=== PATIENT | male | born 1940 | race Caucasian/White ===

== ENCOUNTER 2017-07-22 21:08 | Inpatient (IN) | payer MEDICARE, OTHER ==
[~2017-07-22] VITALS: Ht 180.3 cm; Wt 82.6 kg
[~2017-07-22 21:08] MED LIST: ATORVASTATIN CA20 MG PO; CEPHALEXIN500 MG PO; CO Q-10300 MG PO; COZAAR25 MG PO; DIGOXIN125 MCG PO; FISH OIL 1,2001 EACH PO; FLAXSEED1000 MG PO; FLOVENT DISKU250 MCG INH; FOSAMAX70 MG PO; FUROSEMIDE20 MG PO; K-TAB10 MEQ PO; PREDNISONE20 MG PO; PROSTATE THERA1 EACH PO; SPIRIVA18 MCG INH; SPIRONOLACTONE25 MG PO; SYMBICORT 16010.2 GM INH; TERAZOSIN HCL5 MG PO; VITAMIN D31000 UNI1 PO; WARFARIN SODIUM5 MG PO; XARELTO20 MG PO
[2017-07-22] MEDS ORDERED: ALDACTONE25 MG PO (21:19)
[2017-07-22] MEDS ORDERED: ELIQUIS5 MG PO (21:21)
[2017-07-22] MEDS ORDERED: SYMBICORT 16010.2 GM INH (21:24)
--- NOTE | 2017-07-23 01:04 | NUR ---
PT ARRIVED TO ROOM 127 AT 2345. TRANSFERRED SELF BY ROLLING INTO BED. VERY SOB WITH ANY EXERTION. RR 30'S, HR 120'S-130'S, SPO2 84% AFTER MOVEMENT. INCREASED 02 TO 3L. REMINDED PT TO BREATHE THROUGH NOSE. PT TAKING A LONG TIME TO RECOVER. CALLED DR KINCAID AT 5020 TO UPDATE. 10MG CARDIZEM GIVEN IV PER ORDER. 2ND IV STARTED BY HARDWARE ENGINEER IN LFA. 2GM MAGNESIUM SULFATE STARTED. PT WITH IMPROVED HEART RATE AFTER 15-30MIN OF IV PUSH CARDIZEM. CARDIZEM GTT INCREASED UPON ARRIVAL UP TO 15MG/HR. PT REPORTS HIS SHORT TERM MEMORY IS NOT GOOD IT USED TO BE. LEFT AFTER PT SETTLED IN BED. 16FR GILLETTE CATH PLACED FOR URINARY URGENCY/FREQUENCY AND TO REDUCE SOB WITH MOVEMENT. DRAINING YELLOW URINE. LE NOTED TO BE RED ON SHINS, 1-2+ EDEMA ON FEET/LEGS, R FOOT SLIGHTLY MORE EDEMATOUS THAN L. 1CM BLISTER ON L LOREDO. AND SCAB ON R LOREDO, 1-2CM IN LENGTH. BRUISE ON L HAND FROM FALL, AND MULTIPLE BRUISES ON ARMS. PT CURRENTLY UP TO COMMODE WITH 2 PERSON ASSIST. HR UP TO 140'S WITH MOVEMENT, OTHERWISE 90'-110'S AT REST. SPO2 93% ON 3L. RR 30.
--- NOTE | 2017-07-23 01:52 | NUR ---
PT HR NOW 80'S AT REST. RR 25. TITRATED CARDIZEM GTT TO 10MG/HR. SPO2 94%.
--- NOTE | 2017-07-23 02:12 | NUR ---
CARDIZEM GTT DECREASED TO 5MG/HR. PT ASLEEP HOB UP NEARLY 90. HR 70'S-80'S. SPO2 93%. RR 20.
--- NOTE | 2017-07-23 04:12 | NUR ---
PT ATTEMPTED TO USE BEDPAN X2. UNSUCCESSFUL. REMAINS VERY SHAKY, REPORTS IT WORSE SINCE YESTERDAY. PT VERY SOB WITH ANY ACTIVITY, OCCASIONAL NON-PRODUCTIVE COUGH. RT IN TO ADMINISTER NEB TX.
--- NOTE | 2017-07-23 05:22 | NUR ---
PT USED BEDPAN TO HAVE MED-SMALL SOFT BROWN STOOL. PT DESATURATES TO MID-80'S WITH ANY EXERTION.
--- NOTE | 2017-07-23 05:56 | NUR ---
PT HAD SM SOFT BM ON BEDPAN. NO OTHER NEEDS. PLACED ON OXYMASK 3L FOR CONTINUED MOUTH BREATHING.
--- NOTE | 2017-07-23 07:51 | NUR ---
PT RESTING IN BED AND AT BEDSIDE. DILTIAZEM RUNNING AT 5ML/HR, HR 77 AND LAST BP 112/66. O2 87% WITH O2 AT 3L MASK, TITRATED TO 4L AND O2 CURRENTLY 92%. GILLETTE CATH IN PLACE, URINE IS CONCENTRATED WITH PINK TINGE. PT STATES HE DID NOT REST WELL LAST NIGHT. INCREASED TREMORS. DENIES PAIN AT THIS TIME. DENIES SOB WITH REST BUT C/O INCREASED SOB WITH ANY MOVEMENT. PT STATES COUGH HAS WORSENED, NO SPUTUM PRODUCTION.
--- NOTE | 2017-07-23 08:20 | NUR ---
PT'S STATES THAT THE PT HAS HAD FALLS IN THE PAST. STATES PT TAKE HOME O2 OFF FOR 20 MINS OR MORE, ATTEMPTS TO STAND, AND "BLACKS OUT." PROVIDED EDUCATION ON HOME O2 USE AND AMBULATION SAFETY. PT AND VERBALIZED AN UNDERSTANDING AND WERE AGREEABLE.
--- NOTE | 2017-07-23 08:45 | NUR ---
DR. KINCAID IN ROOM TO ASSESS PT AND UPDATE PLAN OF CARE. WILL AWAIT NEW ORDERS.
--- NOTE | 2017-07-23 09:10 | EKG ---
[facility] [address] [place], [place] [address] Signed Atrial fibrillation with rapid ventricular response Possible Anterior infarct , age undetermined Abnormal ECG No previous ECGs available Confirmed by YOANNA KINCAID MD ([id number]) on 07/23/2017 9:09:56 AM Electronically Signed By: YOANNA KINCAID MD 07/23/17 0910 PATIENT NAME: KADY SARMIENTO Electrocardiogram DATE OF : 38 PHYSICIAN: YOANNA KINCAID MD REPORT #: [id number] REPORT IS CONFIDENTIAL AND NOT TO BE RELEASED WITHOUT AUTHORIZATION
--- NOTE | 2017-07-23 09:39 | NUR ---
SHASHANKY THERAPY IN ROOM AT THIS TIME.
--- NOTE | 2017-07-23 10:10 | NUR ---
PT EQUESTING TO HVE A BEER. 1 BEER WITH MEAL IN ORDERS. PT PROVIDED WITH 1 CAN OF BEER AT THIS TIME.
--- NOTE | 2017-07-23 11:21 | NUR ---
MRI SCREENING FORM FILLED OUT WITH PT AND PT'S . ALL QUESTIONS ANSWERED AT THIS TIME. PT REQUESTING TO SIGN FORM, FORM SIGNED AND FAXED.
--- NOTE | 2017-07-23 12:42 | NUR ---
PT RESTING IN BED, SUFFERING FROM TREMORS IN HANDS AND ARMS. VERY PLEASANT, ALERT AND ORIENTED. PT MENTIONED THAT HE WAS FEELING BETTER, BUT HOPING FOR MORE ANSWERS. PT REQUESTED PRAYER, BUT ASKED IF I COULD WAIT UNTIL HIS PALOMO WAS IN RM. SHE HAD JUST STEPPED OUT, AND THEM REAPPEARED. HAD PRAYER, THEY BOTH THANKED ME. BOTH REQUESTED I RETURN. WILL FOLLOW NEEDED
--- NOTE | 2017-07-23 13:00 | NUR ---
PT OFF UNIT AND TO MRI AREA. NURSE PRESENT AND BEDSIDE TO OBSERVE AND ASSESS PT. PT ON 6L VIA OXYMASK, SPO2 92%.
--- NOTE | 2017-07-23 13:45 | NUR ---
THIS RN ACCOMPANIED PATIENT DOWN TO MRI. PT TOLERATED FAIR BUT DID HAVE TROUBLE HOLDING STILL AT TIMES DUE TO HIS TREMULOUSNESS. PT RETURNED AT 1345 AND WITH THE HELP OF 3 RNs, WAS TRANSFERRED BACK ONTO CCU BED. PT VERY SHORT OF BREATH AFTER THIS MOVEMENT AND REMAINS ON 8 L OXYMASK DURING THIS MOVEMENT. PATIENT RE-CONNECTED TO CCU MONITOR AND IVF.
--- NOTE | 2017-07-23 14:00 | NUR ---
TWICE IN TO SEE PATIENT. PATIENT WITH STAFF BOTH TIMES. WILL CHECK LATER.
--- NOTE | 2017-07-23 14:10 | NUR ---
GILLETTE BAG NOTED TO HAVE INCREASED BLOOD. URINE OUTPUT NOTED TO BE DECREASED FROM MORNING ASSESSMENT. PT HAVING INCREASED RESTLESSNESS, IRRITABILITY, AND ANXIETY. PT OFFERED BEER AT THIS TIME, DECLINED. EDUCATION PROVIDED ON POSSIBLE ETOH WITHDRAWL AND SYMPTOMS TO MONITOR FOR. PROVIDER NOTIFIED OF ABOVE MENTIONED CHANGES, 1L BOLUS OF NS ORDERED.
--- NOTE | 2017-07-23 14:45 | NUR ---
PT'S STATES THAT THE PT REQUESTED SHE BRING IN WHISKEY FOR HIM TO DRINK. STATES PT DRINKS SEVERAL DRINK THROUGHOUT THE DAY, HOWEVER SINCE THE PT HAS HAD INCREASED DIFFICULTY WITH AMBULATING SHE HAS PROVIDED ALCOHOL. PT'S STATES THAT SHE HAS NOT BEEN SERVING STRONG OF DRINKS FOR THE LAST WEEK. PT ASSESSED FOR ALCOHOL USE. PT STATES HE DRINK 3-4 DOUBLE WHISKEY WITH WATER ALONG WITH CANS OF BEER THROUGHOUT THE DAY. PROVIDER NOTIFIED OF ALCOHOL USE AND INCREASED ETOH S/SX. ATIVAN AND CWA ORDERED. WILL CONTINUE TO MONITOR.
--- NOTE | 2017-07-23 18:06 | NUR ---
PATIENT HAD LABS DRAWN AROUND 1645 BY RN. PT WAS LAST GIVEN ATIVAN AROUND 1610 1 MG, FOR ETOH WITHDRAWAL SYMPTOMS. PATIENT NOTED TO BE MOVING AROUND A LOT ON TELEMETRY AND THIS RN WENT INTO ROOM TO FIND THAT PATIENT HAD JUST PULLED HIS GILLETTE OUT OF HIS BLADDER, WITH THE BALOON STILL INTACT. PATIENT WAS IMMEDIATELY NOTED TO BE BLEEDING FROM THE URETHRA, AND WAS ATTEMPTING TO PUT KLEENEX OVER THE AREA. WHEN ASKING THE PATIENT ABOUT WHAT HAD HAPPENED, HE SIMPLY STATES, "I HAD TO PEE." PATIENT HAD NOT BEEN PULLING AT GILLETTE EARLIER TODAY, HOWEVER THERE WAS SOME BLOODY TINGED URINE THAT WAS COMING THROUGH THE GILLETTE EARLIER, HOWEVER THIS WAS STARTING TO CLEAR UP. PATIENT WAS HELPED TO GET CLEANED UP BUT HIS URETHRA CONTINUED TO HAVE BLOOD DRAINING FROM IT. DR. KINCAID WAS IN UNIT AND NOTIFIED. PATIENT WAS THEN AT THIS POINT TRANSFERRED TO ROOM 129 FOR CLOSER MONITORING FROM THE NURSE'S STATION. PT'S ARRIVED BACK TO CCU AROUND THIS TIME WELL. GILLETTE CATHETER REPLACED WITH A [address] KINCAID WITH 2 LIDOCAINES USED AND 2 ATTEMPTS. PT HAS HAD LARGE AMOUNT OF BLOODY CLOTS PASSING THROUGH INTO GILLETTE CATHETER BAG. ENTIRE GILLETTE BAG WAS CHANGED DUE TO BLOOD CLOTTING AND CLOGGING THE UROMETER PORTION OF THE BAG. BAG APPROXIMATED TO BE ABOUT 200 ML OF URINE AND BLOOD IN THE BAG. PATIENT IS BECOMING INCREASINGLY AGITATED AND IN NEED OF LORAZEPAM FOR CONTROL OF ETOH W/D SYMPTOMS.
--- NOTE | 2017-07-23 18:12 | NUR ---
PATIENT GIVEN ANOTHER DOSE OF ATIVAN AROUND 1805. PATIENT WILL REMAIN CALM FOR ABOUT 10 MINUTES AND THEN HE WILL START RIPPING THE COVERS OFF AND ATTEMPTS TO GET OUT OF BED. PT IS HARD TO REASON WITH AND GETS HIS MIND SET THAT HE IS GOING TO GET OUT OF BED. PT WILL ALSO START TO GRAB FOR HIS GILLETTE CATHETER. RN STAYING IN ROOM WITH PATIENT AT THIS TIME.
--- NOTE | 2017-07-23 18:13 | NUR ---
PATIENT HAS BEEN MOVED TO 129 FOR CLOSE OBSERVATION AFTER PULLING GILLETTE OUT. STAFF REQUESTS NOT TO WAKE HIM. STATES PATIENT MAY BE DISPLAYING SOME WITHDRAWL SYMPTOMS. WILL DEFER ASSESSMENT UNTIL TOMORROW. FAMILY NOT IN ROOM.
--- NOTE | 2017-07-23 18:30 | NUR ---
DR KINCAID UPDATED ON PATIENT VITAL SIGNS, AND OVERALL STATUS. NO FUTHER ORDERS AT THIS TIME.
--- NOTE | 2017-07-23 18:34 | NUR ---
DILTIAZEM CHANGED FROM IV TO 45MG PO, HR 70-90, HR INCREASED TO LOW 100'S WHEN INCREASED AGGITATION NOTED. O2 NEEDS HAVE INCREASED THROUGHOUT THE DAY, CURRENTLY 10L OXYMASK AND SPO2 95%. NS RUNNING AT 75 ML/HR. IV SITES INCLUDE 20G RW AND 20G LF, WNL. GILLETTE DRAINING BLOOD TINGED URINE. BLOODY DISCHARGE FROM URETHRA NOTED, SITE CLEANSED, ATTEND IN PLACE. PT CONTINUES TO ATTEMPT TO PULL AT GILLETTE WHEN AWAKE. PT ATTEMPTS TO GET OUT OF BED AND IS VERY AGGITATED WHEN AWAKE. 3 DOSES OF ATIVAN GIVEN AND PT IS RESTING COMFORTABLY AT THIS TIME. PT WILL NEED TO BE MONITORED FOR CONFUSION AND INCREASED S/SX OF ETOH WITHDRAWL.
--- NOTE | 2017-07-23 18:50 | NUR ---
SITTING UP AT BEDSIDE. FAMILY IN ROOM. FACE FLUSHED.
--- NOTE | 2017-07-23 20:00 | NUR ---
PATIENT RESTING IN BED, NO TREMORS, APPEARS TO BE AT EASE, PATIENT UNABLE TO ANSWER QUESTIONS AT THIS TIME DUE TO MENTAL STATUS, EYES OPEN TO VOICE AND PHYSICAL STIMULI. MD AWARE OF PATIENT'S CURRENT CONDITION. CALL LIGHT WITHIN REACH, BED ALARM ON.
--- NOTE | 2017-07-23 22:22 | NUR ---
PT REMAINS ASLEEP. SNORING.
--- NOTE | 2017-07-23 22:37 | NUR ---
REPOSITIONED PATIENT FOR COMFORT, PATIENT RESPONDS TO VOICE, VERBALIZES THAT HE DOES NOT HAVE PAIN. PATIENT DOES NOT ANSWER ANY OTHER QUESTIONS. APPEARS TO BE COMFORTABLE, PATIENT IS TREMULOUS WHEN STIMULATED, QUICKLY CLOSES EYES AND NO LONGER HAS TREMORS WHEN ASLEEP. CALL LIGHT WITHIN REACH.
--- NOTE | 2017-07-23 23:02 | NUR ---
CIWA SCORE OF 13, 1 MG IV ATIVAN GIVEN PER EMAR. VITALS ARE STABLE, CALL LIGHT WITHIN REACH.
--- NOTE | 2017-07-24 | NUR ---
PATIENT RESTING IN BED, BREATHING IS UNLABORED, O2 SATURATION IS 94% ON 8L O2 VIA OXYMASK, RR IS 22. CIWA OF 0. CALL LIGHT WITHIN REACH.
--- NOTE | 2017-07-24 01:00 | NUR ---
PATIENT RESTING IN BED, BREATHING IS UNLABORED AT THIS TIME, RR IS 19, O2 SATURATION IS 92% ON 8L O2 VIA OXYMASK. CIWA OF 0. CALL LIGHT WITHIN REACH.
--- NOTE | 2017-07-24 02:03 | NUR ---
PATIENT RESTING IN BED, REPOSITIONED FOR COMFORT. VITALS STABLE, APPEARS TO BE ASLEEP. CIWA OF 0, FLACC SCORE OF 0. CALL LIGHT WITHIN REACH.
--- NOTE | 2017-07-24 03:14 | NUR ---
02 TITRATED BACK TO 10L NC SATS HAD DECT TO UPPER 80'S.
--- NOTE | 2017-07-24 04:07 | NUR ---
PT WILL OPEN EYES TO NAMED BEING CALLED LOUDLY. IS UNABLE TO FOLLOW DIRECTIONS. WHEN ORAL CARE DONE, PT SHOOK HEAD. PT STRAIGHTED IN BED. WILL MOVE LEGS SPONTANEOUSLY. DR KINCAID CALLED RE PT MENTAL STATUS AND TIME FOR ORAL MED. HR 80'S. WILL HOLD ORAL CARDIZEM FOR NOW.
--- NOTE | 2017-07-24 04:28 | NUR ---
AGITATED, TRYING TO PULL AT GILLETTE. UNABLE TO FOLLOW DIRECTIONS. GIVEN 1 MG ATIVAN IV TITRATING FOR EFFECT.
--- NOTE | 2017-07-24 05:56 | NUR ---
PATIENT RESTING, CIWA OF 0. CALL LIGHT WITHIN REACH, VITALS STABLE.
--- NOTE | 2017-07-24 08:15 | NUR ---
PT SLEEPING, ASSESSMENT COMPLETED. R.T. HERE AND NEB TX GIVEN, PT PAULO WELL. PT MOVES ARMS BUT IS NON-VERBAL AT THIS TIME.
--- NOTE | 2017-07-24 08:19 | NUR ---
PATIENT RESTING IN BED, EYES CLOSED. WASH CLOTH SET OUT FOR A LATER TIME. PATIENT CALL LIGHT IN REACH. NO OTHER NEEDS AT THIS TIME.
--- NOTE | 2017-07-24 09:16 | NUR ---
PT CONTINUES TO LAY ON SIDE. RESPS EVEN. APPEARS COMFORTABLE. WHEN PT BEGINS TO WAKE, WILL GIVE AM MEDS.
--- NOTE | 2017-07-24 09:46 | NUR ---
PATIENT RESTING IN BED, EYES CLOSED. PATIENT DOES NOT WAKE WHEN TOUCHED. THIS PREASSEMBLER PRINTED CIRCUIT BOARD NOTICED PATIENT HAVING TREMORS. RN IS AWARE. PATIENT CALL LIGHT IN REACH. NO OTHER NEEDS AT THIS TIME.
--- NOTE | 2017-07-24 09:53 | NUR ---
PT CONTINUES WITH EYES CLOSED. HOWEVER IS BEGINNING TO HAVE TREMORS. 2 MG OF IV ATIVAN GIVEN
--- NOTE | 2017-07-24 10:42 | NUR ---
PT AWAKE IN BED, CONTINUES TO TREMOR, PULLING AT OXYMASK, PULLING AT IV. MEDICATED WITH 2 MG IV ATIVAN.
--- NOTE | 2017-07-24 10:42 | NUR ---
PT RESTING WITH HOB ELEVATED, PT WITH EXP WHEEZES, R.T. CALLED AND NEB TX GIVEN. PT RESTING WELL AFTER ATIVAN GIVEN.
--- NOTE | 2017-07-24 10:43 | NUR ---
REPORT TO DOMINIQUE MITCHELL
--- NOTE | 2017-07-24 11:13 | NUR ---
PT WITH TEMORS REACHING FOR GILLETTE CATHETER. MEDICATED WITH ATIVAN 2MG IV. 02 AT 7L PER OXYMASK, SATS 91%.
--- NOTE | 2017-07-24 11:35 | NUR ---
PT REMAINS AGITATED - MEDICATED WITH ATIVAN 2MG IV. LINEN CHANGED.
--- NOTE | 2017-07-24 11:47 | NUR ---
DR. KINCAID IN TO ASSESS PT. NEW ORDERS RECEIVED. PT REPOSITIONED IN BED.
--- NOTE | 2017-07-24 11:55 | NUR ---
ASSESSMENT COMPLETED. PT NOW RESTING WITH HOB SLIGHTLY ELEVATED. SATS 95% ON 7L PER OXYMASK. LUNGS WITH FEW FINE CRACKLES IN BASES.
--- NOTE | 2017-07-24 13:01 | NUR ---
R.T. HERE AND CPAP PLACED ON PT @ 15 40% FI02. PT PAULO WELL.
--- NOTE | 2017-07-24 13:29 | NUR ---
PT AGITATED WITH CPAP ON. CPAP REMOVED AND OXYMASK ON AT 7L, SAT 92%. ATIVAN 2MG GIVEN IV.
--- NOTE | 2017-07-24 13:32 | NUR ---
PATIENT RESTING IN BED, RN IN ROOM. CALL LIGHT IN REACH. NO OTHER NEEDS AT THIS TIME.
--- NOTE | 2017-07-24 13:42 | NUR ---
CHECKED ON PT SEVERAL TIMES TODAY. PT IS ASLEEP, DID NOT DISTURB. WILL CHECK BACK AGAIN
[2017-07-24] MEDS ORDERED: SPIRIVA RESPIMAT4 GM INH (14:31)
--- NOTE | 2017-07-24 14:52 | NUR ---
PT SLEEPING ON RIGHT SIDE WITH HOB SLIGHTLY ELEVATED, RESP 27. OXYMASK ON AT 7L WITH SATS 92%
--- NOTE | 2017-07-24 15:37 | NUR ---
PATIENT RESTING IN BED, EYES CLOSED. PATIENT TREMORS OCCASIONALLY. CALL LIGHT IN REACH. NO OTHER NEEDS AT THIS TIME.
[2017-07-24] MEDS ORDERED: B COMPLEX1 EACH PO (15:38)
[2017-07-24] MEDS ORDERED: LASIX20 MG PO (15:38)
[2017-07-24] MEDS ORDERED: ALPHA LIPOIC AC50 MG PO (15:39)
--- NOTE | 2017-07-24 15:39 | NUR ---
MED REC COMPLETE
--- NOTE | 2017-07-24 16:34 | NUR ---
IN TO CHECK PATIENT, WILL CALL TOMORROW.
--- NOTE | 2017-07-24 16:36 | NUR ---
ASSESSMENT COMPLETED. MEDICATED WITH ATIVAN 2MG IV - PT PULLING AT CPAP MASK AND IV LINE.
--- NOTE | 2017-07-24 17:01 | NUR ---
THIS DRUM MAKER AND DRUM MAKER JOHNATHON AND SHANNAN ASSISTED TO CHANGE PATIENT'S BED LINENS. PATIENT READJUSTED IN BED, CALL LIGHT IN REACH. PATIENT RESTING WITH EYES CLOSED. NO OTHER NEEDS AT THIS TIME.
--- NOTE | 2017-07-24 17:57 | NUR ---
VITALS RECORDED AT 1700
--- NOTE | 2017-07-24 18:30 | NUR ---
PT RESTING WITH HOB ELEVATED, OXYMASK ON AT 7L, SATS 95%. ATIVAN 2MG IV GIVEN FOR AGITATION, PULLING AT 02 MASK, BED ALARM ON.
--- NOTE | 2017-07-24 18:46 | NUR ---
RN IN ROOM. PATIENT STATES HE FELT HE NEEDED TO URINATE. RN AND THIS CEILING INSTALLER EXAMINED GILLETTE SITE. PATIENT BLEEDING SLIGHTLY AT GILLETTE SITE, THIS CEILING INSTALLER PERFORMED PERICARE AND CATH CARE. THIS CEILING INSTALLER NOICED DARK BLACK SPOT ON GILLETTE ENTRY SITE, RN EXAMINED. PATIENT CLEANED UP AND RESTING IN BED. RN IN ROOM. THIS CEILING INSTALLER WASHED PATIENTS HANDS WITH COLD WASH CLOTH. PATIENT CALL LIGHT IN REACH. NO OTHER NEEDS AT THIS TIME.
--- NOTE | 2017-07-24 20:10 | NUR ---
PATIENT IS RESTLESS IN BED, CIWA OF 19, 2 MG IV ATIVAN GIVEN PER EMAR. ASSESSMENT DONE. PATIENT NOW RESTING, CIWA OF 0. TOLERATING CPAP, O2 SATURATION IS 97% ON CPAP WITH 40% O2, RR IS 21. REPOSITIONED FOR COMFORT, CALL LIGHT WITHIN REACH, BED ALARM ON.
--- NOTE | 2017-07-24 21:25 | NUR ---
PT WORE CPAP FOR OVER 1 HR, NOW AWAKE AND PULLING AT IV'S. GIVEN 2MG ATIVAN IV.
--- NOTE | 2017-07-24 22:06 | NUR ---
cont episodes of restlessness. given 2mg ativan iv
--- NOTE | 2017-07-24 22:36 | NUR ---
PATIENT CONTINUES TO BE AGITATED, PULLING AT COVERS AND ATTEMPTING TO PULL AT CATHETER. 2 MG IV ATIVAN GIVEN. PATIENT REPOSITIONED FOR COMFORT.
--- NOTE | 2017-07-25 00:16 | NUR ---
PATIENT FIDGITING WITH BLANKETS, TAKING OFF OXYGEN, ATTEMPTING TO PULL GILLETTE OUT AND PULLING ON IV LINES, 2 MG IV ATIVAN GIVEN PER EMAR.
--- NOTE | 2017-07-25 01:41 | NUR ---
PATIENT CONTINUES TO BE AGGITATED, PULLING AT IV LINES AND PULLING AT GILLETTE, FIDGETING WITH BLANKETS. INCREASED WORK OF BREATHING NOTED, RR OF 32, USE OF ACCESSORY MUSCLES NOTED. RT CALLED, PATIENT PLACED ON BIPAP. 2MG IV ATIVAN GIVEN.
--- NOTE | 2017-07-25 02:45 | NUR ---
PATIENT CONTINUES TO REQUIRE FREQUENT IV ATIVAN ADMINISTRATION (SEE EMAR) DUE TO AGGITATION, PULLING AT IV LINES AND ATTEMPTING TO REMOVE BIPAP.
--- NOTE | 2017-07-25 03:24 | NUR ---
UPDATED DR. KINCAID REGARDING PATIENT'S ABG RESULTS WITH PO2 OF 64 ON BIPAP. NO NEW ORDERS AT THIS TIME.
--- NOTE | 2017-07-25 03:43 | NUR ---
PATIENT GIVEN IV ATIVAN FOR COMFORT IN ORDER TO STAY ON BIPAP AND TO MAINTAIN IV SITE DUE TO LIMITED VASCULAR ACCESS.
--- NOTE | 2017-07-25 04:36 | NUR ---
PATIENT RESTING IN BED, BREATHING IS EVEN AND UNLABORED. RR IS 18, O2 SATURATION IS 97% ON BIPAP WITH 40% FIO2. FLACC SCORE OF 0. CALL LIGHT WITHIN REACH.
--- NOTE | 2017-07-25 05:52 | NUR ---
PATIENT PLACED ON BIPAP DUE TO INCREASED WORK OF BREATHING AND DESATURATION. REQUIRED 2 MG IV ATIVAN DUE TO AGGITATION AND ATTEMPTING TO REMOVE IV. REPOSITIONED FOR COMFORT.
--- NOTE | 2017-07-25 06:04 | NUR ---
UPDATED DR. KINCAID REGARDING PATIENT'S LOW URINE OUTPUT. NO NEW ORDERS AT THIS TIME.
--- NOTE | 2017-07-25 08:01 | NUR ---
ASSESSMENT COMPLETED. PT REPOSITONED IN BED ON BEDPAN, UNABLE TO HAVE BM AT THIS TIME. R.T. HERE AND NEB TX GIVEN. PT ANSWERING YES & NO QUESTIONS AND FOLLOWS SIMPLE COMMANDS. (COUGHS WHEN ASKED TO).
--- NOTE | 2017-07-25 08:58 | NUR ---
CALLED PER PT REQUEST, HERE NOW AT BEDSIDE.
--- NOTE | 2017-07-25 09:31 | NUR ---
DR. KINCAID IN TO ASSESS PT AND TALK WITH . Santi SOW EVENTS SPECIALIST ALSO IN ROOM AND TALKED WITH . DR. KINCAID WOULD LIKE R.T. TO SUCTION PT. R.T. NOTIFED. R.T. HERE TO SUCTION PT. CHEST XRAY ORDERED.
--- NOTE | 2017-07-25 11:54 | NUR ---
CXR COMPLETED PER DR. AGUILAR.
--- NOTE | 2017-07-25 12:35 | NUR ---
CARE CONFERENCE DR KINCAID IN ROOM WITH , MYSELF, AND CLIF RN. DR KINCAID STATED THE PT WOULD BE IN THE HOSPITAL PROBABLY UNTIL AT LEAST NEXT WEEK. HE IS FORSEEING GRADUAL DECREASE IN MEDS THE WITHDRAWL PROGRESSES AND PT SX SUBSIDE, BUT WITH THE POSS OF NEEDING INCREASES IF NECESSARY. ORDERING PT TO WORK WITH PT WHEN HE IS MORE STABLE. ASKED ABOUT TREATMENT WHEN PT IS OUT OF THE HOSP AND WAS TOLD THAT IT WOULD DEPEND ON THE PT.
--- NOTE | 2017-07-25 12:36 | NUR ---
ASSESSMENT AND VITAL SIGNS COMPLETED. PT RESTING ON LEFT SIDE. OXYMASK ON AT 7L PER NC, SATS 94%. URINE OUTPUT DECREASED TO 25 MLS/HR.
--- NOTE | 2017-07-25 12:59 | NUR ---
PT PLACED ON BIPAP 15/8 40%. SATS 93% RESP 22.
--- NOTE | 2017-07-25 16:34 | NUR ---
ASSESSMENT COMPLETED. PT OFF AND ON BIPAP TOLERATING WELL. GILLETTE CATH EMPTIED OF 1425 MLS CLEAR LIGHT YELLOW URINE AFTER LASIX GIVEN.
--- NOTE | 2017-07-25 17:18 | NUR ---
P.T. HERE AND PT SAT ON EDGE OF BED WITH [address] KINCAID NOTIFIED AND CAME TO LISTEN TO HIS LUNGS WHILE PT WAS IN A SITTING POSITION. NEW ORDERS RECEIVED. LASIX 40 MG IV GIVEN. LUNGS WITH COARSE SOUNDS THOUGHOUT. GILLETTE NOW DRAINING CLEAR LIGHT YELLOW URINE.
--- NOTE | 2017-07-25 18:18 | NUR ---
HERE TO VISIT WITH PT FOR A SHORT WHILE. PT SLEEPING NOW ON RIGHT SIDE WITH BIPAP IN PLACE 24/12 RATE 18 50% FI02 SAT 96%.
--- NOTE | 2017-07-25 19:46 | NUR ---
PT LYING IN BED, SLEEPING WITH 6L/NC 91%, BED ALARM ON. RFPORT GIVEN BY DOMINIQUE MITCHELL.
--- NOTE | 2017-07-25 20:39 | NUR ---
REPORT RECIEVED FROM DAYSHIFT AT 1900. PT ASLEEP AT THAT TIME. RECENTLY AWOKE. RESTLESS, TAKING OFF O2, PULLING ON TUBING. FOLLOWS COMMANDS, VOICE HARSH AND QUIET. RT IN TO GIVEN NEB. HOB UP PT WITH SEESAW BREATHING AT TIMES. ENCOURAGED TO COUGH, NON-PRODUCTIVE HARSH COUGH. 1MG ATIVAN GIVEN IV.
--- NOTE | 2017-07-25 21:42 | NUR ---
PLACED PT ON BIPAP AT 5. 2MG ATIVAN GIVEN AT 2114 FOR CONTINUED RESTLESSNESS AND AGITATION. PT TOLERATING WELL.
--- NOTE | 2017-07-25 22:09 | NUR ---
PT PULLING AT MASK. REMOVED BIPAP AND PLACED ON OXYMASK 7L. REQUIRING FREQUENT REMINDERS TO LEAVE ON. PT ASKED "WHEN CAN I HAVE A BEER". EXPLAINED NPO AT THIS TIME. POSITIONED PT TO R SIDE, APPEARS MORE COMFORTABLE AND ASLEEP.
--- NOTE | 2017-07-25 23:14 | NUR ---
PT RESTLESS, REMOVING OXYMASK, PUTTING LEGS OVER SIDE OF BED. 2MG ATIVAN GIVEN IV.
--- NOTE | 2017-07-25 23:39 | NUR ---
PT TAKING OFF COVERS, PULLING ON CATHETER. REMINDED TO LEAVE IN ALONE. RR 38. 2MG ATIVAN GIVE IV PER CIWA AND PLACED PT ON BIPAP.
--- NOTE | 2017-07-26 02:00 | NUR ---
PT REMAINS RESTLESS AND FIDGETING, CONSTANT MOVING IN BED, REPOSITIONED SEVERAL TIMES AND PROTECTED IV. OXYMASK ON FOR DISCOMFORT AND PULLING OF BIPAP. ON AT 8L. 2MG ATIVAN GIVEN IV.
--- NOTE | 2017-07-26 03:57 | NUR ---
PT RESTLESS, PULLING AT CATHETER, THROWING LEGS OFF BED. 2MG IV ATIVAN GIVEN. RESP LABORED AND TACHYPNIC, BIPAP REPLACED. REPOSITIONED UP IN BED WITH BED ALARM ON.
--- NOTE | 2017-07-26 04:17 | NUR ---
REPORT RECEIVED FROM BRITTA Hancock RN
--- NOTE | 2017-07-26 05:08 | NUR ---
PATIENT RESTLESS, PULLS AT BIPAP MASK AND ROLLS SIDE TO SIDE IN BED. 2MG ATIVAN IVP GIVEN.
--- NOTE | 2017-07-26 05:37 | NUR ---
PT RESTLESS, PULLING AT LINES, APPEARS VERY DISTRESSED. BIPAP SWITCHED TO NASAL CANNULA. 2MG IV ATIVAN GIVEN. LAB IN TO DRAW BLOOD.
--- NOTE | 2017-07-26 08:30 | NUR ---
UPON INITIAL ASSESSMENT, THE PATIENT WAS LAYING IN BED, GRASPING AT THE AIR WITH HANDS, BREATHING UNEVEN AND LABORED WITH RESPIRATORY RATE IN THE 30'S AND OXYGEN SATURATION AT 90 PERCENT ON 6 L NC. INSPIRATORY AND EXPIRATORY WHEEZES IN THE BASES OF BOTH LUNGS UPON ASCULTATION. PT APPEARS DIAPHORETIC. RESPONDS TO YES OR NO QUESTIONS WITH NODS. REPOSITIONED PATIENT IN BED AND PUT BIPAP ON. PTS SATURATIONS INCREASED TO 95 PERCENT ON THE BIPAP. HEAD OF BED ELEVATED AT 30 DEGREES, PT APPEARS TO BE MORE COMFORTABLE AFTER MEDICATION PER ALCOHOL WITHDRAWAL PROTOCOL. VISIBLE FROM THE NURSES STATION, BED ALARM ON.
--- NOTE | 2017-07-26 09:09 | NUR ---
DR KINCAID INTO SEE PT IV FLUIDS DECREASED TO 65ML/HR AT THIS TIME PER ORDERS. PT REMAINS ON BIPAP AT THIS TIME.
--- NOTE | 2017-07-26 09:55 | NUR ---
PT APPEARS TO BE RESTING COMFORTABLE AT THIS TIME. BIPAP REMAINS INPLACE AT THIS TIME.
--- NOTE | 2017-07-26 10:23 | NUR ---
PT APPEARS AGGITATED AND RESTLESS, PULLING AT IV TUBING AND ATTEMPTING MOVE OUT OF THE BED. OXYGEN SATURATIONS 89 PERCENT ON 6L NC. PATIENT MEDICATED WITH 2MG OF ATIVAN PER ALCOHOL WITHDRAWAL PROTOCOL AND PLACED BACK ON BIPAP. BED ALARM ON, WITHIN VIEW OF NURSES STATION.
--- NOTE | 2017-07-26 10:46 | NUR ---
PT ON O2 NC, MOSTLY UNRESPONSIVE. TALKED TO PT FOR A MOMENT, OFFERED A PRAYER. WILL CONTINUE TO FOLLOW NEEDED
--- NOTE | 2017-07-26 11:47 | NUR ---
PT RESTING COMFORTABLY WITH EYES CLOSED, BREATHING IS EVEN AND UNLABORED AT 2O BREATHS PER MINUTE. ON BIPAP PT'S OXYGEN SATURATION AT 94 PERCENT. CALL LIGHT WITHIN REACH, BED ALARM ON, VISIBLE FROM THE NURSES STATION.
--- NOTE | 2017-07-26 13:11 | NUR ---
PT OFF BIPAP FOR 30 MINUTES, RESPIRATORY RATE INCREASED TO THE MID 30'S AND OXYGEN SATURATION DROPPED TO 88-90 PERCENT ON 6L NC. PT BREATHING WAS LABORED AND UNEVEN. BACK ON BIPAP WITH FIO2 AT 50 PERCENT, RESPIRATORY RATE BACK IN THE MID 20'S AND OXYGEN SATURATIONS AT 96 PERCENT.
--- NOTE | 2017-07-26 14:10 | NUR ---
PT SLEEPING COMFORTABLY WITH BIPAP ON FOR THE LAST HOUR, BREATHING EVEN AND UNLABORED. HR IN THE 60'S AND RESPIRATORY RATE AT 20. LARGE AMOUNTS OF DILUTE URINE SINCE LAST DOSE OF LASIX AT 1300. VISIBLE FROM NURSES STATION, BED ALARM ON.
--- NOTE | 2017-07-26 14:48 | NUR ---
PT APPEARS TO BE RESTING COMFORTABLE AT THIS TIME, BIPAP IN PLACE AT THIS TIME.
--- NOTE | 2017-07-26 15:38 | NUR ---
RT IN TO DO BREATHING TREATMENT, PT OPENING EYES WHEN SPOKEN TO, NODING IN RESPONSE TO YES OR NO QUESTIONS, ATTEMPTING TO SPEAK BUT UNABLE TO ARTICULATE WORDS. RT REMAINS IN ROOM.
--- NOTE | 2017-07-26 16:05 | NUR ---
IN PTS ROOM, PT TAKING OFF NASAL CANNULA. PERFORMED ORAL CARE ON PT. PT ATTEMPTING TO SPEAK, ASKING FOR A BEER. REMINDED THE PATIENT THAT HE IS GOING THROUGH ALCOHOL WITHDRAWAL AND THAT HE NEEDS TO KEEP OXYGEN ON TO MAINTAIN HIS OXYGEN SATURATIONS. BIPAP PUT BACK ON. PT. WITHIN VIEW OF NURSES STATION AND BED ALARM ON.
--- NOTE | 2017-07-26 16:52 | NUR ---
PT ASKED TO GET OUT OF BED, REMINDED THE PATIENT ABOUT WEAKNESS AND ASSISTED HIM REPOSTION IN BED. NOW LAYING WITH EYES CLOSED, BREATHING EVEN WITH A RESPIRATORY RATE OF 18 BREATHS A MINUTE. AT BEDSIDE, AND VISIBLE FROM NURSES STATION.
--- NOTE | 2017-07-26 17:26 | NUR ---
XRAY IS HERE AT THIS TIME FOR A CXR
--- NOTE | 2017-07-26 18:05 | NUR ---
REPOSTIONED PATIENT IN BED AND TOOK HIM OFF BIPAP AND BACK ON NC AT 6L. PT RESTLESS, AND MEDICATED WITH 2MG OF ATIVAN FOR A SCORE OF 10 ON THE ALCOHOL WITHDRAWAL PROTOCOL.
--- NOTE | 2017-07-26 20:33 | NUR ---
PT GIVEN 2MG IV ATIVAN AT 2020 FOR INCREASED AGGITATION; PT PULLING AT BIPAP MASK, VISBILE TREMORS, INCREASED RESPIRATORY EFFORT, INCREASED HR. WILL REASSES
--- NOTE | 2017-07-26 21:31 | NUR ---
PT RESTING COMFORTABLY AT THIS TIME ON RIGHT SIDE; PRN ATIVAN AND REPOSITION DECREASED PT RESTLESSNESS/AGITATION
--- NOTE | 2017-07-26 21:52 | NUR ---
PT GIVEN 2 MG IV ATIVAN PRN FOR INCREASED AGITATION/RESTLESSNESS; RASS +2, INCREASED BP, INCREASED VISIBLE TREMOR, PT PICKING AND PULLING AT MONITOR EQUIPMENT
--- NOTE | 2017-07-26 22:33 | NUR ---
2MG IV ATIVAN GIVEN AT THIS TIME FOR INCREASED AGITATION. RASS: +2 AT THIS TIME.
--- NOTE | 2017-07-26 23:16 | NUR ---
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
--- NOTE | 2017-07-27 00:58 | NUR ---
PT ALERT AND ORIENTED AT THIS TIME, ASKED APPROPRIATELY FOR TELEVISION REMOTE. VISUAL TREMOR WITH LESS RESTLESSNESS NOTED
--- NOTE | 2017-07-27 01:18 | NUR ---
PT INCREASED AGITATION, RECEIVED 2 MG PRN IV ATIVAN; VISIBLE TREMOR, RESTLESS, FIDGITING IN BED; WILL CONTINUE TO MONITOR PT FOR WITHDRAWAL SX
--- NOTE | 2017-07-27 02:06 | NUR ---
2MG IV ATIVAN GIVEN AT THIS TIME FOR RASS: +2.
--- NOTE | 2017-07-27 02:52 | NUR ---
DR KINCAID UPDATED ON PT STATUS AND RESPONSE TO ATIVAN; ORDER RECEIVED TO INCREASE DOSE TO 4MG EVERY ONE HOUR WITH SAME PARAMETERS; PT INCREASED RESTLESSNESS/AGITATION/PULLING AT MONITOR WIRES; HALUCINATIONS OF PERSON IN BATHROOM WITH NO ONE IN ROOM; WILL TRY LARGER ATIVAN DOSE AND RE-EVALUATE
--- NOTE | 2017-07-27 03:41 | NUR ---
PT PLACED ON BIPAP AT THIS TIME WITH FIO2 AT 50%; PT REMOVED NASAL CANNULA AND DECREASED O2 SAT TO MID 80S, PT TRYING TO REFUSE BIPAP MASK AND NASAL CANNULA. RT NOTIFIED THAT PT PLACED BACK ON BIPAP
--- NOTE | 2017-07-27 05:11 | NUR ---
PT PULLING AT BIPAP, SEVERE TREMOR, INCREASED HR, AGITATED/RESTLESS, PT BECOMING COMBATIVE WITH RN; RASS +2 TO +3
--- NOTE | 2017-07-27 05:55 | NUR ---
PT ON BIPAP AT 50% FIO2 AT THIS TIME; RESTING COMFORTABLY; PT NOT RESTLESS AND NOT PULLING AT ANY EQUPIMENT; PRN DOSE OF 4 MG IV ATIVAN GIVEN AT 0510, RASS NOW -1; WILL MONITOR FOR AGITATION AT RESTLESSNESS
--- NOTE | 2017-07-27 06:35 | NUR ---
PT ON NASAL CANNULA AT 6L PER MIN AT THIS TIME; PT ATTEMPTED TO REMOVE BIPAP, APPEARS MORE COMFORTABLE WITH BIPAP OFF NOW
--- NOTE | 2017-07-27 08:04 | NUR ---
UPON INITIAL ASSESSMENT PATIENT LAYING IN BED WITH EYES OPEN, RESTING COMFORTABLY, BREATHING EVEN BUT LABORED WITH RESPIRATORY RATE AT 26 BREATHS A MINUTE. OXYGEN SATURATIONS IN LOW 90'S ON 6L NC. LUNGS DIMINISHED THROUGH OUT AND FINE CRACKLES IN THE BASES. GAVE THE PATIENT A BED BATH AND LINEN CHANGE, DURING WHICH THE PATIENT WAS ABLE TO LIFT ARMS AND LEGS ON COMMAND AND PROVIDE MILD ASSISTANCE WITH TURNING. PT RESTING COMFORTABLY WITH EYES CLOSED AT THIS TIME, RESTING COMFORTABLY, NO SIGNS OF AGGITATION OR RESTLESSNESS. BED ALARM ON, VISIBLE FROM NURSING STATION
--- NOTE | 2017-07-27 09:40 | NUR ---
DR KINCAID IN TO SPEAK WITH PT'S . DR KINCAID EXPLAINED PLAN OF CARE. ALL QUESTIONS ANSWERED AND STATES AN UNDERSTANDING OF THE PATIENTS CONDITION AND PLAN. REMAINS AT PT BEDSIDE. PATIENT RESTING WITH EYES CLOSED, BREATHING EVEN AND UNLABORED. BED ALARM ON AND VISIBLE FROM THE NURSES STATION.
--- NOTE | 2017-07-27 10:00 | NUR ---
PT RESTING COMFORTABLY AT THIS TIME, ON BIPAP AT 40%, TOLERATING WELL.
--- NOTE | 2017-07-27 10:34 | NUR ---
PT PULLED OFF OXYGEN AND ATTEMPTING TO SWING LEGS OUT OF BED, HEART RATE UP IN THE 120'S WITH OXYGEN SATURATIONS IN THE MID 80'S. MEDICATED PER ETOH WITHDRAWAL PROTOCOL. PLACED BIPAP ON PATIENT. NOW RESTING COMFORTABLY, HEART RATE BACK DOWN IN THE 70'S AND SATURATIONS AT 97 PERCENT. VISIBLE FROM THE NURSES STATION, BED ALARM ON
--- NOTE | 2017-07-27 11:32 | NUR ---
PT REPOSTIONED IN BED AND REPLACED BIPAP WITH NASAL CANNULA. PT VISIBLE FROM NURSES STATION, AND BED ALARM ON.
--- NOTE | 2017-07-27 12:43 | NUR ---
PATIENT RESTLESS IN BED, ROLLING FROM SIDE TO SIDE. NOT ATTEMPTING TO SWING LEGS OVERBED OR PULLING AT TUBES. ASSISTED PATIENT AT REPOSITIONING. VISIBLE FROM THE NURSES STATION.
--- NOTE | 2017-07-27 13:07 | NUR ---
PT APPEARS TO BE RESTING COMFORTABLE AT THIS TIME. BLUE FOAM HEEL PROTECTORS PLACED AT THIS TIME.
--- NOTE | 2017-07-27 13:23 | NUR ---
PT INTO VISIT AT THIS TIME, ALL QUESTIONS ANSWERED AT THIS TIME. CONCERNED ABOUT PT ETOH WITHDRAWEL. PT AT THIS TIME APPEARS TO BE RESTING COMFORTABLE ON 6.5L NC WITH SPO2 90%.
--- NOTE | 2017-07-27 13:37 | NUR ---
PATIENT RESTING IN BED, HAS HAD A FEW EPISODES OF NON PRODUCTIVE COUGHING. SATURATIONS 94 PRECENT ON 6L NC.
--- NOTE | 2017-07-27 14:01 | NUR ---
PT RESTLESS IN BED, ASSISTED THE PATIENT WITH REPOSITIONING. TRIED TO PUT THE BIPAP BACK ON THE PATIENT BUT HE QUICKLY REMOVED IT. SATURATIONS ARE 90 PERCENT ON 6L NC.
--- NOTE | 2017-07-27 14:35 | NUR ---
VISITED WITH CCU RN'S REGARDING PT'S PROGRESSION AT THIS TIME. PAULA DIAZ STATED THAT HE IS IN [place] WITHDRAWL, AND IS PROGRESSING. STOPPED IN PT'S RM, HE IS NOT RESPONSIVE, WILL CONTINUE TO PRAY FOR PT AND HIS FAMILY. WILL ALSO CONTINUE TO FOLLOW NEEDED
--- NOTE | 2017-07-27 14:58 | NUR ---
PT RESTLESS IN BED, ASSISTED PATIENT TO DANGLE AT SIDE OF BED FOR ABOUT 5 MINUTES. PT ATTEMPTED TO STAND WITH 2 PERSON ASSIST BUT WAS NOT STRONG ENOUGH. HEART RATE INCREASED TO THE 120'S AND RESPIRATORY RATE IN THE 30'S. PT LAYING BACK IN BED, RESTING WITH EYES CLOSED. BED ALARM ON, VISIBLE FROM NURSES STATION.
--- NOTE | 2017-07-27 16:16 | NUR ---
RIGHT AC IV SITE LEAKING BUT STILL INTACT, GOOD BLOOD RETURN AND FLUSHES EASILY, ATTEMPTED LEFT WRIST IV BUT UNABLE TO ATTAIN.
--- NOTE | 2017-07-27 16:44 | NUR ---
PT ATTEMPTING TO PULL ON HIS GILLETTE CATHETER. STATES THAT HE HAS TO PEE. ATTEMPTED TO REPOSTION PATIENT, PATIENT STILL RESTLESS AND AGITTATED. MEDICATED WITH 2 MG OF ATIVAN PER ETOH PROTOCOL.
--- NOTE | 2017-07-27 16:46 | NUR ---
THIS ITEM REPAIR MANAGER HAS FOLLOWED STUDENT NURSE JULIETTE AND AGREES WITH HER CHARTING AND ASSESSMENT. THE PT HAS HAD A FAIR DAY WITH HIS ETOH WITHDRAWEL. HE HAS BEEN TURNED FOR POSITION FOR COMFORT. GILLETTE CATHETER REMAINS INTACK AND DRAINING CLEAR YELLOW URINE. PT TRIES TO TALK WITH STAFF, BUT STAFF IS UNABLE TO UNDERSTAND PT DUE TO PT IS NOT SPEAKING VERY LOUD OR IT SOUNDS IF HE IS MUBBLING. PT HAS BEEN COOPERATIVE WITH HOSPITAL ROUTINE, BUT WILL BECOME RESTLESS, THEN START PULLING AT HIS GILLETTE AND IV TUBING.
--- NOTE | 2017-07-27 18:05 | NUR ---
PT REMOVED OXYGEN AND IS MAINTIANING OXYGEN SATURATIONS IN THE MID 90'S. LEAVING OXYGEN OFF AND CONTINOUSLY MONITORING SATURATIONS.
--- NOTE | 2017-07-27 18:34 | NUR ---
PT PLACED BACK ONTO O2 VIA NC AT 2L'S WITH A SPO2 93% AT THIS TIME. PT HAD PULLED OFF SPO2 MONITOR AND HIS O2 NC. HE HAD BEEN ABLE TO MAINTAINE IS SPO2 ON ROOM AIR, BUT WOULD DIP AT TIMES THEREFORE O2 WAS PLACED. PT AT TIMES IS RESTLESS AND THEN STAFF REPSOITIONS HIM AND HE WILL SETTLE BACK DOWN TO A RESTFUL STATE.
--- NOTE | 2017-07-27 19:07 | NUR ---
PT MEDICATED WITH 4MG IVP ATAVIN AT THIS TIME. PT RESTLESS AND PULLING AT TUBES.
--- NOTE | 2017-07-28 02:30 | NUR ---
PT RESTING COMFORTABLY AT THIS TIME, WILL CONTINUE TO MONITOR FOR WITHDRAWAL
--- NOTE | 2017-07-28 06:14 | NUR ---
BIPAP PLACED ON PATIENT AT THIS TIME TO ASSIST WITH RESPIRATORY EFFORT; O2 SAT 98% ON 2L NC, 100% ON BIPAP WITH FIO2 32%; PT RESTING COMFORTABLY FOLLOWING APPLICATION OF BIPAP
--- NOTE | 2017-07-28 07:45 | NUR ---
PT REPOSITIONED FOR COMFORT WITH ASSISTANCE FROM PT. PAULO ROOM AIR AT THIS TIME, VITALS WNL. PT IS CALM AND COOPERATIVE, NOT ABLE TO COMMUNICATE VERBALLY ONLY NODS HEAD AND POINTS WITH FINGERS.
--- NOTE | 2017-07-28 08:48 | NUR ---
PT PLACED BACK ON TO BIPAP, REPOSITIONED SLIGHTLY FOR COMFORT. IV SITE INTACT, NO REDNESS OR SWELLING NOTED, FLUIDS INFUSING EASILY. PT IS AT THE BEDSIDE. PT APPEARS RESTFUL AND CALM AT THIS TIME, NO ATIVAN NEEDED. URINE OUTPUT IS QS, GILLETTE IS INTACT AND DRAINING WELL. VITALS WNL AT THIS TIME.
--- NOTE | 2017-07-28 10:30 | NUR ---
PT TRANSFERED TO CHAIR VIA OVERHEAD LIFT. PT NODS HEAD THAT HE IS COMFORTABLE. PT ABLE TO PAULO SIPS OF WATER. VITALS WNL.
--- NOTE | 2017-07-28 10:45 | NUR ---
PT SITTING UP IN CHAIR, VITALS WNL. PT COUGH IS STRONG, AND ABLE TO EXPECTORATE DRIED PHLEM. PT ABLE TO NOD HIS HEAD TO ANSWER QUESTIONS. PT DENIES PAIN AT THIS TIME.
--- NOTE | 2017-07-28 13:20 | NUR ---
PT TRANSFERED FROM CHAIR TO BED PER HIS REQUEST. OVERHEAD LIFT USED, PT PAULO WELL. IV SITE IN LEFT ARM DC'D DUE TO LEAKING. SMALL SKIN TEAR NOTED ON MEDIAL SIDE OF RT ARM AC, OP SITE APPLIED. PT DENIES PAIN AT THIS TIME. PT APPEARS TO BE HALLUCINATING SLIGHTLY, HE STATED THERE WERE ROBBERS IN THE BATHROOM. ATTEMPTED TO REORIENT PT TO SURROUNDINGS, PT APPEARED TO ACCEPT THIS. PT PAULO SIPS OF CLEAR FLUIDS AND WAS ABLE TO SWALLOW TWO PILLS.
--- NOTE | 2017-07-28 15:40 | NUR ---
SKIN CARE DONE ON PT FEET, MOISTURIZER APPLIED TO BILAT LOW LEGS.
--- NOTE | 2017-07-28 16:00 | NUR ---
IV SITE STARTED IN LEFT FOREARM, 20 GAUGE. PT PAULO WELL. FLUIDS RUNNING AT 75 ML/HR. REPOSITIONED PT IN BED FOR COMFORT. VITALS WNL. PT REMAINS DROWSY MOST OF THE DAY, HOWEVER WILL WAKE SPONTANIOUSLY AT TIMES AND ALWAYS WITH VERBAL STIMULI. PT ABLE TO SWALLOW PILLS AND PAULO WELL. NEW MAHAMED HOSE APPLIED TO BILAT LEGS.
--- NOTE | 2017-07-28 18:35 | NUR ---
PT IN BED DRINKING CLEAR ENSURE ON HIS OWN WITH NO HELP FROM STAFF. PT REQUESTED TO BE REPOSITIONED UP IN BED, A BLANKET, AND A BEER. THIS RN EXPLAINED THAT BEER WAS NOT AVALIABLE TO HIM AT THIS TIME, PT STATES "THE DOCTOR SAID I HAVE IT ORDERED". EXPLAINED BY THIS RN TO THE PT THAT THE ORDERS HAD BEEN CHANGED, AND BEER IS NOT SAFE FOR HIM TO HAVE AT THIS TIME. PT REPOSITIONED, GIVEN A WARM BLANKET, AND CHICKEN BROTH, PT STATES "WELL, I GUESS THAT WILL BE OK". PT ABLE TO DRINK CHICKEN BROTH W/O COUGHING OR CHOKING.
--- NOTE | 2017-07-28 18:54 | NUR ---
PT REQUESTED TO HAVE THE TV TURNED ON, AND SAID THAT HE LIKES TO WATCH BASEBALL.
--- NOTE | 2017-07-28 19:00 | NUR ---
PT IN BED RESTING IN HIGH FOWLERS POSITION. 1.5L NC AND SPO2 NOTED TO BE 93-95%. D5LR RUNNING AT 75 ML/HR INTO 20G LW IV SITE, IV SITE WNL. PT APPEARS DROWSY BUT RESPONDS TO VERBAL STIMULI. PT IS SLOW TO RESPOND AND SPEECH IS LOW AND HARD TO UNDERSTAND AT TIMES. PT DRINKING WATER W/O DIFFICULTY.
--- NOTE | 2017-07-28 20:30 | NUR ---
PO MEDICATION ADMINISTERED, PT PLACED IN HIGH FOWLERS, MEDICATION GIVEN ONE AT A TIME, WATER GIVEN, AND PT ASSESSED AFTER EACH MED. PT NOTED TO HAVE DIFFICULTY SWALLOWING WATER AND MEDICATION. SLIGHT NONPRODUCTIVE COUGH NOTED. ORAL CAVITY INSPECTED, NO POCKETING. NO COUGH NOTED AFTER 3 MINS. PT ABLE TO VERBALIZE NO COMPLAINTS OR DIFFICULTIES. PT TO REMAIN IN HIGH FOWLERS POSITION. BIPAP PLACED AT THIS TIME. SPO2 98% ON BIPAP.
--- NOTE | 2017-07-28 21:40 | NUR ---
PT RESTING COMFORTABLY IN BED, BIPAP ON, SPO2 100%. PT REMAINS IN UPRIGHT POSITION AND NO COUGH NOTED.
--- NOTE | 2017-07-28 22:10 | NUR ---
PT'S BP NOTED TO BE 63/42, HR 77, SPO2 89, EXTREMITIES COOL, AND RADIAL PULSE WEAK. MANUAL BP OBTAINED AND 62/42. URINE OUTPUT 75ML FOR LAST 4 HOURS. PT DIFFICULT TO AROUSE. RT IN ROOM. P/C TO PROVIDER TO UPDATE ON PT'S CONDITION, NO NEW ORDERS RC'D AT THIS TIME. PROVIDER STATES HE WILL BE IN TO ASSESS PT.
--- NOTE | 2017-07-28 22:18 | NUR ---
DR. KINCAID IN ROOM TO ASSESS PT.
--- NOTE | 2017-07-28 22:25 | NUR ---
PT SWITCHED TO CPAP AT THIS TIME, SPO2 96%. BP NOTED TO BE 103/74 AND HR 80. WILL CONTINUE TO MONITOR VITAL SIGNS.
--- NOTE | 2017-07-29 01:50 | NUR ---
PT NOTED TO HAVE INCREASED AGGITATION AND RESTLESSNESS. PT UNABLE TO VERBALIZE COMPLAINT. PT ASSESSED AND FOUND TO HAVE HAD A SMALL BM. PT CLEANED AND NEW BRIAN PLACED, PT TOLERATED WELL.
--- NOTE | 2017-07-29 02:20 | NUR ---
CPAP WAS ALARMING, WENT IN TO CHECK ON PT AND CALLED R.T. TO COME EVALUATE. PT TRYING TO PULL OFF BLANKETS AND IS POINTING TOWARD BATHROOM. REMOVED CPAP AND PLACED ON 2L VIA NC. PT ABLE TO TELL US HE IS HOT, REMOVED BLANKETS. PT DENIES NEEDING TO USE BATHROOM, WAS ACTUALLY POINTING AT HIS WATER. MOISTENED MOUTH WITH SWAB, AND THEN GAVE HIM SOME SIPS OF WATER WHILE SITTING UP STRAIGHT. PT TOLERATED FAIRLY WELL, SMALL AMOUNT OF COUGHING NOTED, ENCOURAGED HIM TO TUCK CHIN WHILE SWALLOWING. WILL LEAVE CPAP OFF AT THIS TIME. CHECKED TEMP, AFEBRILE AT THIS TIME.
--- NOTE | 2017-07-29 03:54 | NUR ---
PT NOTED TO HAVE INCREASED NON PRODUCTIVE COUGH. RT CALLED AT THIS TIME.
--- NOTE | 2017-07-29 06:28 | NUR ---
INCREASED DROWINESS CONTINUED THROUGHOUT SHIFT. BP AND HR DECREASED AFTER LOPRESSOR GIVEN, PT DIFFICULTY TO AROUSE, EXTREMITIES COOL, PROVIDER NOTIFIED. DR. KINCAID ASSESSED PT, BIPAP SWITCHED TO CPAP, LOPRESSOR DC'D, AND CONTINUE TO MONITOR VITAL SIGNS. OVERALL PT'S BP REMAINED IN THE LOW HUNDREDS OVER 80-90'S, HR TREDNING IN THE 80-90'S. PT HAS REMAINED DROWSY BUT RESPONSE HAS IMPROVED. CPAP SWITCHED TO 4L NC AND TOLERATING WELL. PT'S COUGH HAS INCREASED W/O PRODUCTION, SUCTION APPLIED AND SCANT AMOUNT OF SPUTUM NOTED. D5LR RUNNING @75 ML/HR TO 20G LW CONTINUES. PT HAD ONE BM THROUGHOUT THE NIGHT. URINE OUTPUT LOW THROUGHOUT THE NIGHT AND LEONCIO IN COLOR, IMPROVED URINE OUTPUT TOWARD END OF SHIFT, LEONCIO COOR REMAINS.
--- NOTE | 2017-07-29 07:40 | NUR ---
PT SITTING UP IN BED WATCHING TV. PT IS ABLE TO RESPOND TO QUESTIONS WITH "OKAY", "NO", AND "YES". PT IV SITE INTACT RUNNING CONTINUOUS D5LR 75ML/HR. PT'S O2 AT 92 ON 2L NC. RESPIRATORY IN ROOM NOW COMPLETING TREATMENT. VITALS WITHIN NORMAL LIMITS. PT DENIES NAUSEA, PAIN, AND SHORTNESS OF BREATH. CALL LIGHT WITHIN REACH.
--- NOTE | 2017-07-29 08:21 | NUR ---
IN ROOM WITH PATIENT.
--- NOTE | 2017-07-29 08:27 | NUR ---
TITRATED O2 TO 4L NC. SPO2 NOW 90-91%.
--- NOTE | 2017-07-29 10:14 | NUR ---
DR. KINCAID IN WITH PATIENT TO COMPLETE ASSESSMENT. PT RESPONDING TO QUESTIONS. WHISPERS, "I AM FEELING BETTER." O2 AT 95% ON 4L NC. URINE OUTPUT 125ML IN THE LAST TWO HOURS. MD NOTIFIED. ADVANCE TO DYSPHASIA DIET.
--- NOTE | 2017-07-29 12:21 | NUR ---
D5 LR RUNNING CONTINUOUSLY AT 75ML/HR IN IV SITE LEFT WRIST.
--- NOTE | 2017-07-29 13:44 | NUR ---
PT SITTING IN CHAIR WITH BY SIDE. PT STAYED IN CHAIR FOR NEARLY AN HOUR AN A HALF AND TOLERATED IT WELL. WHEN ASKED IF PT WAS CONFORTABLE HE RESPONDED WITH A QUIET "YES". PT READY FOR TRANSFER BACK TO BED. UTILIZED SAFETY WHILE USING THE CEILING LIFT TO TRANSPORT PT BACK TO BED. PT RESTING COMFORTABLY SITTING UP IN BED, DENIES WANTING TO EAT AT THIS TIME. WATER AT BEDSIDE. ALL VITALS WNL BESIDES RR IS @ 26. PT DENIES PAIN, NAUSEA OR SHORTNESS OF BREATH AT THIS TIME. CALL LIGHT WITHIN REACH.
--- NOTE | 2017-07-29 17:31 | NUR ---
PREPARED PT FOR TRANSFER TO [facility]. REMOVED GILLETTE PER DR. KINCAID'S ORDER. PT'S PENIS HAS DRIED BLOOD AROUND TIP WHERE PT PULLED OUT PREVIOUS GILLETTE EARLY ON IN HIS STAY IN THE CCU. URINAL AT BEDSIDE. PT ON 4L NC SATING IN THE LOW 90'S. PT'S VITALS WNL. IV RUNNING D5 LR AT 75ML/HR, NO PAIN, REDDNESS, OR SWELLING AT IV SITE. PT DENIES PAIN, NAUSEA, AND SOB. PT'S NOTIFED OF TRANSFER TO [facility] PER PHONE CALL FROM PAULA WILCOX. DINNER ORDERED TO BE DELIVERED TO ROOM 110. TRANSFERRED PT TO RM 110 VIA HOSPITAL BED WITH 02 4L NC. ALL PERSONAL BELONGINGS SENT WITH PATIENT. BEDSIDE REPORT ALSO GIVEN ON [facility].
--- NOTE | 2017-07-29 18:32 | NUR ---
PATIENT TRANSFERED TO FLOOR FROM CCU, REPORT FROM [facility]. AT HOME PATIENT'S WAS HELPING QUIT DRINKING ALCOHOL. PATIENT ADMITTED TO HOSPITAL WITH NEW ONSET AFIB, AND ETOH WITHDRAWALS ADMITTED ON THE . PATIENT NOW ALERT AND PLEASANT. USES BIPAP AT NIGHT, 4LNC. PATIENT ON DYSPHAGIA DIET, VOICE SOUNDS COURSE. HAD BM TODAY. LETA DC'D BEFORE COMING TO THE FLOOR. HAS NOT VOIDED YET.
--- NOTE | 2017-07-29 19:05 | NUR ---
IN ROOM FOR REPORT, PT IS RESTING WITH EYES CLOSED, RESPIRATIONS ARE EVEN AND NONLABORED. CALL LIGHT IS WITHIN REACH.
--- NOTE | 2017-07-29 22:07 | NUR ---
PT IS RESTING WITH EYES CLOSED, RESPIRATIONS ARE EVEN AND NONLABORED. CALL LIGHT IS WITHIN REACH.
--- NOTE | 2017-07-29 23:35 | NUR ---
PT IS RESTING WITH EYES CLOSED, RESPIRATIONS ARE EVEN AND NONLABORED ON CPAP AND CONT PULSEOX.
--- NOTE | 2017-07-29 23:40 | NUR ---
RECEIVED PT AND REPORT FROM ROXANA MITCHELL. PT APPERS TO BE SLEEPING IN BED AT THIS TIME WITH CPAP IN PLACE. CALL LIGHT WTIHIN REACH. FLUIDS INFUSING AT 75ML/HR.
--- NOTE | 2017-07-30 03:05 | NUR ---
EMPTIED URINAL. WITH THE HELP OF RN MORTEZA WE CHANGED THE BRIAN UNDER HIM WITH A NEW CLEAN BRIAN AND AN ATTEND. PUT CLEAN GOWN ON WELL. GOT HIM REPOSITIONED IN THE BED. BEDSIDE TABLE AND CALL LIGHT WITHIN REACH. PER HIS REQUEST I GOT HIM FRESH ICE FOR HIS WATER AND AN ENSURE FRUIT JUICE.
--- NOTE | 2017-07-30 03:19 | NUR ---
ASSISTED JUNE IN CHANGING PT ATTENDS. PT TOLERATED WELL. CALL LIGHT WITHIN REACH. O2 SATURATIONS AT 88% ON 4 L. TITRATED TO 5L NC. REPORTS NO OTHER NEEDS AT THIS TIME.
--- NOTE | 2017-07-30 05:59 | NUR ---
PT SLEPT THROUGHOUT THE NIGHT. ABLE TO HAVE CPAP IN PLACE FROM [id number]. 4L NC IN PLCE. SATTING AT 93%. PT HASURINAL IN PLACE FOR RESTROOM. 2P VANNESA LIFT. REPORTS NO PAIN. SKIN TEAR ON L HAND. D5LR @ 75. PUREED DIET. PT IS A FEEDER. CONT PULSE OX IN PLACE. LUNGS SOUND DIM. PLAN TO TRANSITION TO SWING BED.
--- NOTE | 2017-07-30 08:00 | NUR ---
ASSISTED PT TO SIT UPRIGHT IN BED. EATING BREAKFAST INDEPENDENTLY. PT SWALLOWING WITHOUT DIFFICULTY, NO SIGNS OF CHOKING OR COUGHING. PT SPEAKS VERY QUIETLY IN A WHISPERED TONE BUT IS ORIENTED TO ALL AND ABLE TO COMMUNICATE NEEDS. CALL LIGHT WITHIN REACH.
--- NOTE | 2017-07-30 08:43 | NUR ---
PATIENT SITTING UP IN BED, EATING BREAKFAST. PATIENTS IN ROOM. PATIENT SET UP WITH WASH CLOTH AND ORAL CARE IN BATHROOM FOR A LATER TIME AT PATIENT'S 'S REQUEST. CALL LIGHT IN REACH. NO OTHER NEEDS AT THIS TIME.
--- NOTE | 2017-07-30 10:20 | NUR ---
PT STOOD TWICE WITH P.T., GAIT BELT AND WALKER. PT HR INCREASED TO APPROX 130 AND DESATS TO 85% ON 3L NC, INCREASED TO 4LNC. SEVEREAL MINUTES BEFORE HR AND O2 RETURNED TO BASELINE. NOTIFIED DR. KINCAID. NEW ORDERS MADE. PT ASYMPTOMATIC. ASSISTED BACK TO BED. CALL LIGHT WITHIN REACH.
--- NOTE | 2017-07-30 10:23 | NUR ---
PATIENT WORKING WITH PT. PATIENTS LINENS CHANGED. PATIENT READJUSTED IN BED. RN STATES PATIENT IS TOO WEAK TO GET UP INTO A SHOWER, THIS SPACE OPERATIONS OFFICER WILL RETURN AT A LATER TIME TO GIVE A BED BATH. PATIENT CALL LIGHT IN REACH. NO OTHER NEEDS AT THIS TIME.
--- NOTE | 2017-07-30 11:34 | NUR ---
PT HAS IMPROVED ENOUGH TO BE MOVED TO M/S OVER THE WEEKEND. PT IS AWAKE AND ABLE TO RESPOND TO QUESTIONS. ANSWERS BRIEF AND SOFT, BUT COGNITIVE ABLILITY ENABLED TO MAKE RESPONSES. PAT BY HIS SIDE. SHE SEEMED VERY PLEASED THAT HE HAS IMPROVED WELL. GOOD VISIT, EXTENDED A BLESSING, WILL FOLLOW NEEDED
--- NOTE | 2017-07-30 12:35 | NUR ---
PT SITTING UP IN BED EATING LUNCH INDEPENDENTLY. AT BEDSIDE. CALL LIGHT WITHIN REACH. SATTING 92% ON 4L NC.
--- NOTE | 2017-07-30 13:24 | NUR ---
PT INCONTINENT OF LARGE LIQUID STOOL. PT CLEANED THOROUGHLY AND REPOSITIONED TO LEFT SIDE. CALL LIGHT WITHIN REACH.
--- NOTE | 2017-07-30 15:45 | NUR ---
PT INCONTINENT OF LARGE LIQUID STOOL. CLEANED AND REPOSITIONED. CALL LIGHT WITHIN REACH.
--- NOTE | 2017-07-30 16:52 | NUR ---
PT RESTING IN BED WITH EYES CLOSED UPON ENTERING ROOM. AWOKE EASILY TO VOICE. BP OBTAINED PER DR. KINCAID. PT SATTING 95% ON 4L NC. DENIES ANY NEEDS OR CONCERNS AT THIS TIME. CALL LIGHT WITHIN REACH.
--- NOTE | 2017-07-30 19:10 | NUR ---
BEDSIDE REPORT RECEIVED FROM PAULA HUDSON. PT AWAKE, HOB ELEVATED, SPO2 90% ON 4L OXYGEN BY NC. IVF INFSUSING WNL. CALL LIGHT NEXT TO PT. PT VERBALIZES UNDERSTANDING TO USE CALL LIGHT, SOFT SPEECH. TELE 1 HR 86-94. FAMILY PRESENT AT BEDSIDE, NO REQUESTS AT THIS TIME.
--- NOTE | 2017-07-30 21:28 | NUR ---
PT ASSESSMENT COMPLETE, SPO2 87-88% ON 4L OXYGEN, CONT. PULSE OX ON. RT PHONED TO TITRATE OXYGEN TO MAINTAIN SATS >89%, RT LARISA IN ROOM. LUNGS CLEAR THROUGHOUT ALL LOBES, HR IRREGULAR RHYTHM 86-89, BP 107/66. PT'S SPEECH QUIET, ORIENTED X 4. URINAL EMPTIED 175 ML LEONCIO URINE. ATTENDS DRY AND IN PLACE. CNAS TO REPOSITION PT AT THIS TIME. IV SALINE LOCKED, FLUSHED WNL. CALL LIGHT IN REACH.
--- NOTE | 2017-07-30 23:00 | NUR ---
PT INCONTINENT LIQUID BROWN STOOL AT THIS TIME, ATTENDS CHANGED WITH FINN HARRISON ASSIST. URINAL EMPTIED 100 ML. PT REPOSITIONED IN BED TO LEFT SIDE. NO REDNESS NOTED ON HIP, BUTTOCKS, SKIN INTACT. HEEL PROTECTORS IN PLACE. SPO2 90-91% ON 5L OXYGEN BY NC. CALL LIGHT IN REACH, LIGHTS OFF IN ROOM.
--- NOTE | 2017-07-31 00:44 | NUR ---
PAULA HAYDEN AND I CLEANED THE PATIENT HAD A BOWEL MOVEMENT AND REPOSITIONED.
--- NOTE | 2017-07-31 02:04 | NUR ---
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 BP 112/74 (83). HR IRREGULAR ON TELE 1 79-84 URINAL EMPTIED AT THIS TIME 200 ML LEONCIO IN COLOR. SPO2 89% ON 5L OXYGEN BY NC. PT DENIES ANY PAIN, REPOSITIONED WITH CHOP SAW OPERATOR SINTA ASSIST TO RIGHT SIDE WITH PILLOWS, HEEL PROTECTORS ON. LUNGS CLEAR THROUGHOUT ALL LOBES. BOWEL TONES ACTIVE X 4. ATTENDS DRY AT THIS TIME. URINAL IN PLACE PER PT REQUEST. CALL LIGHT AND PERSONAL SUPPLIES IN REACH.
--- NOTE | 2017-07-31 04:10 | NUR ---
PT REPOSITIONED TO LEFT SIDE WITH FINN HARRISON ASSIST. PT GIVEN DRINKS OF WATER. URINAL EMPTIED 190 MLS, CONCENTRATED, ORANGE/YELLOW COLOR. HEEL PROTECTORS IN PLACE, PILLOW UNDER LEFT HIP, URINAL IN REACH. CALL LIGHT AND PERSONAL SUPPLIES ON TABLE IN REACH OF PT.
--- NOTE | 2017-07-31 05:06 | NUR ---
ALERT AND ORIENTED X 3. INCONTINENT STOOL X 1, ATTENDS IN PLACE. TURNED Q2H W NURSING STAFF ASSIST. IV SALINE LOCKED. ON TELE 1, HR IRREGULAR. PT ON 5L OXYGEN BY NC WITH SLEEP, SATS >89%, REFUSES CPAP. SUFFICIENT URINE OUTPUT WITH URINAL.
--- NOTE | 2017-07-31 05:59 | NUR ---
VITALS COMPLETE AT THIS TIME, BP 113/61 (72), HR 82-95, AFEBRILE, 91% ON 5L OXYGEN BY NC. URINAL EMPTIED 100 ML WITH INCONTIENCE IN ATTENDS, ATTENDS AND SHEETS CHANGED, PT REPOSITIONED TO RIGHT SIDE WITH PILLOWS IN PLACE. HEEL PROTECTORS ON. CALL LIGHT IN REACH, PT HAS NO ADDL REQUESTS.
--- NOTE | 2017-07-31 06:33 | NUR ---
PULSE OXIMETER ALARMING, NC OFF PT, REAPPLIED, SPO2 84% AND RISES BACK TO 89% ON 5L WITHIN ONE MINUTE. PT HAS NO REQUESTS AT THIS TIME. CALL LIGHT IN LAP.
--- NOTE | 2017-07-31 07:38 | NUR ---
BEDSIDE REPORT RECEIVED FROM JACKELYN MITCHELL. WHITE BOARD UPDATED. ALL QUESTIONS ASKED. PATIENT AWAKE LYING IN BED. SOFTSPOKEN VOICE. TELE [address] SALINE LOCKED.
--- NOTE | 2017-07-31 08:49 | NUR ---
PATIENT OFFERED TO SIT UP IN CHAIR. PATIENT REPORTS NEEDING TO USE URINAL AND BEDPAN. PATIENT PLACED ON BEDPAN AND URINAL POSITIONED APPROPRIATELY. ADMINISTERED MEDICATIONS. APPETITE POOR THIS MORNING. 5L [address] SATURATING 88%. HARSH COUGH OCCASIONALLY.
== END 2017-07-31 09:06 | disposition swing bed (61) | DRG 896 ==
LOC: ED 21:08 → CCU 21:10 → MS 07-23 09:26 → CCU 07-23 17:06 → MS 07-29 17:00
PROVIDERS: ADMIT Internal Medicine
DX: F10.221 Alcohol dependence with intoxication delirium (principal); J96.21 Acute and chronic respiratory failure with hypoxia; E87.1 Hypo-osmolality and hyponatremia; E87.2 Acidosis; J44.1 Chronic obstructive pulmonary disease with (acute) exacerbation; J96.11 Chronic respiratory failure with hypoxia; I48.2 Chronic atrial fibrillation; Z79.01 Long term (current) use of anticoagulants; R31.9 Hematuria, unspecified; R53.81 Other malaise; I10 Essential (primary) hypertension; N40.0 Benign prostatic hyperplasia without lower urinary tract symptoms; R60.9 Edema, unspecified
CPT/HCPCS: 31720; 36415; 36600; 70551; 71045; 80048; 80053; 80069; 80162; 81001; 82803; 83036; 83605; 83735; 83880; 84100; 84443; 84484; 85025; 85379; 85610; 85730; 86850; 86900; 86901; 92524; 93005; 93010; 94640; 94644; 94660; 94667; 94668; 94762; 97110; 97140; 97163; 97165; 97530; J0696; J1160; J1650; J2060; J2930; J3475; J3480; J7030; J7050; J7120

== ENCOUNTER 2017-07-31 09:06 | Inpatient (IN) | payer MEDICARE, OTHER ==
[~2017-07-31] VITALS: Ht 180.3 cm; Wt 82.5 kg
--- NOTE | 2017-07-31 09:00 | NUR ---
PATIENT WASHED UP WITH BED BATH. MITZY AND ORAL CARE DONE. PATIENT UP TO CHAIR WITH TWO PERSON ASSIST WITH VANNESA SLING. CALL BUTTON IN REACH. IN ROOM. CALL BUTTON IN REACH. NO OTHER NEEDS AT THIS TIME.
[~2017-07-31 09:06] MED LIST changes: +ALDACTONE25 MG PO; +ALPHA LIPOIC AC50 MG PO; +B COMPLEX1 EACH PO; +ELIQUIS5 MG PO; +LASIX20 MG PO; +SPIRIVA RESPIMAT4 GM INH
--- NOTE | 2017-07-31 11:21 | NUR ---
FINN IN ASSISTING PT WITH PERSONAL GROOMING. PAT IN. SHE ADMITTED TO ME THAT THIS HAS TAKEN A BIG TOLL ON HER. SHE REALIZED THIS YESTERDAY WHEN SHE WENT HOME, AND JUST SLEPT UNTIL THIS MORNING. I ENCOURAGED HER TO BE SURE TO CARE FOR HERSELF, AND GIVE HERSELF PERMISSION TO REST. SHE DOESN'T NEED TO BE HERE EVERY WAKING MOMENT. SHE AGREED, EXTENDED A BLESSING AND LET PT FINISH HIS PERSONAL GROOMING WITH HOME AID'S HELP. WILL FOLLOW NEEDED
--- NOTE | 2017-07-31 11:33 | NUR ---
FAX SENT TO THE [facility] OP PT FOR ACTIVITY ASSESSMENT.
--- NOTE | 2017-07-31 11:34 | NUR ---
ADMISSION NOTE THIS IS A 76 YEAR OLD MALE ADMITTED TO TRANSITIONAL (SWING BED) FOR CONT PT AND OT AT THIS POINT IN TIME HE IS DECONDITIONED ENOUGH HE IS UNSAFE TO RETURN HOME, IS MAKING GRADUAL IMPROVEMENT.
--- NOTE | 2017-07-31 12:30 | NUR ---
PATIENT BACK TO BED WITH VANNESA TWO PERSON ASSIST. MITZY CARE DONE. LINENS CHANGED. RN IN ROOM WITH PATIENT.
--- NOTE | 2017-07-31 18:23 | NUR ---
PATIENT UP TO THE CHAIR THIS MORNING FOR SEVERAL HOURS. NO BM. SMEARS TODAY. NEED STOOL SAMPLE. 5L 02 VIA NC TODAY TO KEEP SATS >89%. STILL HAS TREMORS. WORKING WITH PT/OT/ST. GRANADO LIFT. INCONTINENT STOOL AND URINE. TURN Q2. SALINE LOCKED.
--- NOTE | 2017-07-31 18:35 | NUR ---
THIS PAIL TESTER NOTICED BLOOD IN URINE AND PATIENT'S PENIS BRUISED. PAULA HAMMOND AND HECTOR NOTIFIED.
--- NOTE | 2017-07-31 19:21 | NUR ---
THIS LAND LEASING EXAMINER NOTICED PATIENT HAD BLOODY URINE. RN NOTIFIED. RN INSERTED CATHETER. PATIENT LEAKING FROM INSERTION SITE, PATIENT DRESSED IN ATTENDS WITH PERIPADS FOR ABSORPTION. PATIENT COMPLAINS OF PAIN IN LEFT HEAL. RN EXAMINED, PATIENTS FEET ELEVATED WITH PILLOWS, PATIENT READJUSTED. PATIENT CALL LIGHT IN REACH, NO OTHER NEEDS AT THIS TIME.
--- NOTE | 2017-07-31 19:34 | NUR ---
BEDSIDE REPORT RECEIVED FROM RN MANISH, PT AWAKE, LYING IN BED, 92% ON 5L OXYGEN HUMIDIFIED BY NC, HR 73-85 IRREGULAR ON CONT. PULSE OX. GILLETTE DRAINING YELLOW URINE, NO HEMATURIA NOTED. DISCUSSED WITH VITALS Q2H WITH TURNING, MONITOR FOR HEMATURIA.
--- NOTE | 2017-07-31 22:20 | NUR ---
PT RESPOSITIONED TO LEFT SIDE WITH PILLOWS, FINN HARRISON ASSIST. BRUISING NOTED ON RIGHT THIGH. GILLETTE DRAINING YELLOW URINE, NO HEMATURIA NOTED. LUNGS CLEAR THROUGHOUT ALL LOBES, HR IRREGULAR RHYTHM 80S. BOWEL TONES ACTIVE X 4. ATTENDS DRY AT THIS TIME. LEGS ELEVATED ON PILLOW. CALL LIGHT IN REACH. TEMPERATURE ADJUSTED PER PT REQUEST.
--- NOTE | 2017-08-01 01:30 | NUR ---
PT REPOSITIONED WITH APRON OPERATOR SINTA ASSIST, PILLOWS UNDER LEFT HIP, LEGS ELEVATED ON PILLOWS, HEEL PROTECTORS IN PLACE. GILLETTE EMPTIED 300 ML YELLOW URINE, NO HEMATURIA NOTED. VITALS COMPLETE AT THIS TIME, BP 109/72 (89), HR 78-80 IRREGULAR. PT GIVEN ICE WATER REQUESTED. CALL LIGHT IN REACH.
--- NOTE | 2017-08-01 05:11 | NUR ---
REPOSITIONED PT WITH RN ALBIN ASSIST, PILLOWS UNDER RIGHT HIP, LEGS ELEVATED, HEEL PROTECTORS ON. GILLETTE DRAINING YELLOW URINE. PT VOICE LOUDER THIS MORNING. VITALS COMPLETE AT THIS TIME. CALL LIGHT IN REACH. DENIES NEEDS AT THIS TIME.
--- NOTE | 2017-08-01 06:17 | NUR ---
NO HEMATURIA NOTED THIS SHIFT, GILLETTE CATHETER DRAINING SUFFICIENT OUTPUT. PT VOICE RETURNED THIS SHIFT. TURNED Q2H. IV SALINE LOCKED. DENIED PAIN THROUGHOUT SHIFT, HEEL PROTECTORS IN PLACE. ON 5L OXYGEN TO MAINTAIN SATURATIONS >89% WITH SLEEP. NO BM THIS SHIFT. STOOL SAMPLE NEEDED.
--- NOTE | 2017-08-01 06:47 | NUR ---
CALL LIGHT ANSWERED, PT REQUESTING BED LEGER FOR BM, INCONTINENT OF STOOL, ASSISTED ON BED LEGER WITH FINN HARRISON. PT GIVEN CALL LIGHT, WILL CONT. TO MONITOR.
--- NOTE | 2017-08-01 07:17 | NUR ---
RECEIVED REPORT FROM JACKELYN MITCHELL. WHITE BOARD UPDATED. ALL QUESTIONS ANSWERED. ON 5 02 VIA MD. ON BEDPAN AT THIS TIME. WILL ATTEMPT TO GET STOOL SAMPLE.
--- NOTE | 2017-08-01 10:00 | NUR ---
CATHETER REMOVED. PATIENT WORKING WITH OCCUPATIONAL THERAPY NOW. AT BEDSIDE ASSISTING PATIENT WITH FEEDING. MAY NEED TO ENCOURAGE PATIENT TO BE INDEPENDENT POSSIBLE. SHOWING SIGNS OF WANTING TO BE DEPENDENT ON CARE GIVERS.
--- NOTE | 2017-08-01 11:23 | NUR ---
PATIENT RESTING BED. IN ROOM. PATIENT STATES THAT HE DIDN'T SLEEP WELL LAST NIGHT AND WOULD LIKE TO TAKE A NAP. PATIENT AGREED TO GET UP TO CHAIR THIS AFTERNOON AFTER BED BATH. CALL BUTTON IN REACH. FRESH ICE WATER GIVEN. NO OTHER NEEDS AT THIS TIME.
--- NOTE | 2017-08-01 18:19 | NUR ---
PT WORKED WITH PT/OT TODAY. ABLE TO AMBULATE 2PA WITH GAIT BELT AND WALKER TO COUCH AND THEN TO CHAIR. NO VANNESA. ENCOURAGE PATIENT TO TRANSFER WITH FWW AND GAIT BELT. 5L 02 VIA NC. CATHETER REMOVED TODAY. DRIBBLING/INCONTINENT OF URINE. BM TODAY. UP TO BSC.
--- NOTE | 2017-08-01 19:00 | NUR ---
shift report received. patient resting in bed watching tv. call light in hand. o2 sat 91% on 5l nc. no needs at this time.
--- NOTE | 2017-08-01 20:15 | NUR ---
EVENING MEDS GIVEN PER ORDERS. PATIENT SITTING IN BED, HOB ELEVATED. WATCHING TV. JUST FINISHED WITH NEB TREATMENT AND RT. PATIENT IS AAOX4. HE REPORTS SOME MEMORY LOSS FROM THIS ADMISSION, BUT IS AWARE OF HIS REASON FOR ADMISSION. LUNG SOUNDS ARE CLEAR, DIMINSIHED IN THE BASES. BREATHING IS SHALLOW WITH RR 24. ABD IS ROUND, SOFT, AND NONTENDER. IV FLUSHED WITH 10ML NS. CMS INTACT. MAHAMED HOSE ON BILATERALLY. HEELS FLOATED. PATIENT REPORTS FEELING COMFORTABLE. DENIES REPOSITIONING AT THIS TIME. NO TOILETING NEEDS RIGHT NOW, ATTENDS IN DRY. PATIENT HAS MULTIPLE BRUISES AND SCABS ON HIS ARMS. SKIN TEAR ON LEFT HAND IS COVERED, DRESSING CDI. FRESH WATER PROVIDED. PATIENT DENIES OTHER NEEDS.
--- NOTE | 2017-08-01 21:32 | NUR ---
VITALS AND I&OS DONE AND CHARTED. CHANGED PTS ATTEND AND BRIAN WET WITH URINE. BEDSIDE TABLE AND CALL LIGHT WITHIN REACH. PT NEEDS NOTHING ELSE AT THIS TIME.
--- NOTE | 2017-08-02 01:15 | NUR ---
PATIENT CALLED FOR FRESH ICE WATER WHICH WAS PROVIDED. PATIENT HAD SOME FRESH BLOOD ON HIS HANDS AND THE BEDDING. DISCOVERED OPEN AREA ON THE HEAD OF HIS PENIS TO THE RIGHT OF THE URETHRAL OPENING. PATIENT DENIED ANY PAIN. IT IS POSSIBLE THIS IS FROM THE PATIENT LEAVING THE PLASTIC URNAL BETWEEN HIS LEGS CONSTANTLY. CLEANED UP BLOOD AND CHANGED LINENS. COMPUTER NETWORKING INSTRUCTOR ADJUNCT ASSESSED OPEN AREA. APPLIED PRESSURE, THEN 4X4 GAUZE AND PLACED ATTENDS TO COVER PENIS. REMOVED URNAL FROM BEDSIDE. PATIENT WAS ABLE TO LIFT HIS HIPS TO ASSESS WITH ATTENDS CHANGE. POSITIONED HIM TO HIS RIGHT SIDE. O2 SAT 89% ON 5L NC. CALL LIGHT IN REACH.
--- NOTE | 2017-08-02 01:58 | NUR ---
HELPED PT USE THE URINAL. HE COULD NOT URINATE AFTER HOLDING IT THERE FOR ABOUT FIVE MINUTES. HE SAID HE WOULD TRY AGAIN LATER. PUT GAUZE ON HIS PENIS, AND PUT HIS ATTENDS BACK ON.
--- NOTE | 2017-08-02 02:30 | NUR ---
ASSISTED PATIENT WITH USING THE URNAL. 4X4 GAUZE PLACED ON PENIS WAS SATURATED WELL FRONT OF ATTEND. NOTIFIED. NO NEW ORDERS. NEW GAUZE AND ATTEND PLACED. PATIENT DENIES PAIN. CALL LIGHT IN REACH.
--- NOTE | 2017-08-02 03:45 | NUR ---
PATIENT REQUEST ASSISTANCE TO USE THE URNAL. WHEN ATTENDS AND GAUZE REMOVED FROM PENIS A LONG LARGE CLOT WAS FOUND. BLEEDING HAS INCREASED THROUGHOUT THE LAST HOUR. BLOOD IS BRIGHT RED AND DIFFICULT TO ASSESS WHERE BLOOD IS COMING FROM. SEEMS MOST LIKELY THAT THE BLOOD IS COMING FROM INSIDE THE URETHA. ATTENDS CHANGED. PAD APPLIED TO AREA WITH ATTEND. PATIENT POSITIONED FOR COMFORT.
--- NOTE | 2017-08-02 05:14 | NUR ---
PATIENT SLEPT OFF AND ON THROUGHOUT THE SHIFT. AAOX4. NOT OUT OF BED, RICHIE TO ASSIST IN ATTENDS CHANGES BY LIFTING HIPS AND ROLLING. REPOSITIONED Q2H AND PRN. INCREASED BLEEDING FROM URETHRA THROUGHOUT SHIFT, INCLUDING LARGE CLOTS. MD AWARE. URINE OUTPUT QS. PATIENT DENIES PAIN. VS WNL.
--- NOTE | 2017-08-02 06:17 | NUR ---
SPOKE WITH ABOUT BLEEDING FROM URETHRA. ORDERS FOR TYPE & CROSS AND GILLETTE CATH WERE RECEIVED. VERIFIED USING READ-BACK.
--- NOTE | 2017-08-02 06:43 | NUR ---
GILLETTE PLACED AT 0630. PATIENT TOLERATED WELL. NO PAIN. NO RESISTENCE MET. URINE IS CLEAR DARK YELLOW. FLUSHED CATH WITH 20ML NS. GAUZE PLACED AROUND URETHRA & GILLETTE TO ABSORB BLOOD DISCHARGE. BLEEDING CONTINUING AT A STEADY RATE. UPDATED. LAB IN ROOM FOR TYPE & CROSS.
--- NOTE | 2017-08-02 06:57 | NUR ---
2PA PATIENT UP TO RECLINER WITH GAITBELT. PATIENT TOLERATED WELL, HOWEVER HE WOULD OF RATHER STAY IN THE BED. PATIENT'S O2 SAT DROPPED TO 85% ON 5L NC AFTER TRANSFER. INSTRUCTED PATIENT TO TAKE DEEP BREATHS THROUGH HIS NOSE AND OUT HIS MOUTH. PATIENT HAS A FEW HARSH COUGHS WITHOUT SPUTUM. PROVIDED MENU FOR BREAKFAST, PATIENT STATES HE IS NOT INTERESTED AT THIS TIME. ICE WATER PROVIDED. CALL LIGHT IN LAP. O2 90% ON 5L NC.
--- NOTE | 2017-08-02 07:47 | NUR ---
DISCUSSED WITH DR. ARIAS POC FOR PATIENT. NEW ORDER TO HOLD ELIQUIS DOSE THIS MORNING SECONDARY TO REPORTED BLEEDING FROM URETHAL OF PENIS. UPDATED CHARGE NURSE AND STUDENT NURSE.
--- NOTE | 2017-08-02 08:45 | NUR ---
Changed patient's bedding. Patient sitting in chair, watching TV, doing breathing exercises. Patient expressed he was not hungry. Patient denied any needs, call light within reach.
--- NOTE | 2017-08-02 09:20 | NUR ---
2 PERSON ASSIST WITH P/T LARISA USING FWW AND GAIT BELT. PATIENT IDD LEGS LAISE EXERCISES AND AMBULATED FROM CHAIR AROUND TO OUTSIDE EDGE OF BED. THIS MANAGER INPATIENT CHANGED HIS ATTENDS. PATIENT IN BED, PILLOW UNDER ANLKES AND HEAD ELEVATED. THIS MANAGER INPATIENT ORDERED ENSURE AND COFFEE FOR PATIENT. CALL LIGHT IN REACH, NO OTHER NEEDS
--- NOTE | 2017-08-02 09:59 | NUR ---
PATIENT USED CALL LIGHT. UPON ENTERING ROOM, PATIENT WAS CONCERED CATHETER TUBING WAS NOT ALLOWING PROPER DRAINAGE, TUBE WAS REPOSITIONED. PATIENT DECLINED FURTHER NEEDS, WATCHING TV, CALL LIGHT WITHIN REACH.
--- NOTE | 2017-08-02 10:41 | NUR ---
ASSISTED NURSE IN FLUSHING CATHETER WITH 30 ML OF SALINE. PATIENT LYING, UPRIGHT IN BED, WATCHING TV, CONTINUING TO DRINK ENSURE. WAITING ON , DECLINED FURTHER NEEDS, CALL LIGHT IN REACH.
--- NOTE | 2017-08-02 12:30 | NUR ---
GAUZE REMOVED FROM PATIENT'S GENITAL AREA. LARGE CLOT REMOVED AND LARGE VISIBLE BRUISE ON HEAD OF PENIS. LEFT OPEN TO AIR. CHANGED BEDDING, GOWNED AND BATHED PATIENT. PATIENT WAS APPROPRIATE BASED ON CONVERSATION WITH PATIENT. RESPONSE APPROPRIATE TO QUESTIONS NO CHANGES IN DEMEANOR OR PHYSICAL STATE, PATIENT DID NOT COMPLAIN OF ANY PAIN. AFTER BATHING, FLUSHED CATHETER WITH 30 ML SALINE, PER NURSE'S ORDER. PATIENT IN BED, WATCHING TV, WAITING FOR TO VISIT. PATIENT DECLINED FURTHER NEED, CALL LIGHT WITHIN REACH, BED RAILS UP. PATIENT REFUSED LUNCH, STILL FINISHING ENSURE FROM BREAKFAST.
--- NOTE | 2017-08-02 12:40 | NUR ---
AT BEDSIDE, PATIENT CHANGED MIND AND ACCEPTED FOOD TRAY.
--- NOTE | 2017-08-02 13:30 | NUR ---
IRRIGATED GILLETTE WITH 60ML OF STERILE FLUID IRRIGATION FLUID. NOT MUCH BLOODY URINE RETURNED, MEATUS AND URETHRAL CONTINUE TO APPEAR SWOLLEN AND BRUISED, WITH SOME BLOODY DRAIANGE. NO NOTE OF CLOTS. PATIENT RESTING BACK AND AT BEDSIDE. PATIENT REFUSED LUNCH, IS DRINKING ENSURE.
--- NOTE | 2017-08-02 18:06 | NUR ---
PATIENT ON BEDPAN, FINN DIEGO ASSISTED THIS DESKTOP SPECIALIST IN CLEANING PATIENT AND PARTIAL BEDCHANGE. CALL LIGHT IN REACH. NO OTHER NEEDS
--- NOTE | 2017-08-02 18:43 | NUR ---
PATIENT CONTINUED TO HAVE DARK BLOODY OUTPUT IN GILLETTE CATHETER, NEW ORDER TO START BLADDER IRRIGATION. INSERTED 24 ESTONIAN CATH WITH 30 ML BALLOON INFLATED. PATIENT TOLERATED WELL, REPORTED LITTLE DISCOMFORT. ORDER CONTINUE IRRIGATION FOR 24HOURS.
--- NOTE | 2017-08-02 19:35 | NUR ---
RECEIVED REPORT FROM DAY SHIFT RN. PT IS IN BED WITH GILLETTE PRESENT AND BLADDER IRRIGATION. 5L NC IN PLACE. REPORTS NO PAIN AT THIS TIME. PT IS SL. SATURATION IS 98% ON 5L. TITRATED TO 3L AT THIS TIME. SATURATION 93% AT THSI TIME. WILL CONT TO MONITOR. CALL LIGHT WTIHIN REACH.
--- NOTE | 2017-08-02 21:00 | NUR ---
PT APPEARS TO BE SLEEPING. IS A MOUTH BREATHER AT NIGHT. SATURATIONS DROPPED TO 84% ON 4L. TITRATED TO 5L AND ENCOURAGE NOSE BREATHING. [facility]
--- NOTE | 2017-08-03 00:05 | NUR ---
ANSWERED CALL LIGHT. PT REQUESTED SNACK. ASKED FOR COOKIE. GAVE COOKIE. CALL LIGHT WITHIN REACH.
--- NOTE | 2017-08-03 00:51 | NUR ---
PT APPEARS TO BE MOUTH BREATHING AND DROPPING SATS. CHANGED FROM NC TO SIMPLE MASK FOR PT COMFORT. CALL LIGHT WITHIN REACH. REPORTS NO OTHER NEEDS AT THIS TIME
--- NOTE | 2017-08-03 02:29 | NUR ---
PT SATURATION ON 5L MASK IS 90%. RESPIRAIONS ARE EQUAL AND NONLABORED. REPOSITIONED PT IN BED. CALL LIGHT WITHIN REACH. REFRESSED ICE WATER. REPORTS NO OTHER NEEDS AT THIS TIME.
--- NOTE | 2017-08-03 04:04 | NUR ---
ASSISTED PT ONTO BEDPAN. PT REFUSED TO USE BSC AT THIS TIME. PRIVACY PROVIDED. CALL LIGHT WITHIN REACH.
--- NOTE | 2017-08-03 04:24 | NUR ---
HELPED PT OFF BEDPAN. MED LIQ STOOL. CLEANED UP. CALL LIGHT WITHIN REACH. REPORTS NO OTHER NEEDS AT THIS TIME.
--- NOTE | 2017-08-03 05:30 | NUR ---
I&OS DONE AND CHARTED. EMPTIED GARGAGES. PT NEEDS NOTHING ELSE AT THIS TIME.
--- NOTE | 2017-08-03 05:33 | NUR ---
SWING BED. SLEPT THROUGHOUT NIGHT. NO PAIN. CONT BLADDER IRRIGATION. GOOD U/O. 2PA W/ FWW. PT REFUSED COMMODE. INSISTED ON BEDPAN. 3-5L O2 TITATE TO KEEP ABOVE 89%. TEDHOSE BLE. PLAN FOR PT/OT/ST. LUNGS CLEAR WHT EXW IN RLL. 24F GILLE[address] IN PLACE. MED LIQ BM LAST NIGHT. B/P ON SOFT SIDE. RASCH AWARE.
--- NOTE | 2017-08-03 07:00 | NUR ---
report given from sylvia flanagan. patient is sitting up in bed. bladder irrigation is cont. fluid bags changed. patients urine is clear/ light shanel. no blood color at this time. no blood clots. reported that bleeding has decreased throughout shift. no bleeding at tip of penis at this time. patient stating no other needs at this time. bed in low position. call light within reach. updated patient of plan of care. introduced patient to manager nursing.
--- NOTE | 2017-08-03 07:25 | NUR ---
PATIENT IN A PLEASANT MOOD UPON ENTERING. RECEIVED REPORT FROM NIGHT NURSE, WILL HOLD LAXATIVES. RESPIRATORY THERAPY PROVIDING TREATMENT.
--- NOTE | 2017-08-03 07:55 | NUR ---
assessment complete. patient sitting up in bed. coffee and water given to patient. patients assessment complete. patient has occasional productive cough. encouraged is and acupella. patient continues to be on 5 l per nc. active bs. no bleeding at this time. bladder irragation cont. going very slow with fluid since no bleeding at this time. plan of care discussed with patient and patients and associate of science in nursing. plan to do medications this am and then shower at 1000.
--- NOTE | 2017-08-03 08:57 | NUR ---
PATIENT WANTED TO USE BED LEGER, PLACED WITH INSTRUCTOR. AFTER 10 MINS, CHECKED ON PATIENT. HE WAS IN PAIN AND WANTED LEGER REMOVED. NO BM. BED LEGER REMOVED AND PATIENT TO TRY AGAIN AFTER REST.
--- NOTE | 2017-08-03 09:30 | NUR ---
ASSISTED WITH PT TO AMBULATE INTO BR. PATIENT AMBULATED WITH ASSIST AND WALKER. TOLERATED VERY WELL. SMALL AMOUNT OF BLEEDING IN TUBE WITH ACTIVITY. PATIENT HAVING LOOSE STOOL IN BR.
--- NOTE | 2017-08-03 10:16 | NUR ---
PATIENT MOVED TO RESTROOM WITH WALKER AND 2-PERSON ASSIST. PATIENT USED THE RESTROOM, HAD LOOSE STOOL, AND THEN WAS TRANSFERED TO SHOWER CHAIR. PATIENT WAS ABLE TO MINIMALLY ASSIST WITH SHOWER GIVEN BY STUDENT NURSE, NETWORK PROJECT MANAGER, AND OCCUPATIONAL THERAPIST. PATIENT IS SITTING IN CHAIR WITH LEGS ELEVATED WATCHING TV, CALL LIGHT WITHIN REACH. BED LINEN CHANGED. PATIENT WEARING NEW MAHAMED HOES. SOUP AND JUICE ORDERED FOR LUNCH.
--- NOTE | 2017-08-03 10:36 | NUR ---
PATIENT TOLERATED A SHOWER WELL. SURGERY MANAGER AND STUDENT ASSISTED WITH SHOWER AND ASSISTED TO CHAIR. GIVEN INSTRUCTIONS TO PATIENT THAT HE NEEDS TO SIT IN CHAIR FOR ABOUT AN HOUR. PATIENTS TEDS AND SOCKS PLACED ON PATIENT. BACK IN ROOM.
--- NOTE | 2017-08-03 10:48 | NUR ---
PT SITTING IN CHAIR WITH STUDENT, FINN AND RN RADHA ATTENDING TO HIM. HE WAS ENJOYING ALL THE ATTENTION. PT HAD JUST HAD A SHOWER, AND WAS FEELING LIKE A NEW MAN. PAT CAME, PT WAS ABLE TO PROJECT HIS VOICE ACROSS THE TO ACKNOWLEDGE HIS . PT SEEMS TO BE MAKING STEADY STRIDES FORWARD. I EXTENDED A BLESSING HE THANKED ME. WILL CONTNUE TO FOLLOW NEEDED
--- NOTE | 2017-08-03 11:04 | NUR ---
PATIENT SITTING IN CHAIR. IN ROOM. AWAITING LUNCH. PLAN TO AMBULATE WITH PT BACK TO BED AFTER LUNCH. PATIENT AGREED WITH INFORMATION. NO OTHER NEEDS AT THIS TIME. BLADDER IRRIGATION CONT. URINE CONT TO BE A LIGHT YELLOW COLOR.
--- NOTE | 2017-08-03 12:11 | NUR ---
SAT WITH PATIENT WHILE HE ATE LUNCH, WATCHED TV. PATIENT ATE FULL BOWL OF CHICKEN NOODLE SOUP, AND 1/3 OF ENSURE. PATIENT WAS TALKATIVE AND IMPROVED ENERGY. PATIENT DECLINED FURTHER NEEDS, AND IS WAITING FOR PT. LEFT PATIENT IN CHAIR, LEGS ELEVATED, WATCHING TV. CALL LIGHT WITHIN REACH.
--- NOTE | 2017-08-03 13:00 | NUR ---
patient resting in chair. rr even and unlabored. legs elevated. bladder irrigation continues until 1600 which will be 24hrs.
--- NOTE | 2017-08-03 13:10 | NUR ---
HELPED THE NURSE AND PYSICAL THERAPY WALK PATIENT, HE WALKED 78FT TODAY.
--- NOTE | 2017-08-03 13:48 | NUR ---
patient ambulated with pt. patient tolerated well. needing some encouragement to keep going. ambulated in tate with walker and pt. followed with wc. paitent ambulated to outside physical therapy treatment room. asked if patient could ambulate back to room. patient stating, " no i am wore out" rating exertion at 5/10. patient did desat to 86 needing to sit and recover to 92 percent with 4 l oxygen. patient then used wc to outside room. ambulated to bed from tate. was able to assist self back to bed with minimal assist
--- NOTE | 2017-08-03 15:22 | NUR ---
patient in room. assisting with shaving and washing face. patient tolerated well. no other issues at this time.
--- NOTE | 2017-08-03 16:43 | NUR ---
patient continues to have no blood in urine. bladder irrigation stopped. cap placed in lumen. patient tolerating well. no issues at this time. call light within reach.
--- NOTE | 2017-08-03 17:14 | NUR ---
patient did very well today. ambulated in tate with pt. tolerating ambulating to pt room. needing assistance back to bed with wc. tolerated shower today. sat in chair for meals. bladder irrigation stopped. currently no blood in urine. qs urine output. encourage po and calories. ensure offered with meals. continue with therapies over the weekend.
--- NOTE | 2017-08-03 17:53 | NUR ---
darrell called to go to br. patient incont of stool while going to br. patient called when done. assisted back to bed to finish dinner.
--- NOTE | 2017-08-03 20:09 | NUR ---
RECEIVED BEDSIDE REPORT FROM MARILIN MITCHELL. PT OOB WITH SBA AND FWW TO BATHROOM. TOLLERATED WELL. 5L O2 NC WHILE UPP WALKING. DASTED TO LOW 80%. PT WAS ABLE TO RECOVER QUICKLY. GILLETTE IN PLACE. CALL LIGHT WITHIN REACH. REPORTS NO OTHER NEEDS AT THIS TIME.
--- NOTE | 2017-08-03 22:00 | NUR ---
ASSESSMENT COMPLETED. REPORTS NO PAIN. TEDHOSE IN PLACE. 3L NC. DATURAITON 94%. HEART RATE 82. TACHYPNIC WITH SHALLOW BREATHING. LUNGS SOUNDS DIMINISHED W/ RLL EXW. HEART IRREGULAR. NO EDEMA NOTED. CAP REFILL <3, PULSES +2. PT HAS A PRODUCTIVE COUGH WITH MODERATE THICK SPUTUM.
--- NOTE | 2017-08-03 23:07 | NUR ---
REPOSITIONED PT ON LEFT SIDE. TITRATED BACK TO 5L NC. SATURATION AT THIS TIME IS 91%. CALL LIGHT WITHIN REACH.
--- NOTE | 2017-08-04 | NUR ---
PT APPEARS TO BE SLEEPING. O2 92% ON 4L. PRODUCTIVE COUGH HEARD. RESPIRATONS ARE EQUAL. HOB ELEVATED. CALL LIGHT WITHIN REACH. REFRESHED WATER.
--- NOTE | 2017-08-04 02:32 | NUR ---
PT TITRATED TO 6L NC FOR DESATINGWHILE EATING A SNACK. CALL LIGHT WITHIN REACH, REPORTS NO OTHER NEEDS AT THIS TIME.
--- NOTE | 2017-08-04 04:00 | NUR ---
PT APPEARS TO BESLEEPING ON RIGHT SIDE. 5L NCIN PLACE. RESPIRATONS EQUAL AND NONLABORED. CALL LIGHT WITHIN REACH.
--- NOTE | 2017-08-04 05:53 | NUR ---
SLEPT THROUGHOUT THE NIGHT. SWING BED. CONT PULSE OX. 5L NC. PT REPOSITIONING SELF WITHOUT PROMPTING. GILLETTE IN PLACE. U/O Q/S. VSS.
--- NOTE | 2017-08-04 10:26 | NUR ---
PATIENT UP TO THE SIDE OF THE BED WORKING WITH PHYSICAL THERAPY. PATIENT HAS BLEEDING FROM THE CATHATER SITE, DOCTOR YRIS NOTIFIED
--- NOTE | 2017-08-04 11:00 | NUR ---
PATIENT TRANSFERRED BACK TO BED FROM THE CHAIR. PATIENT WAS A 2 PERSON ASSIST WITH HIS FWW.
--- NOTE | 2017-08-04 11:00 | NUR ---
2 PERSON ASSIST WITH PAULA FARIAS, PATIENT FROM CHAIR TO BED. NEW DRAW SHEET. PILLOW UNDER ANKLES. IN ROOM. FRESH COFFEE GIVEN. CALL LIGHT IN REACH
--- NOTE | 2017-08-04 13:16 | NUR ---
PATIENT UP IN BED, I/OS DONE AND CHARTED BY THIS LOOM FIXER HELPER AND FINN GOMEZ. GILLETTE EMPTIED. ES IN ROOM FOR HOUSEKEEPING. FRESH COFFEE GIVEN CALL LIGHT IN REACH.
--- NOTE | 2017-08-04 14:03 | NUR ---
PATIENT PULSE OX DC'D MD AWARE AND OK WITH THIS. PATIENT REMAINS ON OXYGEN AT 2L PER NC WITH NO C/O SOB AT THIS TIME
--- NOTE | 2017-08-04 15:44 | NUR ---
PATIENT SITTING UP IN BED VISITING WITH FAMILY, HE DENIES ANY PAIN OR SOB AT THIS TIME. PATIENT GIVEN SCHEDULED MEDICINE AT THIS TIME.
--- NOTE | 2017-08-04 16:09 | NUR ---
BROUGHT HIM A NEW CUP COFFEE.
--- NOTE | 2017-08-04 16:34 | NUR ---
PATIENT UP IN BED, AND VISITOR AT BEDSIDE. FRESH ICEWATER GIVEN TO BOTH. CALL LIGHT IN REACH NO OTHER NEEDS
--- NOTE | 2017-08-04 21:07 | NUR ---
sitting up in chair, watching tv. O2 2L NC in place, lungs dim, dry, non productive cough present. F/C patent draining clear yellow urine, attens in place. Bruising arms in different stafes of healing from IV sites. Edema of enkles, non pitting presetnt, Legs elevated with pillows. No c/o pain or sob, helps with repositining in bed, coop with assessment
--- NOTE | 2017-08-05 00:33 | NUR ---
MALE MITZY/GILLETTE CARE DONE.
--- NOTE | 2017-08-05 04:38 | NUR ---
Resting, no c/o distress. Call light at bedside
--- NOTE | 2017-08-05 05:42 | NUR ---
Has slep off and on, Cooperative. Helps with turning and repositioning. O2 2L NC on. F/c patent draining light colored urine. Has one episode of sanguineous penile drainage, penis edematous, no clots noted. Shaunna area and f/c care done Wears attends. Legs elevated, no c/o pain
--- NOTE | 2017-08-05 06:38 | NUR ---
UP TO BSC, NO BM, NO FURTHER SANGUINEOUS PENILE DRAINAGE NOTED. 3WAY F/C INTACT. PATENT, DRAINING DARK YELLOW URINE.
--- NOTE | 2017-08-05 07:35 | NUR ---
MORNING ASSESSMENT AND MEDICATIONS DUE. THIS RN TO BEDSIDE. PT DENIES PAIN AND NAUSEA AND REPORTS "FEELING JUST FINE." ASSESSMENT DONE. PT ENCOURAGED TO GET UP TO CHAIR TODAY, PT AGREEABLE. URINE CLEAR AND YELLOW AT THIS TIME. BED RAILS UP. CALL LIGHT WITHIN REACH.
--- NOTE | 2017-08-05 07:50 | NUR ---
PATIENT UP IN BED DRINKING COFFEE, BOARD UPDATED, CALL LIGHT IN REACH. PATIENT DENIES ANY NEEDS AT THIS TIME
--- NOTE | 2017-08-05 09:27 | NUR ---
THIS FIRM ADMINISTRATOR AND FINN ROQUE TIN ROOM FOR VITALS AND I/OS. PATIENT UP IN CHAIR. GILLETTE EMPTIED. CALL LIGHT IN REACH. PATIENT ORDERED LUNCH
--- NOTE | 2017-08-05 10:08 | NUR ---
THIS RN TO ROOM TO CHECK ON PT. PT REMAINS UP IN CHAIR. CALL LIGHT WITHIN REACH. PT VISITING WITH FAMILY. NO REQUESTS OR COMPLAINTS AT THIS TIME.
--- NOTE | 2017-08-05 10:50 | NUR ---
Patient called from br, in room. 2person assist back to bed, pillow under ankles. Call light in reach.
--- NOTE | 2017-08-05 12:34 | NUR ---
THIS RN TO ROOM TO CHECK ON PATIENT. PT WATCHING TV. SOUP AT BEDSIDE FOR LUNCH. PT ASKED IF HE WOULD LIKE ASSISTANCE EATING THE SOUP. PT STATES "NO, I'M JUST NOT HUNGRY RIGHT NOW." PT STATES HE HAS NO REQUESTS OR COMPLAINTS AT THIS TIME. BED RAILS UP. CALL LIGHT WITHIN REACH.
--- NOTE | 2017-08-05 13:29 | NUR ---
Patient up in bed, eyes closed. Macias emptied, I/Os charted. Patient has not yet eaten his lunch, soup is still on bedside table. call light in reach
--- NOTE | 2017-08-05 14:31 | NUR ---
PT UP AMBULATING IN THE DIAZ WITH PHYSICAL THERAPY AT THIS TIME. PT DID WELL. THEN BACK TO HIS ROOM AND VISITING WITH FAMILY.
--- NOTE | 2017-08-05 15:41 | NUR ---
THIS RN TO BEDSIDE TO CHECK ON PT. PT VISITING WITH [id number]. PT STATES HE HAS NO COMPLAINTS BUT WOULD LIKE SOME COFFEE. COFFEE PROVIDED. ENSURE ENCOURAGED. PT STATES HE IS STILL WORKING ON THE ENSURE AT HIS BEDSIDE. BED RAILS UP. CALL LIGHT WITHIN REACH.
--- NOTE | 2017-08-05 17:27 | NUR ---
MEDICATION DUE. THIS RN TO BEDSIDE. PT VISITING WITH FAMILY "FOR MY BIRTHDAY." PT REQUESTS HIS SOUP BE WARMED FROM LUNCH. SOUP WARMED REQUESTED. PT CONTNUES VISITING WITH FAMILY. CALL LIGHT WITHIN REACH. BED RAILS UP.
--- NOTE | 2017-08-05 17:29 | NUR ---
RT CALLED TO CHECK ON NEB TREATMENT. RESPIRATORY THERPIST STATES HE WILL BE COMING DOWN SHORTLY. PT DOES NOT APPEART TO HAVE ANY DISTRESS WITH BREATHING. PT DENIES SHORTNESS OF BREATH. O2 BY NC IN PLACE. PT LAUGHING AND JOKING WITH FAMILY.
--- NOTE | 2017-08-05 17:31 | NUR ---
PT HERE POST ETOH WITHDRAWL, SWING BED FOR DECONDITIONING. 2 PA WITH FWW. CARDIAC DIET. PT UP TO CHAIR X2 TODAY. CONTINUE TO ENCOURAGE TIME IN CHAIR. PTS BIRTHDAY IS TODAY, FAMILY AT BEDSIDE. LFA IV, PT IS A VERY HARD PIV START. THIS IV LEFT IN PLACE PER MD ORDER. ENCOURAGE PO INTAKE AND ENSURE. 2-5 LO2 AND RT TREATMENT. URINE WAS FREE OF BLOOD THIS SHIFT. PT USING CALL LIGHT APPROPRIATLY.
--- NOTE | 2017-08-05 17:37 | NUR ---
PATIENT UP IN BED, FAIMLY IN ROOM. I/OS CHARTED. PATIENT REPORTS HE DIDN'T CARE FOR THE DINNER TONIGHT SO HE ATE THE SOUP HE HAD SAVED FROM LUNCH. CALL LIGHT IN REACH
--- NOTE | 2017-08-05 18:14 | NUR ---
PIV NO LONGER NEEDED. PIV DC'D PER PROTOCOL. GAUZE AND COBAN APPLIED. PT WATCHING BASKETBALL. NO REQUESTS OR COMPLAINTS
--- NOTE | 2017-08-05 20:02 | NUR ---
COOP WITH ASSESSMENT, WATCHING TV, NO C/O PAIN. O2 2L NC. 3W F/C INTACT, NO PENILE DISCRAGE AT THIS TIME, DRAINING DARK YELLOW URINE. MOIST NON PROD COUGH PRESENT.
--- NOTE | 2017-08-06 00:58 | NUR ---
resting, eyes closed, no s/s distress
--- NOTE | 2017-08-06 04:32 | NUR ---
CURRENTLY AWAKE, EATCHING TV, NO REQUESTS, NO C/O APIN
--- NOTE | 2017-08-06 05:27 | NUR ---
PT CONTINUES ON SWING BED STATUS. HAS SLEPT OFF AND ON THIS SHIFT. CONTINUES ON O2 AT 2L NC, NO C/O RESP DISTRESS, SLIGHT SOB NOTED WHENUP TO BSC. MOIST, NON PRODUCTIVE COUGH PRESENT, HOB ELEVATED 35o. TOLERATING LIQUIDS VERY WELL. 3WAY F/C PATENT, DRAINING DARK YELLOW URINE. NO PENILE DRAINAGE NOTED THIS SHIFT. UP TO BSC, NO BM. USES 2 PERSON ASSIST, GAIT BELT AND FWW. INVOLUNTARY HANDS AND LEG TREMORS PRESENT. COOPERATIVE WITH ASSESSMENT, HELPS WITH REPOSITIONING. LEGS ELEVATED
--- NOTE | 2017-08-06 06:48 | NUR ---
resting, O2 2L NC inplace, no resp distress, resting
--- NOTE | 2017-08-06 08:55 | NUR ---
MORNING ASSESSMENT AND MEDICATIONS DUE. THIS RN TO BEDSIDE. PT REQUESTS ASSISTANCE WITH REPOSITIONING IN BED. PT BOOSTED UP IN BED. KNEES ELEVATED. PT ENCOAURGED TO GET UP TO CHAIR, PT REFUSES AT THIS TIME STATING "MAYBE LATER." ASSESSMENT DONE. PT O2 SATURATION NOTED TO BE 88% ON 3L O2. RT CALLED. RR = 20BPM. MEDICATION GIVEN (SEE MAR). BED RAILSUP. CALL LIGHT WITHIN REACH.
--- NOTE | 2017-08-06 09:00 | NUR ---
RT STATES PT WAS 91% AFTER BREATHING TREATMENT TODAY AND THEY WILL COME DOWN TO FURTHER EVALUATE PT AT THIS TIME.
--- NOTE | 2017-08-06 09:24 | NUR ---
THIS CNA2 GOT pt READY FOR BRK. GAVE PT A WIPE DOWN. CATH CARE. Q2TURN
--- NOTE | 2017-08-06 12:34 | NUR ---
THIS RN TO ROOM TO CHECK ON PT. PT STATES HE HAS NO REQUESTS OR COMPLAINTS. THIS RN SUGGESTED PT HAVE A SNACK. PT STATES "MAYBE LATER." CALL LIGHT WITHIN REACH. BED RAILS UP.
--- NOTE | 2017-08-06 15:11 | NUR ---
MEDICATION DUE. THIS RN TO BEDSIDE. PT EATING CHEESE AND CRACKERS FOR SNACK. MEDICATION GIVEN. PT HAS NO REQEUSTS OR COMPLAINTS AT THIS TIME. PT WATCHING BASEBALL GAME. BED RAILS UP. CALL LIGHT WITHIN REACH.
--- NOTE | 2017-08-06 17:27 | NUR ---
medications due. this rn to bedside. medications given as ordered (see mar). pt states he has no requests or complaints at this time. bed rails up. call light within reach.
--- NOTE | 2017-08-06 17:31 | NUR ---
PT SWING BED FOR DECONDITIONING POST ETOH WITHDRAWL. 2 PERSON FWW ASSIST. PT UP TO RESTROOM X4 AND CHAIR X2 TODAY, TOLERATED WELL. OUTPUT ADEQUATE. POOR NUTRITIONAL INTAKE. ENSURE ENCOURAGED. PHYSICAL THERAPY WORKED WITH PT TODAY. USES CALL LIGHT APPROPRIATLY.
--- NOTE | 2017-08-06 19:05 | NUR ---
BEDSIDE REPORT RECEIVED FROM OFFGOING RN. PT LYING IN BED WATCHING TV. PT DENIES NEEDS AT THIS TIME. CALL LIGHT WITHIN REACH.
--- NOTE | 2017-08-06 21:00 | NUR ---
PT ASSESSMENT COMPLETE. PT DECLINES PAIN, NAUSEA, OR SOB. O2 PRESENT @ 3LPM VIA NC. LUNG SOUNDS CLEAR IN UPPER LOBES, COARSE IN LOWER LOBES. PT CONTINUES TO HAVE NONPRODUCTIVE COUGH. SCATTERED BRUISING PRESENT TO SKIN WELL ALLEVYN FOAM OVER SKIN TEAR TO L WRIST. MAHAMED HOSE ARE IN PLACE TO BLE'S. PT REQUESTING CUP OF COFFEE, DENIES OTHER NEEDS. CALL LIGHT WITHIN REACH, WITH ROOM IN VIEW OF NURSES STATION.
--- NOTE | 2017-08-06 21:57 | NUR ---
PT UP TO BATHROOM WITH 1PA AND FWW. PT TOLERATED WELL, ASSISTED BACK TO BED. PT DENIES OTHER NEEDS. CALL LIGHT WITHIN REACH, ROOM IN VIEW OF NURSES STATION WITH CURTAIN OPEN.
--- NOTE | 2017-08-06 23:50 | NUR ---
PT UTILIZES CALL LIGHT, ASKS TO BE TURNED. PT ASSISTED TO ROLL TO L SIDE, PILLOW POSITIONED BEHIND HIS BACK. PT DENIES OTHER NEEDS. CALL LIGHT WITHIN REACH. ROOM IN VIEW OF NURSES STATION WITH CURTAIN OPEN.
--- NOTE | 2017-08-07 02:48 | NUR ---
MIRANDA WILKES AND I REPOSITIONED PATIENT.
--- NOTE | 2017-08-07 02:49 | NUR ---
EMPTIED GILLETTE BAG.
--- NOTE | 2017-08-07 03:59 | NUR ---
PT RESTING IN BED WITH EYES CLOSED. RESPIRATIONS EVEN AND UNLABORED. PT APPEARS TO BE SLEEPING. CALL LIGHT WITHIN REACH.
--- NOTE | 2017-08-07 05:39 | NUR ---
PT SLEPT OFF AND ON THROUGHOUT SHIFT. O2 @ 3LPM. NO REPORTS SOB. 1-2 PA WITH FWW. PT WORKING WITH PT. GILLETTE CATH, UO QS. MONITOR FOR BLOOD/DISCHARGE FROM PENIS. ALLEVYN FOAM TO L HAND SKIN TEAR. NO IV ACCESS.
--- NOTE | 2017-08-07 06:47 | NUR ---
1 PA TO THE BATHROOM USING WALKER AND BACK TO BED. PATIENT STATED NO BM BUT ONLY GAS. PATIENT IS IN BED NOW. CALL LIGHT WITHIN REACH. EMPTIED GILLETTE BAG.
--- NOTE | 2017-08-07 07:10 | NUR ---
REPORT RECIEVED FROM PAULA VELASQEUZ. PT AWAKE AND STATES HE FEELS PRETTY GOOD TODAY.
--- NOTE | 2017-08-07 08:05 | NUR ---
PT DRINKING AN ENSURE AND BREAKFAST AT BEDSIDE. LUNGS WHEEZY AFTER NEB TREATMENT. ADMINISTERED MORNING MEDS. PT STATES HE HAS BEEN COUGHING UP LOTS OF PHLEGM THIS MORNING.
--- NOTE | 2017-08-07 09:39 | NUR ---
ASSISTED ROAD SERVICE LOCKSMITH. WITH WALKING PT AROUND NURSES STATION. DESATTED AT END OF DIAZ AND SAT IN WHEELCHAIR TO RECOVER APPROX. 3 MIN. BUMPED UP OX TO 5 FOR REST OF WALK THEN PLACED BACK ON 3L ONCE IN BED. PT STATES HE WOULD LIKE TO TAKE A NAP NOW.
--- NOTE | 2017-08-07 11:13 | NUR ---
ADMINISTERED SENNA PER PT REQUEST NOW THAT PT AWAKE FROM NAP. STOPPED BY AND STATED THAT SHE WOULD COME BACK LATER.
--- NOTE | 2017-08-07 12:00 | NUR ---
HEATED UP SOME SOUP FOR PT HE DID NOT WANT TO ORDER SOME LUNCH. NOW IN ROOM. PT CONTINUES TO HAVE A FLAT AFFECT AND APPEARS TO HAVE NO INTEREST IN FOOD.
--- NOTE | 2017-08-07 12:50 | NUR ---
PATIENT REFUSED SHOWER. HE SAYS TOMORROW. PATIENT AGREED TO SHAVE, ORAL CARE, AND WASH HANDS AND FACE. IN ROOM. CALL BUTTON IN REACH.
--- NOTE | 2017-08-07 13:28 | NUR ---
PT WORKING WITH SANE RN.
--- NOTE | 2017-08-07 15:05 | NUR ---
PT SITTING IN BED WATCHING TV. PT DENIES CONCERNS.
--- NOTE | 2017-08-07 18:32 | NUR ---
PT WALKED WITH PHSY THER. X2 TODAY. TOLERATED WELL WITH SOME DESATTING. ATE SMALL AMT OF FOOD AT EACH MEAL, ENCOURAGING ENSURES. GILLETTE CONTINUES TO DRAIN YELLOW URINE WO BLOOD. 3L NC. NO IV ACCESS.
--- NOTE | 2017-08-07 18:56 | NUR ---
PATIENT HAD FULL MITZY CATH CARE DONE. SMALL AMOUNT OF WHITE DRAINAGE AROUNG TUBING OF CATH. SKIN RED AND TENDER ON SCRODUM AND GROIN. BARRIER CREAM APPLIED TO ARACELIS AREA. ATTENDS OFF AND BRIAN UNDERNEATH PATIENT. DISCUSSED WITH PATIENT ABOUT GOOD HYGENE AND HOW HAVING A SHOWER CAN HELP. PATIENT STATES THAT HE WILL SHOWER TOMORROW. CALL BUTTON IN REACH. NO OTHER NEEDS AT THIS TIME. FRESH ICE WATER AND AN ENSURE GIVEN.
--- NOTE | 2017-08-07 19:10 | NUR ---
BEDSIDE REPORT RECEIVED FROM PAULA YOUNG. PT AWAKE, LYING IN BED, HOB ELEVATED, ON 3L OXYGEN BY ODILON. LETA QUINN. PT WATCHING TV. NO REQUESTS AT THIS TIME, CALL LIGHT IN REACH.
--- NOTE | 2017-08-07 20:14 | NUR ---
PATIENT IS RETSING IN BED WATCHING TV. ROUNDED CHARGE. PATIENT DENIES ANY COMMENTS, QUESTIONS, OR CONOCERNS. NO NEEDS NOTED. CALL LIGHT IN REACH.
--- NOTE | 2017-08-07 22:05 | NUR ---
PT ASSESSMENT COMPLETE, PT ON 3L OXYGEN BY NC, LUNGS CLEAR IN UPPER LOBES, DIMINISHED BILATERALLY LOWER LOBES, NO ADVENTITIOUS SOUNDS HEARD. HR IRREGULAR RHYTHM. BOWEL TONES ACTIVE X 4, ABD SOFT,NON-TENDER. PT PASSING FLATUS, UNABLE TO HAVE BM, SCHEDULED LAXATIVES ADMINISTERED. CSM INTACT BUE. FAINT PEDAL PULSES BLE, CHRONIC NUMBNESS, MAHAMED HOSE IN PLACE, LEGS ELVATED ON PILLOW. PT REMINDED TO RESPOSITION. GILLETTE CATHETER DRAINING CLEAR YELLOW URINE. NO ADDL REQUESTS AT THIS TIME, CALL LIGHT IN REACH.
--- NOTE | 2017-08-07 22:06 | NUR ---
1 PA ASSIST TO THE BATHROOM AND BACK TO BED WITH WALKER. CALL LIGHT WITHIN REACH. EMPTIED GILLETTE BAG.
--- NOTE | 2017-08-07 23:50 | NUR ---
CALL LIGHT ANSWERED, SBA BACK TO BED FROM RESTROOM WITH VERIFICATION REP CHRISTY ASSIST, PT HAD FORMED MED SIZE BM. CALL LIGHT IN REACH.
--- NOTE | 2017-08-08 02:00 | NUR ---
CHECKED ON PT, APPEARS TO BE SLEEPING, EYES CLOSED, VISIBLE CHEST RISE. PT LYING ON LEFT SIDE. LIGHTS OFF IN ROOM. GILLETTE CATHETER DRAINING YELLOW URINE.
--- NOTE | 2017-08-08 04:34 | NUR ---
PT SITTING UP IN CHAIR, ON 3L OXYGEN BY NC. PT WATCHING TV. NO REQUESTS AT THIS TIME. CALL LIGHT IN REACH.
--- NOTE | 2017-08-08 06:32 | NUR ---
PT ON 3L OXYGEN BY NC THROUGHOUT SHIFT, SATURATIONS WNL. LEGS ELEVATED WHILE IN BED, PT REMINDED TO REPOSITION. UP TO RESTROOM WITH 1PA FWW FOR BMS X 5. GILLETTE CATHETER DRAINING. PT USING CALL LIGHT APPROPRIATELY. NO IV ACCESS.
--- NOTE | 2017-08-08 08:03 | NUR ---
PATIENT RESTING IN BED. PATIENT REFUSED TO WASH HANDS AND FACE, DISCUSSED SHOWERING AFTER PT WITH PATIENT. PATIENT CALL LIGHT IN REACH. NO OTHER NEEDS AT THIS TIME.
--- NOTE | 2017-08-08 08:30 | NUR ---
MORNING MEDICATION GIVEN. PATIENT RESTING IN BED. REFUSED BREAKFAST AT THIS TIME. ENSURE GIVEN TO PATIENT. PATEINT STATING HE DOES NOT WANT TO EAT. C/O OF HAVING LOOSE STOOL THROUGHOUT THE NIGHT. 5 TOTAL. REFUSING STOOL SOFTENER. PLAN TO WORK WITH PT/OT. PATIENT STATING HE WILL BE DISCHARGING HOME TOMORROW WITH . NO OTHER COMPLAINT AT THIS TIME. PATIENT VITALS TAKEN. GILLETTE CATH INTACT.
--- NOTE | 2017-08-08 09:30 | NUR ---
PT IN ROOM TO WORK WITH PT. PATIENT AMBULATING IN ROOM. REFUSED TO GO OUTSIDE OF ROOM DUE TO BEING INCONT OF LOOSE STOOL THIS AM. PATIENT DID PARTICIPATE IN ROOM WITH PT. PLAN TO DO A SHOWER WITH OT AT 1030
--- NOTE | 2017-08-08 10:45 | NUR ---
PT ALERT, QUICKER TO RESPOND TO QUESTIONS. HE TOLD ME HE IS PLANNING ON DC TO HOME TOMORROW. HE WAS HONEST ABOUT SOME ANXIETY REGARDING THE TRANSITION HOME. HAD GOOD, HONEST DISCUSSION ABOT SOME OF HIS FEARS-MOSTLY ABOUT ALCOHOL OR THE CHANGING OF THE HABIT OF DRINKING. PT REQUESTED PRAYER, WILL FOLLOW NEEDED
--- NOTE | 2017-08-08 10:46 | NUR ---
PATIENT RESTING IN BED, EYES CLOSED. CALL LIGHT IN REACH. NO OTHER NEEDS AT THIS TIME.
--- NOTE | 2017-08-08 11:07 | NUR ---
OT IN ROOM TO DO SHOWER.
--- NOTE | 2017-08-08 11:44 | NUR ---
patient tolerated shower well with ot. patient was able to do a lot of the shower himself. patient sat on edge of bed for lunch. no issues at this time.
--- NOTE | 2017-08-08 12:19 | NUR ---
PATIENT TOLERATED SOUP. PATIENT DID NOT WANT HIS HALF OF SANDWICH. ENCOURAGED HIS ENSURE. PATIENT RESTING IN BED WITH HOB ELEVATED. PATIENT STATED AFTER LUNCH HE WANTED TO TAKE A NAP.
--- NOTE | 2017-08-08 12:53 | NUR ---
PATIENT RESTING IN BED, EYES CLOSED. CALL LIGHT IN REACH. NO OTHER NEEDS AT THIS TIME.
--- NOTE | 2017-08-08 12:57 | NUR ---
PATIENT SLEEPING IN BED. RR EVEN AND UNLABORED. CALL LIGHT WITHIN REACH.
--- NOTE | 2017-08-08 14:12 | NUR ---
PATIENT RESTING, EYES CLOSED. CALL LIGHT IN REACH. NO OTHER NEEDS AT THIS TIME.
--- NOTE | 2017-08-08 15:17 | NUR ---
PATIENT WORKING WITH PT. PATIENT TOLERATED 1 WHOLE LAP WITH A STBY ASSIST AND WALKER. PATIENT TO CHAIR AFTER THERAPY.
--- NOTE | 2017-08-08 15:37 | NUR ---
ASSIST PATIENT BACK TO BED. PATIENT STATING HE "CANNOT STAND TO SIT IN OUR CHAIRS" REPOSITIONED WITH PILLOWS. SCHEDULED MEDS GIVEN.
--- NOTE | 2017-08-08 15:57 | NUR ---
PATIENT RESTING IN BED, WATCHING TV. CALL LIGHT IN REACH. NO OTHER NEEDS AT THIS TIME.
[2017-08-08] MEDS ORDERED: TAMSULOSIN HCL0.4 MG PO (16:37)
[2017-08-08] MEDS ORDERED: DILTIAZEM 24HR120 MG PO (16:38)
[2017-08-08] MEDS ORDERED: NEURONTIN300 MG PO (16:39)
--- NOTE | 2017-08-08 16:46 | NUR ---
ROUNDED WITH DR. KINCAID IN ROOM. UPDATE GIVEN. PATIENT PLAN TO DISCHARGE TOMORROW.
--- NOTE | 2017-08-08 16:47 | NUR ---
PATIENT DOING WELL TODAY. WORKED WITH PT/OT. AMBULATED ONE WHOLE LAP IN DIAZ. TOLERATED WELL. OXYGEN 3-5 L DEPENDING ON ACTIVITY. PATIENT SHOWERED TODAY. PATIENT TO DICHARGE TOMORROW HOME WITH . HOME PT TO FOLLOW UP WITH PATEINT. DISCHARGE FOLLOW UP APPOINTMENT MADE. PATIENT WILL DISCHARGE HOME WITH GILLETTE CATH AND FOLLOW UP WITH DR. COFFEY.
--- NOTE | 2017-08-08 17:29 | NUR ---
THIS SAP BASIS ADMINISTRATOR PERFORMED CATH CARE ON PATIENT. PATIENT RESTING IN BED, CALL LIGHT IN REACH. NO OTHER NEEDS AT THIS TIME.
--- NOTE | 2017-08-08 17:55 | NUR ---
PATIENT TOLERATED SOUP FOR DINNER. NO OTHER NEEDS AT THIS TIME. CALL LIGHT WITHIN REACH.
--- NOTE | 2017-08-08 19:10 | NUR ---
BEDSIDE REPORT RECEIVED FROM PAULA GARCIA. PT AWAKE, DROWSY, SITTING UP IN BED. ON 3L OXYGEN BY NC AT THIS TIME. CALL LIGHT NEXT TO PT. NO REQUESTS AT THIS TIME.
--- NOTE | 2017-08-08 19:59 | NUR ---
PT ASSESSMENT AND VITALS COMPLETE AT THIS TIME. CATHETER CARE COMPLETE, PT EDUCATION PROVIDED REGARDING CARE, INFECTION PREVENTION. GILLETTE DRAINING YELLOW URINE, NO HEMATURIA NOTED. RT BRITANNY IN ROOM FOR BREATHING TREATMENT. LUNGS CLEAR W EXP WHEEZE HEARD IN LEFT UPPER LOBE AFTER TREATMENT. BOWEL TONES ACTIVE X 4, ABD SOFT. PT DENIES PAIN. LEGS ELEVATED ON PILLOW, NO EDEMA NOTED, MAHAMED HOSE ON. PT REPOSITIONED HIGHER IN BED WITH 2PA. NO REQUESTS AT THIS TIME, CALL LIGHT IN REACH.
--- NOTE | 2017-08-08 20:46 | NUR ---
ROUNDED CHARGE. PATIENT IS RESTING IN BED WATCHING TV. PATIENT DENIES ANY COMMENTS, QUESTIONS, OR CONCERNS. NO NEEDS NOTED. CALL LIGHT IN REACH.
--- NOTE | 2017-08-08 22:34 | NUR ---
CALL LIGHT ANSWERED, PT ASSISTED TO TURN OF TV. PT REQUESTING TO SLEEP, CALL LIGHT NEXT TO PT.
--- NOTE | 2017-08-08 23:55 | NUR ---
CALL LIGHT ANSWERED, PT GIVEN GUO ENSURE, AND ICE WATER REQUESTED. PT AWAKE, WATCHING TV. NO ADDL REQUESTS. CALL LIGHT IN REACH.
--- NOTE | 2017-08-09 03:05 | NUR ---
CHECKED ON PT, APPEARS TO BE SLEEPING, EYES CLOSED, BREATHING TACHYPNIC RR 24. PT LYING ON RIGHT SIDE. 3L OXYGEN BY NC ON. LIGHTS OFF IN ROOM.
--- NOTE | 2017-08-09 04:30 | NUR ---
PATIENT ASSISTED TO THE RESTROOM. PATIENT IS A SBA W/FWW. PATIENT UNABLE TO HAVE BM AT THIS TIME. PATIENT ASSISTED TO THE RECLINER. PATIENT TOELRATED AMBULATION WELL. PATIENT IS NOW RESTING IN RECLINER. PATIENT REMAINS ON 2L VIA NC. PATIENT DENIES ANY NEEDS AT THIS TIME. PATIIENTS ROOM CLEANED. CALL LIGHT IN REACH.
--- NOTE | 2017-08-09 04:51 | NUR ---
CALL LIGHT ANSWERED, PT GIVEN GUO ENSURE, TRAY TABLE ADJUSTED. PT SITTING UP IN CHAIR, LEGS ELEVATED. CHAIR ALARM ON. 3L OXYGEN BY NC ON. CALL LIGHT IN REACH.
--- NOTE | 2017-08-09 05:28 | NUR ---
SATURATIONS WNL ON 3L OXYGEN BY NC. USING CALL LIGHT APPROPRIATELY. 1PA TO CHAIR. MAHAMED HOSE IN PLACE, LEGS ELEVATED ON PILLOW, NO EDEMA NOTED. SCHEDULED NEBS, CPT, IS. GILLETTE DRAINING YELLOW URINE, NO HEMATURIA. PT TO D/C TODAY WITH GILLETTE.
--- NOTE | 2017-08-09 05:29 | NUR ---
I&OS DONE AND CHARTED. HELPED PT GET BACK TO BED FROM THE CHAIR WITH HIS FWW. GOT HIM COMFORTABLE WITH HIS PILLOWS IN BED. BEDSIDE TABLE AND CALL LIGHT WITHIN REACH. PT NEEDS NOTHING ELSE AT THIS TIME.
--- NOTE | 2017-08-09 05:36 | NUR ---
PT CURRENTLY RESTING, EYES CLOSED, NO RESP DISTRESS. ON ROOM AIR. TURNED Q2H, INCONTINENT OF URINE SEVERAL TIMES THIS SHIFT, SKIN CARE DONE, ATTENDS CHANGED. PROCEDURE EXPLAINED, COOPERATIVE. WAS MEDICATED X1 WITH OXYCODONE 10MG PO C/O RESTLESS LEGS, MED EFFECTIVE. HEEL PROTECTORS IN PLACE, SL AT THIS TIME. NO C/O SOB OR PAIN. PT IS A 2 PERSON ASSIST DUE TO WEAKNESS. PT WAS REASSURED MULTIPLE TIMES THIS SHIFT DUE TO PTS PREOCUPATIONS WITH HER OWN . CONFUSED TO PLACE AND TIME. REORIENTED WITH EACH INTERACTION.
--- NOTE | 2017-08-09 08:00 | NUR ---
PATIENT SITTING IN BED. PATIENT HAS CHOSEN NOT TO ORDER ANY BREAKFASYT HE PLANS TO DISCHARGE TODAY. PATIENT HAS NO FURTHER NEEDS AT THIS TIME. CALL LIGHT IN REACH AND PATIENT IS HAVING NO DISCOMFORT.
--- NOTE | 2017-08-09 09:31 | NUR ---
CHIRS THE DC SEED PRODUCTION FIELD SUPERVISOR JUST CAME IN TO TALK WITH THE PATIENT.
--- NOTE | 2017-08-10 10:19 | NUR ---
FAXED CHART NOTES TO [facility] FOR PT TO HAVE PT, OT, AND RN CARE AT HOME. TALKED WITH NORMA RN FROM . FAX INCLUDED ORDER, FACESHEET, H AND P, DC SUMMARY. THIS WAS SENT 08/09/17
== END 2017-08-09 11:05 | disposition home health service (06) | DRG 556 ==
LOC: MS 09:06
PROVIDERS: ADMIT Internal Medicine
DX: M62.81 Muscle weakness (generalized) (principal); J96.11 Chronic respiratory failure with hypoxia; I48.2 Chronic atrial fibrillation; I10 Essential (primary) hypertension; J44.9 Chronic obstructive pulmonary disease, unspecified; E78.5 Hyperlipidemia, unspecified; F10.20 Alcohol dependence, uncomplicated; R60.0 Localized edema; I87.2 Venous insufficiency (chronic) (peripheral); I27.81 Cor pulmonale (chronic); N40.0 Benign prostatic hyperplasia without lower urinary tract symptoms; R31.9 Hematuria, unspecified; G47.33 Obstructive sleep apnea (adult) (pediatric); E55.9 Vitamin D deficiency, unspecified; Z88.8 Allergy status to other drugs, medicaments and biological substances; Z79.02 Long term (current) use of antithrombotics/antiplatelets; Z79.83 Long term (current) use of bisphosphonates; Z79.51 Long term (current) use of inhaled steroids; Z79.899 Other long term (current) drug therapy
CPT/HCPCS: 36415; 85025; 86850; 86900; 86901; 87493; 94640; 94668; 94760; 94762; 97110; 97116; 97162; 97165; 97530; 97535

== ENCOUNTER 2018-11-10 18:30 | Emergency (ER) | payer MEDICARE, OTHER ==
[~2018-11-10] VITALS: Ht 180.3 cm; Wt 85.3 kg
[~2018-11-10 18:30] MED LIST changes: +ALFUZOSIN HCL10 MG PO; +ALPHA LIPOIC A200 MG PO; -ALPHA LIPOIC AC50 MG PO; +AUGMENTIN 875-1 EACH PO; +DILTIAZEM 24HR120 MG PO; +FLOMAX0.4 MG PO; +FLONASE ALLERG9.9 ML NAS; +NEURONTIN300 MG PO; +NORCO 5-325 TA1 EACH PO; +NYSTATIN1 EAC1 TOP; +TAMSULOSIN HCL0.4 MG PO
[2018-11-10] MEDS ORDERED: NORCO 5-325 TA1 EACH PO (22:36)
--- NOTE | 2018-11-11 16:05 | EKG ---
[facility] [address] [facility] [place], [place] [address] Signed Atrial fibrillation Possible Anterior infarct , age undetermined Abnormal ECG When compared with ECG of 11-DEC-2017 15:03, No significant change was found Confirmed by YOANNA KINCIAD MD ([id number]) on 11/11/2018 4:05:11 PM Electronically Signed By: YOANNA KINCAID MD 11/11/18 1605 PATIENT NAME: KADY SARMIENTO Electrocardiogram DATE OF : 38 PHYSICIAN: YOANNA KINCAID MD REPORT #: [id number] REPORT IS CONFIDENTIAL AND NOT TO BE RELEASED WITHOUT AUTHORIZATION
== END 2018-11-10 22:48 | disposition home or self-care (01) ==
LOC: ED 18:30
DX: M54.12 Radiculopathy, cervical region (principal); I10 Essential (primary) hypertension; I48.91 Unspecified atrial fibrillation; J44.9 Chronic obstructive pulmonary disease, unspecified; Z87.891 Personal history of nicotine dependence; Z88.8 Allergy status to other drugs, medicaments and biological substances; Z79.899 Other long term (current) drug therapy
CPT/HCPCS: 71045; 72125; 80053; 84484; 85025; 93005; 93010; 99284-25

== ENCOUNTER 2019-09-05 16:11 | Emergency (ER) | payer MEDICARE, OTHER ==
[~2019-09-05] VITALS: Ht 180.3 cm; Wt 85.3 kg
[2019-09-05] MEDS ORDERED: PREDNISONE20 MG PO (18:29)
--- NOTE | 2019-09-06 12:57 | EKG ---
[facility] [address] [facility] [address] [facility] [place] [address] Signed Atrial fibrillation Rightward axis Nonspecific ST abnormality Abnormal ECG When compared with ECG of 10-NOV-2018 20:05, ST now depressed in Lateral leads Confirmed by YOANNA KINCAID MD ([id number]) on 09/06/2019 12:57:26 PM Electronically Signed By: YOANNA KINCAID MD 09/06/19 1257 PATIENT NAME: KADY SARMIENTO Electrocardiogram DATE OF : 38 PHYSICIAN: YOANNA KINCAID MD REPORT #: [id number] REPORT IS CONFIDENTIAL AND NOT TO BE RELEASED WITHOUT AUTHORIZATION
== END 2019-09-05 18:50 | disposition home or self-care (01) ==
LOC: ED 16:11
DX: R07.9 Chest pain, unspecified (principal); J44.1 Chronic obstructive pulmonary disease with (acute) exacerbation; I10 Essential (primary) hypertension; I48.91 Unspecified atrial fibrillation; Z87.891 Personal history of nicotine dependence; Z88.8 Allergy status to other drugs, medicaments and biological substances; Z79.899 Other long term (current) drug therapy; Z79.01 Long term (current) use of anticoagulants
CPT/HCPCS: 71045; 80053; 80162; 83735; 84484; 85025; 93005; 93010; 96374; 99285-25; J2930

== ENCOUNTER 2019-09-27 21:59 | Inpatient (IN) | payer MEDICARE, OTHER ==
[~2019-09-27] VITALS: Ht 180.3 cm; Wt 84.8 kg
--- OUTSIDE RECORDS SUMMARY | ~2019-09-27 | XMS | Encounter Summary ---
Demographics + + + | Address | [address] | | | [place] [address] | + + + | Home Phone | | + + + | Preferred Language | Unknown | + + + | Marital Status | | + + + | Anabaptism Affiliation | Unknown | + + + | Race | Unknown | + + + | Ethnic Group | Unknown | + + + Author + + + | Author | [facility] | | | and [place] | + + + | Organization | [facility] | | | and [place] | [...] Team Providers + +------+ + | Care Scale Adjuster Name | Role | Phone | + +------+ + | Ravinder Webb MD | PCP | | + +------+ + Reason for Visit + + + | Reason | Comments | + + + | Follow-up, Office | 2 month | | Visit | | + + + Encounter Details +--------+---------+ + + + | Date | Type | Department | Care Team | Description | +--------+---------+ + + + | 05/25/ | Office | [facility] | Marylou Peraza | Longstanding | | 2020 | Visit | [facility] [place] | [address] | persistent atrial | | | | [address] | [address] | fibrillation (HCC) | | | | [address] | [place] [address] | (Primary Dx); | | | | [place], [place] | [phone] | Coronary artery | | | | [address] | | calcification seen | | | | [phone] | | on CT scan; Mixed | | | | | | hyperlipidemia; | | | | | | Bilateral lower | | | | | | extremity edema; | | | | | | Pulmonary | | | | | | hypertension (HCC); | | | | | | Aortic valve | | | | | | insufficiency, | | | | | | etiology of cardiac | | | | | | valve disease | | | | | | unspecified; Chronic | | | | | | anticoagulation; | | | | | | Encounter for | | | | | | monitoring digoxin | | | | | | therapy; Chronic | | | | | | respiratory failure | | | | | | with hypoxia (HCC); | | | | | | Chronic obstructive | | | | | | pulmonary disease, | | | | | | unspecified COPD | | | | | | type (HCC); History | | | | | | of ETOH abuse; | | | | | | Essential | | | | | | hypertension | +--------+---------+ + + + Social History + +-------+ +--------+ + | Tobacco Use | Types | Packs/Day | Years | Date | | | | | Used | | + +-------+ +--------+ + | Former Smoker | | 1.5 | 50 | Quit: 2009 | + +-------+ +--------+ + + +---+---+---+ | Smokeless Tobacco: | | | | | Never Used | | | | + +---+---+---+ + + +---------+ + | Alcohol Use | Drinks/Week | oz/Week | Comments | + + +---------+ + | Not Currently | | | Alcoholic | | | | | Drinks/day: quit | | | | | 06/2017 after | | | | | hospitalzied | + + +---------+ + + + + | Sex Assigned at | Date Recorded | | | | + + + | Not on file | | + + + documented as of this encounter Last Filed Vital Signs + + + + + | Vital Sign | Reading | Time Taken | Comments | + + + + + | Blood Pressure | 138/80 | 05/26/2019 1:31 PM | | | | | PDT | | + + + + + | Pulse | 103 | 05/26/2019 1:31 PM | | | | | PDT | | + + + + + | Temperature | - | - | | + + + + + | Respiratory Rate | - | - | | + + + + + | Oxygen Saturation | 91% | 05/26/2019 1:31 PM | | | | | PDT | | + + + + + | Inhaled Oxygen | - | - | | | Concentration | | | | + + + + + | Weight | 83.5 kg (184 lb) | 05/26/2019 1:31 PM | | | | | PDT | | + + + + + | Height | 180.3 cm (5' 11") | 05/26/2019 1:31 PM | | | | | PDT | | + + + + + | Body Mass Index | 25.66 | 05/26/2019 1:31 PM | | | | | PDT | | + + + + + documented in this encounter Patient Instructions Patient Instructions Stu Marylou Lara, HOLLI - 05/26/2019 1:30 [address] PDTDr. Vasquez had conc erns about Pulmonary nodules , as saw 2 spiculated nodule in the left and right upper lob es. Although these may be benign, and he was concerned for malignancy based on the appearan ce and location. He had previously order a PET ct at [facility] in [facility] but not done , and should f/u with Dr. Webb about this. Your Echo mostly good, but shows worsening pulmonary hypertension , which is right sided pr essure from your lungs to your heart, and I have added hydralazine 25 mg three times a day t o help with this I will see you back at the end of July to follow up , but sooner if needed, and will look fo r labs from Dr. Webb that you are getting done in July I will also have you establish care with sales trainer who comes to [place] , Dr. Veronica, rober d I will see you in between visit with her See me back in 2 months Hydralazine tablets Brand Name: Apresoline What is this medicine? HYDRALAZINE (yina carias) is a type of vasodilator. It relaxes blood vessels, increasin g the blood and oxygen supply to your heart. This medicine is used to treat high blood press ure. How should I use this medicine? Take this medicine by mouth with a glass of water. Follow the directions on the prescriptio n label. Take your doses at regular intervals. Do not take your medicine more often than dir ected. Do not stop taking except on the advice of your doctor or health hospice care consultant. Talk to your carpenter helper maintenance regarding the use of this medicine in children. Special care may be needed. While this drug may be prescribed for children for selected conditions, precautio ns do apply. What side effects may I notice from receiving this medicine? Side effects that you should report to your doctor or health hospice care consultant as soon as p ossible: chest pain, or fast or irregular heartbeat fever, chills, or sore throat numbness or tingling in the hands or feet shortness of breath skin rash, redness, blisters or itching stiff or swollen joints sudden weight gain swelling of the feet or legs swollen lymph glands unusual weakness Side effects that usually do not require medical attention (report to your doctor or health hospice care consultant if they continue or are bothersome): diarrhea, or constipation headache loss of appetite nausea, vomiting What may interact with this medicine? medicines for high blood pressure medicines for mental depression What if I miss a dose? If you miss a dose, take it as soon as you can. If it is almost time for your next dose, ta ke only that dose. Do not take double or extra doses. Where should I keep my medicine? Keep out of the reach of children. Store at room temperature between 15 and 30 degrees C (59 and 86 degrees F). Throw away any unused medicine after the expiration date. What should I tell my health care provider before I take this medicine? They need to know if you have any of these conditions: blood vessel disease heart disease including angina or history of heart attack kidney or liver disease systemic lupus erythematosus (SLE) an unusual or allergic reaction to hydralazine, tartrazine dye, other medicines, foods, dyes, or preservatives or trying to get breast-feeding What should I watch for while using this medicine? Visit your doctor or health hospice care consultant for regular checks on your progress. Check yo ur blood pressure and pulse rate regularly. Ask your doctor or health hospice care consultant what your blood pressure and pulse rate should be and when you should contact him or her. You may get drowsy or dizzy. Do not drive, use machinery, or do anything that needs mental alertness until you know how this medicine affects you. Do not stand or sit up quickly, biju cially if you are an older patient. This reduces the risk of dizzy or fainting spells. Alcoh ol may interfere with the effect of this medicine. Avoid alcoholic drinks. Do not treat yourself for coughs, colds, or pain while you are taking this medicine without asking your doctor or health hospice care consultant for advice. Some ingredients may increase yo ur blood pressure. NOTE:This sheet is a summary. It may not cover all possible information. If you have questi ons about this medicine, talk to your doctor, pharmacist, or health care provider. Copyright 2019 [employer] documented in this encounter Progress Notes Marylou Peraza FNP - 05/26/2019 2:00 PM PDTFormatting of this note might be differe nt from the original. Date of visit: 05/26/2019 Primary Care Physician: Ravinder Webb MD CHIEF COMPLAINT: Chief Complaint Patient presents with Follow-up, Office Visit 2 month HISTORY OF PRESENT ILLNESS: Mr. Lassiter is a 78 year old man who is here today for 2 month follow up and his Ech o results. Today I reviewed all records available to me from electronic medical record, as well as fro m external sources. He has a history of coronary artery disease, atrial fib, hypertension, hyperlipidemia, and COPD, with severe emphysema , and continuous O2 , and previously not using oxygen regularly , and had heavy alcohol consumption , but has been sober since 07/2017 when hospitalized for alcohol withdrawal, and now uses oxygen regularly His [id number] VASCscore is 3and HAS BLED score of 3, with previously increased risk of bleeding from heavy alcohol consumption, and has been doing well on Eliquis with no bleed ing. His current and previous testing and procedures are detailed below. I saw him last 03/24/2019 ,when he was stable, and ordered him an Echo to follow up on pulm onary hypertension. I had made no changes to his medicines, but suggested he work with his medical supply comp any so that he could wear his oxygen more consistently, as irritated by nasal cannula, as he had cut tubing , and just putting in his mouth.. He had been in the ER 11/2018 for ongoing right shoulder pain [facility] treated with n arcotic pain medication, [place] 5/325, and chest x-ray done at the time did note bilateral bi basilar interstitial opacities likely related to a combination of COPD and interstitial lung disease. His CAT scan showed no acute abnormality of cervical spine but multilevel degener ative changes foraminal impingement of cervical nerve roots. His EKG performed at the time showed atrial fib with controlled ventricular response at 88 bpm,and his troponin's were negative. His previous hospitalization was in December 2017 when admitted in December 2017 for a TUR P as well as urethral dilatation, and admitted for acute on chronic respiratory failure afte r the procedure, and required aggressive pulmonary chest physiotherapy and frequent nebulize r treatments prior to being discharged home. He completed 3 months of twice weekly pulmonary rehab after that and tolerated well. He previously followed up with Dr. Reyna, and his split night sleep study 01/27/2018 repo rted noted no significant sleep apnea, and only mild hypopnea, and no improvement with BiPAP , and he did not meet Medicare criteria for obstructive sleep apnea, and moderate hypoxia tr eated with 4 L of oxygen during sleep He continues to have ongoing dyspnea related to pulmonary disease, but improved with inh demarcus and oxygen, but having difficulty with skin irritation form nasal cannula , so just us ing tubing without cannula in his mouth , but had nasal cannula today, and O2 sat's better. . He also reports improved activity tolerance, as now able to mow his lawn, and perform more home and yard work. He reports rare episodes of occasional chest discomfort, though not sure whether pulmona ry or cardiac in origin. He denies any other chest pain ,or syncope, and lower extremity ed lee remains controlled, and denies any signs or symptoms of TIA or stroke. His weight stable since last seen, and down 13 lbs since 03/2018 when weighed 196 pounds . He reports he has remained abstinent from alcohol. He brought his medications to the clinic today, and I reviewed personally REVIEW OF SYSTEMS: Negative except for pertinent items noted in HPI. Constitutional: reports mild ongoing fatigue . Denies unexplained weight loss. Appetite is good. Weight Decreased 13 lbs since 03/2018 Denies night sweats fevers or chills HENT: reports intermittent nosebleeds have resolved . Reports mild hearing loss. Denies dy sphagia Eyes: Hx cataract surgery.Denies visual disturbance or double vision. Denies history of g laucoma or macular degeneration. Respiratory/Sleep:: Hx emphysema COPD, Uses Oxygen 24 hrs, 4 liter O2 and 6 liters Thang Weber awatt ongoing cough, productive in am, significant STEPHENS Denies hemoptysis . reports snoring , denies orthopnea, PND. -negative sleep study 02/06/2018 Cardiovascular: Denies chest pain, leg swelling, palpitations Denies history of rheumatic fever. Denies claudication . Gastrointestinal: Denies GERD. Denies nausea, vomiting, abdominal pain and blood in stool . Genitourinary: Denies Hematuria reported, evaluated for bladder cancer with biopsy of ira dder along with TURP 12/17/2017. history of benign prostatic hypertrophy Musculoskeletal: Hx osteoarthritis,osteopenia, on Fosamax. Denies myalgias, . Skin: Denies color change. Denies rash or lesions Neurological: Hx essential Tremors,mostly resolved since stopped ETOH, and with Vit B comp alan Denies history of stroke/Transient ischemic attack.Denies history of seizures. Denies d izziness, syncope and numbness. Denies focal motor or sensory deficits Hematological/Oncology: Bruises easily, cut and scratches /bleed easily. history of cance r: bladder scan detected masses , bladder biopsy 12/17/2017 Endocrine: Denies diabetes or thyroid disease. Denies excessive thirst or hunger. Psychiatric/Behavioral: denies any history of depression or anxiety or other psychiatric i llness. Vaccines: Current on 11/2018 flu vaccine- high dose . Current on pneumonia vaccine. Habits/Social : history of smoking, quit 2009, 1.5 ppd x 50 years. EtOH use:Quit 06/2017. previously 3-4 drinks/day, 2 whiskeys and 2 beers daily Drinks 1 servings of caffeine keren y . Denies recreational or illicit drug use. Not exercising due to extreme STEPHENS. . 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 albuterol (PROVENTIL HFA) 90 mcg/puff inhaler Inhale 2 puffs into the lungs every 4 (fo ur) hours as needed for Wheezing. alendronate (FOSAMAX) 70 mg tablet Take 70 mg by mouth every 7 days. Take in the mornin g with a full glass of water, on an empty stomach, and do not take anything else by mouth or lie down for the next 30 min. Alpha-Lipoic Acid 200 MG TABS Take 1 tablet by mouth 2 (two) times daily. (Patient nathan sanchez differently: Take 600 mg by mouth Daily.) atorvaSTATin (LIPITOR) 20 mg tablet TAKE ONE TABLET BY MOUTH EVERY DAY AT BEDTIME 30 ta blet 2 B [id number] ER PO Take 1 tablet by mouth. (Patient taking differently: Take 1 t ablet by mouth Daily.) budesonide-formoterol (SYMBICORT) 160-4.5 mcg/puff inhaler Inhale 2 puffs into the lung s 2 (two) times daily. cholecalciferol (VITAMIN D-3) 1,000 units capsule Take 2,000 Units by mouth daily. Coenzyme Q10 (COQ10) 400 MG CAPS Take 300 mg by mouth daily. (Patient taking differentl y: Take 100 mg by mouth Daily.) digoxin (LANOXIN) 125 mcg tablet Take 1 tablet by mouth Daily. 90 tablet 3 ELIQUIS 5 MG tablet Take 1 tablet by mouth 2 (two) times daily. Flaxseed, Linseed, (FLAXSEED OIL PO) Take 1,400 mg by mouth daily. nitroglycerin (NITROSTAT) 0.[address] 1 tablet under the tongue every 5 nancy andria as needed for Chest pain. 25 tablet 3 SPIRIVA RESPIMAT 2.5 MCG/ACT inhaler 2 puffs daily. No facility-administered medications prior to visit. PHYSICAL EXAM: Wt Readings from Last 3 Encounters: 05/26/19 83.5 kg (184 lb) 03/24/19 83.3 kg (183 lb 9.6 oz) 06/03/15 96.3 kg (212 lb 6.4 oz) Temp Readings from Last 3 Encounters: No data found for Temp BP Readings from Last 3 Encounters: 05/26/19 138/80 03/24/19 120/78 06/03/15 136/84 Pulse Readings from Last 3 Encounters: 05/26/19 103 03/24/19 110 06/03/15 96 Vital signs: 09/23/2018: Wt: 189 Lbs. BP: 102/62 . HR.73 Vital signs: 03/14/2018: Wt: 196 Lbs. BP: 118/82 . HR. 77 Vital signs: 12/14/2017: Wt: 196 Lbs. BP: 126/80 . HR.78 GENERAL: Thin , frail man , in no distress. Appears approximately stated age. HEENT: Normocephalic, atraumatic. EYES: PERRL, EOM normal. MOUTH: Oral mucosae moist, dentition adequate, no lesions noted NECK: No JVD, lymphadenopathy, thyromegaly, bruits. Carotid pulses are 2+ bilaterally LUNGS/CHEST: Distant breath sounds throughout. Decreased a/e to bases. No rales, rhonchi or wheezing noted, SOB with exertion, RA O2 sat 91% HEART: Nondisplaced PMI, irregularly irregular rhythm w/ controlled rate , increasing he art rate with exertion . S1, S2 normal. No murmurs, rubs or gallops noted. ABDOMEN: Soft, nontender, no organomegaly, masses or bruits. Bowel sounds are normal in a ll 4 quadrants. The abdominal aortic pulsation is not palpable. EXTREMITIES: No ankle edema Bilateral , wearing compression socks . Radial pulses 2+ bi laterally. Femoral pulses are 2+ bilaterally without bruits. DP and PT pulses are 1+ bilat erally. No clubbing. SKIN: Warm and dry, capillary refill is normal, no lesions. NEUROLOGIC: Awake, alert and oriented x 3. No focal motor or sensory deficits. PSYCHIATRIC: Appropriate, affect appears normal, no sensory deficits. DATA: Blood tests: No results found for: WBC, RBC, HGB, HCT, PLT No results found for: NA, K, CL, CO2, ANIONGAP, GLUF, BUN, CREATININE, EGFR No results found for: CHOL, TRIG, LDL, LDL, GLUF No results found for: BNP, TSH, CRP No results found for: TOTEPI CARDIAC PROCEDURES/IMAGING CT chest: . 01/08/2015: CT-chest ([facility]'): Atheromatous calcification of the thorac ic aorta without aneurysm or dissection. Potentially significant calcification of the left main coronary artery, LAD, LCx, and RCA.Also noted extensive panlobular emphysema, and very low tidal volume as diaphragm only moves 10 mm between inspiration and expiration Last Stress Test, : Lexiscan, perfusion images benign, LVEF 70%. ECHO: Last Echo: 04/04/2019: EF 60-65%. LV normal in size and wall thickness. No regional wall m otion abnormalities. Unable to assess diastolic function due to A. fib. Moderately dilated LA. Severely enlarged RA. RV normal in size and function. Of Valsalva through ascending aorta WNL, dilated IVC. No pericardial or pleural effusion. Aortic valve trileaflet, mildl y calcific, sclerosis without stenosis, mild AI. Mitral valve normal with mild MAC, mild MR . Mild to moderate TR with velocity 3.68 m/s, estimated PASP 54 mmHg. Moderate to severe p ulmonary hypertension with estimated RVSP 62 mmHg increased from previously. Pulmonic valve normal with mild to moderate ME. Echo: 11/27/2017: ( [facility]) : Atrial fib, technically adequate study. EF 65-70 percent. LV n ormal in size and wall thickness. No regional wall motion abnormalities. Atrial fibrillati on prevents assessment of diastolic function. Mild RVE with normal RV systolic function. M oderate left atrium enlargement,(LA diameter measured at 4.8 cm, now 5.2 cm, LA volume index increased from 47.28 ml/m to 58.67 ml/m ). Moderate IDANIA, decreased from severe ly enlarged, 7.3 cm, compared to 6.56 cm previously. Aortic valve trileaflet, mildly thicke fercho, mild aortic sclerosis without stenosis, mildly calcified, mild aortic regurgitation, de creased from mild to moderate previously, aortic pressure half-time by doppler is 849ms, in creased from 609 ms on the prior study, that also indicates decreased severity. Mild mitral regurgitation, no mitral valve prolapse, mild MAC. Tricuspid valve normal, mild TR, slight ly decreased from mild to moderate previously. Mild to moderate pulmonary hypertension, RVS P 46-51 mmHg, previously 48-53 mmHg read mild TR, no pericardial effusion. IVC WNL, CVP WNL . Aortic root, ascending aorta, and aortic arch are normal. No mass, no clot Echo: 2016: Atrial fib. TAS. EF 65-70 %. LV size is normal wall thickness. No reg ional wall motion abnormalities. Atrial fib prevents diastolic function evaluation. Mild R VE, RSF low end of normal. Moderate left atrial enlargement, marked IDANIA. Aortic valve tril eaflet, mildly thickened, mild aortic valve sclerosis without stenosis, mild calcification, mild to moderate AR. Mitral valve normal, mild MR, no evidence of mitral valve prolapse. M ild mitral calcification. Mild to moderate tricuspid regurgitation. Mild to moderate pulmo nary hypertension, RVSP 48-53 mmHg. Trace ME. No Pericardial effusion. IVC normal, CVP 5-1 0 mmHg. Aortic root, ascending aorta, and aortic arch are normal. No clot Echo: 06/17/2013 ([facility]): LVEF 55%, mild AI, trace MR, mild TR, systolic PAP 29 mmHg+ CVP. NON CARDIAC TESTING/PROCEDURES: Split-night sleep study: 01/27/2018. AHI 3.1. Mean SpO2 83 percent. O2 sat <88 percent f or 1.2 percent of time spent asleep. Treatment with BiPAP did not resolve oxygenation, or mild hypopnea. ABG on 2 L after 2 hours of sleep: PH 7.40, pCO2 37.5, pO2 64, HCO3 22.6, O2 sat 90.8 EKG: ECG, 06/03/2015: Atrial fibrillation. Rate 83 bpm, QRS 92 ms, QTC 451 ms, low voltage QRS i n limb leads in V1. ( Personally reviewed by me and compared to current EKG) EK2016 Atrial fibrillation with RVR, low voltage QRS in limb leads as well as V1 and poor R-wave progression. Rate 109 bpm, QRS 94 ms, QTC 406 ms, tracing personally review ed by me. EK12/13/2017: Atrial fib with controlled ventricular response and improved QRS voltage i n limb leads, stable low voltage QRS V1, new mild T-wave inversions to inferior leads , an d stable ST abnormality to anterior leads, and rate better controlled than EKG performed in December 2016. Rate 80 bpm, QRS 96 ms, QTC 412 ms tracing personally reviewed by me EKG 11/10/2018: ([facility]) Atrial fib with controlled ventricular response. Low voltage QRS 2 limb leads, and anterior leads previous T wave inversions to inferior leads have resolved. Rate 80 bpm, QRS 98 ms, QTC 425 ms tracing personally reviewed by nj EKG 03/24/2019: A. fib with controlled ventricular response low voltage QRS leads I, aVR, V1 , rate 86 bpm, QRS 96 ms, QTC 460 ms, tracing personally reviewed by me tracing personally r khriswed by me, and similar morphology to previous EKG LABS: Labs: 11/29/2016: Lipids: Cho 136, Trig 66, HDL, 78.3, LDL, 45,VLDL 13, ratio 1.7, non HDL Chol 58. CMP: Na 131, K 3.9, Cl 93, CO2 19, Anion gap 22.9, Gl 79, BUN 14, Cr 0.9, GFR 82, AST 33, ALT 25, Alk Phos 45, Total Bili 2.8, Alb 4.1 , Vit B12 257, folate 9.76, Vit D 47. C BC: WBC 5.5 Hgb 15.3, Hct 45, MCV 100.6, Plt 174, ESR 0. Iron: iron 267.6, TIBC 341, % sat 7 8.5, ferritin 179, UIBC 73, transferrin 243 Labs: 03/22: Lipids:( atorvastatin 20 mg) Cholesterol 146, triglycerides 51, HDL 85, LDL 50, VLDL 10, ratio 1.7, non-HDL cholesterol 61. CMP: Sodium 131, potassium 4.6, chlorid e 94, glucose 91, BUN 12, creatinine 0.88, GFR 84, AST 26, ALT 17, alk phos 55, total biliru bin 1.9, albumin 4.1, vitamin D 45. CBC: WBC 4.3, hemoglobin 14.9, hematocrit 44.8, platele ts 167, ESR 4 Digoxin level : 04/03/2017: 0 .6 Labs: 04/19/2017: Lipids:( atorvastatin 20 mg) Cholesterol 118, triglycerides 57, HDL 72.2, LDL 34, VLDL 11, non-HDL cholesterol 46, ratio 1.6. CMP: Glucose 87, uric acid 5.6, total bi lirubin 1.4, direct bilirubin 0.5, indirect bilirubin 0.9, albumin 4, inorganic phosphorus 3 , BUN 23, creatinine 0.98, GFR 74, sodium 128, potassium 4.4, chloride 93 CRP 1.7. CBC: WBC 6.8, RBC 3.75, hemoglobin 13.2, hematocrit 37.7, MCV 100.5, platelets 193, ESR 10 Labs: 06/11/2017: BMP: Sodium 135, potassium 4.2, chloride 96, CO2 20, anion gap 23.2, glucos e 79, calcium 10.1, BUN 16, creatinine 0.76, GFR 99 Labs: 12/11/2017: CMP: Sodium 138, potassium 3.9, chloride 101, BUN 11, creatinine 0.83, AST 18, ALT 14, alk phos 52, total bilirubin 0.8, GFR 90, albumin 4.1. CBC: WBC 7.9, hemoglobi n 13.6, hematocrit 42.1, platelets 257 Labs: 05/15/2018: Lipids: (Atorvastatin 20 mg): Cholesterol 122, triglycerides 46, HDL 49.8, LDL 63. CMP: Sodium 143, potassium 4.2, chloride 105, glucose 92, BUN 13, creatinine 0.96, GFR 76, AST 16, ALT 14, alk phos 43, total bili 1.1, albumin 4.1. Hemoglobin A1c: 5.5 (111) . Digoxin: 0.57. Thyroid: TSH 3.43. Vitamin D: 48. CBC: WBC 7.3, RBC 5.34, hemoglobin 15 .7, hematocrit 47.2, platelets 250 Labs: 11/10/2018: ( [facility]) CBC: BBC 12.3, RBC 5.06, hemoglobin 15.8, hematocrit 47, platelet s 227. CMP: Glucose 86, BUN 13, creatinine 0.82, GFR 91, sodium 132, potassium 4.1, chlorid e 100, albumin 4.1, total bili 1.4, AST 16, ALT 16 Alk Phos 35, troponin T <0.010 Digoxin: 05/01/2019 0.99 (digoxin 1.5 hours before) ASSESSMENT & PLAN: He was here today to follow-up on his echo and digoxin level He has problems as detailed below. His Echo performed in March as detailed above, and shows a normal EF of 60-65%, LV normal in size and wall thickness, no regional wall motion abnormalities, RV normal in size and fu nction, moderately dilated left atrium, severely enlarged right atrium and moderate to sever e pulmonary hypertension which has progressed since last echo. His digoxin level was therapeutic, but perhaps not accurate, as only performed 1.5 hours a fter I reviewed the results in detail with him, and discussed that his pulmonary hypertension i s progressing, which will increased his dyspnea, Overall he seems fairly stable, though does report occasional episodes of chest discomfort, though unclear whether pulmonary or cardiac in etiology. Since his last sleep study negative, uncorrected sleep apnea not contributing to pulmonary hypertension, so I have started him on hydralazine 25 mg TID, to help with increased right sided heart pressures. I made no other changes to medications today , and continues prn sublingual nitro for chest discomfort, digoxin 0.125 mg daily for heart rate control and atrial fibrillation, a torvastatin 20 mg qhs for hyperlipidemia, and Eliquis 5 mg bid for stroke prevention, and no w hydralazine 25 mg TID for pulmonary hypertension. I will see him back on July 27 to follow-up on his response to hydralazine. He was wearing his nasal cannula today , and room air saturations improved. I have also discussed with him that Dr. Vasquez had previously been concerned about 2 spicu lated nodules in left and right upper lobes , and had ordered a PET scan , which was never c ompleted, and I have advised him to follow up with Dr. Webb about this . He will be seeing Dr. Webb in July , and will be getting labs done then as well, which I w ill look for when I see him back. I will also have him establish care with sales trainer who comes to [place], Dr. Veronica, s o he has primary sales trainer, and I will continue to see him in between visit with her , an d he will see her 10/23/2019. 1. Longstanding persistent atrial fibrillation 2. Coronary artery calcification seen on CT scan 3. Mixed hyperlipidemia 4. Bilateral lower extremity edema 5. Pulmonary hypertension (HCC) 6. Aortic valve insufficiency, etiology of cardiac valve disease unspecified 7. Chronic anticoagulation 8. Encounter for monitoring digoxin therapy 9. Chronic respiratory failure with hypoxia (HCC) 10. Chronic obstructive pulmonary disease, unspecified COPD type (HCC) 11. History of ETOH abuse 12. Essential hypertension No orders of the defined types were placed in this encounter. The following portions of the patient's history were personally reviewed by me and updated as appropriate: EKG tracings, other specialty provider and PCP notes,any Hospital admission and discharge summaries, any ER records , current and previous cardiac testing and procedure reports and d nelson, medication bottles brought to visit today. Allergies, current medications.labs Family history, past medical history, past social history, past surgical history. Problem list. This encounter was dictated with voice recognition software and may contain inadvertent rec ognition errors. Portions of this chart may have been copied from previous notes for continuity of care [facility] docume nted in this encounter Plan of Treatment +--------+---------+ + + + | Date | Type | Specialty | Care Team | Description | +--------+---------+ + + + | 10/22/ | Office | Cardiology | Danica Veronica DO | | 2019 | Visit | | [address] | | | | | | [place] | | | | | | [id number] | | | | | | | | +--------+---------+ + + + documented as of this encounter Visit Diagnoses + + | Diagnosis | + + | Longstanding persistent atrial fibrillation (HCC) - Primary | + + | Coronary artery calcification seen on CT scan | + + | Mixed hyperlipidemia | + + | Bilateral lower extremity edema Edema | + + | Pulmonary hypertension (HCC) Other chronic pulmonary heart diseases | + + | Aortic valve insufficiency, etiology of cardiac valve disease unspecified | + + | Chronic anticoagulation Encounter for long-term (current) use of anticoagulants | + + | Encounter for monitoring digoxin therapy Encounter for therapeutic drug monitoring | + + | Chronic respiratory failure with hypoxia (HCC) Chronic respiratory failure | + + | Chronic obstructive pulmonary disease, unspecified COPD type (HCC) | + + | History of ETOH abuse Nondependent alcohol abuse, in remission | + + | Essential hypertension Unspecified essential hypertension | + + documented in this encounter
--- OUTSIDE RECORDS SUMMARY | ~2019-09-27 | XMS | Encounter Summary ---
Demographics + + + | Address | [address] | | | [place] [address] | + + + | Home Phone | | + + + | Preferred Language | Unknown | + + + | Marital Status | | + + + | Druze Affiliation | Unknown | + + + | Race | Unknown | + + + | Ethnic Group | Unknown | + + + Author + + + | Author | [facility] | | | and [place] | + + + | Organization | [facility] | | | and [place] [...] Team Providers + +------+ + | Care Superintendent Oil Field Drilling Name | Role | Phone | + +------+ + | Ravinder Webb MD | PCP | | + +------+ + Encounter Details +--------+ + + + + | Date | Type | Department | Care Team | Description | +--------+ + + + + | 12/13/ | Orders Only | [facility] | Conversion | | | 2018 | | CONVERSION [address] | Transaction, | | | | | [address] | Provider Unknown | | | | | [place] | [phone] | | | | | [address] | | | | | | [phone] | | | +--------+ + + + [...] [place] | | | | | | [address] | | | | | | | | +--------+---------+ + + + documented as of this encounter Visit Diagnoses Not on filedocumented in this encounter"
--- OUTSIDE RECORDS SUMMARY | ~2019-09-27 | XMS | Encounter Summary ---
Demographics + + + | Address | [address] | | | [place] [address] | + + + | Home Phone | | + + + | Preferred Language | Unknown | + + + | Marital Status | | + + + | Oriental Orthodox Affiliation | Unknown | + + + | Race | Unknown | + + + | Ethnic Group | Unknown | + + + Author + + + | Author | [facility] | | | and [place] | + + + | Organization | [facility] | | | and [place] [...] Team Providers + +------+ + | Care Commutator V Ring Assembler Name | Role | Phone | + +------+ + | Ravinder Webb MD | PCP | | + +------+ + Encounter Details +--------+ + + + + | Date | Type | Department | Care Team | Description | +--------+ + + + + | 04/11/ | Orders Only | [facility] | Karthik Mccallum | | | 2018 | | [facility] | [address] | | | | | CARDIOLOGY [address] | [address] | | | | | [facility] | [place] [address] | | | | | [place] | [phone] | | | | | [address] | | | | | | [phone] | | | +--------+ + + + [...] 2019 | Visit | | [address] | | | | | | [place] | | | | | | [address] | | | | | | | | +--------+---------+ + + + documented as of this encounter Visit Diagnoses Not on filedocumented in this encounter"
--- OUTSIDE RECORDS SUMMARY | ~2019-09-27 | XMS | Encounter Summary ---
Demographics + + + | Address | [address] | | | [place] [address] | + + + | Home Phone | | + + + | Preferred Language | Unknown | + + + | Marital Status | | + + + | Lutheran Affiliation | Unknown | + + + | Race | Unknown | + + + | Ethnic Group | Unknown | + + + Author + + + | Author | [facility] | | | and [place] | + + + | Organization | [facility] | | | and [place] [...] Team Providers + +------+ + | Care Websphere Commerce Architect Name | Role | Phone | + +------+ + | Ravinder Webb MD | PCP | | + +------+ + Encounter Details +--------+ + + + + | Date | Type | Department | Care Team | Description | +--------+ + + + + | 09/23/ | Orders Only | [facility] | Stu Marylou | | | 2019 | | CARDIOLOGY [place] | [address] | | | | | [address] | [address] | | | | | [address] | [place] [address] | | | | | [place] | [phone] | | | | | [address] | | | | | | [phone] | | | +--------+ + + + + Social History + +-------+ +--------+------+ | Tobacco Use | Types | Packs/Day | Years | Date | | | | | Used | | + +-------+ +--------+------+ | Former Smoker | | 1.5 | | | + +-------+ +--------+------+ + [...] [place] | | | | | | [address] | | | | | | | | +--------+---------+ + + + documented as of this encounter Visit Diagnoses Not on filedocumented in this encounter"
--- OUTSIDE RECORDS SUMMARY | ~2019-09-27 | XMS | Encounter Summary ---
Demographics + + + | Address | [address] | | | [place] [address] | + + + | Home Phone | | + + + | Preferred Language | Unknown | + + + | Marital Status | | + + + | Mormonism Affiliation | Unknown | + + + | Race | Unknown | + + + | Ethnic Group | Unknown | + + + Author + + + | Author | [facility] | | | and [place] | + + + | Organization | [facility] | | | and [...] Team Providers + +------+ + | Care Percher Name | Role | Phone | + [...] [address] | | | | | [facility] | [place] [address] | | | | | [address] | [phone] | | | | | [phone] | | | +--------+ + + + [...] [place] | | | | | | [address] | | | | | | | [...] 6.56 cm TAPSE: 2.17 cm AR Dec Childress: 1.41 m/s2 AR Dec Time: | | [...] TR | | | Vmax: 3.08 m/s Pack Worker Supervisor: TAYLER Authenticated by: PRTII | | | MD ISAAC Report Date/Time: [...] cmLVPWd: 0.95 cmLVOT Area: | | 3.84 [id number] Diam: 2.21 cm%FS: 41.45 %EF(Teich): 72.24 %ESV(Teich): [...] (A-L): | | 58.67 ml/m2LAAs A2C: 30.48 [id number] A-L A2C: 124.37 mlLALs A2C: 6.34 cmLAAs | | A4C: 29.77 [id number] A-L A4C: 111.43 mlLALs A4C: 6.75 cmRAAs: 32.69 [id number] A-L: | | 138.29 mlRAESV MOD: 130.57 mlRALs: 6.56 cmTAPSE: 2.17 cmAR Dec Childress: 1.41 | | m/s2AR Dec Time: 2927.88 msAR maxP.23 mmHgAR PHT: 849.08 msAR Vmax: 4.13 | | m/Bruce maxP.31 mmHgAV meanP.23 mmHgAV Vmax: 1.25 m/Bruce Vmean: 0.81 m/Bruce | | VTI: 19.01 cmAVA Vmax: 2.30 cm2AVA (VTI): 2.68 [id number] (Vmax): 0.00 cm2/m2AVAI | | (VTI): 0.00 cm2/m2LVOT maxP.26 mmHgLVOT meanP.09 mmHgLVSI Dopp: 24.69 | | ml/m2LVSV Dopp: 51.10 mlLVOT Vmax: 0.75 m/sLVOT Vmean: 0.48 m/sLVOT VTI: 13.28 | | cmMV E Alirio: 0.96 m/sMV DecT: 141.10 msSeptal e': 0.07 m/sSeptal E/e': | | 12.57Lateral e': 0.10 m/sLateral E/e': 8.91RAP: 10 mmHgRVSP: 47.95 mmHgTR maxPG: | | 37.95 mmHgTR Vmax: 3.08 m/s Pack Worker Supervisor: DBSAuthenticated by: PRITI GRAY, | | MDReport [...] | |TAPSE: 2.17 cm | |AR Dec Childress: 1.41 m/s2 | |AR Dec Time: 2927.88 [...] |TR Vmax: 3.08 m/s | | | |Pack Worker Supervisor: DBS | |Authenticated by: PRITI GRAY MD [...]
--- OUTSIDE RECORDS SUMMARY | ~2019-09-27 | XMS | Encounter Summary ---
Demographics + + + | Address | [address] | | | [place] [address] | + + + | Home Phone | | + + + | Preferred Language | Unknown | + + + | Marital Status | | + + + | Anabaptism Affiliation | Unknown | + + + | Race | Unknown | + + + | Ethnic Group | Unknown | + + + Author + + + | Author | [facility] | | | and [place] | + + + | Organization | [facility] | | | and [place] [...] Team Providers + +------+ + | Care Vehicle Sales Professional Name | Role | Phone | + [...] [address] | | | | | [place], | [place], [place] | | | | | [place] [address] | [address] | | | | | [phone] | | | +--------+ + + + [...] [place] | | | | | | [address] | | | | | | | | +--------+---------+ + + + documented as of this encounter Visit Diagnoses Not on filedocumented in this encounter"
--- OUTSIDE RECORDS SUMMARY | ~2019-09-27 | XMS | Encounter Summary ---
Demographics + + + | Address | [address] | | | [place] [address] | + + + | Home Phone | | + + + | Preferred Language | Unknown | + + + | Marital Status | | + + + | Latter Day Affiliation | Unknown | + + + | Race | Unknown | + + + | Ethnic Group | Unknown | + + + Author + + + | Author | [facility] | | | and [place] | + + + | Organization | [facility] | | | and [place] [...] Team Providers + +------+ + | Care Sales Systems Engineer Name | Role | Phone | + +------+ + | Ravinder Webb MD | PCP | | + +------+ + Reason for Referral Diagnostic/Screening (Routine) + +--------+ + + + + | Status | Reason | Specialty | Diagnoses / | Referred By | Referred To | | | | | Procedures | Contact | Contact | + +--------+ + + + + | Authorized | | Diagnostic | Diagnoses | Stu | [facility] | | | | Radiology | | Dasha, | [facility] | | | | | 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[address] | | | | | 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 | [address] | [address] | | | | | atrial | [address] | [place], [place] | | | | | fibrillation | [place], [place] | [address] | | | | | (HCC) | [address] | Phone: | | | | | Coronary | Phone: | [phone] | | | | | artery | [phone] | Fax: | | | | | calcificatio | Fax: | [phone] | | | | | n seen on CT | [phone] | | | | | | scan | | | | | | | Chronic | | | | | | | respiratory | | | | | | | failure with | | | | | | | hypoxia | | | | | | | (HCC) | | | | | | | Bilateral | | | | | | | lower | | | | | | | extremity | | | | | | | edema | | | | | | | Pulmonary | | | | | | | hypertension | | | | | | | (HCC) | | | | | | | Aortic valve | | | | | | | | | | | | | | insufficienc | | | | | | | y, etiology | | | | | | | of cardiac | | | | | | | valve | | | | | | | disease | | | | | | | unspecified | | | | | | | Procedures | | | | | | | ECHO | | | | | | | Complete | | | + +--------+ + + + + Reason for Visit + + + | Reason | Comments | + + + | Follow-up, Office | 6 month | | Visit | | + + + Encounter Details +--------+---------+ + + + | Date | Type | Department | Care Team | Description | +--------+---------+ + + + | 03/24/ | Office | [facility] | Marylou Peraza | Longstanding | | 2020 | Visit | CARDIOLOGY [place] | [address] | persistent atrial | | | | [address] | [address] | fibrillation (HCC) | | | | [address] | [place] [address] | (Primary Dx); | | | | [place], [place] | [phone] | Coronary artery | | | | [address] | | calcification seen | | | | [phone] | | on CT scan; Mixed | | | | | | hyperlipidemia; | | | | | | Chronic respiratory | | | | | | failure with hypoxia | | | | | | (HCC); Chronic | | | | | | obstructive | | | | | | pulmonary disease, | | | | | | unspecified COPD | | | | | | type (HCC); | | | | | | Bilateral lower | | | | | | extremity edema; | | | | | | Chronic | | | | | | anticoagulation; | | | | | | History of ETOH | | | | | | abuse; Encounter for | | | | | | monitoring digoxin | | | | | | therapy; Pulmonary | | | | | | hypertension (HCC); | | | | | | Aortic valve | | | | | | insufficiency, | | | | | | etiology of cardiac | | | | | | valve disease | | | | | | unspecified | +--------+---------+ + + + Social History [...] + + + | Blood Pressure | 120/78 | 03/24/2019 1:03 PM | | | | | PST | | + + + + + | Pulse | 110 | 03/24/2019 1:03 PM | | | | | PST | | + + + + + | Temperature | - | - | | + + + + + | Respiratory Rate | - | - | | + + + + + | Oxygen Saturation | 75% | 03/24/2019 1:03 PM | | | | | PST | | + + + + + | Inhaled Oxygen | - | - | | | Concentration | | | | + + + + + | Weight | 83.3 kg (183 lb 9.6 | 03/24/2019 1:03 PM | | | | oz) | PST | | + + + + + | Height | 180.3 cm (5' 11") | 03/24/2019 1:03 PM | | | | | PST | | + + + + + | Body Mass Index | 25.61 | 03/24/2019 1:03 PM | | | | | PST | | + + + + + documented in this encounter Patient Instructions Patient Instructions Marylou Peraza FNP - 03/24/2019 1:00 PM NIVIA have ordered you a digoxin level to be done in next 6 weeks, and can do with or separetly from labs for Dr. Thang jara I also ordered you an Echo to be done at [facility] in next 6 weeks, I made no changes to medications See me back in 2 months documented in this encounter Progress Notes FritzjoseMarylou, HOLLI - 03/24/2019 1:00 PM PSTFormatting of this note might be differe nt from the original. Date of visit: 03/24/2019 Primary Care Physician: Ravinder Webb MD CHIEF COMPLAINT: Chief Complaint Patient presents with Follow-up, Office Visit 6 month HISTORY OF PRESENT ILLNESS: Mr. Lassiter is a 78 year old man who is here today for 6 month follow up. He is accompanied today by his who contributed to history. Today I reviewed all records available to [...] withdrawal, and now uses oxygen regularly His [id number] VASCscore is 3and HAS BLED score of 3, with previously increased risk of bleeding from heavy alcohol consumption, and has been doing well on Eliquis with no bleed ing. His current and previous testing and procedures are detailed below. I saw him last 2018 when he was stable, and I had made no changes to his medicines, but suggested he work with his medical supply company so that he could wear his oxygen more consistently, as irritated by nasal cannula, and had cut tubing , and just putting in his mo uth. Since I saw him last, he was seen in the emergency room for ongoing right shoulder pain S t [facility] and note reviewed. He was Treated with narcotic pain medication, [place] 5/325, and chest x-ray done at the time did note bilateral bibasilar interstitial opacities likely related to a combination of COPD and interstitial lung disease. His CAT scan showed no acut e abnormality of cervical spine but multilevel degenerative changes foraminal impingement of cervical nerve roots. [...] and his split night sleep study 01/27/2018 sonny funez noted no significant sleep apnea, and only mild hypopnea, and no improvement with BiPAP , and he did not meet Medicare criteria for obstructive sleep apnea, and moderate hypoxia tr eated with 4 L of oxygen during sleep He did not bring his medications to the clinic today, so I reviewed his pharmacy disp ense record personally He continues to have ongoing dyspnea related to pulmonary disease, but improved with inha lers and oxygen, but having difficulty with skin irritation form nasal cannula , so just usi ng tubing without cannula in his mouth . He also reports improved activity tolerance, as now able to mow his lawn, and perform more home and yard work. He reports recent episodes of occasional chest discomfort, though not sure whether pulmon julisa or cardiac in origin. He denies any other chest pain ,or syncope, and lower extremity e stephane remains controlled, and denies any signs or symptoms of TIA or stroke. His weight down 6 lbs since last seen, and down 13 lbs since 03/2018 when weighed 196 pounds. He reports he has remained abstinent from alcohol. REVIEW OF SYSTEMS: Negative except for pertinent [...] liter O2 and 6 liters Thang Weber ongoing cough, productive in am, significant STEPHENS [...] Hx essential Tremors,mostly resolved since stopped ETOH, Dr. Vasquez Vit B co mplex Denies history of stroke/Transient ischemic attack.Denies history of seizures. Denies dizziness, syncope and numbness. Denies focal motor or [...] exercising due to extreme STEPHENS. . 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 atorvaSTATin (LIPITOR) 20 mg tablet TAKE ONE TABLET BY MOUTH EVERY DAY AT BEDTIME 30 ta blet 2 B [id number] ER PO Take 1 tablet by mouth. budesonide-formoterol (SYMBICORT) 160-4.5 mcg/puff inhaler Inhale 2 puffs into the lung s 2 (two) times daily. cholecalciferol (VITAMIN D-3) 1,000 units capsule Take 2,000 Units by mouth daily. Coenzyme Q10 (COQ10) 400 MG CAPS Take 300 mg by mouth daily. digoxin (LANOXIN) 125 mcg tablet Take 1 tablet by mouth daily. 90 tablet 3 ELIQUIS 5 MG tablet Take 1 tablet by mouth 2 (two) times daily. Flaxseed, Linseed, (FLAXSEED OIL PO) Take 1,400 mg by mouth daily. fluticasone (FLONASE SENSIMIST) 27.5 MCG/SPRAY nasal spray 2 sprays by Each Nare route as needed for Rhinitis. Saw Talmage, Serenoa repens, (SAW PALMETTO BERRIES PO) Take by mouth daily. SPIRIVA RESPIMAT 2.5 MCG/ACT inhaler 2 puffs daily. No facility-administered medications prior to visit. PHYSICAL EXAM: Wt Readings from Last 3 Encounters: 03/24/19 83.3 kg (183 lb 9.6 oz) 06/03/15 96.3 kg (212 lb 6.4 oz) Temp Readings from Last 3 Encounters: No data found for Temp BP Readings from Last 3 Encounters: 03/24/19 120/78 06/03/15 136/84 Pulse Readings from Last 3 Encounters: 03/24/19 110 06/03/15 96 Vital signs: 09/23/2018: [...] rales, rhonchi or wheezing noted, SOB with exertion HEART: Nondisplaced PMI, irregularly irregular rhythm w/ controlled rate , increasing he art rate with exertion . S1, S2 normal. No murmurs, rubs or gallops noted. ABDOMEN: Soft, nontender, no organomegaly, masses or bruits. Bowel sounds are normal in a ll 4 quadrants. The abdominal aortic pulsation is not palpable. EXTREMITIES: Trace ankle edema Bilateral , wearing compression socks . Radial pulses 2 + bilaterally. Femoral pulses are 2+ bilaterally without bruits. DP and PT pulses are 1+ b ilaterally. No clubbing. SKIN: Warm and dry, capillary [...] CARDIAC PROCEDURES/IMAGING CT chest: . 01/08/2015: CT-chest ([facility]): Atheromatous calcification of the thorac ic aorta without aneurysm or dissection. Potentially significant calcification of the left main coronary artery, LAD, LCx, and RCA.Also noted extensive panlobular emphysema, and very low tidal volume as diaphragm only moves 10 mm between inspiration and expiration Last Stress Test, : Lexiscan, perfusion images benign, LVEF 70%. ECHO: Last Echo: 11/27/2017: ( [facility]) : Atrial fib, technically adequate study. EF 65-70 percent. LV normal in size and wall thickness. No regional wall motion abnormalities. Atrial fibri llation prevents assessment of diastolic function. Mild RVE with normal RV systolic functio n. Moderate left atrium enlargement,(LA diameter measured at 4.8 cm, now 5.2 cm, LA volume index increased from 47.28 ml/m to 58.67 ml/m ). Moderate IDANIA, decreased from s everely enlarged, 7.3 cm, compared to 6.56 cm previously. Aortic valve trileaflet, mildly t hickened, mild aortic sclerosis without stenosis, mildly calcified, mild aortic regurgitatio n, decreased from mild to moderate previously, aortic pressure half-time by doppler is 849m s, increased from 609 ms on the prior study, that also indicates decreased severity. Mild m itral regurgitation, no mitral valve prolapse, mild MAC. Tricuspid valve normal, mild TR, s lightly decreased from mild to moderate previously. Mild to moderate pulmonary hypertension , RVSP 46-51 mmHg, previously 48-53 mmHg read mild TR, no pericardial effusion. IVC WNL, CV P WNL. Aortic root, ascending aorta, and aortic arch [...] pulmo nary hypertension, RVSP 48-53 mmHg. Trace KS. No Pericardial effusion. IVC normal, CVP 5-1 0 mmHg. Aortic root, ascending aorta, and aortic arch are normal. No clot Echo: 06/17/2013 ([facility]): LVEF 55%, mild AI, trace MR, mild [...] tracing personally reviewed by me EKG 11/10/2018: ([facility]) Atrial fib with controlled ventricular response. Low voltage QRS 2 limb leads, and anterior leads previous T wave inversions to inferior leads have resolved. Rate 80 bpm, QRS 98 ms, QTC 425 ms tracing personally reviewed by me EKG 03/24/2019: A. fib with controlled ventricular response low voltage QRS leads I, aVR, V1 , rate 86 bpm, QRS 96 ms, QTC 460 ms, tracing personally reviewed by me tracing personally r eviewed by me, and similar morphology to previous [...] hematocrit 47.2, platelets 250 Labs: 11/10/2018: ( [facility]) CBC: BBC 12.3, RBC 5.06, hemoglobin 15.8, hematocrit 47, platelet s 227. CMP: Glucose 86, BUN 13, creatinine 0.82, GFR 91, sodium 132, potassium 4.1, chlorid e 100, albumin 4.1, total bili 1.4, AST 16, ALT 16 Alk Phos 35, troponin T <0.010 ASSESSMENT & PLAN: He was here today with his for 6 month follow-up. He has problems as detailed below. Overall he seems fairly stable, though does report occasional episodes of chest discomfort, though unclear whether pulmonary or cardiac in etiology. His EKG performed in the clinic today continues to show atrial fibrillation with controlled ventricular response at 86 bpm, and similar to EKG performed in the emergency room [place] [facility]. I think overall he seems fairly stable on current medications, and improved since he stopp ed drinking alcohol, and using his oxygen and inhalers regularly. I made no changes to medications today except for as needed sublingual nitro for chest discomfort, and for his atrial fibrillation he should continue digoxin 0.125 mg daily for he art rate control and atrial fibrillation, atorvastatin 20 mg qhs for hyperlipidemia, and El iquis 5 mg bid for stroke prevention. I have ordered him an updated echo to evaluate his previously moderate pulmonary hypertensi on, and aortic insufficiency. If his pulmonary hypertension has increased, I will start him on hydralazine. His previous sleep study was negative for sleep apnea, so not contributing to pulmonary hypertension. I also ordered an updated digoxin level. I will see him back on May 25 to follow-up on the results of his echo. I have again suggested that he try a mask or another type of nasal cannula for his oxygen, as he frequently removes his oxygen from his mouth and talking, and quick quickly desaturat es, and heart rate quickly increases 1. Longstanding persistent atrial fibrillation 2. Coronary artery calcification seen on CT scan 3. Mixed hyperlipidemia 4. Chronic respiratory failure with hypoxia (HCC) 5. Chronic obstructive pulmonary disease, unspecified COPD type (HCC) 6. Bilateral lower extremity edema 7. Chronic anticoagulation 8. History of ETOH abuse 9. Encounter for monitoring digoxin therapy 10. Pulmonary hypertension (HCC) 11. Aortic valve insufficiency, etiology of cardiac valve disease unspecified Orders Placed This Encounter Procedures Digoxin Level ECG 12 lead ECHO Complete The following portions of the patient's history were personally reviewed by me and updated as appropriate: EKG tracings, other specialty provider and PCP notes,any Hospital admission and discharge summaries, any ER records , current and previous cardiac testing and procedure reports and d nelson, medication bottles NOT brought to visit today. Allergies, current medications.labs Family history, past medical history, past social history, past surgical history. Problem list. This encounter was dictated with voice recognition software and may contain inadvertent rec ognition errors. Han CROOK [facility] Cardiology 03/24/2019 Adorakel zamudio in this encounter Plan of Treatment +--------+---------+ + + + | Date | Type | Specialty | Care Team | Description | +--------+---------+ + + + | 10/22/ | Office | Cardiology | Danica Veronica DO | | | 2019 | Visit | | [address] | | | | | | [place] | | | | | | [address] | | | | | | | | +--------+---------+ + + + + + +--------+ + + | Name | Type | Priori | Associated Diagnoses | Order Schedule | | | | ty | | | + + +--------+ + + | Digoxin Level | Lab | Routin | Encounter for | Expected: | | | | e | monitoring digoxin | 03/24/2019, Expires: | | | | | therapy | 03/24/2020 | + + +--------+ + + | ECHO Complete | Echocardiog | Routin | Longstanding | Expected: | | | purvi | e | persistent atrial | 03/24/2019, Expires: | | | | | fibrillation (HCC) | 03/24/2020 | | | | | Coronary artery | | | | | | calcification seen | | | | | | on CT scan Chronic | | | | | | respiratory failure | | | | | | with hypoxia (HCC) | | | | | | Bilateral lower | | | | | | extremity edema | | | | | | Pulmonary | | | | | | hypertension (HCC) | | | | | | Aortic valve | | | | | | insufficiency, | | | | | | etiology of cardiac | | | | | | valve disease | | | | | | unspecified | | + + +--------+ + + documented as of this encounter Procedures + +--------+ + + + | Procedure Name | Priori | Date/Time | Associated Diagnosis | Comments | | | ty | | | | + +--------+ + + + | LABS - EXTERNAL SCAN | | 05/01/2019 | | Results for this | | | | 12:00 AM | | procedure are in the | | | | PST | | results section. | + +--------+ + + + | ECG 12 LEAD | Routin | 03/24/2019 | Longstanding | Results for this | | | e | 1:13 PM | persistent atrial | procedure are in the | | | | PST | fibrillation (HCC) | results section. | | | | | Coronary artery | | | | | | calcification seen | | | | | | on CT scan Mixed | | | | | | hyperlipidemia | | | | | | Chronic respiratory | | | | | | failure with hypoxia | | | | | | ([facility]) Chronic | | | | | | obstructive | | | | | | pulmonary disease, | | | | | | unspecified COPD | | | | | | type ([facility]) | | | | | | Bilateral lower | | | | | | extremity edema | | | | | | Chronic | | | | | | anticoagulation | | | | | | History of ETOH | | | | | | abuse | | + +--------+ + + + documented in this encounter Results LABS - EXTERNAL SCAN (05/01/2019 12:00 AM PST) + + + | Narrative | Performed At | + + + | Ordered by an | | | unspecified provider. | | + + + ECG 12 lead (03/24/2019 1:13 PM PST) + + + + + + | Component | Value | Ref Range | Performed | Pathologist | | | | | At | Signature | + + + + + + | VENTRICULAR | 86 | BPM | [facility] | | | RATE EKG | | | | | + + + + + + | ATRIAL RATE | 110 | BPM | [facility] | | + + + + + + | QRS | 96 | ms | [facility] | | | DURATION | | | | | + + + + + + | Q-T | 348 | ms | [facility] | | | INTERVAL | | | | | + + + + + + | Q-T | 416 | ms | [facility] | | | INTERVAL | | | | | | (CORRECTED) | | | | | + + + + + + | QRS AXIS | 99 | degrees | [facility] | | + + + + + + | T AXIS | -34 | degrees | [facility] | | + + + + + + | INTERPRETAT | Please refer to | | [facility] | | | ION TEXT | Providers office visit | | | | | | note for Providers | | | | | | Interpretation.Confirmed | | | | | | by [facility] Read Only, | | | | | | ICA Angelito ([id number]), | | | | | | index editor Darrian Andre | | | | | | ([id number]) on 03/24/2019 | | | | | | 3:46:10 PM | | | | + + + + + + + + | Specimen | + + | | + + + + + | Narrative | Performed At | + + + | | | + + + + +---------+ + + | Performing | Address | City/State/Zipcode | Phone Number | | Organization | | | | + +---------+ + + | [facility] | | | | + +---------+ + + documented in this encounter Visit Diagnoses + + | Diagnosis | + + | Longstanding persistent atrial fibrillation (HCC) - Primary | + + | Coronary artery calcification seen on CT scan | + + | Mixed hyperlipidemia | + + | Chronic respiratory failure with hypoxia (HCC) Chronic respiratory failure | + + | Chronic obstructive pulmonary disease, unspecified COPD type (HCC) | + + | Bilateral lower extremity edema Edema | + + | Chronic anticoagulation Encounter for long-term (current) use of anticoagulants | + + | History of ETOH abuse Nondependent alcohol abuse, in remission | + + | Encounter for monitoring digoxin therapy Encounter for therapeutic drug monitoring | + + | Pulmonary hypertension (HCC) Other chronic pulmonary heart diseases | + + | Aortic valve insufficiency, etiology of cardiac valve disease unspecified | + + documented in this encounter
--- OUTSIDE RECORDS SUMMARY | ~2019-09-27 | XMS | Encounter Summary ---
Demographics + + + | Address | [address] | | | [place] [address] | + + + | Home Phone | | + + + | Preferred Language | Unknown | + + + | Marital Status | | + + + | Sabianist Affiliation | Unknown | + + + | Race | Unknown | + + + | Ethnic Group | Unknown | + + + Author + + + | Author | [facility] | | | and [place] | + + + | Organization | [facility] | | | and [place] | + + + | Address | Unknown | + + + | Phone | Unavailable | + + + Support + + +---------+ + | Name | Relationship | Address | Phone | + + +---------+ + | Shrei Lassiter | ECON | Unknown | | + + +---------+ + Care Team Providers + +------+ + | Care Asbestos Remover Name | Role | Phone | + [...] | | | | [place] | [phone] | | | | | [address] | | | | | | [phone] | | | +--------+ + + + [...] [place] | | | | | | [address] | | | | | | | | +--------+---------+ + + + documented as of this encounter Visit Diagnoses Not on filedocumented in this encounter"
--- OUTSIDE RECORDS SUMMARY | ~2019-09-27 | XMS | Encounter Summary ---
Demographics + + + | Address | [address] | | | [place] [address] | + + + | Home Phone | | + + + | Preferred Language | Unknown | + + + | Marital Status | | + + + | Sikh Affiliation | Unknown | + + + | Race | Unknown | + + + | Ethnic Group | Unknown | + + + Author + + + | Author | [facility] | | | and [place] | + + + | Organization | [facility] | | | and [place] | [...] Team Providers + +------+ + | Care Loom Changer Name | Role | Phone | + +------+ + | Sherwin Garber MD | PCP | | + +------+ + Encounter Details +--------+ + + + + | Date | Type | Department | Care Team | Description | +--------+ + + + + | 04/03/ | Orders Only | [facility] | Stu Marylou | | | 2018 | | CARDIOLOGY [place] | [address] | | | | | [address] | [address] | | | | | [place] | [place] [address] | | | | | [address] | [phone] | | | | | [phone] | | | +--------+ + + + [...] [place] | | | | | | [address] | | | | | | | | +--------+---------+ + + + documented as of this encounter Procedures + +--------+ + + + | Procedure Name | Priori | Date/Time | Associated Diagnosis | Comments | | | ty | | | | + +--------+ + + + | DIGOXIN LEVEL | Routin | 04/03/2017 | | Results for this | | | e | 5:15 PM | | procedure are in the | | | | PST | | results section. | + +--------+ + + + documented in this encounter Results Digoxin Level (04/03/2017 5:15 PM PST) + +---------+ + + + | Component | Value | Ref Range | Performed | Pathologist | | | | | At | Signature | + +---------+ + + + | Digoxin | 0.6 (A) | 0.8 - 2.0 | EXTERNAL | | | level | | | LAB | | + +---------+ + + + + + | Specimen | + + | Blood specimen | | (specimen) | + + + +---------+ + + | Performing | Address | City/State/Zipcode | Phone Number | | Organization | | | | + +---------+ + + | EXTERNAL LAB | | | | + +---------+ + + documented in this encounter Visit Diagnoses Not on filedocumented in this encounter"
--- OUTSIDE RECORDS SUMMARY | ~2019-09-27 | XMS | Encounter Summary ---
Demographics + + + | Address | [address] | | | [place] [address] | + + + | Home Phone | | + + + | Preferred Language | Unknown | + + + | Marital Status | | + + + | Druze Affiliation | Unknown | + + + | Race | Unknown | + + + | Ethnic Group | Unknown | + + + Author + + + | Author | [facility] | | | and [place] | + + + | Organization | [facility] | | | and [...] Team Providers + +------+ + | Care Product Support Representative Name | Role | Phone | + +------+ + | Ravinder Webb MD | PCP | | + +------+ + Encounter Details +--------+ + + + + | Date | Type | Department | Care Team | Description | +--------+ + + + + | 03/14/ | Orders Only | [facility] | Conversion | | | 2019 | | CONVERSION DEP [address] | Transaction, | | | | | [address] | Provider Unknown | | | | | [place] | [phone] | | | | | [address] | | | | | | [phone] | | | +--------+ + + + [...] [place] | | | | | | [address] | | | | | | | | +--------+---------+ + + + documented as of this encounter Visit Diagnoses Not on filedocumented in this encounter"
--- OUTSIDE RECORDS SUMMARY | ~2019-09-27 | XMS | Encounter Summary ---
Demographics + + + | Address | [address] | | | [place] [address] | + + + | Home Phone | | + + + | Preferred Language | Unknown | + + + | Marital Status | | + + + | Confucianism Affiliation | Unknown | + + + | Race | Unknown | + + + | Ethnic Group | Unknown | + + + Author + + + | Author | [facility] | | | and [place] | + + + | Organization | [facility] | | | and [...] Team Providers + +------+ + | Care Associate Editor Name | Role | Phone | + [...] | | | | [place] | [phone] | | | | | [phone] | | | | | | [phone] | | | +--------+ + + + [...] [place] | | | | | | [address] | | | | | | | | +--------+---------+ + + + documented as of this encounter Visit Diagnoses Not on filedocumented in this encounter"
--- OUTSIDE RECORDS SUMMARY | ~2019-09-27 | XMS | Clinical Summary ---
Demographics + + + | Address | [address] | | | [place] [address] | + + + | Home Phone | | + + + | Preferred Language | Unknown | + + + | Marital Status | | + + + | Mormon Affiliation | Unknown | + + + | Race | Unknown | + + + | Ethnic Group | Unknown | + + + Author + + + | Author | [facility] | | | and [place] | + + + | Organization | [facility] | | | and [place] [...] Team Providers + +------+ + | Care Pulp Grinder Name | Role | Phone | + [...] | 04/1 | | Activ | | O[facility]ED-[id number] | mouth. 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 | | 01/08/2015: CT-chest ([facility]): Atheromatous calcification | | of the thoracic aorta without aneurysm or dissection. | | Potentially significant calcification of the left main coronary | | artery, LAD, LCx, and RCA.Last Echo, 06/17/2013 ([facility]): | | LVEF 55%, mild AI, trace [...] + + | Brother | | | [place] | | | | (Age | | | | | 52) | | + +------+ + + | Brother | | | | + +------+ + + | Father | | | [place] | | | | (Age | | [...] [place] | | | | | | [address] | | | | | | | [...] | | | Dtap/Tdap/Td (2 - | | | | | Td) | | | [...] +--------+ +---------+--------+ | MEDICARE | MEDICA | [id number] | 07/11/19 | [phone] | | Medica | | | RE | | 05-Pre | 5 | | re | | | PART A | | sent | | | | | | AND B | | | | | | + +--------+ +--------+ +---------+--------+ | MEDICARE | MEDICA | [id number] | 07/11/19 | [phone] | | Medica | | | RE | | 05-Pre | 5 | | re | | | PART A | | sent | | | | | | AND B | | | | | | + +--------+ +--------+ +---------+--------+ | M[employer]UAL [employer]IGH[employer]I | MUTUAL | [id number] | 03/12/19 | [phone] | | Indemn | | | AND | | 11-Pre | 0 | | ity | | | UNITED | | sent | | | | | | RESIGHINI | | | | | | | | MDCR | | | | | | | | SUPPL | | | | | | + +--------+ +--------+ +---------+--------+ | [employer] | MUTUAL | [id number] | 08/11/19 | [phone] | | Indemn | | | AND | | 17-Pre | 0 | | ity | | | UNITED | | sent | | | | | | RESIGHINI | | | | | | | [...] Person | Self | [birth year] | [address] | | | al/Fam | | 1941 | [phone] | [place] | | | leena | | | 9 (Home) | [address] | + +--------+ +--------+ + + | Shazia Lassiter | Person | Self | [birth year] | [address] | | | al/Fam | | 1941 | [phone] | [place] | | | le[place] | | | 9 (Home) | [address] | + +--------+ +--------+ + + Advance Directives + + + + + | Type | Date Recorded | Patient | Explanation | | | | Stove Carriage Operator | | + + + + + | Power of | | | | | Copper Miner | | | | + + + + + | Advance | | | | | Directive | | | | + + + + +
--- OUTSIDE RECORDS SUMMARY | ~2019-09-27 | XMS | Encounter Summary ---
Demographics + + + | Address | [address] | | | [place] [address] | + + + | Home Phone | | + + + | Preferred Language | Unknown | + + + | Marital Status | | + + + | Muslim Affiliation | Unknown | + + + | Race | Unknown | + + + | Ethnic Group | Unknown | + + + Author + + + | Author | [facility] | | | and [place] | + + + | Organization | [facility] | | | and [...] Team Providers + +------+ + | Care Library Helper Name | Role | Phone | + +------+ + | Ravinder Webb MD | PCP | | + +------+ + Encounter Details +--------+ + + + + | Date | Type | Department | Care Team | Description | +--------+ + + + + | 12/28/ | Orders Only | [facility] | Conversion | | | 2017 | | CONVERSION DEP [address] | Transaction, | | | | | [address] | Provider Unknown | | | | | [place] | [phone] | | | | | [address] | | | | | | [phone] | | | +--------+ + + + [...] [place] | | | | | | [address] | | | | | | | | +--------+---------+ + + + documented as of this encounter Visit Diagnoses Not on filedocumented in this encounter"
--- OUTSIDE RECORDS SUMMARY | ~2019-09-27 | XMS | Encounter Summary ---
Demographics + + + | Address | [address] | | | [place] [address] | + + + | Home Phone | | + + + | Preferred Language | Unknown | + + + | Marital Status | | + + + | Oriental Orthodox Affiliation | Unknown | + + + | Race | Unknown | + + + | Ethnic Group | Unknown | + + + Author + + + | Author | [facility] | | | and [place] | + + + | Organization | [facility] | | | and [place] | [...] Team Providers + +------+ + | Care Underwear Trimmer Name | Role | Phone | [...] + + | 07/27/ | Office | [facility] | Marylou Peraza | Longstanding | | 2020 | Visit | [facility] | [address] | persistent atrial | | | | [address] | ANGELITO TODD F | fibrillation (HCC) | | | | [address] | [place] [address] | (Primary Dx); | | | | [place] | [phone] | Coronary artery | | | | [address] | | calcification seen | | | | [phone] | | on CT scan; Mixed | [...] withdrawal, and now uses oxygen regularly His [id number] VASCscore is 3and HAS BLED score of [...] exercising due to extreme STEPHENS. . 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 [...] Pulmonic valve normal with mild to moderate LA. Echo: 11/27/2017: ( [facility]) : Atrial fib, [...] pulmo nary hypertension, RVSP 48-53 mmHg. Trace LA. No Pericardial effusion. IVC normal, CVP 5-1 0 mmHg. Aortic root, ascending aorta, and aortic arch are normal. No clot Echo: 06/17/2013 ([facility]): LVEF 55%, mild AI, trace MR, [...] . He will be now seeing Dr. Wbeb in August , and will be getting labs done then as well, wh ich I will look for when I see him back. I will also have him establish care with green end worker who comes to [place], Dr. Veronica, s o he has primary green end worker, and I will continue to see him [...] notes for [facility] care [facility] docume nted in this [...] [place] | | | | | | [address] | | | | | | | [...]
--- OUTSIDE RECORDS SUMMARY | ~2019-09-27 | XMS | Encounter Summary ---
Demographics + + + | Address | [address] | | | [place] [address] | + + + | Home Phone | | + + + | Preferred Language | Unknown | + + + | Marital Status | | + + + | Jainism Affiliation | Unknown | + + + | Race | Unknown | + + + | Ethnic Group | Unknown | + + + Author + + + | Author | [facility] | | | and [place] | + + + | Organization | [facility] [...] Team Providers + +------+ + | Care Electrical Contacts Adjuster Name | Role | Phone | [...] ANGELITO GLOVER | | | | | [facility] | [place] [address] | | | | | [address] | [phone] | | | | | [phone] | | | +--------+ + + + [...] [place] | | | | | | [address] | | | | | | | [...] enlarged. 5. | | | There is skkb-rj-zwzxiars aortic regurgitation. 6. Fyod-io-onxpfuzp | | | tricuspid regurgitation present. 7. [...] enlarged. 5. | | | There is folx-oo-mwucztvw aortic regurgitation. 6. Ejsa-ny-wgnxywzy | | | tricuspid regurgitation present. 7. [...] | | | Aortic Valve: There is rbfc-tb-dyqfscau aortic regurgitation. | | | Aortic Valve: [...] | valve appears structurally normal. Tricuspid Valve: Diku-zs-ynteuenl | | | tricuspid regurgitation present. Tricuspid [...] 1.63 cm AR Dec | | | [place]: 1.80 m/s2 AR Dec Time: 8.68 ms [...] TR Vmax: | | | 3.28 m/s Accounting Office Manager: Authenticated by: PRITI GRAY MD | | [...] right atrium is markedly enlarged.5. There is mkln-ij-fjoxaxcw aortic regurgitation.6. | | Qlcg-zq-ydseuuxp tricuspid regurgitation present.7. There is mild to [...] valve is mildly calcified.Aortic Valve: There is obqn-vy-wdwovdzw | | aortic regurgitation.Aortic Valve: The aortic pressure half-time by doppler is | | 609ms.Mitral Valve: The mitral valve is normal.Mitral Valve: Mild mitral regurgitation | | is present, predominately a centrally directed jet.Mitral Valve: No evidence of | | MVP.Mitral Valve: .Mitral Valve: Mild mitral annular calcification present.Tricuspid | | Valve: The tricuspid valve appears structurally normal.Tricuspid Valve: Jbaa-kw-fhzrsorh | | tricuspid regurgitation present.Tricuspid Valve: There [...] cmLVPWd: 1.02 | | cmLVOT Area: 3.30 [id number] Diam: 2.05 cm%FS: 28.48 %EF(Teich): 54.99 %ESV(Teich): [...] mlLAESV Index (A-L): 47.27 ml/m2LAAs A2C: 23.45 ph1BSOQT A-L | | A2C: 77.68 mlLALs A2C: 6.01 cmLAAs A4C: 29.84 [id number] A-L A4C: 117.83 mlLALs | | A4C: 6.41 cmRAAs: 32.07 un7YCVBL A-L: 131.03 mlRAESV MOD: 127.60 mlRALs: 6.66 | | cmTAPSE: 1.63 cmAR Dec [place]: 1.80 m/s2AR Dec Time: msAR maxP.43 | | mmHgAR PHT: 608.61 msAR Vmax: 3.78 m/Bruce maxP.90 mmHgAV meanP.46 mmHgAV | | Vmax: 1.10 m/Bruce Vmean: 0.73 m/Bruce VTI: 17.74 cmAVA Vmax: 2.44 cm2AVA (VTI): | | 2.63 hn1FFVJ Vmax: 0.00 cm2/m2AVAI (VTI): 0.00 cm2/m2LVOT maxP.68 mmHgLVOT | | meanP.38 mmHgLVSI Dopp: 22.41 ml/m2LVSV Dopp: 46.84 mlLVOT Vmax: 0.81 | | m/sLVOT Vmean: 0.55 m/sLVOT VTI: 14.15 cmMV A Alirio: 0.01 m/sMV DecT: 133.12 msMV | | E Alirio: 0.89 m/sMV E/A Ratio: 61.32MV PHT: 38.60 msMVA By PHT: 5.69 ob7Ocidtp e': | | 0.08 m/sSeptal E/e': 10.46Lateral e': 0.11 m/sLateral E/e': 7.58RAP: 5 | | mmHgRVSP: 48.09 mmHgTR maxP.09 mmHgTR Vmax: 3.28 m/s Accounting Office Manager: | | DHAuthenticated by: YUNG FROSTeport Date/Time: [...] is markedly | | enlarged.5. There is cdbd-pu-clkyhibb aortic regurgitation.6. Fslz-vm-uivogkuc tricuspid | | regurgitation present.7. There is [...] | |TAPSE: 1.63 cm | |AR Dec [place]: 1.80 m/s2 | |AR Dec Time: 2098.68 [...] |TR Vmax: 3.28 m/s | | | |Accounting Office Manager: | |Authenticated by: PRITI GRAY MD | [...] is markedly enlarged. | |5. There is yazw-lp-nrswmfio aortic regurgitation. | |6. Lkrj-bs-hirpsgjp tricuspid regurgitation present. | |7. There is mild to moderate pulmonary hypertension. The right ventricular systolic pressu re (pulmonary artery systolic pressure), as measured by Doppler, is 48 - 53 mm Hg. | + + documented in this encounter Visit Diagnoses Not on filedocumented in this encounter"
--- OUTSIDE RECORDS SUMMARY | ~2019-09-27 | XMS | Encounter Summary ---
Demographics + + + | Address | [address] | | | [place] [address] | + + + | Home Phone | | + + + | Preferred Language | Unknown | + + + | Marital Status | | + + + | Quaker Affiliation | Unknown | + + + | Race | Unknown | + + + | Ethnic Group | Unknown | + + + Author + + + | Author | [facility] | | | and [place] | + + + | Organization | [facility] | | [...] Team Providers + +------+ + | Care Exchange Mechanic Name | Role | Phone | + [...] | | | | [place] | [phone] | | | | | [address] | | | | | | [phone] | | | +--------+ + + + [...] | 0 | 06/22/19 | | | [id number] | mouth. | | | 18 [...] [place] | | | | | | [address] | | | | | | | [...]
--- OUTSIDE RECORDS SUMMARY | ~2019-09-27 | XMS | Encounter Summary ---
Demographics + + + | Address | [address] | | | [place] [address] | + + + | Home Phone | | + + + | Preferred Language | Unknown | + + + | Marital Status | | + + + | Adventism Affiliation | Unknown | + + + | Race | Unknown | + + + | Ethnic Group | Unknown | + + + Author + + + | Author | [facility] | | | and [place] | + + + | Organization | [facility] | | | and [place] | [...] Providers + +------+ + | Care Asbestos Shingle Inspector Name | Role | Phone | + [...] | | | | [place] | [phone] | | | | | [address] | | | | | | [phone] | | | +--------+ + + + [...] [place] | | | | | | [address] | | | | | | | | +--------+---------+ + + + documented as of this encounter Visit Diagnoses Not on filedocumented in this encounter"
--- OUTSIDE RECORDS SUMMARY | 2019-09-27 22:30 | XMS ---
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 Adelina has no Care Guidelines for this patient. Sheng VISIT COUNT (12 MO.) [address] [facility] [place] TOTAL 4 NOTE: Visits indicate total known visits. ED/C VISIT TRACKING (12 MO.) 09/27/2019 21:[address] [facility] [place] TYPE: Emergency COMPLAINT: - LEFT LEG SWELLING 09/27/2019 14:00 [facility] [place] TYPE: Emergency COMPLAINT: - KNEE PAIN 09/05/2019 16:12 [facility] [place] TYPE: Emergency COMPLAINT: - CHEST PAIN DIAGNOSES: - Chest pain, unspecified - Other terminal operations manager (current) drug therapy - Allergy status to other drugs, medicaments and biological sub - Unspecified atrial fibrillation - Personal history of nicotine dependence - Chronic obstructive pulmonary disease with (acute) exacerbati - prison (current) use of anticoagulants - Essential (primary) hypertension 11/10/2018 18:31 [facility] [place] TYPE: Emergency COMPLAINT: - NECK PAIN/RIGHT ARM PAIN NON INJURY DIAGNOSES: - Personal history of nicotine dependence - Essential (primary) hypertension - Unspecified atrial fibrillation - Radiculopathy, cervical region - Allergy status to other drugs, medicaments and biological sub - Other assisted (current) drug therapy - Chronic obstructive pulmonary disease, unspecified INPATIENT VISIT TRACKING (12 MO.) No inpatient visits to display in this time frame [email or web address]
--- NOTE | 2019-09-28 01:40 | NUR ---
LATE ENTRY: PT ARRIVES TO FLOOR VIA STRETCHER, ABLE TO SCOOT HIMSELF OVER WITH MINIMAL ASSISTANCE. VS OBTAINED. SA02 86% ON 4 LPM, CHRONIC FOR PT. PT STATES THAT THIS IS NORMAL FOR HIM TO HAVE LOW SATURATION, ESPECIALLY AFTER HAVING SCOOTED OVER TO BED. PT STATES THAT HE TAKES HIS SAO2 FREQUENTLY AT HOME. DURING ADMISSION PROCESS AUDIO VISUAL DIRECTOR INCREASED O2 TO 5 L SAO2 INCREASES TO LOW 90'S, O2 TITRATED BACK TO BASELINE DURING ADMISSION PROCESS. PRIMARY RN NOTIFIED OF SAO2. PT DENIES SOB. ADMISSION PROCESS COMPLETE. PT ORIENTED TO ROOM AND POC FOR THIS SHIFT. PT DENIES FURTHER NEEDS AT THIS TIEM. CALL LIGHT IN REACH.
--- NOTE | 2019-09-28 02:25 | NUR ---
PT ADMITTED AT 0140, COOPERATIVE, ALERT AND ORIENTED. ON 4L NC O2, CHRONIC USE LUNGS DIM AT BASES, L KNEE EDEMA +2, PAINDUL, TENDER, ELEVATED WITH PILLOW. SL R ARM PATENT. DENIES C./O PAIN AT THIS TIME. FRESH WATER AND FLUIDS AT BEDSIDE.
--- NOTE | 2019-09-28 02:53 | NUR ---
VOIDED SMALL AMOAUNT OF URINE USING URINAL, WARM BLANKET GIVE, NO FURTHER C/O ITCHING
--- NOTE | 2019-09-28 03:17 | NUR ---
HAS NOT VOIDED SINCE ADMIT AT 0140, COOP WITH ASSESSMENT, MEDICATED WITH DILAUDID 0.5MG IV C/O L KNEE PAIN. REPOSITIONS SELF IN BED.
--- NOTE | 2019-09-28 04:41 | NUR ---
PT ADMITTED AT 0140, AWAKE AT THIS TIME, NO VOID YET, PAINFUL L KNEE 2+ EDEMA. GOOD CMS, 1PA TO EDGE OF BED, AND BACK TO BED WITH 1PA. L LEG ELEVATED WITH PILLOW. ON 4L CHRONIC O2, SATS RUN IN MID 80'S PER PT, HX OF ENPHYZEMA, LUNGS DIM AT BASES. KEILY SOB WITH EXERTION. SL PATENT, FLUSHES WELL. COOP, TOLERATING FLUIDS, WELL, NO EMESIS
--- NOTE | 2019-09-28 05:54 | NUR ---
PT C/O 9/10 L KNEE PAIN, MEDICATED WITH DILAUDID 0.5MG IV. HAS NOT BEEN ABLE TO VOID SINCE ADMIT AT 0140, BLADDER SCANNER SHOWED OVER 435 CC IN BLADDER, WILL STRAIGHT CATH, PROCEDURE EXPLAINED.
--- NOTE | 2019-09-28 06:15 | NUR ---
DR DEL REAL NOTIFIED OF PT UNABLE TO VOID AND ICNREASED BLADDER PAIN, N.O FOR STRAIGHT CATH X1 NOW AND IF UNABLE TO VOID IN 4H BLADDER SCAN AGAIN AND IF OVER 400CC, PLACE A F/C THEN. PROCEDURE EXPLAINED EARLIER TO PT, STRAIGHT CATH DONE AT THIS TIME. 575 CC, VERY SLOW DRAINING LIGHT LEONCIO URINE DRAINED. PT WAS COOP. AWARE OF ABOVE ORDER.
--- NOTE | 2019-09-28 07:39 | NUR ---
RECIEVED REPORT FROM JUAN RAMON MITCHELL. PT APPEARS TO BE RESTING AT THIS TIME WITH RESPIRATIONS NOTED
--- NOTE | 2019-09-28 07:50 | NUR ---
THIS RN IN PTS ROOM TO GIVE PT 0.5MG OF DILAUDID PER PT REQUEST. THIS RN NOTED THAT PT WAS ON 4L NC. WITHIN 5 MINS OF GIVING PT PAIN MEDS, PT WAS DROWSY BUT NO LONGER IN PAIN. PT ABLE TO RESPOND TO THIS RN STATING HIS NAME. RESPIRATIONS NOTED. THIS RN ASSESSED PTS LEFT KNEE.
--- NOTE | 2019-09-28 09:45 | NUR ---
THIS RN NOTIFIED BY JASON BRISENO THAT PT O2 SAT WAS 69% ON 4L. THIS RN INTO ROOM TO CHECK PT AND JASON BRISENO IN ROOM TO PUT PT ON CPOX. PT SAT 72% ON 4L NC THIS RN PUT PT ON 7L OXYMASK AT THIS TIME AND REQUESTED THAT MYA BRISENO TO CALL [facility]. PT SATING 84% ON 7L OXYMASK 0952- IN ROOM AT THIS TIME 0955- THIS RN AT THIS TIME REQUESTED EVERYONE 0957- THIS RN PLACED PT ON 15L NON-REBREATHER. PT O2 SAT 88% AT THIS TIME WITH NON-REBREATHER. RESPIRATORY THERAPIST GHISLAINE IN PTS ROOM AT THIS TIME WELL 0959- CHARGE NURSE OSIEL IN ROOM TO ASSIST. 1004- RAPID RESPONSE CALLED 1020- PT TRANSFERRED TO CCU RM 128. THIS RN GAVE BEDSIDE REPORT TO JERI MITCHELL. PT PLACED ON BIPAP BY GHISLAINE FROM [facility]
--- NOTE | 2019-09-28 10:20 | NUR ---
PT RECIEVED FROM MED/SURG ROOM 122. PAULA BROCK AND PAULA GUZMAN BRING PT IN BED. PT ALERT AND ORIENTED X4. BIPAP PLACED PER [facility] GHISLAINE.
--- NOTE | 2019-09-28 11:01 | NUR ---
PT REPORTS KNEE PAIN IN LEFT KNEE AT 8/10. PT GIVEN 1000 MG PO TYLENOL. PT DENIES CHEST PAIN AND NAUSEA. PT DENIES SOB WITH BIPAP IN PLACE. PT ABLE TO SWALLOW PILLS EASILY WITH A SIP OF WATER. PT GIVEN AM DOSE OF DIGOXIN.
--- NOTE | 2019-09-28 12:05 | NUR ---
pt resting quietly in bed at this time, bipap in place o2 sat is 91%.
--- NOTE | 2019-09-28 13:05 | NUR ---
CALLED KB FROM [facility] TO COME AND EVALUATE PT FOR POSSIBLE INCREASE OF SETTINGS ON BIPAP DUE TO PT FREQUENT DESAT TO 85% WITH BIPAP IN PLACE.
--- NOTE | 2019-09-28 13:10 | NUR ---
CALLED TO UPDATE ON PT CARDIAC STATUS OF SUSTAINED ELEVATED RATE 100'S-130'S. ALSO REPORTED TO THAT PT DENIES SOB, NAUSEA, AND CHEST PAIN. PT ALSO REPORTS THAT LEG PAIN IS IMPROVED. NO NEW ORDERS AT THIS TIME, WILL CONTINUE TO MONITOR.
--- NOTE | 2019-09-28 14:45 | NUR ---
pt given 0.5 mg iv dilaudid for 6/10 left knee pain. pt off bipap for short time to take po pills as well. pt requires 7L o2 via oxymask to maintain sats from 88-91%. pt denies nausea and chest pain, reports no symptoms of sob at anytime. pt denies hunger at this time, takes po water well. iv site is intact no redness or swelling noted, flushes and fluids infuse easily.
[2019-09-28] MEDS ORDERED: TAMSULOSIN HCL0.4 MG PO (15:05)
[2019-09-28] MEDS ORDERED: HYDRALAZINE HCL25 MG PO (15:05)
[2019-09-28] MEDS ORDERED: TERBINAFINE HC250 MG PO (15:06)
[2019-09-28] MEDS ORDERED: DAILY MULTIPLE1 EACH PO (15:07)
[2019-09-28] MEDS ORDERED: GAS-X125 MG PO (15:07)
--- NOTE | 2019-09-28 15:14 | NUR ---
COMPLETED MEDICATION RECONCILIATION WITH PHONE CALL WITH PATIENT'S .
--- NOTE | 2019-09-28 17:45 | NUR ---
CALLED PT'S TO UPDATE ON PT STATUS PER PT REQUEST. PT WOKE UP AND IS SLIGHTLY CONFUSED. ASSISTED PT TO TALK ON THE PHONE WITH FAMILY, THIS HELPS HIM TO CLEAR MENTALY. PT DENIES NEED FOR PAIN MEDICATION AT THIS TIME, PT DENIES NAUSEA AND SOB WELL.
--- NOTE | 2019-09-28 18:11 | NUR ---
PT OFF BIPAP TO EAT DINNER, ON 4L O2 VIA NC, PT QUICKLY DESATS TO MID 70'S. PT DENIES FEELING ANY SOB OR AIR HUNGER. CALLED KB FROM [facility] FOR HIGH FLOW NC. PT ABLE TO EAT THE REST OF HIS DINNER WITH NO DISTRESS. VAPOTHERM PLACED ON PT, O2 SATS UP TO MID TO UPPER 80'S. PT TITRATED UP TO 40L FLOW O2% AND 100% FIO2, FOR A O2 SAT OF 91%.
--- NOTE | 2019-09-28 18:45 | NUR ---
PT PLACED BACK ON BIPAP FROM VAPOTHERM. PT COOPERATIVE AND POLITE. PT ALERT AND ORIENTED X4.
--- NOTE | 2019-09-28 20:30 | NUR ---
AWAKENS EASILY. OFF BIPAP AND ON VAPOTHERM, VAPOTHERM CHANGED TO 75%FIO2 AND 25L FLOW. SATS 88-92 WITH THIS, WILL WATCH. PAIN TOLERABLE L KNEE. L KNEE HAS TERRELL WRAP IN PLACE. NO DRAINAGE NOTED.
--- NOTE | 2019-09-28 21:30 | NUR ---
PT SATS 90-93%. PT PREFERS TO USE VAPOTHERM AT THIS TIME. GIVEN HS MEDS, REUQESTING ICE CREAM, GIVEN SHERBET, TAKING PO FLUIDS WELL. ICE PLACE TO L KNEE.
--- NOTE | 2019-09-28 23:30 | NUR ---
RESTING WITH VAPOTHERM IN PLACE.
--- NOTE | 2019-09-29 01:14 | NUR ---
SLEEPING OFF AND ON. AWAKENS EASILY. STATES KNEE IS FEELING BETTER. SATS LOW 90'S AT 75% AND 25L ON VAPOTHERM.
--- NOTE | 2019-09-29 02:30 | NUR ---
SLEEPING. SATS 92-93%.
--- NOTE | 2019-09-29 04:00 | NUR ---
SLEEPING. NO CHANGE.
--- NOTE | 2019-09-29 06:03 | NUR ---
AWAKE, WHEN ASKED ABOUT PAIN IN L KNEE ASKED FOR PLAIN TYLENOL. SCHEDULED TYLENOL GIVEN EARLY. ICE TO KNEE. LABS DRAWN. SATS MID 90'S. FI02 DEC TO 70%.HR MOSTLY MAINLY 80-90.
--- NOTE | 2019-09-29 08:32 | NUR ---
PT SITTING UPRIGHT IN BED EATING BREAKFAST. HOPING HIS COVID TEST COMES BACK SO HIS CAN VISIT. VERY PLEASANT AND DENIES ANY CONCERNS. STATES HIS KNEE IS FEELING BETTER AND CAN BEND AND RAISE IT OFF THE BED WITHOUT MUCH PAIN. STILL FEELS IT WHEN BENDING. TOOK TYLENOL THIS MORNING. LUNGS COARSE AND DIM THROUGHOUT ON 4L VAPOTHERM. GILLETTE QS AT 175 LEONCIO URINE.
--- NOTE | 2019-09-29 09:10 | NUR ---
SWITCHED TO IVF AT 100. PLACED ALLYVN ON RIGHT ELBOW.
--- NOTE | 2019-09-29 09:54 | NUR ---
PATIENT HAS PENDING COVID AND IS SLEEPING. CALLED AND SPOKE WITH PALOMO FOR ASSESSMENT. PATIENT LIVES WITH HER IN HOME WITH TWO STEPS IN. PATIENT IS RETIRED, STILL DRIVES. PATIENT CHRONICALLY ON 4L OXYGEN FROM [facility] [place]. HE HAS A WALKER AT HOME FROM A PREVIOUS [facility], BUT HASN'T USED IT FOR SOME TIME. THEY DO NOT HAVE WORRIES ABOUT AFFORDING MEDICATIONS, FOOD OR UTILITIES. SHE STATES THEY WILL DRIVE HIM HOME AT DISCHARGE AND SOMEONE WILL BE WITH HIM TO HELP HIM. SHE FEELS HE IS SAFE TO RETURN HOME. CASE MANAGMENT WILL CONTINUE TO FOLLOW.
--- NOTE | 2019-09-29 10:58 | NUR ---
PT SITTING UP IN BED, TALKING ON PHONE TO . SHE CALLED FOR ANOTHER UPDATE. DOCTOR IN ROOM FOR ROUNDS. PT WOULD LIKE A MIKE CORONADOAM.
--- NOTE | 2019-09-29 11:41 | NUR ---
IN PT ROOM TO HELP HIM CALL HIS ON ROOM PHONE. GIVEN GLASSESS AND HIS CELL PHONE THAT SOMEONE BROUGHT IN TO [facility]. PT GIVEN MIKE REQUESTED. ORDERED LUNCH.
--- NOTE | 2019-09-29 12:26 | NUR ---
OBTAINED FWW FOR PT PER REQUEST. STATES HE WILL NEED TO GO TO THE RESTROOM THIS AFTERNOON AND WALKS WITH A WALKER. LUNCH ON BEDSIDE TRAY.
--- NOTE | 2019-09-29 13:31 | NUR ---
PT RESTING WITH EYES CLOSED. FWW WAITING OUTSIDE ROOM. SATS 93%
--- NOTE | 2019-09-29 14:14 | NUR ---
BECAUSE OF PRECAUTIONS, UNABLE TO VISIT PT IN PERSON. WILL BE AVAILABLE NEEDED
--- NOTE | 2019-09-29 15:27 | NUR ---
PT ASSISTED TO BEDSIDE COMMODE WITH FWW. ABLE TO PUT SOME WEIGHT ON KNEE. RATES PAIN 3\10. NO BOWEL MOVEMENT BUT PASSED SOME GAS. ADMINISTERED SCHEDULED MEDS. PUT EAR FOAM ON NC. ICE TO KNEE. ICE WATER IN CUP. CALL LIGHT IN REACH.
--- NOTE | 2019-09-29 16:44 | NUR ---
RT KB IN ROOM TO DO NEB TREATMENT. ORDERED DINNER. WATCHING TV.
--- NOTE | 2019-09-29 19:15 | NUR ---
REPORT RECIEVED BY CCU RN. CARE OF PATIENT ASSUMED AT THIS TIME.
--- NOTE | 2019-09-29 20:09 | NUR ---
IN ROOM FOR MEDICATION ADMINISTRATION AND FOR PATIENT ASSESSMENT. PT ALERT AND ORIENTED. STATES PAIN IN LEFT KNEE IS CONTROLLED AT THIS TIME. BREATHING TREATMENT ADMINISTERED. PT SATURATING AT 96 PERCENT ON VAPOTHERM. IV FLUIDS INFUSING. PLAN OF CARE ESTABLISHED FOR NIGHT. ALL PT QUESTIONS ANSWERED. CALL LIGHT WITHIN REACH. NO FURTHER NEEDS AT THIS TIME.
--- NOTE | 2019-09-29 22:08 | NUR ---
PT PLACED ON BIPAP FOR SLEEP AT THIS TIME. DENIES ANY FURTHER NEEDS.
--- NOTE | 2019-09-29 23:30 | NUR ---
PT PLACED BACK ON VAPOTHERM AT THIS TIME. DENIES PAIN. NO FURTHER NEEDS. WILL CONTINUE TO MONITOR.
--- NOTE | 2019-09-30 01:24 | NUR ---
ASSESSMENT COMPLETED. PT RESTING ON VAPOTHERM, SPO2=96 PERCENT. PT DENIES PAIN. ASSISTED WITH REPOSITIONING. IV FLUIDS INFUSING. CALL LIGHT WITHIN REACH. NO FURTHER NEEDS AT THIS TIME.
--- NOTE | 2019-09-30 02:30 | NUR ---
SLEEPING. RESPIRATIONS EVEN AND UNLABORED. SPO2= 96 PERCENT ON VAPOTHERM
--- NOTE | 2019-09-30 03:30 | NUR ---
ROUNDS COMPLETE. PT SLEEPING ON BACK. EVEN UNLABORED BREATHING. SPO2 ACCORDING TO MONITOR IS 96% ON 7L. CALL LIGHT IN REACH.
--- NOTE | 2019-09-30 04:08 | NUR ---
IN ROOM FOR ASSESSMENT. PT AWAKE IN BED. SPO2 HAS BEEN IN THE MID 90S ALL NIGHT. FIO2 ON VAPOTHERM DECREASED 60% AT THIS TIME. LUNGS SOUND COARSE IN BOTH BASES, BUT CLEAR IN THE UPPER AIRWAYS. PT DENIES PAIN OR DISCOMFORT AT THIS TIME. NO NOTED CHANGES IN COLOR OR TEMPERATURE OF LEFT KNEE. CALL LIGHT WITHIN REACH. NO FURTHER NEEDS AT THIS TIME.
--- NOTE | 2019-09-30 07:30 | NUR ---
REPORT RECIEVED. PATIENT IS SITTING UP IN BED WATCHING TV. STATES HE FEELS MUCH BETTER. ASSESSMENT DONE. PATIENT STATES HE IS GOING TO MED-SURG TODAY.
--- NOTE | 2019-09-30 08:30 | NUR ---
BREAKFAST GIVEN. REMAINS ON VAPOTHERM AT 100% 10 LITERS. THIS PER RT.
--- NOTE | 2019-09-30 09:00 | NUR ---
DR. ARNDT HER TO SEE PATIENT. INDRA RECIEVED TO TRANSFER TO MED-SURG. PATIENT IN ROOM. ROUTINE MEDICATIONS GIVEN.
--- NOTE | 2019-09-30 10:00 | NUR ---
MORNINGS CARES GIVEN. TOLERATED WELL. TRANSFERRED TO [facility] TO PASS [facility]AT[facility] THEN TO CHAIR. USING WALKER FOR TRANSFERS. GILLETTE CATH PATENT.
--- NOTE | 2019-09-30 10:50 | NUR ---
REPORT GIVEN TO MED-SURG.
--- NOTE | 2019-09-30 11:05 | NUR ---
TO MED-SURG VIA CHAIR.
--- NOTE | 2019-09-30 11:20 | NUR ---
PT TRANSFERED FROM CCU. PT SITTING IN THE CHAIR. PT ALERT AND ORIENTED. PT ON 6L HIGH FLOW NC, O2 SATS 90-91%, LUNG SOUNDS CLEAR IN UPPER LOBES, RHONCHI, INSPIRATORY AND EXPIRATORY WHEEZE IN BILATERAL LOWER LOBES, LOOSE COUGH, PT STATES HIS BREATHING FEELS ABOUT HIS NORMAL, RR 24, PLACED ON CONTINUOUS PULSE OX. PT DENIES PAIN. LEFT KNEE WITH TERRELL BANDAGE WRAP, ICE PACK PLACED TO KNEE. GILLETTE CTAH DRAINING YELLOW URINE. PT ASSISTED TO ORDER LUNCH, DENIES NAUSEA, BOWEL TONES ACTIVE. PT DENIES OTHER NEEDS AT THIS TIME.
--- NOTE | 2019-09-30 12:30 | NUR ---
PT GIVEN TUMS FOR HEARTBURN PER ORDER. AT BEDSIDE. PT DENIES OTHER NEEDS AT THIS TIME.
--- NOTE | 2019-09-30 14:20 | NUR ---
PT IS ALERT, ORIENTED AND SEEMED PLEASED I STOPPED BY. PT FEELS HE IS IMPROVING AND FELT COMFORTABLE TO SHARE WITH ME HIS HEALTH JOURNEY AND HIS SOBRIETY-WHICH HAS BEEN A HUGE EVENT IN HIS LIFE. PT SHARED HOW MUCH BETTER HE FEELS AFTER QUITTING DRINKING AND THE BENEFITS THAT HAVE COME FROM IT. PT REQUESED PRAYER. LEFT PT Miladys Larios.POST
--- NOTE | 2019-09-30 14:50 | NUR ---
SCHEDULED TYLENOL AND SOLUMEDROL GIVEN PER ORDER. HYDRALAZINE HELD, SYSTOLIC BP WITHIN PARAMETER. PT SITTING IN CHAIR. PT DENIES OTHER NEEDS AT THIS TIME.
--- NOTE | 2019-09-30 17:17 | NUR ---
PATIENT RESTING IN BED. VITAL SIGNS AND I&O DONE. ICE WATER GIVEN. PATIENT'S DINNER ORDERED. CALL LIGHT WITHIN REACH. NO OTHER NEEDS AT THIS TIME
--- NOTE | 2019-09-30 18:33 | NUR ---
CALL LIGHT ANSWERED. PATIENT RESTING IN BED. PATIENT USES THE BASE COMMODE. ONE PERSON ASSISTING WITH WALKER. CALL LIGHT WITHIN REACH. NO OTHER NEEDS AT THIS TIME
--- NOTE | 2019-09-30 19:15 | NUR ---
HANDOFF REPORT GIVEN TO GREGORIA. PT SPO2 86% ON 7L, INCREASED TO 8L, PT O2 SATS NOW 94%. PT SITTING IN CHAIR.
--- NOTE | 2019-09-30 19:23 | NUR ---
PT TRANSFERED FROM CCU TODAY. PT ON 5-7L HIGH FLOW NASAL CANNULA, LUNG SOUNDS WITH EXPIRATORY/INSPIRATORY WHEEZE AND RHONCHI IN THE BASES. PT 1PA WITH FWW. PAIN WELL CONROLLED WITH SCHEDULED TYLENOL, LEFT KNEE MORE PAINFUL WITH MOVEMENT. TOLERATING REGULAR DIET. IV SALINE LOCKED. GILLETTE CATH IN PLACE, [place].
--- NOTE | 2019-09-30 19:40 | NUR ---
SHIFT REPORT RECEIVED FROM NURSE SMITH. PT UP IN CHAIR, ALERT AND TALKATIVE. SPO2 @7L 86%; O2 PER NC INCREASED TO 8L. NO FURTHER NEEDS AT THIS TIME. PT ENCOURAGED TO CALL FOR ASSISTANCE.
--- NOTE | 2019-09-30 21:59 | NUR ---
ASSESSMENT COMPLETE. PT WAS SLEEPING RIGHT LATERAL THIS NURSE ENTERED ROOM. VSS. SP02 90-91% ON 7L. GILLETTE CARE COMPLETE. WATER REFRESHED, ICE PACK TO LEFT KNEE. PT REPORTS NO PAIN IN LEFT KNEE. NO FURTHER REQUESTS AT THIS TIME. CALL LIGHT WITHIN REACH.
--- NOTE | 2019-10-01 01:22 | NUR ---
PT WAS SLEEPING ON BACK THIS NURSE ENTERED TO START DUONEB TREATMENT. PT AWOKE AND FOLLOWED TREATMENT. NEW ICE PACKS APPLIED TO LEFT KNEE. NO FURTHER NEEDS AT THIS TIME. CALL LIGHT WITHIN REACH.
--- NOTE | 2019-10-01 03:25 | NUR ---
PT SLEEPING ON BACK. EVEN UNLABORED BREATHING. NO APPARENT SIGNS OF DISTRESS. CALL LIGHT WITHIN REACH
--- NOTE | 2019-10-01 05:12 | NUR ---
ASESSMENT AND DUONEB COMPLETE. O2 TITRATED TO 6L SPO2 HAS BEEN 96%+ ON 8L ALL SHIFT. PT IS MAINTAINING 92% SPO2 ON 6L NC. VSS. NO REPORTED PAIN AT THIS TIME. CALL LIGHT WITHIN REACH. NO FURTHER NEEDS AT THIS TIME.
--- NOTE | 2019-10-01 07:30 | NUR ---
HANDOFF REPORT RECEIVED FROM DAIRY HUSBANDRY WORKER RN.
--- NOTE | 2019-10-01 08:30 | NUR ---
PT SITTING ON EDGE OF BED. O2 SASTS 84% ON 5L HIGH FLOW, INCREASED TO 7L. LUNG SOUNDS DIMINISHED IN UPPER LOBES, CLEAR IN LOWER LOBES. PT DENIES PAIN. PT TOLERATED REGULAR DIET DENIES NAUSEA, BOWEL TONES ACTIVE. CMS INTACT, WITHOUT EDEMA. IV FLUSHED, PATENT, IV ROCEPHIN GIVEN. AT BEDSIDE, UPDATED ON PLAN OF CARE. PT DENIES OTHER NEEDS AT THIS TIME.
--- NOTE | 2019-10-01 10:30 | NUR ---
PT TITRATED DOWN TO 6L HIGH FLOW NC. CONTINUOUS PULSE OX IN PLACE.
== END 2019-10-01 10:49 | disposition swing bed (61) | DRG 193 ==
LOC: ED 21:59 → MS 22:00 → CCU 09-28 10:10 → MS 09-30 11:05
PROVIDERS: ADMIT Student in an Organized Health Care Education/Training Program
PROC: 5A09357 Assistance with Respiratory Ventilation, Less than 24 Consecutive Hours, Continuous Positive Airway Pressure (ICD-10-PCS; principal; 2019-09-28)
DX: J18.9 Pneumonia, unspecified organism (principal); J96.21 Acute and chronic respiratory failure with hypoxia; J44.0 Chronic obstructive pulmonary disease with (acute) lower respiratory infection; J44.1 Chronic obstructive pulmonary disease with (acute) exacerbation; I48.21 Permanent atrial fibrillation; M25.062 Hemarthrosis, left knee; Z20.828 Contact with and (suspected) exposure to other viral communicable diseases; R33.9 Retention of urine, unspecified; Z66 Do not resuscitate; Z99.81 Dependence on supplemental oxygen; Z88.8 Allergy status to other drugs, medicaments and biological substances; Z79.01 Long term (current) use of anticoagulants; Z79.83 Long term (current) use of bisphosphonates; Z79.51 Long term (current) use of inhaled steroids; Z79.899 Other long term (current) drug therapy
CPT/HCPCS: 36415; 36600; 71045; 80048; 80053; 82803; 83615; 83735; 83880; 85025; 85379; 85610; 85651; 85730; 86140; 94640; 94660; 94762; 94799; 96374; 96375; 97162; 97165; 97535; 99284-25; C9803; J0696; J1170; J2405; J2930; J7121

== ENCOUNTER 2019-10-01 10:50 | Inpatient (IN) | payer MEDICARE, OTHER ==
[~2019-10-01] VITALS: Ht 180.3 cm; Wt 84.4 kg
--- OUTSIDE RECORDS SUMMARY | ~2019-10-01 | XMS | Encounter Summary ---
Demographics + + + | Address | [address] | | | [place] [address] | + + + | Home Phone | | + + + | Preferred Language | Unknown | + + + | Marital Status | | + + + | Caodaism Affiliation | Unknown | + + + | Race | Unknown | + + + | Ethnic Group | Unknown | + + + Author + + + | Author | [facility] | | | and [place] | + + + | Organization | [facility] | | | and [place] | + + + | Address | Unknown | + + + | Phone | Unavailable | + + + Support + + +---------+ + | Name | Relationship | Address | Phone | + + +---------+ + | Sheri Lassiter | ECON | Unknown | | + + +---------+ + Care Team Providers + +------+ + | Care Bulk Plant Agent Name | Role | Phone | + +------+ + | Sherwin Garber MD | PCP | | + +------+ + Reason for Visit + +--------+ + | Reason | Onset | Comments | | | Date | | + +--------+ + | Appointment | 02/18/ | | | | 2014 | | + +--------+ + Encounter Details +--------+ + + + + | Date | Type | Department | Care Team | Description | +--------+ + + + + | 02/18/ | Telephone | [facility] | Johan Ramsay, | Levi | | 2014 | | PULMONARY [address] | MD [address] | | | | | [place], | [place], [place] | | | | | [place] [address] | [address] | | | | | [phone] | | | +--------+ + + + + Social History + +-------+ +--------+------+ | Tobacco Use | Types | Packs/Day | Years | Date | | | | | Used | | + +-------+ +--------+------+ | Never Assessed | | | | | + +-------+ +--------+------+ + + + | Sex Assigned at | Date Recorded | | | | + + + | Not on file | | + + + documented as of this encounter Miscellaneous Notes Telephone Encounter - Katlyn Rojas - 02/18/2015 2:43 PM PSTSpoke with patient today to schedule a consult requested by Dr. Garber. Patient declined to schedule-stated that he lucila pennington needed it. Dr. Garber's office notified. Electronically signed by Katlyn Rojas at 2:47 PM PSTdocumented in this encounter Plan of Treatment +--------+---------+ + + + | Date | Type | Specialty | Care Team | Description | +--------+---------+ + + + | 10/22/ | Office | Cardiology | Danica Veronica DO | | | 2020 | Visit | | [address] | | | | | | [place] | | | | | | [id number] | | | | | | | | +--------+---------+ + + + documented as of this encounter Visit Diagnoses Not on filedocumented in this encounter"
--- OUTSIDE RECORDS SUMMARY | ~2019-10-01 | XMS | Encounter Summary ---
Demographics + + + | Address | [address] | | | [place] [address] | + + + | Home Phone | | + + + | Preferred Language | Unknown | + + + | Marital Status | | + + + | Yazidism Affiliation | Unknown | + + + | Race | Unknown | + + + | Ethnic Group | Unknown | + + + Author + + + | Author | [facility] | | | and [place] | + + + | Organization | [facility] | | | and [...] Team Providers + +------+ + | Care Tire Service Supervisor Name | Role | Phone | + +------+ + | Ravinder Webb MD | PCP | | + +------+ + Encounter Details +--------+ + + + + | Date | Type | Department | Care Team | Description | +--------+ + + + + | 12/26/ | Orders Only | [facility] | Conversion | | | 2016 | | CONVERSION [address] | Transaction, | | | | | [address] | Provider Unknown | | | | | [place] | [phone] | | | | | [address] | | | | | | [phone] | | | +--------+ + + + [...] + + documented as of this encounter Plan of Treatment +--------+---------+ + + + | Date | Type | Specialty | Care Team | Description | +--------+---------+ + + + | 10/22/ | Office | Cardiology | Danica Veronica DO | | | 2020 | Visit | | [address] | | | | | | [place] | | | | | | [address] | | | | | | | | +--------+---------+ + + + documented as of this encounter Visit Diagnoses Not on filedocumented in this encounter"
--- OUTSIDE RECORDS SUMMARY | ~2019-10-01 | XMS | Encounter Summary ---
Demographics + + + | Address | [address] | | | [place] [address] | + + + | Home Phone | | + + + | Preferred Language | Unknown | + + + | Marital Status | | + + + | Mu-Ism Affiliation | Unknown | + + + | Race | Unknown | + + + | Ethnic Group | Unknown | + + + Author + + + | Author | [facility] | | | and [place] | + + + | Organization | [facility] | | | and [place] | [...] Team Providers + +------+ + | Care Ruby Software Developer Name | Role | Phone | + +------+ + | Sherwin Garber MD | PCP | | + +------+ + Encounter Details +--------+ + + + + | Date | Type | Department | Care Team | Description | +--------+ + + + + | 01/03/ | Orders Only | [facility] | Marylou Peraza | | | 2017 | | CONVERSION [address] | [address] | | | | | [address] | [address]GELITO [address] | | | | | [facility] | [place] [address] | | | | | [address] | [phone] | | | | | [phone] | | | +--------+ + + + [...] | 2020 | Visit | | [address] | | | | | | [place] | | | | | | [address] | | | | | | | | +--------+---------+ + + + documented as of this encounter Procedures + +--------+ + + + | Procedure Name | Priori | Date/Time | Associated Diagnosis | Comments | | | ty | | | | + +--------+ + + + | ECHO INTERPRETATION | Routin | 01/03/2017 | | Results for this | | OF OUTSIDE FILMS | e | 10:19 AM | | procedure are in the | | | | PDT | | results section. | + +--------+ + + + documented in this encounter Results ECHO Interpretation of Outside Films (01/03/2017 10:19 AM PDT) + + | Specimen | + + | | + + + + + | Impressions | Performed At | + + + | 1. Overall left ventricular systolic function is normal with, an EF | | | between 65 - 70 %. 2. The right ventricle is mildly enlarged, but RV | | | systolic function is at the low end of normal. 3. The left atrium is | | | moderately enlarged. 4. The right atrium is markedly enlarged. 5. | | | There is jcuz-sk-yskctevz aortic regurgitation. 6. Zpor-tf-nuuegjxj | | | tricuspid regurgitation present. 7. There is mild to moderate | | | pulmonary hypertension. The right ventricular systolic pressure | | | (pulmonary artery systolic pressure), as measured by Doppler, is 48 - | | | 53 mm Hg. | | + + + + + + | Narrative | Performed At | + + + | Patient Name: Shazia Lassiter Date of : 1940 | | | Performing Physician: PRITI GRAY MD | | | | | | INDICATIONS A-Fib, HTN CONCLUSIONS 1. | | | Overall left ventricular systolic function is normal with, an EF | | | between 65 - 70 %. 2. The right ventricle is mildly enlarged, but RV | | | systolic function is at the low end of normal. 3. The left atrium is | | | moderately enlarged. 4. The right atrium is markedly enlarged. 5. | | | There is wdst-gu-yoersyjm aortic regurgitation. 6. Kcax-fi-piixulbv | | | tricuspid regurgitation present. 7. There is mild to moderate | | | pulmonary hypertension. The right ventricular systolic pressure | | | (pulmonary artery systolic pressure), as measured by Doppler, is 48 - | | | 53 mm Hg. FINDINGS -------- ECG rhythm: Atrial fibrillation. | | | Study: A 2-dimensional transthoracic echocardiogram with m-mode, | | | spectral and color flow Doppler was perfomed. Study: This was a | | | technically adequate study. Left Ventricle: Overall left ventricular | | | systolic function is normal with, an EF between 65 - 70 %. Left | | | Ventricle: The left ventricle cavity size is normal. Left Ventricle: | | | Left ventricular wall thickness is normal. Left Ventricle: No | | | regional wall motion abnormalities. Left Ventricle: Atrial | | | fibrillation prevents accurate assessment of diastolic function. | | | Right Ventricle: The right ventricle is mildly enlarged. Right | | | Ventricle: The right ventricular systolic function is at the low end | | | of normal. Left Atrium: The left atrium is moderately enlarged. | | | Right Atrium: The right atrium is markedly enlarged. Aortic Valve: | | | Aortic valve is trileaflet and is mildly thickened (right and left | | | coronary cusps, although the noncoronary cusp appears moderately | | | thickened). Aortic Valve: There is mild aortic valve sclerosis | | | without stenosis. Aortic Valve: The aortic valve is mildly calcified. | | | Aortic Valve: There is fpwb-sh-jnufrqoe aortic regurgitation. | | | Aortic Valve: The aortic pressure half-time by doppler is 609ms. | | | Mitral Valve: The mitral valve is normal. Mitral Valve: Mild mitral | | | regurgitation is present, predominately a centrally directed jet. | | | Mitral Valve: No evidence of MVP. Mitral Valve: . Mitral Valve: Mild | | | mitral annular calcification present. Tricuspid Valve: The tricuspid | | | valve appears structurally normal. Tricuspid Valve: Htnx-ii-abilvvns | | | tricuspid regurgitation present. Tricuspid Valve: There is mild to | | | moderate pulmonary hypertension. Tricuspid Valve: The right | | | ventricular systolic pressure (pulmonary artery systolic pressure), as | | | measured by Doppler, is 48 - 53 mm Hg. Pulmonic Valve: The pulmonic | | | valve is normal. Pulmonic Valve: Trace pulmonic regurgitation. | | | Pericardium: There is no pericardial effusion. IVC/Hepatic Veins: The | | | IVC is normal size (1.5-2.5cm) and collapses >50% with sniff, | | | consistent with central venous pressures of 5-10mmHg. Aorta: The | | | aortic root, ascending aorta and aortic arch are normal. Mass: No | | | mass visualized Thrombus: No clot visualized Thrombus: No vegetation | | | visualized. Septum: No ASD observed. Septum: No VSD observed. | | | MEASUREMENTS Ao asc: 3.57 cm Ao Diam: 3.35 cm | | | Ao sinus: 3.[address] junct: 3.18 cm IVC: 1.87 cm LA | | | Diam: 4.77 cm LA Major: 6.15 cm EDV(Teich): 97.82 ml IVSd: | | | 1.03 cm LVIDd: 4.60 cm LVPWd: 1.02 cm LVOT Area: 3.30 | | | cm2 LVOT Diam: 2.05 cm %FS: 28.48 % EF(Teich): 54.99 % | | | ESV(Teich): 44.02 ml LVIDs: 3.29 cm SV(Teich): 53.79 ml RA | | | Major: 7.34 cm RV Major: 5.99 cm RVIDd: 3.78 cm LVEF MOD | | | A2C: 56.65 % SV MOD A2C: 32.55 ml LVEF MOD A4C: 62.55 % SV | | | MOD A4C: 46.11 ml EF Biplane: 60.32 % LVEDV MOD BP: 66.27 | | | ml LVESV MOD BP: 26.29 ml LVEDV MOD A2C: 57.46 ml LVLd A2C: | | | 6.52 cm LVEDV MOD A4C: 73.71 ml LVLd A4C: 6.79 cm LVESV | | | MOD A2C: 24.90 ml LVLs A2C: 5.82 cm LVESV MOD A4C: 27.60 ml | | | LVLs A4C: 5.90 cm LAESV(A-L): 98.81 ml LAESV Index (A-L): | | | 47.27 ml/m2 LAAs A2C: 23.45 cm2 LAESV A-L A2C: 77.68 ml LALs | | | A2C: 6.01 cm LAAs A4C: 29.84 cm2 LAESV A-L A4C: 117.83 ml | | | LALs A4C: 6.41 cm RAAs: 32.07 cm2 RAESV A-L: 131.03 ml | | | RAESV MOD: 127.60 ml RALs: 6.66 cm TAPSE: 1.63 cm AR Dec | | | [place]: 1.80 m/s2 AR Dec Time: 8.68 ms AR maxP.43 | | | mmHg AR PHT: 608.61 ms AR Vmax: 3.78 m/s AV maxP.90 | | | mmHg AV meanP.46 mmHg AV Vmax: 1.10 m/s AV Vmean: 0.73 | | | m/s AV VTI: 17.74 cm TERI Vmax: 2.44 cm2 TERI (VTI): 2.63 | | | cm2 AVAI Vmax: 0.00 cm2/m2 AVAI (VTI): 0.00 cm2/m2 LVOT | | | maxP.68 mmHg LVOT meanP.38 mmHg LVSI Dopp: 22.41 | | | ml/m2 LVSV Dopp: 46.84 ml LVOT Vmax: 0.81 m/s LVOT Vmean: | | | 0.55 m/s LVOT VTI: 14.15 cm MV A Alirio: 0.01 m/s MV DecT: | | | 133.12 ms MV E Alirio: 0.89 m/s MV E/A Ratio: 61.32 MV PHT: | | | 38.60 ms MVA By PHT: 5.69 cm2 Septal e': 0.08 m/s Septal | | | E/e': 10.46 Lateral e': 0.11 m/s Lateral E/e': 7.58 RAP: | | | 5 mmHg RVSP: 48.09 mmHg TR maxP.09 mmHg TR Vmax: | | | 3.28 m/s Sign Shop Supervisor: Authenticated by: PRITI GRAY MD | | | Report Date/Time: 01-03-2017 18:25:26 | | + + + + + | Procedure Note | + + | Vitaly Hidalgo Conversion - 10/31/2018 7:02 PM PDT Patient Name: Shantanu LassiterSoledad of | | : 1940 Performing Physician: PRITI GRAY, | | INDICATIONS A | | -Fib, HTN CONCLUSIONS 1. Overall left ventricular systolic function is normal | | with, an EF between 65 - 70 %.2. The right ventricle is mildly enlarged, but RV systolic | | function is at the low end of normal.3. The left atrium is moderately enlarged.4. The | | right atrium is markedly enlarged.5. There is pdhq-gs-kzkeljfw aortic regurgitation.6. | | Ictl-uf-yggynerl tricuspid regurgitation present.7. There is mild to moderate pulmonary | | hypertension. The right ventricular systolic pressure (pulmonary artery systolic | | pressure), as measured by Doppler, is 48 - 53 mm Hg. FINDINGS--------ECG rhythm: Atrial | | fibrillation.Study: A 2-dimensional transthoracic echocardiogram with m-mode, spectral | | and color flow Doppler was perfomed.Study: This was a technically adequate study.Left | | Ventricle: Overall left ventricular systolic function is normal with, an EF between 65 - | | 70 %.Left Ventricle: The left ventricle cavity size is normal.Left Ventricle: Left | | ventricular wall thickness is normal.Left Ventricle: No regional wall motion | | abnormalities.Left Ventricle: Atrial fibrillation prevents accurate assessment of | | diastolic function.Right Ventricle: The right ventricle is mildly enlarged.Right | | Ventricle: The right ventricular systolic function is at the low end of normal.Left | | Atrium: The left atrium is moderately enlarged.Right Atrium: The right atrium is | | markedly enlarged.Aortic Valve: Aortic valve is trileaflet and is mildly thickened | | (right and left coronary cusps, although the noncoronary cusp appears moderately | | thickened).Aortic Valve: There is mild aortic valve sclerosis without stenosis.Aortic | | Valve: The aortic valve is mildly calcified.Aortic Valve: There is grqx-px-nrhtjutl | | aortic regurgitation.Aortic Valve: The aortic pressure half-time by doppler is | | 609ms.Mitral Valve: The mitral valve is normal.Mitral Valve: Mild mitral regurgitation | | is present, predominately a centrally directed jet.Mitral Valve: No evidence of | | MVP.Mitral Valve: .Mitral Valve: Mild mitral annular calcification present.Tricuspid | | Valve: The tricuspid valve appears structurally normal.Tricuspid Valve: Wnrw-rv-qfdejduf | | tricuspid regurgitation present.Tricuspid Valve: There is mild to moderate pulmonary | | hypertension.Tricuspid Valve: The right ventricular systolic pressure (pulmonary artery | | systolic pressure), as measured by Doppler, is 48 - 53 mm Hg.Pulmonic Valve: The | | pulmonic valve is normal.Pulmonic Valve: Trace pulmonic regurgitation.Pericardium: | | There is no pericardial effusion.IVC/Hepatic Veins: The IVC is normal size (1.5-2.5cm) | | and collapses >50% with sniff, consistent with central venous pressures of | | 5-10mmHg.Aorta: The aortic root, ascending aorta and aortic arch are normal.Mass: No | | mass visualizedThrombus: No clot visualizedThrombus: No vegetation visualized.Septum: No | | ASD observed.Septum: No VSD observed. MEASUREMENTS Ao asc: 3.57 cmAo | | Diam: 3.35 cmAo sinus: 3.[address] junct: 3.18 cmIVC: 1.87 cmLA Diam: 4.77 | | cmLA Major: 6.15 cmEDV(Teich): 97.82 mlIVSd: 1.03 cmLVIDd: 4.60 cmLVPWd: 1.02 | | cmLVOT Area: 3.30 ld5MZOX Diam: 2.05 cm%FS: 28.48 %EF(Teich): 54.99 %ESV(Teich): | | 44.02 mlLVIDs: 3.29 cmSV(Teich): 53.79 mlRA Major: 7.34 cmRV Major: 5.99 | | cmRVIDd: 3.78 cmLVEF MOD A2C: 56.65 %SV MOD A2C: 32.55 mlLVEF MOD A4C: 62.55 %SV | | MOD A4C: 46.11 mlEF Biplane: 60.32 %LVEDV MOD BP: 66.27 mlLVESV MOD BP: 26.29 | | mlLVEDV MOD A2C: 57.46 mlLVLd A2C: 6.52 cmLVEDV MOD A4C: 73.71 mlLVLd A4C: 6.79 | | cmLVESV MOD A2C: 24.90 mlLVLs A2C: 5.82 cmLVESV MOD A4C: 27.60 mlLVLs A4C: 5.90 | | cmLAESV(A-L): 98.81 mlLAESV Index (A-L): 47.27 ml/m2LAAs A2C: 23.45 [id number] A-L | | A2C: 77.68 mlLALs A2C: 6.01 cmLAAs A4C: 29.84 qo5KTBWQ A-L A4C: 117.83 mlLALs | | A4C: 6.41 cmRAAs: 32.07 ly0NAAZG A-L: 131.03 mlRAESV MOD: 127.60 mlRALs: 6.66 | | cmTAPSE: 1.63 cmAR Dec [place]: 1.80 m/s2AR Dec Time: msAR maxP.43 | | mmHgAR PHT: 608.61 msAR Vmax: 3.78 m/Bruce maxP.90 mmHgAV meanP.46 mmHgAV | | Vmax: 1.10 m/Bruce Vmean: 0.73 m/Bruce VTI: 17.74 cmAVA Vmax: 2.44 cm2AVA (VTI): | | 2.63 qo9HRKL Vmax: 0.00 cm2/m2AVAI (VTI): 0.00 cm2/m2LVOT maxP.68 mmHgLVOT | | meanP.38 mmHgLVSI Dopp: 22.41 ml/m2LVSV Dopp: 46.84 mlLVOT Vmax: 0.81 | | m/sLVOT Vmean: 0.55 m/sLVOT VTI: 14.15 cmMV A Alirio: 0.01 m/sMV DecT: 133.12 msMV | | E Alirio: 0.89 m/sMV E/A Ratio: 61.32MV PHT: 38.60 msMVA By PHT: 5.69 wm6Wzbxut e': | | 0.08 m/sSeptal E/e': 10.46Lateral e': 0.11 m/sLateral E/e': 7.58RAP: 5 | | mmHgRVSP: 48.09 mmHgTR maxP.09 mmHgTR Vmax: 3.28 m/s Sign Shop Supervisor: | | DHAuthenticated by: YUNG FROSTeport Date/Time: 01-03-2017 18:25:26 IMPRESSION: | | 1. Overall left ventricular systolic function is normal with, an EF between 65 - 70 %.2. | | The right ventricle is mildly enlarged, but RV systolic function is at the low end of | | normal.3. The left atrium is moderately enlarged.4. The right atrium is markedly | | enlarged.5. There is cjpg-sr-sdowbvbn aortic regurgitation.6. Xauj-nb-rvaflhha tricuspid | | regurgitation present.7. There is mild to moderate pulmonary hypertension. The right | | ventricular systolic pressure (pulmonary artery systolic pressure), as measured by | | Doppler, is 48 - 53 mm Hg. | |Ao sinus: 3.47 cm | |Ao st junct: 3.18 cm | |IVC: 1.87 cm | |LA Diam: 4.77 cm | |LA Major: 6.15 cm | |EDV(Teich): 97.82 ml | |IVSd: 1.03 cm | |LVIDd: 4.60 cm | |LVPWd: 1.02 cm | |LVOT Area: 3.30 cm2 | |LVOT Diam: 2.05 cm | |%FS: 28.48 % | |EF(Teich): 54.99 % | |ESV(Teich): 44.02 ml | |LVIDs: 3.29 cm | |SV(Teich): 53.79 ml | |RA Major: 7.34 cm | |RV Major: 5.99 cm | |RVIDd: 3.78 cm | |LVEF MOD A2C: 56.65 % | |SV MOD A2C: 32.55 ml | |LVEF MOD A4C: 62.55 % | |SV MOD A4C: 46.11 ml | |EF Biplane: 60.32 % | |LVEDV MOD BP: 66.27 ml | |LVESV MOD BP: 26.29 ml | |LVEDV MOD A2C: 57.46 ml | |LVLd A2C: 6.52 cm | |LVEDV MOD A4C: 73.71 ml | |LVLd A4C: 6.79 cm | |LVESV MOD A2C: 24.90 ml | |LVLs A2C: 5.82 cm | |LVESV MOD A4C: 27.60 ml | |LVLs A4C: 5.90 cm | |LAESV(A-L): 98.81 ml | |LAESV Index (A-L): 47.27 ml/m2 | |LAAs A2C: 23.45 cm2 | |LAESV A-L A2C: 77.68 ml | |LALs A2C: 6.01 cm | |LAAs A4C: 29.84 cm2 | |LAESV A-L A4C: 117.83 ml | |LALs A4C: 6.41 cm | |RAAs: 32.07 cm2 | |RAESV A-L: 131.03 ml | |RAESV MOD: 127.60 ml | |RALs: 6.66 cm | |TAPSE: 1.63 cm | |AR Dec [place]: 1.80 m/s2 | |AR Dec Time: 2098.68 ms | |AR maxP.43 mmHg | |AR PHT: 608.61 ms | |AR Vmax: 3.78 m/s | |AV maxP.90 mmHg | |AV meanP.46 mmHg | |AV Vmax: 1.10 m/s | |AV Vmean: 0.73 m/s | |AV VTI: 17.74 cm | |TERI Vmax: 2.44 cm2 | |TERI (VTI): 2.63 cm2 | |AVAI Vmax: 0.00 cm2/m2 | |AVAI (VTI): 0.00 cm2/m2 | |LVOT maxP.68 mmHg | |LVOT meanP.38 mmHg | |LVSI Dopp: 22.41 ml/m2 | |LVSV Dopp: 46.84 ml | |LVOT Vmax: 0.81 m/s | |LVOT Vmean: 0.55 m/s | |LVOT VTI: 14.15 cm | |MV A Alirio: 0.01 m/s | |MV DecT: 133.12 ms | |MV E Alirio: 0.89 m/s | |MV E/A Ratio: 61.32 | |MV PHT: 38.60 ms | |MVA By PHT: 5.69 cm2 | |Septal e': 0.08 m/s | |Septal E/e': 10.46 | |Lateral e': 0.11 m/s | |Lateral E/e': 7.58 | |RAP: 5 mmHg | |RVSP: 48.09 mmHg | |TR maxP.09 mmHg | |TR Vmax: 3.28 m/s | | | |Sign Shop Supervisor: | |Authenticated by: PRITI GRAY MD | |Report Date/Time: 01-03-2017 18:25:26 | | | |IMPRESSION: | |1. Overall left ventricular systolic function is normal with, an EF between 65 - 70 %. | |2. The right ventricle is mildly enlarged, but RV systolic function is at the low end of no rmal. | |3. The left atrium is moderately enlarged. | |4. The right atrium is markedly enlarged. | |5. There is qtjc-lc-mhavkfuw aortic regurgitation. | |6. Lztw-qx-dpwzdzyl tricuspid regurgitation present. | |7. There is mild to moderate pulmonary hypertension. The right ventricular systolic pressu re (pulmonary artery systolic pressure), as measured by Doppler, is 48 - 53 mm Hg. | + + documented in this encounter Visit Diagnoses Not on filedocumented in this encounter"
--- OUTSIDE RECORDS SUMMARY | ~2019-10-01 | XMS | Encounter Summary ---
Demographics + + + | Address | [address] | | | [place] [address] | + + + | Home Phone | | + + + | Preferred Language | Unknown | + + + | Marital Status | | + + + | Sikhism Affiliation | Unknown | + + + | Race | Unknown | + + + | Ethnic Group | Unknown | + + + Author + + + | Author | [facility] | | | and [place] | + + + | Organization | [facility] | | | and [place] [...] Team Providers + +------+ + | Care It Application Development Manager Name | Role | Phone | + +------+ + | Ravinder Webb MD | PCP | | + +------+ + Encounter Details +--------+ + + + + | Date | Type | Department | Care Team | Description | +--------+ + + + + | 06/21/ | Orders Only | [facility] | Conversion | | | 2018 | | CONVERSION [address] | Transaction, | | | | | [address] | Provider Unknown | | | | | [place] | [phone] | | | | | [phone] | | | | | | [phone] | | | +--------+ + + + [...] [place] | | | | | | [id number] | | | | | | | | +--------+---------+ + + + documented as of this encounter Visit Diagnoses Not on filedocumented in this encounter"
--- OUTSIDE RECORDS SUMMARY | ~2019-10-01 | XMS | Encounter Summary ---
Demographics + + + | Address | [address] | | | [place] [address] | + + + | Home Phone | | + + + | Preferred Language | Unknown | + + + | Marital Status | | + + + | Confucianism Affiliation | Unknown | + + + | Race | Unknown | + + + | Ethnic Group | Unknown | + + + Author + + + | Author | [facility] | | | and [place] | + + + | Organization | [facility] | | | and [place] | [...] Team Providers + +------+ + | Care Medical Management Trainer Name | Role | Phone | + +------+ + | Sherwin Garber MD | PCP | | + +------+ + Encounter Details +--------+ + + + + | Date | Type | Department | Care Team | Description | +--------+ + + + + | 11/27/ | Orders Only | [facility] | Marylou Peraza | | | 2018 | | CONVERSION [address] | [address] | | | | | [address] | [place] | | | | | [facility] | [place] [address] | | | | | [address] | [phone] | | | | | [phone] | | | +--------+ + + + [...] | Danica Veronica DO | | | 2019 | Visit | | [address] | | | | | | [place] | | | | | | [address] | | | | | | | | +--------+---------+ + + + documented as of this encounter Procedures + +--------+ + + + | Procedure Name | Priori | Date/Time | Associated Diagnosis | Comments | | | ty | | | | + +--------+ + + + | ECHO INTERPRETATION | Routin | 11/27/2017 | | Results for this | | OF OUTSIDE FILMS | e | 12:59 PM | | procedure are in the | | | | PDT | | results section. | + +--------+ + + + documented in this encounter Results ECHO Interpretation of Outside Films (11/27/2017 12:59 PM PDT) + + | Specimen | + + | | + + + + + | Impressions | Performed At | + + + | 1. Overall left ventricular systolic function is normal with, an EF | | | between 65 - 70 %. 2. The right ventricle is mildly enlarged, but | | | right ventricular systolic function is normal. 3. The left atrium is | | | moderately enlarged 4. The right atrium is moderately enlarged. 5. | | | There is mild regurgitation of all 4 valves. 6. There is mild to | | | moderate pulmonary hypertension. The right ventricular systolic | | | pressure (pulmonary artery systolic pressure), as measured by Doppler, | | | is 66 - 51 mm Hg. 7. There are no clinically significant changes | | | noted in comparison to the previous echocardiographic study, done | | | 01/03/17. | | + + + + + + | Narrative | Performed At | + + + | Patient Name: Shazia Lassiter Date of : 1940 | | | Performing Physician: PRITI GRAY MD | | | | | | INDICATIONS pulmonary htn, afib, aortic insufficiency | | | CONCLUSIONS 1. Overall left ventricular systolic | | | function is normal with, an EF between 65 - 70 %. 2. The right | | | ventricle is mildly enlarged, but right ventricular systolic function | | | is normal. 3. The left atrium is moderately enlarged 4. The right | | | atrium is moderately enlarged. 5. There is mild regurgitation of all | | | 4 valves. 6. There is mild to moderate pulmonary hypertension. The | | | right ventricular systolic pressure (pulmonary artery systolic | | | pressure), as measured by Doppler, is 66 - 51 mm Hg. 7. There are no | | | clinically significant changes noted in comparison to the previous | | | echocardiographic study, done 01/03/17. FINDINGS -------- ECG | | | rhythm: Atrial fibrillation. Study: A 2-dimensional transthoracic | | | echocardiogram with m-mode, spectral and color flow Doppler was | | | perfomed. Study: This was a technically adequate study. Left | | | Ventricle: Overall left ventricular systolic function is normal with, | | | an EF between 65 - 70 %. Left Ventricle: The left ventricle cavity | | | size is normal. Left Ventricle: Left ventricular wall thickness is | | | normal. Left Ventricle: No regional wall motion abnormalities. Left | | | Ventricle: Atrial fibrillation prevents accurate assessment of | | | diastolic function. Right Ventricle: The right ventricle is mildly | | | enlarged. Right Ventricle: The right ventricular systolic function is | | | normal. This has not changed significantly. Left Atrium: The left | | | atrium is moderately enlarged, and has increased in size to a mild | | | degree compared to the previous study (LA diameter measured at 4.8 cm, | | | now 5.2 cm, LA volume index increased from 47.28 ml/m to 58.67 | | | ml/m ). Right Atrium: The right atrium is moderately enlarged, | | | decreased in size from severely enlarged (7.3 cm, compared to 6.56 cm | | | as measured on the previous evaluation). Aortic Valve: Aortic valve | | | is mildly thickened. Aortic Valve: There is mild aortic valve | | | sclerosis without stenosis. Aortic Valve: The aortic valve is mildly | | | calcified. Aortic Valve: There is mild aortic regurgitation, | | | decreased from mild-moderate AI on the prior study. Aortic Valve: The | | | aortic pressure half-time by doppler is 849ms, increased from 609 ms | | | on the prior study, that also indicates decreased severity. Aortic | | | Valve: The aortic valve appears to be trileaflet. Mitral Valve: Mild | | | mitral regurgitation is present. Mitral Valve: No evidence of MVP. | | | Mitral Valve: Mild mitral annular calcification present. Tricuspid | | | Valve: The tricuspid valve appears structurally normal. Tricuspid | | | Valve: Mild tricuspid regurgitation is present, slightly decreased | | | from mild-moderate TR compared to the prior study. Tricuspid Valve: | | | There is mild to moderate pulmonary hypertension. Tricuspid Valve: | | | The right ventricular systolic pressure (pulmonary artery systolic | | | pressure), as measured by Doppler, is 46 - 51 mm Hg, not significantly | | | changed from the value of 48 - 53 mm Hg recorded on the prior study. | | | Pulmonic Valve: Pulmonic valve appears structurally normal. Pulmonic | | | Valve: Mild pulmonic regurgitation is present, slightly increased | | | from trace PI on the prior study. Pericardium: There is no | | | pericardial effusion. IVC/Hepatic Veins: The inferior vena cava is | | | normal in size and collapses > 50 % with sniff, indicating normal | | | central venous pressures. Aorta: The aortic root, ascending aorta and | | | aortic arch are normal. Mass: No mass visualized Thrombus: No clot | | | visualized Thrombus: No vegetation visualized. Septum: No ASD | | | observed. Septum: No VSD observed. MEASUREMENTS | | | Ao asc: 3.39 cm Ao sinus: 3.[address] junct: 3.00 cm | | | IVC: 2.55 cm LA Diam: 5.19 cm EDV(Teich): 109.28 ml IVSd: | | | 0.97 cm LVIDd: 4.83 cm LVPWd: 0.95 cm LVOT Area: 3.84 | | | cm2 LVOT Diam: 2.21 cm %FS: 41.45 % EF(Teich): 72.24 % | | | ESV(Teich): 30.32 ml LVIDs: 2.82 cm SV(Teich): 78.95 ml | | | RVIDd: 3.98 cm LVEF MOD A2C: 61.33 % SV MOD A2C: 64.01 ml | | | LVEF MOD A4C: 57.80 % SV MOD A4C: 77.20 ml EF Biplane: | | | 60.74 % LVEDV MOD BP: 122.29 ml LVESV MOD BP: 48.00 ml LVEDV | | | MOD A2C: 104.37 ml LVLd A2C: 6.77 cm LVEDV MOD A4C: 133.56 | | | ml LVLd A4C: 7.29 cm LVESV MOD A2C: 40.35 ml LVLs A2C: | | | 6.10 cm LVESV MOD A4C: 56.35 ml LVLs A4C: 6.23 cm LAESV(A-L): | | | 121.45 ml LAESV Index (A-L): 58.67 ml/m2 LAAs A2C: 30.48 | | | cm2 LAESV A-L A2C: 124.37 ml LALs A2C: 6.34 cm LAAs A4C: | | | 29.77 cm2 LAESV A-L A4C: 111.43 ml LALs A4C: 6.75 cm RAAs: | | | 32.69 cm2 RAESV A-L: 138.29 ml RAESV MOD: 130.57 ml RALs: | | | 6.56 cm TAPSE: 2.17 cm AR Dec Taliaferro: 1.41 m/s2 AR Dec Time: | | | 2927.88 ms AR maxP.23 mmHg AR PHT: 849.08 ms AR Vmax: | | | 4.13 m/s AV maxP.31 mmHg AV meanP.23 mmHg AV | | | Vmax: 1.25 m/s AV Vmean: 0.81 m/s AV VTI: 19.01 cm TERI | | | Vmax: 2.30 cm2 TERI (VTI): 2.68 cm2 AVAI (Vmax): 0.00 cm2/m2 | | | AVAI (VTI): 0.00 cm2/m2 LVOT maxP.26 mmHg LVOT meanPG: | | | 1.09 mmHg LVSI Dopp: 24.69 ml/m2 LVSV Dopp: 51.10 ml LVOT | | | Vmax: 0.75 m/s LVOT Vmean: 0.48 m/s LVOT VTI: 13.28 cm MV | | | E Alirio: 0.96 m/s MV DecT: 141.10 ms Septal e': 0.07 m/s | | | Septal E/e': 12.57 Lateral e': 0.10 m/s Lateral E/e': 8.91 | | | RAP: 10 mmHg RVSP: 47.95 mmHg TR maxP.95 mmHg TR | | | Vmax: 3.08 m/s Nurse Private Duty: TAYLER Authenticated by: PRITI | | | MD ISAAC Report Date/Time: 11-27-2017 18:56:27 | | + + + + + | Procedure Note | + + | Rocky, Rad Conversion - 10/31/2018 3:57 PM PDT Patient Name: Lara Lassiter | | : 1940 Performing Physician: PRITI GRAY, | | MD INDICATIONS p | | ulmonary htn, afib, aortic insufficiency CONCLUSIONS 1. Overall left | | ventricular systolic function is normal with, an EF between 65 - 70 %.2. The right | | ventricle is mildly enlarged, but right ventricular systolic function is normal.3. The | | left atrium is moderately enlarged4. The right atrium is moderately enlarged.5. There is | | mild regurgitation of all 4 valves.6. There is mild to moderate pulmonary hypertension. | | The right ventricular systolic pressure (pulmonary artery systolic pressure), as | | measured by Doppler, is 66 - 51 mm Hg. 7. There are no clinically significant changes | | noted in comparison to the previous echocardiographic study, done 01/03/17. | | FINDINGS--------ECG rhythm: Atrial fibrillation.Study: A 2-dimensional transthoracic | | echocardiogram with m-mode, spectral and color flow Doppler was perfomed.Study: This was | | a technically adequate study.Left Ventricle: Overall left ventricular systolic function | | is normal with, an EF between 65 - 70 %.Left Ventricle: The left ventricle cavity size | | is normal.Left Ventricle: Left ventricular wall thickness is normal.Left Ventricle: No | | regional wall motion abnormalities.Left Ventricle: Atrial fibrillation prevents accurate | | assessment of diastolic function.Right Ventricle: The right ventricle is mildly | | enlarged.Right Ventricle: The right ventricular systolic function is normal. This has | | not changed significantly.Left Atrium: The left atrium is moderately enlarged, and has | | increased in size to a mild degree compared to the previous study (LA diameter measured | | at 4.8 cm, now 5.2 cm, LA volume index increased from 47.28 ml/m to 58.67 | | ml/m ).Right Atrium: The right atrium is moderately enlarged, decreased in size | | from severely enlarged (7.3 cm, compared to 6.56 cm as measured on the previous | | evaluation).Aortic Valve: Aortic valve is mildly thickened.Aortic Valve: There is mild | | aortic valve sclerosis without stenosis.Aortic Valve: The aortic valve is mildly | | calcified.Aortic Valve: There is mild aortic regurgitation, decreased from mild-moderate | | AI on the prior study.Aortic Valve: The aortic pressure half-time by doppler is 849ms, | | increased from 609 ms on the prior study, that also indicates decreased severity.Aortic | | Valve: The aortic valve appears to be trileaflet.Mitral Valve: Mild mitral regurgitation | | is present.Mitral Valve: No evidence of MVP.Mitral Valve: Mild mitral annular | | calcification present.Tricuspid Valve: The tricuspid valve appears structurally | | normal.Tricuspid Valve: Mild tricuspid regurgitation is present, slightly decreased from | | mild-moderate TR compared to the prior study.Tricuspid Valve: There is mild to moderate | | pulmonary hypertension.Tricuspid Valve: The right ventricular systolic pressure | | (pulmonary artery systolic pressure), as measured by Doppler, is 46 - 51 mm Hg, not | | significantly changed from the value of 48 - 53 mm Hg recorded on the prior | | study.Pulmonic Valve: Pulmonic valve appears structurally normal.Pulmonic Valve: Mild | | pulmonic regurgitation is present, slightly increased from trace PI on the prior | | study.Pericardium: There is no pericardial effusion.IVC/Hepatic Veins: The inferior vena | | cava is normal in size and collapses > 50 % with sniff, indicating normal central | | venous pressures.Aorta: The aortic root, ascending aorta and aortic arch are | | normal.Mass: No mass visualizedThrombus: No clot visualizedThrombus: No vegetation | | visualized.Septum: No ASD observed.Septum: No VSD observed. MEASUREMENTS Ao | | asc: 3.39 cmAo sinus: 3.[address] junct: 3.00 cmIVC: 2.55 cmLA Diam: 5.19 | | cmEDV(Teich): 109.28 mlIVSd: 0.97 cmLVIDd: 4.83 cmLVPWd: 0.95 cmLVOT Area: | | 3.84 [id number] Diam: 2.21 cm%FS: 41.45 %EF(Teich): 72.24 %ESV(Teich): 30.32 | | mlLVIDs: 2.82 cmSV(Teich): 78.95 mlRVIDd: 3.98 cmLVEF MOD A2C: 61.33 %SV MOD | | A2C: 64.01 mlLVEF MOD A4C: 57.80 %SV MOD A4C: 77.20 mlEF Biplane: 60.74 %LVEDV | | MOD BP: 122.29 mlLVESV MOD BP: 48.00 mlLVEDV MOD A2C: 104.37 mlLVLd A2C: 6.77 | | cmLVEDV MOD A4C: 133.56 mlLVLd A4C: 7.29 cmLVESV MOD A2C: 40.35 mlLVLs A2C: 6.10 | | cmLVESV MOD A4C: 56.35 mlLVLs A4C: 6.23 cmLAESV(A-L): 121.45 mlLAESV Index (A-L): | | 58.67 ml/m2LAAs A2C: 30.48 [id number] A-L A2C: 124.37 mlLALs A2C: 6.34 cmLAAs | | A4C: 29.77 [id number] A-L A4C: 111.43 mlLALs A4C: 6.75 cmRAAs: 32.69 [id number] A-L: | | 138.29 mlRAESV MOD: 130.57 mlRALs: 6.56 cmTAPSE: 2.17 cmAR Dec Taliaferro: 1.41 | | m/s2AR Dec Time: 2927.88 msAR maxP.23 mmHgAR PHT: 849.08 msAR Vmax: 4.13 | | m/Bruce maxP.31 mmHgAV meanP.23 mmHgAV Vmax: 1.25 m/Bruce Vmean: 0.81 m/Bruce | | VTI: 19.01 cmAVA Vmax: 2.30 cm2AVA (VTI): 2.68 lr4WFLR (Vmax): 0.00 cm2/m2AVAI | | (VTI): 0.00 cm2/m2LVOT maxP.26 mmHgLVOT meanP.09 mmHgLVSI Dopp: 24.69 | | ml/m2LVSV Dopp: 51.10 mlLVOT Vmax: 0.75 m/sLVOT Vmean: 0.48 m/sLVOT VTI: 13.28 | | cmMV E Alirio: 0.96 m/sMV DecT: 141.10 msSeptal e': 0.07 m/sSeptal E/e': | | 12.57Lateral e': 0.10 m/sLateral E/e': 8.91RAP: 10 mmHgRVSP: 47.95 mmHgTR maxPG: | | 37.95 mmHgTR Vmax: 3.08 m/s Nurse Private Duty: DBSAuthenticated by: PRITI GRAY, | | MDReport Date/Time: 11-27-2017 18:56:27 IMPRESSION: 1. Overall left ventricular systolic | | function is normal with, an EF between 65 - 70 %.2. The right ventricle is mildly | | enlarged, but right ventricular systolic function is normal.3. The left atrium is | | moderately enlarged4. The right atrium is moderately enlarged.5. There is mild | | regurgitation of all 4 valves.6. There is mild to moderate pulmonary hypertension. The | | right ventricular systolic pressure (pulmonary artery systolic pressure), as measured by | | Doppler, is 66 - 51 mm Hg. 7. There are no clinically significant changes noted in | | comparison to the previous echocardiographic study, done 01/03/17. | |LVOT Area: 3.84 cm2 | |LVOT Diam: 2.21 cm | |%FS: 41.45 % | |EF(Teich): 72.24 % | |ESV(Teich): 30.32 ml | |LVIDs: 2.82 cm | |SV(Teich): 78.95 ml | |RVIDd: 3.98 cm | |LVEF MOD A2C: 61.33 % | |SV MOD A2C: 64.01 ml | |LVEF MOD A4C: 57.80 % | |SV MOD A4C: 77.20 ml | |EF Biplane: 60.74 % | |LVEDV MOD BP: 122.29 ml | |LVESV MOD BP: 48.00 ml | |LVEDV MOD A2C: 104.37 ml | |LVLd A2C: 6.77 cm | |LVEDV MOD A4C: 133.56 ml | |LVLd A4C: 7.29 cm | |LVESV MOD A2C: 40.35 ml | |LVLs A2C: 6.10 cm | |LVESV MOD A4C: 56.35 ml | |LVLs A4C: 6.23 cm | |LAESV(A-L): 121.45 ml | |LAESV Index (A-L): 58.67 ml/m2 | |LAAs A2C: 30.48 cm2 | |LAESV A-L A2C: 124.37 ml | |LALs A2C: 6.34 cm | |LAAs A4C: 29.77 cm2 | |LAESV A-L A4C: 111.43 ml | |LALs A4C: 6.75 cm | |RAAs: 32.69 cm2 | |RAESV A-L: 138.29 ml | |RAESV MOD: 130.57 ml | |RALs: 6.56 cm | |TAPSE: 2.17 cm | |AR Dec Taliaferro: 1.41 m/s2 | |AR Dec Time: 2927.88 ms | |AR maxP.23 mmHg | |AR PHT: 849.08 ms | |AR Vmax: 4.13 m/s | |AV maxP.31 mmHg | |AV meanP.23 mmHg | |AV Vmax: 1.25 m/s | |AV Vmean: 0.81 m/s | |AV VTI: 19.01 cm | |TERI Vmax: 2.30 cm2 | |TERI (VTI): 2.68 cm2 | |AVAI (Vmax): 0.00 cm2/m2 | |AVAI (VTI): 0.00 cm2/m2 | |LVOT maxP.26 mmHg | |LVOT meanP.09 mmHg | |LVSI Dopp: 24.69 ml/m2 | |LVSV Dopp: 51.10 ml | |LVOT Vmax: 0.75 m/s | |LVOT Vmean: 0.48 m/s | |LVOT VTI: 13.28 cm | |MV E Alirio: 0.96 m/s | |MV DecT: 141.10 ms | |Septal e': 0.07 m/s | |Septal E/e': 12.57 | |Lateral e': 0.10 m/s | |Lateral E/e': 8.91 | |RAP: 10 mmHg | |RVSP: 47.95 mmHg | |TR maxP.95 mmHg | |TR Vmax: 3.08 m/s | | | |Nurse Private Duty: DBS | |Authenticated by: PRITI GRAY MD | |Report Date/Time: 11-27-2017 18:56:27 | | | |IMPRESSION: | |1. Overall left ventricular systolic function is normal with, an EF between 65 - 70 %. | |2. The right ventricle is mildly enlarged, but right ventricular systolic function is nick l. | |3. The left atrium is moderately enlarged | |4. The right atrium is moderately enlarged. | |5. There is mild regurgitation of all 4 valves. | |6. There is mild to moderate pulmonary hypertension. The right ventricular systolic pressu re (pulmonary artery systolic pressure), as measured by Doppler, is 66 - 51 mm Hg. 7. There are no clinically significant changes noted in comparison to the | |previous echocardiographic study, done 01/03/17. | + + documented in this encounter Visit Diagnoses Not on filedocumented in this encounter"
--- OUTSIDE RECORDS SUMMARY | ~2019-10-01 | XMS | Encounter Summary ---
Demographics + + + | Address | [address] | | | [place] [address] | + + + | Home Phone | | + + + | Preferred Language | Unknown | + + + | Marital Status | | + + + | Tenriism Affiliation | Unknown | + + + | Race | Unknown | + + + | Ethnic Group | Unknown | + + + Author + + + | Author | [facility] | | | and [place] | + + + | Organization | [facility] | | | and [place] [...] Team Providers + +------+ + | Care Store Stock Associate Name | Role | Phone | + +------+ + | Ravinder Webb MD | PCP | | + +------+ + Encounter Details +--------+ + + + + | Date | Type | Department | Care Team | Description | +--------+ + + + + | 06/02/ | Orders Only | [facility] | Conversion | | | 2016 | | CONVERSION [address] | Transaction, | | | | | [address] | Provider Unknown | | | | | [place] | [phone] | | | | | [address] | | | | | | [phone] | | | +--------+ + + + [...] [place] | | | | | | [address] | | | | | | | | +--------+---------+ + + + documented as of this encounter Visit Diagnoses Not on filedocumented in this encounter"
--- OUTSIDE RECORDS SUMMARY | ~2019-10-01 | XMS | Encounter Summary ---
Demographics + + + | Address | [address] | | | [place] [address] | + + + | Home Phone | | + + + | Preferred Language | Unknown | + + + | Marital Status | | + + + | Anglican Affiliation | Unknown | + + + | Race | Unknown | + + + | Ethnic Group | Unknown | + + + Author + + + | Author | [facility] | | | and [place] | + + + | Organization | [facility] | | | and [place] [...] Team Providers + +------+ + | Care Panel Machine Tender Name | Role | Phone | + [...] + + | 05/25/ | Office | [facility] | Marylou Peraza | 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 Veronica, [...] the advice of your doctor or health manager respiratory care. Talk to your spectacle truer regarding the use of this medicine in children. Special care may be needed. While this drug may be prescribed for children for selected conditions, precautio ns do apply. What side effects may I notice from receiving this medicine? Side effects that you should report to your doctor or health manager respiratory care as soon as p ossible: chest pain, [...] attention (report to your doctor or health manager respiratory care if they continue or are bothersome): diarrhea, [...] this medicine? Visit your doctor or health manager respiratory care for regular checks on your progress. Check yo ur blood pressure and pulse rate regularly. Ask your doctor or health manager respiratory care what your blood pressure and pulse rate [...] medicine without asking your doctor or health manager respiratory care for advice. Some ingredients may increase yo ur blood pressure. NOTE:This sheet is a summary. It may not cover all possible information. If you have questi ons about this medicine, talk to your doctor, pharmacist, or health care provider. Copyright 2019 [employer] documented in this encounter Progress Notes Marylou [...] withdrawal, and now uses oxygen regularly His [id number] VASCscore is 3and HAS BLED score of [...] Dyana's treated with n arcotic pain medication, [place] 5/325, and chest x-ray done at the [...] exercising due to extreme [place]. . 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 [...] CARDIAC PROCEDURES/IMAGING CT chest: . 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 Echo: 11/27/2017: ( [facility]) : Atrial fib, [...] pulmo nary hypertension, RVSP 48-53 mmHg. Trace WA. No Pericardial effusion. IVC normal, CVP 5-1 0 mmHg. Aortic root, ascending aorta, and aortic arch are normal. No clot Echo: 06/17/2013 ([facility]'s): LVEF 55%, mild AI, trace MR, mild [...] tracing personally reviewed by me EKG 11/10/2018: ([facility]) Atrial fib with controlled ventricular response. Low voltage QRS 2 limb leads, and anterior leads previous T wave inversions to inferior leads have resolved. Rate 80 bpm, QRS 98 ms, QTC 425 ms tracing personally reviewed by oh EKG 03/24/2019: A. fib with controlled ventricular [...] will also have him establish care with certified hand therapist who comes to [place], Dr. Veronica, s o he has primary certified hand therapist, and I will continue to see him [...] notes for [facility] of care [facility]2019 docume nted in this encounter Plan of Treatment +--------+---------+ + + + | Date | Type | Specialty | Care Team | Description | +--------+---------+ + + + | 10/22/ | Office | Cardiology | Danica Veronica DO | | 2019 | Visit | | [address] | | | | | | [place] | | | | | | [id number] | | | | | | | [...]
--- OUTSIDE RECORDS SUMMARY | ~2019-10-01 | XMS | Encounter Summary ---
Demographics + + + | Address | [address] | | | [place] [address] | + + + | Home Phone | | + + + | Preferred Language | Unknown | + + + | Marital Status | | + + + | Restorationist Affiliation | Unknown | + + + | Race | Unknown | + + + | Ethnic Group | Unknown | + + + Author + + + | Author | [facility] | | | and [place] | + + + | Organization | [facility] | | | and [place] [...] Team Providers + +------+ + | Care Machine Fancy Stitcher Name | Role | Phone | + [...] | | | | [place] | [phone] | | | | | [address] | | | | | | [phone] | | | +--------+ + + + [...] [place] | | | | | | [address] | | | | | | | | +--------+---------+ + + + documented as of this encounter Visit Diagnoses Not on filedocumented in this encounter"
--- OUTSIDE RECORDS SUMMARY | ~2019-10-01 | XMS | Encounter Summary ---
Demographics + + + | Address | [address] | | | [place] [address] | + + + | Home Phone | | + + + | Preferred Language | Unknown | + + + | Marital Status | | + + + | Samaritan Affiliation | Unknown | + + + | Race | Unknown | + + + | Ethnic Group | Unknown | + + + Author + + + | Author | [facility] | | | and [place] | + + + | Organization | [facility] | | | and [place] [...] Team Providers + +------+ + | Care Supervisor Incising Name | Role | Phone | + +------+ + | Ravinder Webb MD | PCP | | + +------+ + Reason for Visit + + + | Reason | Comments | + + + | Follow-up | 2 month on hydralazine | + + + Encounter Details +--------+---------+ + + + | Date | Type | Department | Care Team | Description | +--------+---------+ + + + | 07/27/ | Office | [facility] | Marylou Peraza | Longstanding | | 2020 | Visit | [facility]ARDIOLOGY [facility] | [address] | persistent atrial | | | | [address] | [address] | fibrillation (HCC) | | | | [address] | [place] [address] | (Primary Dx); | | | | [place] | [phone] | Coronary artery | | | | [address] | | calcification seen | | | | [phone] | | on CT scan; Mixed | | | | | | hyperlipidemia; | | | | | | Pulmonary | | | | | | hypertension (HCC); | | | | | | Bilateral lower | | | | | | extremity edema; | | | | | | Aortic [...] | | | | | | type (HCC) | +--------+---------+ + + + Social History [...] + + + | Blood Pressure | 120/58 | 07/28/2019 1:35 PM | | | | | PDT | | + + + + + | Pulse | 105 | 07/28/2019 1:35 PM | | | | | PDT | | + + + + + | Temperature | - | - | | + + + + + | Respiratory Rate | - | - | | + + + + + | Oxygen Saturation | 86% | 07/28/2019 1:35 PM | | | | | PDT | | + + + + + | Inhaled Oxygen | - | - | | | Concentration | | | | + + + + + | Weight | 84.1 kg (185 lb 6.4 | 07/28/2019 1:35 PM | | | | oz) | PDT | | + + + + + | Height | 180.3 cm (5' 11") | 07/28/2019 1:35 PM | | | | | PDT | | + + + + + | Body Mass Index | 25.86 | 07/28/2019 1:35 PM | | | | | PDT | | + + + + + documented in this encounter Patient Instructions Patient Instructions Marylou Peraza FNP - 07/28/2019 1:30 PM PDTI will look for lab s from Dr. Webb that you are getting done in August I made no changes to medications See Dr. Veronica as scheduled October 22 at 1 pm , she will tell you when to see me after that . documented in this encounter Progress Notes Marylou Peraza FNP - 07/28/2019 1:30 PM PDTFormatting of this note might be differe nt from the original. Date of visit: 07/28/2019 Primary Care Physician: Ravinder Webb MD CHIEF COMPLAINT: Chief Complaint Patient presents with Follow-up 2 month on hydralazine HISTORY OF PRESENT ILLNESS: Mr. Lassiter is a 78 year old man who is here today for 3 month follow up response to hydralazine 25 mg TID. Today I reviewed all records available to [...] withdrawal, and now uses oxygen regularly His [id number] VASCscore is 3and HAS BLED score of 3, with previously increased risk of bleeding from heavy alcohol consumption, and has been doing well on Eliquis with no bleed ing. His current and previous testing and procedures are detailed below. I saw him last 05/26/2019 ,when both echo showed worsening pulmonary hypertension, and adde d hydralazine 25 mg 3 times daily to help. I encouraged him to follow-up with Dr. Webb abo ut the PET scan that had previously been ordered for him by Dr. Vasquez to evaluate pulmonary nodules. I also had arranged for him to establish care with Dr. Thompson as his primary cardiol ogist in October. He previously followed up with Dr. Reyna, [...] skin irritation form nasal cannula , so previou sly just using tubing without cannula in his mouth , but had nasal cannula today, and O2 sa t's better, though still 88% He also reports decreased activity tolerance with today at home restrictions, as he is no t as active, and thinks he is more deconditioned, and more easily short of breath with exert ion. He reports rare episodes of occasional chest discomfort, though not sure whether pulmona ry or cardiac in origin. He denies any other chest pain ,or syncope, and lower extremity ed lee remains controlled, and denies any signs or symptoms of TIA or stroke. His weight stable since last seen, and down 12 lbs since 03/2018 when weighed 196 pounds . He reports he has remained abstinent from alcohol. He brought his medications to the clinic today, and I reviewed Personally. His previous appointment with Dr. Webb that was to be performed in July, along with updated labs, has been delayed until August. REVIEW OF SYSTEMS: Negative except for pertinent items noted in HPI. Constitutional: reports mild ongoing fatigue . Denies unexplained weight loss. Appetite is good. Weight Decreased 12 lbs since 03/2018 Denies night sweats fevers [...] exercising due to extreme STEPHENS. . 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 (Patient nathan ng differently: Take 600 mg by mouth Daily.) atorvaSTATin (LIPITOR) 20 mg tablet TAKE ONE TABLET BY MOUTH EVERY DAY AT BEDTIME 30 ta blet 2 B [id number] ER PO Take 1 tablet by mouth. [...] PO) Take 1,400 mg by mouth daily. hydrALAZINE (APRESOLINE) 25 mg tablet Take 1 tablet by mouth 3 times daily. 90 tablet 1 1 ibuprofen (ADVIL, MOTRIN) 200 mg tablet Take 200 mg by mouth nightly. Multiple Vitamin (MULTI-VITAMIN DAILY) TABS Take by mouth. nitroglycerin (NITROSTAT) 0.[address] 1 tablet under the tongue every 5 nancy andria as needed for Chest pain. 25 tablet 3 SPIRIVA RESPIMAT 2.5 MCG/ACT inhaler 2 puffs daily. UNABLE TO FIND Nerve Shield No facility-administered medications prior to visit. PHYSICAL EXAM: Wt Readings from Last 3 Encounters: 07/28/19 84.1 kg (185 lb 6.4 oz) 05/26/19 83.5 kg (184 lb) 03/24/19 83.3 kg (183 lb 9.6 oz) Temp Readings from Last 3 Encounters: No data found for Temp BP Readings from Last 3 Encounters: 07/28/19 120/58 05/26/19 138/80 03/24/19 120/78 Pulse Readings from Last 3 Encounters: 07/28/19 105 05/26/19 103 03/24/19 110 Vital signs: 09/23/2018: Wt: 189 Lbs. BP: 102/62 . HR.73 Vital signs: 03/14/2018: Wt: 196 Lbs. BP: 118/82 . HR. 77 Vital signs: 12/14/2017: Wt: 196 Lbs. BP: 126/80 . HR.78 GENERAL: Thin , frail man , in no distress. Appears approximately stated age. HEENT: Normocephalic, atraumatic. EYES: PERRL, EOM normal. MOUTH:not examined due to mask NECK: No JVD, lymphadenopathy, thyromegaly, bruits. Carotid [...] abdominal aortic pulsation is not palpable. EXTREMITIES: Mild ankle edema, worse on left Bilateral , wearing compression socks . Radial pulses 2+ bilaterally. Femoral pulses are 2+ bilaterally without bruits. DP and PT pulses are 1+ bilaterally. No clubbing. SKIN: Warm and dry, capillary [...] CARDIAC PROCEDURES/IMAGING CT chest: . 01/08/2015: CT-chest ([facility]): Atheromatous calcification of the thorac ic aorta [...] Pulmonic valve normal with mild to moderate GA. Echo: 11/27/2017: ( [facility]) : Atrial fib, [...] pulmo nary hypertension, RVSP 48-53 mmHg. Trace GA. No Pericardial effusion. IVC normal, CVP 5-1 0 mmHg. Aortic root, ascending aorta, and aortic arch are normal. No clot Echo: 06/17/2013 ([facility]): LVEF 55%, mild AI, trace [...] hematocrit 47.2, platelets 250 Labs: 11/10/2018: ( [facility]) CBC: BBC 12.3, RBC 5.06, hemoglobin 15.8, hematocrit 47, platelet s 227. CMP: Glucose 86, BUN 13, creatinine 0.82, GFR 91, sodium 132, potassium 4.1, chlorid e 100, albumin 4.1, total bili 1.4, AST 16, ALT 16 Alk Phos 35, troponin T <0.010 Digoxin: 05/01/2019 0.99 (digoxin 1.5 hours before) ASSESSMENT & PLAN: He was here today for 3 month follow up response to hydralazine 25 mg TID. He has problems as detailed below. He has not had any side effects to hydralazine, and his blood pressure seem well controlle d today, though his heart rate once again more elevated, and even with his oxygen, his room air sats were 86 to 89%, and his heart rate quickly increases with any activity. I had previously discussed that his pulmonary hypertension is progressing, which will in creased his dyspnea, Overall he seems fairly stable, though does report occasional episodes of chest discomfort, though unclear whether pulmonary or cardiac in etiology. Since his last sleep study negative, uncorrected sleep apnea not contributing to pulmonary hypertension I made no changes to medications today , and continues prn sublingual nitro for chest discomfort, digoxin 0.125 mg daily for heart rate control and atrial fibrillation, atorvas tatin 20 mg qhs for hyperlipidemia, and Eliquis 5 mg bid for stroke prevention, and now hydr alazine 25 mg TID for pulmonary hypertension. He was wearing his nasal cannula today , and room air saturations improved. I had previously discussed with him Dr. Vasquez's concern about 2 spiculated nodules in l eft and right upper lobes , and had ordered a PET scan , which was never completed, and I tobin ve advised him to follow up with Dr. Webb about this . He will be now seeing Dr. Webb in August , and will be getting labs done then as well, wh ich I will look for when I see him back. I will also have him establish care with ordnance mechanic who comes to [place], Dr. Veronica, s o he has primary ordnance mechanic, and I will continue to see him in between visit with her , an d he will see her 10/23/2019. 1. Longstanding persistent atrial fibrillation (HCC) 2. Coronary artery calcification seen on CT scan 3. Mixed hyperlipidemia 4. Pulmonary hypertension (HCC) 5. Bilateral lower extremity edema 6. Aortic valve insufficiency, etiology of cardiac valve disease unspecified 7. Chronic anticoagulation 8. Encounter for monitoring digoxin therapy 9. Chronic respiratory failure with hypoxia (HCC) 10. Chronic obstructive pulmonary disease, unspecified COPD type (HCC) No orders of the defined types were [...] notes for [facility] docume nted in this encounter Plan of Treatment +--------+---------+ + + + | Date | Type | Specialty | Care Team | Description | +--------+---------+ + + + | 10/22/ | Office | Cardiology | Danica Veronica DO | | | 2019 | Visit | | [address] | | | | | | [place] | | | | | | [address] | | | | | | | | +--------+---------+ + + + documented as of this encounter Visit Diagnoses + + | Diagnosis | + + | Longstanding persistent atrial fibrillation (HCC) - Primary | + + | Coronary artery calcification seen on CT scan | + + | Mixed hyperlipidemia | + + | Pulmonary hypertension (HCC) Other chronic pulmonary heart diseases | + + | Bilateral lower extremity edema Edema | + + | Aortic valve insufficiency, [...] unspecified COPD type (HCC) | + + documented in this encounter
--- OUTSIDE RECORDS SUMMARY | ~2019-10-01 | XMS | Clinical Summary ---
Demographics + + + | Address | [address] | | | [place] [address] | + + + | Home Phone | | + + + | Preferred Language | Unknown | + + + | Marital Status | | + + + | Temple Affiliation | Unknown | + + + | Race | Unknown | + + + | Ethnic Group | Unknown | + + + Author + + + | Author | [facility] | | | and [place] | + + + | Organization | [facility] | [...] Team Providers + +------+ + | Care Forming Department End Finder Name | Role | Phone | + +------+ + | Ravinder Webb MD | PCP | | + +------+ + Allergies + + + + + + | Active Allergy | Reactions | Severity | Noted | Comments | | | | | Date | | + + + + + + | Lisinopril | Cough | Low | 06/03/19 | Chronic cough, | | | | | 16 | | + + + + + + Medications + + + +---------+------+------+-------+ | Medication | Sig | Dispensed | Refills | Star | End | Statu | | | | | | t | Date | s | | | | | | Date | | | + + + +---------+------+------+-------+ | Flaxseed, Linseed, | Take 1,400 mg by | | 0 | 03/2 | | Activ | | (FLAXSEED OIL PO) | mouth daily. | | | 4/20 | | e | | | | | | 16 | | | + + + +---------+------+------+-------+ | B | Take 1 tablet by | | 0 | 04/1 | | Activ | | [id number] ER | mouth. | | | 2/20 | | e | | PO | | | | 18 | | | + + + +---------+------+------+-------+ | alendronate | Take 70 mg by mouth | | 0 | 03/2 | | Activ | | (FOSAMAX) 70 mg | every 7 days. Take | | | 4/20 | | e | | tablet | in the morning with | | | 16 | | | | | a full glass of | | | | | | | | water, on an empty | | | | | | | | stomach, and do not | | | | | | | | take anything else | | | | | | | | by mouth or lie down | | | | | | | | for the next 30 | | | | | | | | min. | | | | | | + + + +---------+------+------+-------+ | Coenzyme Q10 | Take 300 mg by mouth | | 0 | 03/2 | | Activ | | (COQ10) 400 MG CAPS | daily. | | | 4/20 | | e | | | | | | 16 | | | + + + +---------+------+------+-------+ | cholecalciferol | Take 2,000 Units by | | 0 | 03/2 | | Activ | | (VITAMIN D-3) 1,000 | mouth daily. | | | 4/20 | | e | | units capsule | | | | 16 | | | + + + +---------+------+------+-------+ | | Inhale 2 puffs into | | 0 | 10/1 | | Activ | | budesonide-formotero | the lungs 2 (two) | | | 7/20 | | e | | l (SYMBICORT) | times daily. | | | 16 | | | | 160-4.5 mcg/puff | | | | | | | | inhaler | | | | | | | + + + +---------+------+------+-------+ | SPIRIVA RESPIMAT | 2 puffs daily. | | 0 | 08/3 | | Activ | | 2.5 MCG/ACT inhaler | | | | 1/20 | | e | | | | | | 17 | | | + + + +---------+------+------+-------+ | atorvaSTATin | TAKE ONE TABLET BY | 30 | 2 | 01/3 | | Activ | | (LIPITOR) 20 mg | MOUTH EVERY DAY AT | tablet | | 1/20 | | e | | tablet | BEDTIME | | | 18 | | | + + + +---------+------+------+-------+ | Alpha-Lipoic Acid | Take 1 tablet by | | 0 | 04/1 | | Activ | | 200 MG TABS | mouth 2 (two) times | | | 2/20 | | e | | | daily. | | | 18 | | | + + + +---------+------+------+-------+ | ELIQUIS 5 MG | Take 1 tablet by | | 0 | 08/1 | | Activ | | tablet | mouth 2 (two) times | | | 0/20 | | e | | | daily. | | | 18 | | | + + + +---------+------+------+-------+ | albuterol | Inhale 2 puffs into | | 0 | 01/0 | | Activ | | (PROVENTIL HFA) 90 | the lungs every 4 | | | 3/20 | | e | | mcg/puff inhaler | (four) hours as | | | 19 | | | | | needed for Wheezing. | | | | | | + + + +---------+------+------+-------+ | digoxin (LANOXIN) | Take 1 tablet by | 90 | 3 | 01/1 | 01/1 | Activ | | 125 mcg tablet | mouth Daily. | tablet | | 3/20 | 2/20 | e | | | | | | 20 | 21 | | + + + +---------+------+------+-------+ | nitroglycerin | Place 1 tablet under | 25 | 3 | 01/1 | | Activ | | (NITROSTAT) 0.4 mg | the tongue every 5 | tablet | | 3/20 | | e | | SL tablet | minutes as needed | | | 20 | | | | | for Chest pain. | | | | | | + + + +---------+------+------+-------+ | acetaminophen | Take 500 mg by mouth | | 0 | | | Activ | | (TYLENOL) 500 mg | every 6 hours as | | | | | e | | tablet | needed for Pain. | | | | | | + + + +---------+------+------+-------+ | hydrALAZINE | Take 1 tablet by | 90 | 11 | 03/1 | | Activ | | (APRESOLINE) 25 mg | mouth 3 times daily. | tablet | | 6/20 | | e | | tablet | | | | 20 | | | + + + +---------+------+------+-------+ | ibuprofen (ADVIL, | Take 200 mg by mouth | | 0 | | | Activ | | MOTRIN) 200 mg | nightly. | | | | | e | | tablet | | | | | | | + + + +---------+------+------+-------+ | UNABLE TO FIND | Nerve Shield is | | 0 | | | Activ | | | Vitamin B complex | | | | | e | + + + +---------+------+------+-------+ | Multiple Vitamin | Take by mouth. | | 0 | | | Activ | | (MULTI-VITAMIN | | | | | | e | | DAILY) TABS | | | | | | | + + + +---------+------+------+-------+ Active Problems + + + | Problem | Noted Date | + + + | Encounter for monitoring digoxin therapy | 03/24/2019 | + + + | Pulmonary hypertension | 03/24/2019 | + + + | Aortic valve insufficiency | 03/24/2019 | + + + | Chronic anticoagulation | 09/23/2018 | + + + | History of ETOH abuse | 03/15/2018 | + + + | Bilateral lower extremity edema | 12/13/2017 | + + + | Chronic respiratory failure with hypoxia | 02/06/2017 | + + + | HLD (hyperlipidemia) | 07/07/2015 | + + + | Coronary artery calcification seen on CT scan | 06/03/2015 | + + + | Atrial fibrillation | 06/03/2015 | + + + | Essential hypertension | 06/03/2015 | + + + | COPD (chronic obstructive pulmonary disease) | 06/03/2015 | + + + | 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 75yo | | WM, with exertional shortness of breath, no chest pain. He has a | | history of smoking, quit 5 years ago, known to have advanced | | COPD. CT scan of the chest was performed as part of his | | evaluation for his lung disease, during the CT scan, | | calcification of the vasculature was noted including the coronary | | arteries. He is known to have a chronic atrial fibrillation, | | for which he is anticoagulated. There is no history of stroke or | | TIAs. He has no prior history of myocardial infarction, | | congestive heart failure, congenital heart disease, rheumatic | | heart disease, or syncope. Started on atorvastatin 20 mg daily, | | primary prevention. Again, modestly active, I did encourage him | | to have a regular exercise program. Labs reviewed, could | | consider decreasing atorvastatin. Can be followed clinically.Hx | | CABG: noHx PCI/stent: noHx Pacemaker/ICD: noLast Cath: na. | | 01/08/2015: CT-chest ([facility]): Atheromatous calcification | | of the thoracic aorta without aneurysm or dissection. | | Potentially significant calcification of the left main coronary | | artery, LAD, LCx, and RCA.Last Echo, 06/17/2013 ([facility]): | | LVEF 55%, mild AI, trace MR, mild TR, systolic PAP | | 29mmHg+CVP.Last Stress Test, : Lexiscan, perfusion images | | benign, LVEF 70%.ECG, 06/03/2015: A fib, 83bpm, low voltage in | | limb leads. | + + Encounters +--------+---------+ + + + | Date | Type | Specialty | Care Team | Description | +--------+---------+ + + + | 07/27/ | Office | Cardiology | Marylou Peraza | Longstanding | | 2019 | Visit | | [place] | persistent atrial | | | | | | fibrillation (HCC) | | | | | | (Primary Dx); | | | | | | Coronary artery | | | | | | calcification seen | | | | | | on CT scan; Mixed | [...] type (HCC) | +--------+---------+ + + + from Last 3 Months Family History + + +------+ + | Medical History | Relation | Name | Comments | + + +------+ + | Heart disease | Brother | | | + + +------+ + | Heart disease | Father | | | + + +------+ + | Cancer | Mother | | | + + +------+ + + +------+ + + | Relation | Name | Status | Comments | + +------+ + + | Brother | | | [place] | | | | (Age | | | | | 52) | | + +------+ + + | Brother | | | | + +------+ + + | Father | | | [place], [place] | | | | (Age | | | | | 75) | | + +------+ + + | Mother | | | breast cancer | | | | (Age | | | | | 56) | | + +------+ + + Social History + +-------+ +--------+ + | Tobacco Use | Types | Packs/Day | Years | Date | | | | | Used | | + +-------+ +--------+ + | Former Smoker | | 1.5 | 50 | Quit: 2010 | + +-------+ +--------+ + + +---+---+---+ [...] on file | | + + + Last Filed Vital Signs + + + [...] + + + + | Temperature | 36.5 C (97.7 F) | 09/26/2017 3:29 PM | | | | | PDT | | + + + + + | Respiratory Rate | 20 | 03/14/2018 1:47 PM | | | | | PST [...] | | + + + + + Plan of Treatment +--------+---------+ + + + | Date | Type | Specialty | Care Team | Description | +--------+---------+ + + + | 10/22/ | Office | Cardiology | Danica Veronica DO | | | 2019 | Visit | | [address] | | | | | | [place] | | | | | | [address] | | | | | | | | +--------+---------+ + + + + + + + + | Health Maintenance | Due Date | Last | Comments | | | | Done | | + + + + + | Med Mgmt: BUN | | | | | | 0 | | | + + + + + | Med Mgmt: Ca | | | | | | 0 | | | + + + + + | Med Mgmt: Cr | | | | | | 0 | | | + + + + + | Med Mgmt: ECG | | | | | | 0 | | | + + + + + | Med Mgmt: HCT | | | | | | 0 | | | + + + + + | Med Mgmt: HGB | | | | | | 0 | | | + + + + + | Med Mgmt: K | | | | | | 0 | | | + + + + + | Med Mgmt: Mg | | | | | | 0 | | | + + + + + | Med Mgmt: PLT | | | | | | 0 | | | + + + + + | Med Mgmt: RBC | | | | | | 0 | | | + + + + + | Med Mgmt: Vit D | | | | | | 0 | | | + + + + + | Med Mgmt: WBC | | | | | | 0 | | | + + + + + | Med Mgmt: eGFR | | | | | | 0 | | | + + + + + | Medication | | | | | Management | 0 | | | + + + + + | Vaccine: | | | | | Pneumococcal 65+ (1 | 5 | | | | of 1 - PPSV23) | | | | + + + + + | Adult Annual | | | | | Wellness Visit | 9 | | | + + + + + | Vaccine: Zoster (2 | | 05/13/19 | | | of 3) | 0 | 20, | | | | | 01/23/20 | | | | | 19, | | | | | 11/09/19 | | | | | 07 | | + + + + + | Vaccine: Influenza | | 12/29/19 | | | (#1) | 0 | 19, | | | | | 11/28/19 | | | | | 18, | | | | | 04/23/19 | | | | | 18, | | | | | Addition | | | | | al | | | | | history | | | | | exists | | + + + + + | Vaccine: | | 12/29/19 | | | Dtap/Tdap/Td (2 - | 9 | 19 | | | Td) | | | | + + + + + Results Not on filefrom Last 3 Months Insurance + +--------+ +--------+ +---------+--------+ | Payer | Benefi | Subscriber | Effect | Phone | Address | Type | | | t Plan | ID | sylvester | | | | | | / | | Dates | | | | | | Group | | | | | | + +--------+ +--------+ +---------+--------+ | MEDICARE | MEDICA | [id number] | 07/11/19 | [phone] | | Medica | | | RE | | 05-Pre | 5 | | re | | | PART A | | sent | | | | | | AND B | | | | | | + +--------+ +--------+ +---------+--------+ | MEDICARE | MEDICA | [id number] | 07/11/19 | [phone] | | Medica | | | RE | | 05-Pre | 5 | | re | | | PART A | | sent | | | | | | AND B | | | | | | + +--------+ +--------+ +---------+--------+ | [employer] [place] | MUTUAL | [id number] | 03/12/19 | [phone] | | Indemn | | | AND | | 11-Pre | 0 | | ity | | | [place] | | sent | | | | | | [place] | | | | | | | | MDCR | | | | | | | | SUPPL | | | | | | + +--------+ +--------+ +---------+--------+ | [employer] | MUTUAL | [id number] | 08/11/19 | [phone] | | Indemn | | | AND | | 17-Pre | 0 | | ity | | | [place] | | sent | | | | | | [place] | | | | | | | | MDCR | | | | | | | | SUPPL | | | | | | + +--------+ +--------+ +---------+--------+ + +--------+ +--------+ + + | Guarantor Name | Accoun | Relation to | Date | Phone | Billing Address | | | t Type | Patient | of | | | | | | | | | | + +--------+ +--------+ + + | Shazia Lassiter | Person | Self | [birth year] | [address] | | | [place] | | 1941 | [phone] | [place] | | | [place] | | | [address] (Home) | [address] | + +--------+ +--------+ + + | Shazia Lassiter | Person | Self | [birth year] | [address] | | | [place] | | 1941 | [phone] | [place] | | | [place] | | | [address] (Home) | [address] | + +--------+ +--------+ + + Advance Directives + + + + + | Type | Date Recorded | Patient | Explanation | | | | Esl Instructional Assistant | | + + + + + | Power of | | | | | Benefit Authorizer | | | | + + + + + | Advance | | | | | Directive | | | | + + + + +
--- OUTSIDE RECORDS SUMMARY | ~2019-10-01 | XMS | Encounter Summary ---
Demographics + + + | Address | [address] | | | [place] [address] | + + + | Home Phone | | + + + | Preferred Language | Unknown | + + + | Marital Status | | + + + | Jain Affiliation | Unknown | + + + | Race | Unknown | + + + | Ethnic Group | Unknown | + + + Author + + + | Author | [facility] | | | and Rodrick[place] | + + + | Organization | [facility] | | | and [...] Team Providers + +------+ + | Care Risk Management Specialist Name | Role | Phone | + [...] | | Radiology | | Dasha, | [facility] | | | | | 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 [address] | [address] | | | | | persistent | [address] | [address] | | | | | atrial | [address] [address] | [place], [place] | | | | | fibrillation | [place], [place] | [address] | | | | | (HCC) | [address] | Phone: | | | | | Coronary | Phone: | [phone] | | | | | artery | [phone] | Fax: | | | | | calcificatio | Fax: | [phone] | | | | | n seen on CT | [phone] | | | | | | scan [...] + + | 03/24/ | Office | [facility] | Marylou Peraza | Longstanding | | 2020 | Visit | CARDIOLOGY [place] | [address] | persistent atrial | | | | [address] | [address] | fibrillation (HCC) | | | | [address] | [place] [address] | (Primary Dx); | | | | [place], [place] | [phone] | Coronary artery | | | | [address] | | calcification seen | | | | [phone] | | on CT scan; Mixed | [...] you an Echo to be done at [facility] in next 6 weeks, I made no [...] withdrawal, and now uses oxygen regularly His [id number] VASCscore is 3and HAS BLED score of [...] He was Treated with narcotic pain medication, Cascade 5/325, and chest x-ray done at the [...] exercising due to extreme STEPHENS. . 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 [...] Nare route as needed for Rhinitis. Saw Harrison, Serenoa repens, (SAW PALMETTO BERRIES PO) Take [...] CARDIAC PROCEDURES/IMAGING CT chest: . 01/08/2015: CT-chest ([facility]): Atheromatous calcification of the thorac ic aorta [...] pulmo nary hypertension, RVSP 48-53 mmHg. Trace AL. No Pericardial effusion. IVC normal, CVP 5-1 0 mmHg. Aortic root, ascending aorta, and aortic arch are normal. No clot Echo: 06/17/2013 ([facility]): LVEF 55%, mild AI, trace [...] hematocrit 47.2, platelets 250 Labs: 11/10/2018: ( [facility]) CBC: BBC 12.3, RBC 5.06, [...] contain inadvertent rec ognition errors. Han CROOK [facility] Cardiology 03/24/2019 Adorakel zamudio in this encounter Plan of Treatment +--------+---------+ + + + | Date | Type | Specialty | Care Team | Description | +--------+---------+ + + + | 10/22/ | Office | Cardiology | Danica Veronica DO | | | 2019 | Visit | | [address] | | | | | | [place] | | | | | | [address] | | | | | | | [...] hypoxia | | | | | | ([facility]) Chronic | | | | | | obstructive | | | | | | pulmonary disease, | | | | | | unspecified COPD | | | | | | type ([facility]) | | | | | | Bilateral [...] | | | | | by [facility] [place] Read Only, | | | | | | [facility] [place] ([id number]), | | | | | | make up editor Darrian Andre | | | | | | ([id number]) on 03/24/2019 | | | | | [...]
--- OUTSIDE RECORDS SUMMARY | ~2019-10-01 | XMS | Encounter Summary ---
Demographics + + + | Address | [address] | | | [place] [address] | + + + | Home Phone | | + + + | Preferred Language | Unknown | + + + | Marital Status | | + + + | Denominational Affiliation | Unknown | + + + | Race | Unknown | + + + | Ethnic Group | Unknown | + + + Author + + + | Author | [facility] | | | and Rodrick[place] | + + + | Organization | [facility] | | | and [...] Team Providers + +------+ + | Care Industrial Conveyor Belt Repairer Name | Role | Phone | + [...] [address] [place] | | | | | [facility] [address] | [place] [address] | | | | | [place] | [phone] | | | | | [address] | | | | | | [phone] | | | +--------+ + + + [...] [place] | | | | | | [address] | | | | | | | | +--------+---------+ + + + documented as of this encounter Visit Diagnoses Not on filedocumented in this encounter"
--- OUTSIDE RECORDS SUMMARY | ~2019-10-01 | XMS | Encounter Summary ---
Demographics + + + | Address | [address] | | | [place] [address] | + + + | Home Phone | | + + + | Preferred Language | Unknown | + + + | Marital Status | | + + + | Temple Affiliation | Unknown | + + + | Race | Unknown | + + + | Ethnic Group | Unknown | + + + Author + + + | Author | [facility] | | | and [place]rick[place] | + + + | Organization | [facility] | | | and [...] Team Providers + +------+ + | Care Criminal Investigative Agent Name | Role | Phone | [...] | | | | [place] | [phone] | | | | | [address] | | | | | | [phone] | | | +--------+ + + + [...] [place] | | | | | | [address] | | | | | | | | +--------+---------+ + + + documented as of this encounter Visit Diagnoses Not on filedocumented in this encounter"
--- OUTSIDE RECORDS SUMMARY | ~2019-10-01 | XMS | Encounter Summary ---
Demographics + + + | Address | [address] | | | [place] [address] | + + + | Home Phone | | + + + | Preferred Language | Unknown | + + + | Marital Status | | + + + | Advent Affiliation | Unknown | + + + | Race | Unknown | + + + | Ethnic Group | Unknown | + + + Author + + + | Author | [facility] | | | and [place] | + + + | Organization | [facility] | | [...] Team Providers + +------+ + | Care Tape Calender Name | Role | Phone | + +------+ + | Ravinder Webb MD | PCP | | + +------+ + Encounter Details +--------+ + + + + | Date | Type | Department | Care Team | Description | +--------+ + + + + | 09/23/ | Orders Only | [facility] | Stu Marylou | | | 2019 | | CARDIOLOGY [place] | [address] | | | | | [address] | [place] | | | | | [address] | [place] [address] | | | | | [place] | [phone] | | | | | [address] | | | | | | [phone] | | | +--------+ + + + [...] [place] | | | | | | [address] | | | | | | | | +--------+---------+ + + + documented as of this encounter Visit Diagnoses Not on filedocumented in this encounter"
--- OUTSIDE RECORDS SUMMARY | ~2019-10-01 | XMS | Encounter Summary ---
Demographics + + + | Address | [address] | | | [place] [address] | + + + | Home Phone | | + + + | Preferred Language | Unknown | + + + | Marital Status | | + + + | Orthodox Affiliation | Unknown | + + + | Race | Unknown | + + + | Ethnic Group | Unknown | + + + Author + + + | Author | [facility] | | | and [place] | + + + | Organization | [facility] | | | and [place] [...] Team Providers + +------+ + | Care Under Trimmer Name | Role | Phone | + +------+ + | Sherwin Garber MD | PCP | | + +------+ + Encounter Details +--------+ + + + + | Date | Type | Department | Care Team | Description | +--------+ + + + + | 10/22/ | Hospital | C GENERIC IP | Conversion | Pain | | 2018 | Encounter | CONVERSION [address] | Transaction, | | | | | [address] | Provider Unknown | | | | | [place] | [phone] | | | | | [address] | | | | | | [phone] | | | +--------+ + + + [...] + + documented as of this encounter Medications at Time of Discharge + + + +---------+ + + | Medication | Sig | Dispensed | Refills | Start | End Date | | | | | | Date | | + + + +---------+ + + | alendronate | Take 70 mg by mouth | | 0 | 06/03/19 | | | (FOSAMAX) 70 mg | every 7 days. Take | | | 16 | | | tablet | in the morning with | | | | | | | a full [...] | min. | | | | | + + + +---------+ + + | Alpha-Lipoic Acid | Take 1 tablet by | | 0 | 06/22/19 | | | 200 MG TABS | mouth 2 (two) times | | | 18 | | | | daily. | | | | | + + + +---------+ + + | atorvaSTATin | TAKE ONE TABLET BY | 30 | 2 | 04/11/19 | | | (LIPITOR) 20 mg | MOUTH EVERY DAY AT | tablet | | 18 | | | tablet | BEDTIME | | | | | + + + +---------+ + + | B | Take 1 tablet by | | 0 | 06/22/19 | | | VULGNLQ-FAPPLW-BV ER | mouth. | | | 18 | | | PO | | | | | | + + + +---------+ + + | | Inhale 2 puffs into | | 0 | 12/27/19 | | | budesonide-formotero | the lungs 2 (two) | | | 16 | | | l (SYMBICORT) | times daily. | | | | | | 160-4.5 mcg/puff | | | | | | | inhaler | | | | | | + + + +---------+ + + | cholecalciferol | Take 2,000 Units by | | 0 | 06/03/19 | | | (VITAMIN D-3) 1,000 | mouth daily. | | | 16 | | | units capsule | | | | | | + + + +---------+ + + | Coenzyme Q10 | Take 300 mg by mouth | | 0 | 06/03/19 | | | (COQ10) 400 MG CAPS | daily. | | | 16 | | + + + +---------+ + + | ELIQUIS 5 MG | Take 1 tablet by | | 0 | 10/20/19 | | | tablet | mouth 2 (two) times | | | 18 | | | | daily. | | | | | + + + +---------+ + + | Flaxseed, Linseed, | Take 1,400 mg by | | 0 | 06/03/19 | | | (FLAXSEED OIL PO) | mouth daily. | | | 16 | | + + + +---------+ + + | SPIRIVA RESPIMAT | 2 puffs daily. | | 0 | 11/10/19 | | | 2.5 MCG/ACT inhaler | | | | 17 | | + + + +---------+ + + | Saw Cristo, | Take by mouth | | 0 | 06/03/19 | | | Amari toro, (SAW | daily. | | | 16 | 0 | | CRISTO LEES | | | | | | | PO) | | | | | | + + + +---------+ + + documented as of this encounter [...] [place] | | | | | | [address] | | | | | | | | +--------+---------+ + + + documented as of this encounter Procedures + +--------+ + + + | Procedure Name | Priori | Date/Time | Associated Diagnosis | Comments | | | ty | | | | + +--------+ + + + | CT SOFT TISSUE NECK | Routin | 10/08/2017 | | Results for this | | CHEST W CONTRAST | e | 11:42 AM | | procedure are in the | | | | PDT | | results section. | + +--------+ + + + documented in this encounter Results CT Neck Chest w Contrast (10/08/2017 11:42 AM PDT) + + | Specimen | + + | | + + + + + | Narrative | Performed At | + + + | This is a non-reportable procedure without a radiologist report and | | | is used for image storage only | | + + + + + | Procedure Note | + + | Vitaly Hidalgo - 10/23/2018 8:07 AM PDT This is a non-reportable procedure | | without a radiologist report and isused for image storage only | + + documented in this encounter Visit Diagnoses + + | Diagnosis | + + | Pain Generalized pain | + + documented in this encounter"
--- OUTSIDE RECORDS SUMMARY | ~2019-10-01 | XMS | Encounter Summary ---
Demographics + + + | Address | [address] | | | [place] [address] | + + + | Home Phone | | + + + | Preferred Language | Unknown | + + + | Marital Status | | + + + | Hindu Affiliation | Unknown | + + + | Race | Unknown | + + + | Ethnic Group | Unknown | + + + Author + + + | Author | [facility] | | | and [place] | + + + | Organization | [facility] | | | and [place]rick[place] [...] Team Providers + +------+ + | Care Air Tester Name | Role | Phone | + [...] | | | | [place] | [phone] | | | | | [address] | | | | | | [phone] | | | +--------+ + + + [...] [place] | | | | | | [address] | | | | | | | | +--------+---------+ + + + documented as of this encounter Visit Diagnoses Not on filedocumented in this encounter"
--- OUTSIDE RECORDS SUMMARY | ~2019-10-01 | XMS | Encounter Summary ---
Demographics + + + | Address | [address] | | | [place] [address] | + + + | Home Phone | | + + + | Preferred Language | Unknown | + + + | Marital Status | | + + + | Nondenominational Affiliation | Unknown | + + + | Race | Unknown | + + + | Ethnic Group | Unknown | + + + Author + + + | Author | [facility] | | | and [place] | + + + | Organization | [facility] | | | and [place] [...] Team Providers + +------+ + | Care Federal Judge Name | Role | Phone | + +------+ + | Sherwin Garber MD | PCP | | + +------+ + Encounter Details +--------+ + + + + | Date | Type | Department | Care Team | Description | +--------+ + + + + | 04/03/ | Orders Only | [facility] | Stu Marylou | | | 2018 | | CARDIOLOGY [place] | [address] | | | | | [address] | [address] | | | | | [place] | [place] [address] | | | | | [address] | [phone] | | | | | [phone] | | | +--------+ + + + [...] | 2020 | Visit | | [address] | | | | | | [place] | | | | | | [address] | | | | | | | [...]
[~2019-10-01 10:50] MED LIST changes: +DAILY MULTIPLE1 EACH PO; +GAS-X125 MG PO; +HYDRALAZINE HCL25 MG PO; +TERBINAFINE HC250 MG PO
--- NOTE | 2019-10-01 11:16 | NUR ---
MED REC COMPLETED
--- NOTE | 2019-10-01 11:30 | NUR ---
SPOKE WITH PATIENT IN ROOM. PATIENT WAS UP IN CHAIR, RECLINED. DISCUSSED THE TRANSITIONAL CARE PROGRAM. BROCHURE GIVEN. EXPLAINED MEDICARE COVERAGE. DISCUSSED IDT MEETING TOMORROW TO GO OVER GOALS. ENCOURAGED HIM TO HAVE HIS OWN CLOTHES, OR ANYTHING TO HELP HIM BE COMFORTABLE BROUGHT IN. HIS ONLY QUESTION IS "HOW LONG DO YOU THINK I HAVE TO STAY". EXPLAINED IT WILL DEPEND ON HOW HE DOES WITH THERAPY IN MEETING GOALS. HE STATES "WELL GET THEM IN HERE, I CAN GET BUSY". PATIENT CHEERFUL. CM WILL CONTINUE TO FOLLOW.
--- NOTE | 2019-10-01 12:30 | NUR ---
PT ADMITTED TO SWING BED PROGRAM. ADMISSION INTAKE COMPLETED. VSS. PT DENIES OTHER NEEDS AT THIS TIME.
--- NOTE | 2019-10-01 14:15 | NUR ---
PT ALERT, ORIENTED AND SITTING UP IN BED WATCHING TV. PT SAID HE DIDN'T SLEEP THE BEST, COMMENTED ON HOW HELPFUL OT GORAN WAS. SEEMS WILLING TO KEEP WORKING AND DOING HIS PART TO IMPROVE. HAD GOOD VISIT, GAVE BLESSING AND HAD PRAYER
--- NOTE | 2019-10-01 16:10 | NUR ---
PT GIVEN SCHEDULED HYDRALAZINE PER ORDER. PT SITTING ON EDGE OF BED, PLAYING CARD GAMES WITH . PT DENIES PAIN, PT REPORT OF MINIMAL PAIN DURING P.T., ABLE TO DO STAIRS. PT ON 5L NC, 02 SATS 95%. PT DENIES OTHER NEEDS AT THIS TIME.
--- NOTE | 2019-10-01 17:48 | NUR ---
PATIENT UP IN BED, VITALS AND I&OS CHARTED. CALL LIGHT IN REACH, NO OTHER NEEDS AT THIS TIME.
--- NOTE | 2019-10-01 18:02 | NUR ---
PT ADMITTED TO SWING BED TODAY. PT ON 5L O2, REQUIRES ADDITIONAL O2 UP TO 8L WITH ACTIVITY, LUNG SOUND DIMINISHED AND CLEAR. PT WITH MINIMAL PAIN IN LEFT LEG, ABLE TO WORK WITH PT/OT. GILLETTE CATH REMOVED THIS AM, MARGINAL URINE OUTPUT. IV SALINE LOCKED.
--- NOTE | 2019-10-01 19:25 | NUR ---
SHIFT REPORT FROM NURSE SMITH. PT SLEEPING IN BED AND AWOKEN BY US NURSES BEDSIDE. NO REQUEST AT THIS TIME. CALL LIGHT WITHIN REACH/.
--- NOTE | 2019-10-01 21:50 | NUR ---
ASSESSMENT COMPLETE. FRESH ICE PACKS PROVIDED FOR THE LEFT KNEE. PT LAYING IN BED AND STATES HE WILL USE BSC BEFORE BEDTIME BUT DOES NOT FEEL THE NEED TO URINATE AT THIS POINT. VSS. O2 PER NC AT 5L. NO FURTHER REQUESTS AT THIS TIME.
--- NOTE | 2019-10-01 21:52 | NUR ---
PATIENT RESTING IN BED, IN CHEERFUL MOOD. PATIENT COMPLAINS ABOUT NOT SLEEPING WELL LATELY BUT STATES THAT IS NORMAL FOR HIM. PATIENT CALL LIGHT IN REACH. NO FURTHER NEEDS AT THIS TIME.
--- NOTE | 2019-10-01 23:10 | NUR ---
PATIENT PREOXYGENATED AT 7 LITERS PER RN REQUEST PATIENT STANDS AND TRANSFERS TO BEDSIDE COMMODE TO VOID. PATIENT TRANSFERRED BACK TO BED, TOLERATED WELL. OXYGEN BACK TO 5 LITERS PER NC. PATIENT CALL LIGHT IN REACH, NO FURTHER NEEDS AT THIS TIME .
--- NOTE | 2019-10-02 01:13 | NUR ---
CALL LIGHT ANSWERED. PT UP TO BSC WITH SBA. URINE OUTPUT IS GOOD. PT RETURNED TO BED. CALL LIGHT AND BEDSIDE TABLE WIHTHIN REACH.
--- NOTE | 2019-10-02 03:13 | NUR ---
ROUNDS COMPLETE. PT SLEEPING WITH EVEN BREATHING. NASAL CANNULA IN PLACE. NO APPARENT SIGNS OF DISTRESS.
--- NOTE | 2019-10-02 03:36 | NUR ---
PATIENT CALLED FOR ASSISTANCE TO TRANSFER TO BEDSIDE COMMODE. PATIENT PREOXYGENATED TO 7L PER NC FOR TRANSFER AND BACK TO 5L AFTER BACK IN BED. PATIENT RESTING IN BED, CALL LIGHT IN REACH, NO FURTHER NEEDS AT THIS TIME.
--- NOTE | 2019-10-02 05:45 | NUR ---
PT ON BSC. RETURNED TO BEDSIDE AND PT STATES HE WOULD LIKE TO DO HIS EXERCISES. CUP OF COFFEE PROVIDED PER REQUEST. NO FURTHER WISHES AT THIS TIME.
--- NOTE | 2019-10-02 07:39 | NUR ---
0705: PT RESTING IN HIS BED WITH NO COMPLAINTS AT THIS TIME. REPORT RECEIVED FROM GREGORIA MITCHELL. PT'S CALL ANDRADE WITHIN REACH.
--- NOTE | 2019-10-02 08:22 | NUR ---
PT RESTING IN HIS BED EATING BK AND WATCHING TV. HE STATES HIS BREATHING IS FEELING GOOD AT THIS TIME ON 5L OF O2. HE STATES HIS LEFT KNEE PAIN IS UNDER CONTROL AT A 03/21. PT DENIES ANY NEW PROBLEMS, SEE ASSESSMENT.
--- NOTE | 2019-10-02 09:25 | NUR ---
IDT MEETING IN ROOM WITH PATIENT AND CASANDRA.
--- NOTE | 2019-10-02 10:30 | NUR ---
PT RESTING IN HIS BED WITH NO COMPLAINTS AT THIS TIME.
--- NOTE | 2019-10-02 13:05 | NUR ---
Pt assisted from the commode after voiding back to the bedside where he states he would like to sit. He denies any new problems or needs at this time. Call gay within reach.
--- NOTE | 2019-10-02 14:39 | NUR ---
sat 93% on 5l at this time.
--- NOTE | 2019-10-02 16:41 | NUR ---
Pt resting in his chair after having worked with physical therapy. Pt states his breathing feels about normal, sat is now 91% on 4l via NC. The pt uses 4l via NC at baseline. Pt states he is "getting stronger" and is pleased with his progress that he is making. He states his left knee pain is now a 0-1/10. Call gay within reach.
--- NOTE | 2019-10-02 18:37 | NUR ---
Pt sleeping at this time, call gay within reach.
--- NOTE | 2019-10-02 20:46 | NUR ---
Pt awake, coop with assessment, O2 4L NC chronic, sob with exertion noted. tremors of hands, weakness overall. sats 87-91 after CDB when returning from BSC to bed. then steady at 90-92%. pulse between 62-122, steady now at 97, resp 18-24 when transferring. Up to [facility] with minimum of assist, voided . Coop with assessment, lungs with exp wheezing L lung, tight R lung, moist hacky ocassionally productivive- yellow-brown colored discharge. tolerating fluids well, coop with assessment, sl patent. repositions self in bed. uses call light appropriately, ice to L knee, covered with lesly bandage in place, edema still present, good CMS. call light at hands reach, pt on swing bed status
--- NOTE | 2019-10-03 00:16 | NUR ---
O2 IN PLACA, EYES CLOSED, NO RESP DISTRESS, RESP EVEN, UNLABORES. FLUIDS AND CALL LIGHT AT BEDSIDE
--- NOTE | 2019-10-03 00:34 | NUR ---
pt USED CALL LIGHT TO ASK TO USE THE BSC. HE VOIDED 125ccs.
--- NOTE | 2019-10-03 02:11 | NUR ---
HELPED PT TO THE BSC. HE WILL CALL WHEN HE IS READY. PULSE OX PUT ON AND CALL LIGHT IN REACH.
--- NOTE | 2019-10-03 04:14 | NUR ---
PT CHRONIC O2 USE, CURRENTLY 4LNC WITH HUMIDIFIER. LUNGS W EXP WHEEZING AND DIM, GETS NEBS, SOB WITH EXERTION PRESENT. GETS SOLUMEDROM, SL PATENT IRREGULAR HEART RATE, 62-122, HX AFIB, DENIES C/O CP 1PA/FWW TO BSC TOLERATING FAIR WITH SOB WITH EXERTION PRESENT. TOLERATING FLUIS AND DIET WELL, NO N/V. NO C/O PAIN. L KNEE AREA EDEMATOUS MUCH IMPROVED FROM ADMISSION, COVERED WITH TERRELL WRAP, WORKING WITH OT/PT, PT ON TRANSITION CARE STATUS. USES CALL LIGHT APPROPRIATELY, VOIDING QS. DECLINED SENNA TABS, LAST BM 09/25. " I DO NOT WANT TO SOPILD MY PANTS DURING THE NIGHT LIKE I DID BEFORE STATED".
--- NOTE | 2019-10-03 06:08 | NUR ---
awake, o2 4lnc, evelina sob at this time. watching tv, no c/o pain. ice to L knee area, lesly wrap in place, good cms, improved gait , fresh fluids and call light at bedside
--- NOTE | 2019-10-03 07:36 | NUR ---
0723: Report received from Scarlett MITCHELL. Pt resting in his bed with no complaints at this time. Call gay within reach.
--- NOTE | 2019-10-03 08:37 | NUR ---
PT RESTING IN HIS BED AND DENIES ANY PAIN OR NEW PROBLEMS. GREGORIOE STAETS HIS BREATHING IS "OK", SAT ON 4L IS 92%. SEE ASSESSMENT.
--- NOTE | 2019-10-03 09:15 | NUR ---
THERAPISTS FEEL PATIENT IS OK TO DISCHARGE TOMORROW. WILL GIVE NOTICE TO DISCHARGE TODAY.
--- NOTE | 2019-10-03 10:28 | NUR ---
PATIENT UP IN CHAIR AFTER WORKING WITH THERAPY. AM CARE DONE, LINENS CHANGED. VITALS AND I&OS CHARTED. CALL LIGHT IN REACH. NO OTHER NEEDS AT THIS TIME
--- NOTE | 2019-10-03 11:26 | NUR ---
PT RESTING IN HIS CHAIR AND DENIES ANY NEW PROBLEMS OR NEEDS AT THIS TIME.
--- NOTE | 2019-10-03 11:55 | NUR ---
WENT IN TO SEE PATIENT BUT HE WAS ON THE PHONE. TOLD HIM I COULD WAIT, HE STATES IT WAS AN IMPORTANT CALL AND COULD TAKE SOME TIME. SPOKE WITH FUNDRAISING MANAGER CATHIE, HE WILL GIVE TRANSITIONAL CARE DISCHARGE PAPER FOR SIGNATURE AND SURVEY.
--- NOTE | 2019-10-03 12:16 | NUR ---
PT SITTING UP IN CHAIR-ALERT AND ORIENTED. AJITH ZIMMER WORKED WITH PT ALONG WITH Miguel TURNER AND HE IS VERY PLEASED WITH HELP AND PROGRESS. PT HOPES TO DC SAT AND IS JUST RESTING AT THE MOMENT. LUNCH DELIVERED, PT REQUESTED PRAYER
--- NOTE | 2019-10-03 14:00 | NUR ---
PATIENT AT SIDE OF BED, PLAYING CARDS WITH . I&OS CHARTED. NO OTHER NEEDS
--- NOTE | 2019-10-03 14:15 | NUR ---
Pt sitting at the bedside playing cards with his . He denies any problems or needs at this time.
--- NOTE | 2019-10-03 14:53 | NUR ---
SAT 93%, O2 DECREASED TO 4L. PT STATES HIS BREATHING IS FEEL GOOD AT THIS TIME.
--- NOTE | 2019-10-03 17:15 | NUR ---
PT NOW EATING DINNER WITH NO COMPLINTS OR NEEDS.
--- NOTE | 2019-10-03 18:08 | NUR ---
SAT CHECKED WHILE PT SLEEPING, IT WAS 92% ON 4L.
--- NOTE | 2019-10-03 19:20 | NUR ---
SHIFT REPORT RECEIVED FROM CLAUDIA BRAND AT BEDSIDE. PT AWAKE AND RESTING IN BED. BED ALARM ON FOR SAFETY. NO NEEDS OR CONCERNS AT THIS TIME, CALL LIGHT IN REACH. BOARD UPDATED.
--- NOTE | 2019-10-03 21:08 | NUR ---
ASSESSMENT COMPLETE, SCHEDULED MEDS GIVEN (SEE EMAR). VSS AND I&O'S DONE. PT DENIES PAIN AND NAUSEA, TOOK PILLS WITHOUT ISSUE. BED ALARM ON FOR SAFETY, CALL LIGHT IN REACH. PT DENIES FURTHER NEEDS.
--- NOTE | 2019-10-03 22:58 | NUR ---
HELPED PT TO THE BSC AND BACK TO BED. BEDSIDE TABLE AND CALL LIGHT IN REACH. PT NEEDS NOTHING MORE AT THIS TIME.
--- NOTE | 2019-10-03 23:40 | NUR ---
PT RESTING QUIETLY IN BED WITH EYES CLOSED. RR EVEN AND UNALBORED. 4LNC IN PLACE WITH HUMIDIFICATION. CALL LIGHT IN REACH AND BED ALARM ON.
--- NOTE | 2019-10-04 00:35 | NUR ---
HELPED PT TO THE BSC AND BACK TO BED. BEDSIDE TABLE AND CALL LIGHT IN REACH. PT NEEDS NOTHING MORE AT THIS TIME.
--- NOTE | 2019-10-04 00:49 | NUR ---
PT RESTING IN BED, 4LNC IN PLACE. O2 SAT 92%, HR 80'S TO 90'S VIA MONITOR. SNACK PROVIDED PER PT REQUEST. NO FURTHER NEEDS, CALL LIGHT IN REACH.
--- NOTE | 2019-10-04 04:33 | NUR ---
PT RESTING IN BED WITH EYES CLOSED, RR EVEN AND UNLABORED. 4LNC REMAINS IN PLACE, NO DISTRESS NOTED. CALL LIGHT IN REACH.
--- NOTE | 2019-10-04 05:39 | NUR ---
ASSISTED PT FROM BSC BACK TO BED. FRESH ICEPACKS GIVEN AND PT DENIES FURTHER NEEDS. CALL LIGHT IS CLOSE.
--- NOTE | 2019-10-04 07:45 | NUR ---
MESSAGE SENT TO DR KINCAID REGARDING PT'S LAST BM.
--- NOTE | 2019-10-04 09:03 | NUR ---
Patient up working with physical therapy at this time.
--- NOTE | 2019-10-04 09:44 | NUR ---
PATIENT BACK IN ROOM SITTING SIDE OF BED, AFTER AMBULATING 2 LAPS AROUND NURSES STAION WITH P/T. VITALS AND I&OS CHARTED. CALL LIGHT IN REACH, NO OTHER NEEDS AT THIS TIME
[2019-10-04] MEDS ORDERED: ELIQUIS5 MG PO (10:42)
[2019-10-04] MEDS ORDERED: LACTULOSE10 GM/15 M PO (10:43)
== END 2019-10-04 11:10 | disposition home or self-care (01) | DRG 554 ==
LOC: MS 10:50
PROVIDERS: ADMIT Internal Medicine
DX: M25.062 Hemarthrosis, left knee (principal); J96.11 Chronic respiratory failure with hypoxia; I48.21 Permanent atrial fibrillation; J43.9 Emphysema, unspecified; R26.2 Difficulty in walking, not elsewhere classified; I27.20 Pulmonary hypertension, unspecified; E78.5 Hyperlipidemia, unspecified; N40.0 Benign prostatic hyperplasia without lower urinary tract symptoms; M81.0 Age-related osteoporosis without current pathological fracture; E55.9 Vitamin D deficiency, unspecified; G62.9 Polyneuropathy, unspecified; Z87.891 Personal history of nicotine dependence; Z88.8 Allergy status to other drugs, medicaments and biological substances; Z79.83 Long term (current) use of bisphosphonates; Z79.51 Long term (current) use of inhaled steroids; Z79.899 Other long term (current) drug therapy; Z79.01 Long term (current) use of anticoagulants
CPT/HCPCS: 36415; 80048; 85025; 94640; 94760; 97110; 97116; 97162; 97165; 97535; J0696; J2920; J7512

== ENCOUNTER 2020-04-20 04:52 | Inpatient (IN) | payer MEDICARE, OTHER ==
[~2020-04-20] VITALS: Ht 180.3 cm; Wt 84.6 kg
[~2020-04-20 04:52] MED LIST changes: +LACTULOSE10 GM/15 M PO; -VITAMIN D31000 UNI1 PO; +VITAMIN D325 MCG PO
--- NOTE | 2020-04-20 07:55 | NUR ---
REPORT RECIEVED FROM ED ON 79 YEAR OLD MALE PATIENT ADMITTED TO CCU VIA STRECTHER WITH DX OF AFIB RVR, LEFT KNEE PAIN EXBACERATION COPD. UPON ADMIT PATIENTIS AWAKE AND ALET, C/O PAIN IN LEFT KNEE. ACEWRAP/ICE IN PLACE. O2 SAT ON 10 L OXYMASK 79. O2 INCREASED TO MAX=15 LITHER. PATIENT HAS LONG HX OF COPD. DENIES FEELING SHORT OF BREATH. HR 130'S. DENIES CHEST PAIN. ADMISSION PROCESS STARTED.
--- NOTE | 2020-04-20 08:30 | NUR ---
DR. KINCAID HERE TO SEE PATIENT. ORDERS RECIEVED.
--- NOTE | 2020-04-20 08:42 | NUR ---
CARDIZEM 10 MG IV GIVEN PER ORDERS, CARDIZEM GTT HUNG AT 10 MG HR PER ORDERS.
[2020-04-20] MEDS ORDERED: ELIQUIS5 MG PO (09:14)
[2020-04-20] MEDS ORDERED: GABAPENTIN300 MG PO (09:15)
--- NOTE | 2020-04-20 09:45 | NUR ---
PO OXYCODONE 5 MG GIVEN FOR LEFT KNEE PAIN. ROUTINE MEDS ALSO GIVEN. REPOSITIONED.
--- NOTE | 2020-04-20 10:19 | NUR ---
CARDIZEM GTT DECREASED TO 5 MG/HR.
--- NOTE | 2020-04-20 12:13 | NUR ---
PT HAVING BREATHING TREAMENT-WILL CHECK BACK
--- NOTE | 2020-04-20 12:39 | NUR ---
SITTING UP IN BED FOR SMALL LUNCH. CONTINUES TO C/O LEFT KNEE PAIN. ICE BAG REFRESHENED. VAPOTHERM 35 LITER, 100% FIO2. PATIENT STATES THE PAIN IN LEFT KNEE IS A LITTLE LESS NOW. RATES 07/19. GABINO MCKEON. CARDIZEM GTT REMAINS AT 5 MG/HR.
--- NOTE | 2020-04-20 13:00 | NUR ---
Spoke with Shazia, state he lives in [place] with his Mei,who he calls his Cg. He uses 02 in the home. He uses a walker for any distance if he leaves the home. States he is not active and has chronic conditions. Plans on dc to home when cleared for dc. will assist at home. He denies need for any DME at home.
--- NOTE | 2020-04-20 14:41 | NUR ---
MEDS GIVEN ORDERED. CARDIZEM GTT REMAINS AT 5 MG/HR. OXYCODONE 5 MG PO GIVEN FOR LEFT KNEE PAIN. 07/19. O2 VIA VAPOTHERM 35 L /100% FIO2. BLADDER SCAN = 372 ML.
[2020-04-20] MEDS ORDERED: TYLENOL325 MG PO (14:58)
--- NOTE | 2020-04-20 14:58 | NUR ---
MED REC COMPLETE
--- NOTE | 2020-04-20 16:58 | EKG ---
[facility] [address] [facility] [address] [facility] [place] [address] Signed Atrial fibrillation Rightward axis T wave abnormality, consider inferior ischemia Abnormal ECG When compared with ECG of 05-SEP-2019 16:20, No significant change was found Confirmed by YOANNA KINCAID MD ([id number]) on 04/20/2020 4:57:56 PM Electronically Signed By: YOANNA KINCAID MD 04/20/20 1658 PATIENT NAME: KADY SARMIENTO Electrocardiogram DATE OF : 38 PHYSICIAN: YOANNA KINCAID MD REPORT #: [id number] REPORT IS CONFIDENTIAL AND NOT TO BE RELEASED WITHOUT AUTHORIZATION
--- NOTE | 2020-04-20 18:40 | NUR ---
GILLETTE CATH PLACED WITHOUT DIFFICULTY WITH RETURN OF 400 ML OF LEONCIO URINE, TOLERATED WELL. VAPOTHERM AT 90% FIO2 35 LITERS TO KEEP SATS 88 OR>.
--- NOTE | 2020-04-20 19:00 | NUR ---
SITTING UP IN BED WATCHING TV. REPORT TO NEXT SHIFT.
--- NOTE | 2020-04-20 19:50 | NUR ---
RECEIVED REPORT FROM [facility]. pt RESTING IN BED ON VAPOTHERM. NO NEEDS AT THIS TIME. RESPIRATION RATE 19. SLIGHTLY LABORED. CALL LIGHT WITHIN REACH.
--- NOTE | 2020-04-20 20:11 | NUR ---
IN TO DO ASSESSMENT AND MEDICATIONS. pt REPORTED BREATHING BETTER. PER DISCUSSION WITH RT TITRATED TO 80% Fi02, pt ABLE TO MAINTAIN SAT OF 88% FOR A FEW MINUTES THEN DROPPED TO LOW 80'S AFTER TAKING MEDICATIONS. TITRATED Fi02 TO 85%, pt MAINTAINING 88%. WILL CONTINUE TO MONITOR. ASSESSMENT DONE. pt HAS BASELINE TREMORS. NOTED A BANDAID TO RIGHT FOOT, LITTLE TOE. pt REPORTED IT WAS FROM A "NAIL CUTTING INCIDENT" DRESSING CDI. pt HOARSE, REPORTED HIS VOICE "COMES AND GOES" REQUESTED A LOZENGE. WILL ASK THE MD. GILLETTE DRAINING YELLOW URINE. LUNGS SOUNDS WHEEZY WITH CRACKLES IN THE BASES. pt DESATS WITH ANY ACTIVITY, INCLUDING TALKING. CALL LIGHT WITHIN REACH.
--- NOTE | 2020-04-20 20:25 | NUR ---
SPOKE WITH MD ABOUT LOZENGE FOR pt. TO PUT IN ORDER.
--- NOTE | 2020-04-20 20:41 | NUR ---
PAIN MEDICATION AND LOZENGE GIVEN (SEE MAR). PROVIDED FRESH WATER AND ICE PACK FOR KNEE. NO FURTHER REQUESTS AT THIS TIME. CALL LIGHT WITHIN REACH.
--- NOTE | 2020-04-20 22:52 | NUR ---
NOTED O2 SAT DROPPED TO 79%, HR INCREASED ABOVE 100. IN TO ASSESS. pt STATED "I JUST ROLLED OVER TO GET COMFORTABLE." RECOVERED SATS AFTER ABOUT 4 MINUTES. HR NOW 90'S SATS 89%.
--- NOTE | 2020-04-21 00:32 | NUR ---
ROUNDED ON pt. RESTING IN BED ON BACK, HOB ELEVATED. EYES CLOSED. RESPS REGULAR RATE 15. ON VAPOTHERM AT 35L, 85% Fi02. CALL LIGHT WITHIN REACH.
--- NOTE | 2020-04-21 01:43 | NUR ---
pt AWAKE, IN TO DO ASSESSMENT. pt REPORTED 2/10 PAIN IN KNEE WHILE RESTING, STATED "IT'S FINE UNTIL I JERK THEN IT REALLY GOES UP BUT IT IS BETTER THAN WHEN I CAME IN." PRN PAIN MEDS GIVEN WITH SCHEDULED MEDS. ASSESSMENT DONE. PROVIDED FRESH WATER AND ICE PACK. GILLETTE EMPTIED. PRN LOZENGE FOR THROAT COMFORT, pt IS LESS HOARSE THEN PRIOR ASSESSMENT. NO FURTHER REQUESTS AT THIS TIME. CALL LIGHT WITHIN REACH.
--- NOTE | 2020-04-21 03:26 | NUR ---
pt SATS DROPPED TO LOW 80'S IN TO ASSESS. pt RESTING IN BED ON BACK. EYES CLOSED, RESPIRATIONS REGULAR AND UNLABORED. RATE 14. VAPOTHERM PLACED CORRECTLY. INCREASED Fi02 TO 100%. SATS INCREASED TO 84% AND HELD STEADY. ATTEMPTED BLOWBY WITH 15L O2 pt IS MOUTH BREATHING, NO CHANGE IN SATS. AFTER ABOUT 10 MINUTES SATS INCREASED TO 88% ON Fi02 OF 100%, 35L VIA VAPOTHERM. pt DID NOT WAKE. CALL LIGHT WITHIN REACH.
--- NOTE | 2020-04-21 04:05 | NUR ---
pt CONTINUES TO RESTING IN BED WITH EYES CLOSED, RESPIRATIONS REGULAR RATE 19. O2 SAT 91% ON Fi02 OF 100%.
--- NOTE | 2020-04-21 04:31 | NUR ---
pt AWAKE. ASSESSMENT DONE. INCREASED AIR HEARD IN LOWER LUNGS, CRACKLES NOTED. pt REMAINS ON Fi02 100% 35L VIA VAPOTHERM. LOW URINE OUTPUT. REPORTED PAIN IS "OKAY" REFUSED PAIN MEDICATION AT THIS TIME. NO REQUESTS AT THIS TIME. CALL LIGHT WITHIN REACH.
--- NOTE | 2020-04-21 04:33 | NUR ---
UPDATED ON pt DESAT AND LOW URINE OUTPUT. NO NEW ORDERS AT THIS TIME.
--- NOTE | 2020-04-21 06:30 | NUR ---
IN TO GIVE MEDICATIONS. pt AWAKE IN BED. REPORTED 3/10 PAIN WHEN MOVING 1/10 PAIN AT REST. KNEE REMAINS WRAPPED, ELEVATED, WITH ICE. DISCUSSED LIFE AT HOME. 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 HE SAID NORMALLY JUST GETTING TO THE BATHROOM AT HOME WILL RESULT IN SATS OF 74%. HE USES 4-5L AT HOME. HE REPORTED THAT HE NORMALLY DOES NOT MOVE MUCH BECAUSE OF BREATHING. HE DOES NOT HAVE MUCH OF AN APPETITE, HE ORDERED YOGURT AND COFFEE FOR BREAKFAST. MEDICATIONS GIVEN (SEE MAR). CALL LIGHT WITHIN REACH.
--- NOTE | 2020-04-21 07:30 | NUR ---
PATIENT SHIFT REPORT RECIEVED FROM SAND SHOVELER RN. PATIENT RESTING IN BED ON VAPOTHERM AT 35L AND 100% FIO2 WITH SPO2 94%. WILL TRY AND WEAN OXYGEN PATIENT TOLERATES. WILL CONTINUE TO CLOSELY MONITOR.
--- NOTE | 2020-04-21 08:00 | NUR ---
THIS RN OPENED DOOR TO INTRODUCE MYSELF. PATIENT REQUESTS HIS BREAKFAST AT THIS TIME, BUT DENIES ANY OTHER NEEDS. RT IN TO SEE PATIENT. INDUSTRIAL SAFETY AND HEALTH TECHNICIAN AT THE BEDSIDE WELL TO DO VITALS. WILL CONTINUE TO CLOSELY MONITOR.
--- NOTE | 2020-04-21 09:15 | NUR ---
PATIENT SHIFT ASSESSMENT COMPELTED. PATIENTS BREATH SOUNDS DIMINISHED WITH EXP WHEEZE NOTED. PATIENT ON VAPOTHERM AT 40L AND 90% FIO2 WITH SPO2 93%. PATIENT DENEIS SOB. PATIENTS WORK OF BREATHING IS NORMAL. RR- 20. BOWEL TONES ACTIVE. PATIENTS SIGNIFICANT OTHER AT THE BEDSIDE. PATIENTS QUESTIONS ANSWERED. MD IN TO SEE PATIENT. WILL CONTINUE TO CLOSELY MONITOR.
--- NOTE | 2020-04-21 09:45 | NUR ---
THIS RN IN TO SEE PATIENT. RT AT THE BEDSIDE TO TRY DIFFERENT MASK OPTIONS TO TAKE PATIENT FOR A CT. PATIENT AGREEABLE TO PLAN OF CARE. PER MD MAY HAVE TO USE CPAP IF PATIENT TOLERATES.
--- NOTE | 2020-04-21 09:50 | NUR ---
room picked up, breakfast given. v/s and I&Os done and recorded. Pt. washed. no other needs at this time. call light within reach
--- NOTE | 2020-04-21 10:40 | NUR ---
PATIENT BACK FROM CT. THIS RN AND RT WENT WITH PATIENT TO CT. PATIENT BROUGHT DOWN ON 15L NONREBREATHER MASK WITH SPO2 88-92%. ON ARRIVAL WITH ACTIVITY PATIENT SPO2 <88. PLACED PATIENT ON CPAP FOR CT. PATIENTS SPO2 >90 ON CPAP SETTINGS. PATIENTS BEDDING CHANGED AT THIS TIME. MOVED PATIENT FROM CT TO BED. PATIENT THEN PLACED BACK ON NONREBREATHER MASK. PATIENTS SPO2 88-92% AT THIS TIME. BROUGHT PATIENT BACK TO HIS ROOM AND PLACED BACK ON CPAP AGAIN ONCE PATIENT WAS SETTLED IN HIS ROOM PER MD KINCAID. WILL ALLOW PATIENT SOMET TIME TO RECOOPERATE. PATIENTS CALL LIGHT IN REACH. LR BOLUS GOING PER MD. NO OTHER NEEDS AT THIS TIME. WILL CONTINUE TO CLOSELY MONITOR. RT IN AT THE BEDSIDE.
--- NOTE | 2020-04-21 11:30 | NUR ---
PATIENT REMAINS ON CPAP AT 8 AND 60% FIO2. PATIENTS SPO2 94%. PATIENT DENIES SOB. TURNED PATIENT IN BED AND OLD DRAWSHEET REMOVED. REPOSITIONED PATIENT FOR COMFORT. WASHED PATIENTS BACK SIDE WHILE PATIENT WAS TURNED ON HIS SIDE. PATIENT DID WELL WITH MOVEMENT AND SPO2 MAINTAINED IN THE 90'S. LUNCH ORDERED. PATIENT AGREED TO STAY ON CPAP UNTIL HIS FOOD GETS HERE. CALL LIGHT IN REACH. WILL CONTINUE TO CLOSELY MONITOR.
--- NOTE | 2020-04-21 13:00 | NUR ---
PATIENT ON VAPOTHERM AT 32L AND 90%. PATIENT COMPLAING OF THE HIGH FLOW OF THE OXYGEN CANNULA. WEANED PATIENT COULD TOELRATE WIHT SPO2 STAYING >88% PER PARAMAETER. PATIENT FINISHED HIS LUNCH. NO OTHER NEEDS AT THIS TIME. WILL CONTINUE TO CLOSELY MONITOR.
--- NOTE | 2020-04-21 14:27 | NUR ---
DUE TO PRECAUTIONS I AM UNABLE TO VISIT PT. GAVE PAULA LucianoPOST FOR PT AND SHE WILL INFORM HIM I WILL CALL HIM TAYLER.
--- NOTE | 2020-04-21 14:50 | NUR ---
THIS RN IN WITH PATIENT. PATIENT REMAINS ON VAPOTHERM AT 32L AND 90% FIO2. PATIENT TOELRATING WELL. PATIENT DENIES SOB. RR-20. PATIENT IS OCCASIONALY HOARSE IN THE VOICE, BUT REPORTS THIS IS NORMAL FOR THE PAST 2 YEARS. UNHOOKED PATIENT FROM IV ANTIBIOTIC AT THIS TIME BECAUSE IT IS FINISHED. WILL CONTINUE TO CLOSELY MONITOR. PATIENT HAS CALL LIGHT ON HIS LAP AND DENIES ANY OTHER NEEDS AT THIS TIME.
--- NOTE | 2020-04-21 16:00 | NUR ---
PATIENTS IN AT THE BEDSIDE AND UPDATED ON PLAN OF CARE. ALL QUESTIONS ANSWERED. PATIENTS ASSESSMENT REMAINS UNCHANGED AT THIS TIME. PATIENT ON VAPOTHERM AT 32L AND 90% FIO2. FRESH WATER AT THE BEDSIDE. WILL CONTINUE TO CLOSELY MONITOR.
--- NOTE | 2020-04-21 17:30 | NUR ---
THIS RN IN TO SEE PATIENT. ORDERED PATIENTS DINNER AND GAVE MEDICATIONS. PATIENT STATES HIS KNEE PAIN IS 3/10 AT THIS TIME AND REQUESTED TYLENOL. SEE EMAR FOR ADMIN. ICE PACK TO PATIENTS LEFT KNEE REAPPLIED. WILL CONTINUE TO CLOSELY MONITOR.
--- NOTE | 2020-04-21 18:46 | NUR ---
UPDATED MD DEL REAL THAT PATIENTS HR STARTED TO INCREASE THIS EVENING AND IS NOW 100-120'S WHILE SITTING UP EATING. PER MD DEL REAL DC CURRENT ORDER OF CARDIZEM AND RESUME SHORT ACTING 60MG TABS OF CARDIZEM AT 2000 TONIGHT. SEE EMAR FOR UPDATES. NO OTHER ISSUES AT THIS TIME. WILL CONTINUE TO CLOSELY MONITOR.
--- NOTE | 2020-04-21 20:50 | NUR ---
SHIFT REPORT RECEIVED FROM PAULA HALL. ASSESSMENT COMPLETED AT THIS TIME. PT IS ALERT/ORIENTED, DENIES PAIN. LUNGS ARE COARSE AND DIMINISHED, R.T. IN TO GIVE BREATHING TREATMENT. HR IRREGULAR, RATE 100-110, SCHEDULED CARDIZEM GIVEN. BOWEL TONES ACTIVE, DENIES NAUSEA. GILLETTE PATENT, CATH CARE PROVIDED. SKIN GROSSLY INTACT, LEFT KNEE WRAPPED WITH TERRELL WRAP, NEW ICE PACK PROVIDED. IV SITES INTACT AND PATENT. VAPOTHERM CONTINUES AT 32L @ 90%, PT DENIES SOB AND CHEST PAIN. FRESH ICE WATER PROVIDED, PT DENIES FURTHER REQUESTS AT THIS TIME, CALL LIGHT WITHIN REACH.
--- NOTE | 2020-04-21 22:00 | NUR ---
IN TO GIVE SCHEDULED SOLU-MEDROL. PT REQUESTS PRN TYLENOL FOR 4/10 LEFT KNEE PAIN. DENIES FURTHER REQUESTS AT THIS TIME, CALL LIGHT WITHIN REACH.
--- NOTE | 2020-04-22 00:02 | NUR ---
ASSESSMENT COMPLETED. PT DENIES PAIN AT THIS TIME, NEW ICE PACK PROVIDED FOR LEFT KNEE, SWELLING REMAINS UNCHANGED. LUNGS REMAIN COARSE/DIM, VAPOTHERM CONTINUES AT 32L @ 90%. HR IRREGULAR RATE 90-105. DENIES NAUSEA. SCD'S IN PLACE. GILLETTE REMAINS PATENT. IV SITES INTACT. PT REQUESTS TO TALK TO R.T. ABOUT CHANGING TUBING ON VAPOTHERM, RDarya ONEAL CALLED AND WILL COME SPEAK WITH PT. PT DENIES FURTHER REQUESTS AT THIS TIME, CALL LIGHT AND BELONGINGS WITHIN REACH.
--- NOTE | 2020-04-22 02:10 | NUR ---
PT AWAKENED FOR SCHEDULED CARDIZEM. GILLETTE OUTPUT MEASURED. FRESH ICE WATER PROVIDED. VAPOTHERM CONTINUES AT 25L @ 90%. PT DENIES REQUESTS OR COMPLAINTS AT THIS TIME. CALL LIGHT WITHIN REACH.
--- NOTE | 2020-04-22 04:21 | NUR ---
PT SLEEPING AT THIS TIME, NO APPARENT DISTRESS. RESPIRATIONS EVEN AND UNLABORED, VAPOTHERM REMAINS IN PLACE, SETTINGS UNCHANGED. RR:20, HR:77, SPO2:94%. WILL ALLOW FOR REST AND CONTINUE TO MONITOR.
--- NOTE | 2020-04-22 06:14 | NUR ---
PT AWAKE AND WATCHING TV, SCHEDULED MEDS GIVEN PER EMAR. PT STATES HE HAD DIFFICULTY SLEEPING LAST NIGHT AND THAT HE WOKE UP FREQUENTLY. DENIES PAIN AT THIS TIME. VAPOTHERM SETTINGS UNCHANGED. GILLETTE EMPTIED. BREAKFAST ORDER CALLED TO KITCHEN.
--- NOTE | 2020-04-22 07:30 | NUR ---
PATIENT SHIFT REPORT RECIEVED FORM BURIAL VAULT SETTER RN. PATIENT RESTING IN BED ON VAPOTHERM AT 25L AND 90% FIO2. PATIENTS SPO2 94%. CALL LIGHT IN REACH. PATIENT S CALLS APPROPRIATELY. WILL CONTINUE TO CLOSELY MONITOR.
--- NOTE | 2020-04-22 09:00 | NUR ---
THIS RN AND SHIRT IRONER SUPERVISOR IN TO ASSIST PATIENT. PATIENT WAS UP TO THE CAMMODE WITH SHIRT IRONER SUPERVISOR AND TOLERATED WELL. PATIENTS SPO2 MAINTAINED GREATHER THAN >88%. PATIENT NOW UP RESTING IN THE CHAIR AND PATIENT TOLERATING WELL. TITRATED FIO2 TO 80% AND PATIENTS SPO2 92%. PATIENT WORKING ON HIS BREAKFAST AT THIS TIME. PATIENT IS AGREEABLE TO PLAN OF CARE. NO OTHER NEEDS AT THIS TIME. WILL CONTINUE TO CLOSELY MONITOR.
--- NOTE | 2020-04-22 09:32 | NUR ---
CORPORATE COORDINATOR assisted pt. to commode then to chair. gown and linens changed. breakfast given room picked up. v/s and i&Os done and recorded. no other needs at this time call light with in reach
--- NOTE | 2020-04-22 10:31 | NUR ---
SPOKE WITH MD AND RT. WILL TRY AND TRANSFER PATIENT ONTO A HIGH FLOW NASAL CANNULA AND SEE IF PATIENT TOLERATES. ABX FINISHED. UPDATED PATIENT ON PLAN OF CARE.
--- NOTE | 2020-04-22 12:00 | NUR ---
RT PLACED PATIENT ON HIGH FLOW CANNULA AT 15L. PATIENT TOELRATING AT THIS TIME. PATIENT WORKED WITH PHYSICAL THERAPY. PATIENT TOELRATED WELL. PATIENTS SPO2 DID DESAT WITH SOME ACTIVITY, BUT CAME BACK UP A FEW MINUTES OF SITTING. PATIENT DOES REPORT SOME SOB WITH WITH ACTIVITY. PATIENT RESTING I NTHE CHAIR AT THIS TIME. CALLED PATIENTS TO UPDATE ON PLAN OF CARE. WILL CONTINUE TO CLOSELY MONITOR.
--- NOTE | 2020-04-22 13:10 | NUR ---
PATIENT RESTING UP IN THE CHAIR. MEDICATIONS GIVEN. PATIENT REQUESTING SOME SCISSORS TO CUT HIS NASAL CANNULA SO HE CAN USE IT IN HIS MOUTH. PATIENT DOES THIS AT HOME BECAUSE THE CANNULA HURTS HIS EARS. PLACED PATIENT ON OXYMASK AT 15L AT THIS TIME. WILL CONTINUE TO CLSOELY MONITOR AND CALL RT AND SEE IF PATIENT CAN HAVE A BLOW-BY SET UP FOR HIS USE. CALL LIGHT IN REACH. WILL CONTINUE TO CLOSELY MONITOR.
--- NOTE | 2020-04-22 13:49 | NUR ---
PTS O2 SATS UP TO 99%, TURNED DOWN TO 13 L ON OXYMASK
--- NOTE | 2020-04-22 14:30 | NUR ---
THIS RN IN WITH PATIENT. PATIENT BACK TO BED WITH RN ASSIST. PATIENT TOELRATED WELL. PATIENT HAS BEEN UP IN THE CHAIR ALL DAY. MEDICATIONS GIVEN. PATIENT WEANED DPWN TO 11L VIA OXYMASK. WILL TITRATE PATIENT CAN TOLERATE AND MAINTAINS SPO2 88-92% PER ORDERS. CALL LIGHT IN REACH. WILL CONTINUE TO CLOSELY MONITOR.
--- NOTE | 2020-04-22 15:15 | NUR ---
Spoke with pt and RN in his room. He is off his high flow 02 and on a venti mask at 10 L. Pt states he is ok, feeling somewhat better. No change in plan for dc.
--- NOTE | 2020-04-22 15:31 | NUR ---
UPDATED MD DEL REAL THAT PATIENTS HAS TO STAND TO PEE AND UNRINATES EVERY HOUR PER PATIENT. PATIENT IS STILL ON 11L OXYMASK AND SOB WITH ACTIVITY. PER MD MAY LEAVE GILLETTE CATHETER IN FOR 1 MORE DAY AND REASSESS TOMORROW. NO OTHER NEEDS AT THIS TIME. WILL CONTINUE TO CLOSELY MONITOR.
--- NOTE | 2020-04-22 17:09 | NUR ---
PATIENT RESTING IN BED AT THIS TIME. PATIENT HAS BEEN RESTING OFF AND ON SINCE GETTING BACK TO BED. UPDATEED ON PLAN OF CARE. WILL REMOVE PATIENTS LEFT HAND IV D/T NO LONGER BEING PATENT AND START A NEW IV. PATIENT AGREEABLE TO PLAN OF CARE. DINNER ORDERED. WILL CONTINUE TO CLOSELY MONITOR.
--- NOTE | 2020-04-22 18:09 | NUR ---
STUDENT RN IN AND STARTED A NEW IV FOR PATIENT IN HIS RIGHT FOREARM. HAND IV DCD D/T NO LONGER PATENT. PATIENT TOLERATED WELL. THIS RN STANDING BY TO OBSERVE. PATIENT NOW SITTING UP EATING YOGURT. MEDICATION GIVEN. PATIENT DENIES ANY OTHER NEEDS AT THIS TIME. CALL LIGHT IN REACH. WILL CONTINUE TO CLOSELY MONITOR.
--- NOTE | 2020-04-22 20:24 | NUR ---
SHIFT REPORT RECEIVED FROM PAULA HALL. ASSESSMENT COMPLETED. PT IS ALERT/ORIENTED, DENIES PAIN AT THIS TIME. NEW ICE PACK PROVIDED TO LEFT KNEE, REMAINS WRAPPED IN TERRELL WRAP, SWELLING SLIGHTLY IMPROVED FROM YESTERDAY. LUNGS DIM, MORE COARSE ON LEFT SIDE, 15L VIA OXYMASK IN PLACE. R.T. IN TO GIVE NEB, PT REFUSES CPAP, VAPOTHERM, AND HIGH FLOW NASAL CANNULA AT THIS TIME. HR IRREGULAR, RATE IN 80'S, SCHEDULED CARDIZEM GIVEN. BOWEL TONES ACTIVE, DENIES NAUSEA. SKIN GROSSLY INTACT. IV SITES INTACT, PATENT, AND SALINE LOCKED. SCD'S IN PLACE. GILLETTE PATENT, CATH CARE PROVIDED. FRESH ICE WATER PROVIDED. PT DENIES FURTHER REQUESTS AT THIS TIME, CALL LIGHT AND BELONGINGS WITHIN REACH.
--- NOTE | 2020-04-22 22:16 | NUR ---
SCHEDULED MEDS GIVEN PER EMAR. PT CONTINUES TO DENY PAIN. OXYMASK REMAINS IN PLACE AT 15L, SPO2:90%. GILLETTE EMPTIED. PT DENIES FURTHER REQUESTS AT THIS TIME.
--- NOTE | 2020-04-23 01:49 | NUR ---
PT AWAKE AT THIS TIME, IN TO GIVE SCHEDULED MEDICATIONS PER EMAR. ASSESSMENT COMPLETED. PT CONTINUES TO DENY PAIN. LUNGS DIM THROUGHOUT, SOUND LESS COARSE AT THIS TIME. OXYGEN REMAINS AT 15L VIA OXYMASK. HR IRREGULAR, RATE IN 80'S. BOWEL TONES ACTIVE, DENIES NAUSEA. GILLETTE REMAINS PATENT WITH YELLOW URINE. IV SITES INTACT. SCD'S REMAIN IN PLACE. PT DENIES CHEST PAIN AND SOB. NO REQUESTS AT THIS TIME. CALL LIGHT WITHIN REACH.
--- NOTE | 2020-04-23 04:29 | NUR ---
ASSESSMENT COMPLETED. PT RESTING IN BED, DENIES PAIN AT THIS TIME. LUNGS REMAIN DIM THROUGHOUT, BREATHING LABORED, PT DENIES SOB. OXYGEN REMAINS AT 15L VIA OXYMASK, SPO2:93 AT THIS TIME. HR IRREGULAR, RATE 60-70'S. DENIES NAUSEA. GILLETTE PATENT. IV SITES INTACT. NEW ICE PACK PROVIDED FOR LEFT KNEE. PT DENIES FURTHER REQUESTS AT THIS TIME, CALL LIGHT WITHIN REACH.
--- NOTE | 2020-04-23 06:01 | NUR ---
SCHEDULED MEDS GIVEN PER EMAR. PT CONTINUES TO DENY PAIN. FRESH ICE WATER PROVIDED. GILLETTE EMPTIED. PT DENIES WANTING TO ORDER ANYTHING FOR BREAKFAST AT THIS TIME. CALL LIGHT WITHIN REACH.
--- NOTE | 2020-04-23 07:30 | NUR ---
PATIENT SHIFT REPORT RECIEVED FROM FIBERGLASS FABRICATOR RN. PATIENT RESTING IN BED AT THIS TIME. PATIENT ON 15L OXYMASK PER REPORT. PATIENTS SPO2 92%. WILL CONTINUE TO CLOSELY MONITOR.
--- NOTE | 2020-04-23 08:15 | NUR ---
v/s, I&Os done and recorded. room picked up. Ice pack given for left knee no other needs at this time. call light with in reach
--- NOTE | 2020-04-23 10:00 | NUR ---
PATIENTS SHIFT ASSESSMENT COMPELTED. PATIENT ASSISTED UP TO THE CAMMODE AND THEN INTO THE CHAIR. PHYSICAL THERAPY IN TO WORK WITH PATIENT AT THIS TIME. PATIENT TOLERATED THERAPY WELL. NEW BEDDING PLACED ON PATIENTS BED AT THIS TIME. WILL GIVE AM MEDICATIONS. WILL TRY TO WEAN OXYGEN TOLERATED.
--- NOTE | 2020-04-23 10:30 | NUR ---
PATIENT SITTING IN THE CHAIR. OXYGEN TURNED DOWN TO 10L WITH SPO2 93%. PATIENT WAS ABLE TO COUGH UP SOME SPUTUM THIS AM. WILL TRY TO GET A SPUTUM SAMPLE SENT. FRESH ICE PACK APPLIED TO KNEE. PATIENT HAS APPLE JUICE WITH HIS MIRALAX AT THE BEDSIDE AND A PROTIEN POWDER MILKSHAKE WELL. PATIENT TRIED TO HAVE A BM THIS AM WITH NO PROGRESS. MD WILL BE IN TO SEE PATIENT. SPOKE WITH PATIENT ABOUT PLAN OF CARE AND WEARING THE CPAP FOR LUNG RECRUITMENT. MEDICATIONS GIVEN. CALL LIGHT IN REACH. WILL CONTINUE TO CLOSELY MONITOR.
--- NOTE | 2020-04-23 11:44 | NUR ---
CALLED AND UPDATED PATIENTS PAT PER PATIENTS REQUEST. UPDATED ON PLAN OF CARE AND PLAN FOR THE DAY. NO FURTHER QUESTIONS AT THIS TIME.
--- NOTE | 2020-04-23 11:45 | NUR ---
PATIENT UP TO THE CAMMODE WITH 8TH GRADE MATHEMATICS TEACHER ASSIST. PATIENT PASSING GAS BUT NO BM. PATIENT BACK TO BED AND PLACED ON CPAP. PATIENT AGREEABLE TO TRYING TO WEAR IT FOR APPROX. 1 HOUR. PATIENT HAS CALL LIGHT IN REACH. CPAP TURNED DOWN TO 50% FIO2 D/T SPO2 100%. WILL TITRATE APPROPRIATE.
--- NOTE | 2020-04-23 11:57 | NUR ---
TITRATED FIO2 DOWN TO 40% FIO2. SPO2 97%. UPDATED KB WITH RESPIRATORY THERAPY. NO OTHER NEEDS AT THIS TIME. WILL CONTINUE TO CLOSELY MONITOR.
--- NOTE | 2020-04-23 12:02 | NUR ---
CALLED PT ON HIS CELL PHONE[place] [facility] [place] CP[place] NOW. WILL CONTINUE TO FOLLOW
--- NOTE | 2020-04-23 13:05 | NUR ---
PATIENT OFF OF THE CPAP AT THIS TIME. PATIENT WAS ABLE TO TOLERATE IF FOR A LITTLE OVER AN HOUR. PATIENT BACK ON 10L OXYMASK AT THIS TIME AND IS GOING TO EAT HIS COOKIES THAT HE HAS AT THE BEDSIDE. WILL ORDER A MILKSHAKE FOR HIM WHEN HE IS READY. AFTER PATIENT IS DONE WITH HIS FOOD HE WOULD LIKE TO SHAVE AND BRUSH HIS TETTH. NO OTHER NEEDS AT THIS TIME. WILL CONTINUE TO CLOSELY MONITOR.
--- NOTE | 2020-04-23 15:15 | NUR ---
WINDING INSPECTOR AND TESTER IN WITH PATIENT TO ASSIST WITH CARES. PATIENT ABLE TO SHAVE HIMSELF WITH NO ISSUES. PATIENTS TOOTHBRUSH IS AN AUTOMATIC ONE AND IS CURRENTLY CHARGING. MEDICATIONS GIVEN. NO OTHER NEEDS AT THIS TIME. WILL CONTINUE TO [place].
--- NOTE | 2020-04-23 15:33 | NUR ---
NOT DISCHARGING TODAY. NO CHANGE IN DISCHARGE PLAN AT THIS TIME.
--- NOTE | 2020-04-23 16:30 | NUR ---
PATIENTS CATHETER REMOVED AND REPORT WAS GIVEN TO NATALIA MITCHELL. ALL QUESTIONS ANSWERED. PATIENT WILL TRANSFER TO ROOM 113. ALL BELONGINGS GATHERED. PATIENT UPDATED ON PLAN OF CARE. NO FURTHER NEEDS AT THIS TIME. WILL CONTINUE TO CLOSELY MONITOR.
--- NOTE | 2020-04-23 16:45 | NUR ---
PATIENT TRANSFERED TO THE MEDICAL UNIT WITH PAULA FISHER. ALL BELONGINGS SENT WITH PATIENT. RT WILL COME AND TAKE CPAP MACHINE TO HIS NEW ROOM. NO FURTHER QUESTIONS AT THIS TIME.
--- NOTE | 2020-04-23 16:54 | NUR ---
Patient brought from CCU room 130 to room 113 in bed. Assessment completed. Continues on 10L/min per oxymask. Ice water provided. Continues drinking shake. Denies other needs at this time.
--- NOTE | 2020-04-23 17:30 | NUR ---
MEDICATION ADMINISTERED PRESCRIBED. REMAINS ON OXYMASK AT 10L/MIN. REMAINS ALERT AND ORIENTED. DENIES OTHER NEEDS AT THIS TIME. CALL LIGHT IN REACH, BED RAILS UP X2.
--- NOTE | 2020-04-23 18:27 | NUR ---
Patient tx from CCU late this afternoon. Patient has been in bed and calls appropriately. Requires 10L O2 with oxi-mask. O2 demands increase with exertion. Patient has urinal at the bedside. Lung sounds have been course and diminished.
--- NOTE | 2020-04-23 19:05 | NUR ---
REPORT RECEIVED FROM NATALIA MITCHELL AND SATNAM MANDEL. CURRENTLY HAS O2 IN PLACE VIA OXYMASK. SALINE LOCKED. DUE TO VOID. NO REQUESTS AT THIS TIME, CALL LIGHT IN REACH.
--- NOTE | 2020-04-23 20:00 | NUR ---
This RN in room to administer scheduled medications and assess patient. On 10L oxymask, tolerating well at this time. Able to swallow medications easily with water, feels short of breath while oxymask not in place. Pt is due to void. Made plan with pt for CPAP use later in evening. No further requests at this time.
--- NOTE | 2020-04-23 21:05 | NUR ---
IN TO UNHOOK PT SCDS TO ALLOW PT ATTEMPTS TO VOID AT BEDSIDE WITH URINAL, PT WILL CALL IF HE HAS ANY ISSUES OR IF HE HAS A SUCCESSFUL VOID, NO FURTHER NEEDS AT THIS TIME
--- NOTE | 2020-04-23 22:00 | NUR ---
Scheduled medication administered, pt agrees to use CPAP device for time being. Pt states will keep mask on as long as can tolerate. Pt states having heartburn, made plan for NIO for maalox. No further requests at this time.
--- NOTE | 2020-04-23 22:45 | NUR ---
PRN maalox administered. Pt removed CPAP, states cannot tolerate. Oxymask in place at 10L. No further requests. Call light in reach
--- NOTE | 2020-04-24 00:05 | NUR ---
Rounded on patient, resting in bed with eyes closed. Oxymask in place at 10L. Breathing evenly, unlabored. Call light in reach.
--- NOTE | 2020-04-24 02:30 | NUR ---
IN ROOM TO ADMINISTER CARDIAC MEDICATION. VSS. PT ON 10L OXYMASK, TOLERATING GENERALLY WELL. LUNG SOUNDS OVERALL COARSE, DIM IN BASES. PT ABLE TO SIT AT SIDE OF BED TO USE URINAL. NO FURTHER REQUESTS AT THIS TIME. CALL LIGHT IN [facility].
--- NOTE | 2020-04-24 02:35 | NUR ---
IN TO GET PT VITALS, PT ATTEMPT TO VOID, 50 MLS RECORDED, NO FURTHER NEEDS AT THIS TIME
--- NOTE | 2020-04-24 06:01 | NUR ---
Vitals and I/O'S complete with assist of PUBLIC FINANCE SPECIALIST. Scheduled medications administered. Pt resting in bed, 10L oxymask in place, tolerating well. Pt pleasant and jovial this morning. Lab in room for draw. Call light in reach, no further requests.
--- NOTE | 2020-04-24 06:28 | NUR ---
Pt compliant with CPAP use for approx 30 minutes this shift, otherwise on 10L 02 via oxymask. 88-92% SPO2 readings. Used urinal at bedside to void. SCD's in place. Pt denies pain, discomfort this shift. SBA to BR. VSS. A+O. Nutritional shake in fridge. Calls appropriately.
--- NOTE | 2020-04-24 07:32 | NUR ---
0700: Report received from Ivania MITCHELL. Pt resting in his bed with his call gay within reach and he denies any problems at this time.
--- NOTE | 2020-04-24 08:35 | NUR ---
PT DENIES ANY LEFT KNEE PAIN AND STATES HIS BREATHING FEELS :"OKAY". SAT REMAINS IN THE LOW 90'S ON 10l VIA OM AT THIS TIME. LUNG SOUNDS DECREASED WITH EXP WHEEZES IN THE BASES. SEE ASSESSMENT.
--- NOTE | 2020-04-24 11:03 | NUR ---
Pt assisted back to his bed per his request. He denies any other new problems at this time.
--- NOTE | 2020-04-24 13:04 | NUR ---
sat 91% on 10 via om at this time. Pt states his breathing feels as if it is improving and he denies any left knee pain at this time. See assessment.
--- NOTE | 2020-04-24 15:36 | NUR ---
PT brushing his teeth with the superior court clerk helping him and denies any problems or other needs at this time.
--- NOTE | 2020-04-24 15:52 | NUR ---
WHEN I WENT IN TO DO HIS VITALS. PATIENT WAS SITTING ON THE BEDSIDE COMMODE. BEFORE I LEFT HE SAID HE WAS DONE. SO PATIENT HAD A BOWL MOVEMENT IT WAS A MEDIUM.
--- NOTE | 2020-04-24 16:07 | NUR ---
Pt states his breating feels okay at this time and he denies any needs.
--- NOTE | 2020-04-24 17:38 | NUR ---
SAT 96% ON 8L VIA OXYMASK AT THIS TIME. THE PT'S WAS CALLED AND UPDATED PER KADY'S REQUEST. PT DENIES ANY NEW PROBLEMS AND STATES THE PAIN IN HIS LEFT KNEE IS A 1-2/10 AT THIS TIME.
--- NOTE | 2020-04-24 19:00 | NUR ---
Report received from Manny MITCHELL. Pt sitting up in bed with 8L O2 oxymask in place. Pt reports no needs at this time, states no pain. Pt ate small bowl of soup, continuing to finish. Call light in reach.
--- NOTE | 2020-04-24 21:00 | NUR ---
Scheduled medications administered, pt resting in bed. Vitals and I/O's completed, VSS. A+O, states no pain or SOB. 8L oxymask in place. Lungs mildly coarse, dim in bases. Pt reports that swelling to knee has significantly decreased. No further requests, call light in reach.
--- NOTE | 2020-04-24 22:19 | NUR ---
Rounded on patient, resting in bed, oxymask in place. pt states ready to sleep, denies needs. Call light in reach.
--- NOTE | 2020-04-25 00:35 | NUR ---
In room to round, pt has oxymask in place, eyes closed and breathing evenly. Did not disturb. Call light in reach.
--- NOTE | 2020-04-25 01:58 | NUR ---
Rounded on patient, resting with eyes closed. Breathing unlabored. Allowed to rest. Call light in reach
--- NOTE | 2020-04-25 03:40 | NUR ---
Checked on pt, in bed with oxymask in place, breathing even and unlabored. Call light in reach.
--- NOTE | 2020-04-25 05:30 | NUR ---
Morning medication administered, vitals and I/O's completed. Pt resting in bed with oxymask in place at 8L. Stands at bedside to void into urinal. Ice pack to L knee, water refreshed. No further needs. Call light in reach
--- NOTE | 2020-04-25 07:16 | NUR ---
REPORT RECEIVED FROM PAULA MADERA. PT RESTING IN BED WITH 8L O2 BY OXYMASK IN PLACE. PT REPORTS 2/10 PAIN IN LEFT KNEE AND DENIES NEED FOR PAIN MEDICATION. PT DENIES NAUSEA. PT DECLINES USE OF CPAP AND SCD'S. NO ADDITIONAL REQUESTS OR COMPLAINTS. BED RAILS UP. CALL LIGHT WITHIN REACH.
--- NOTE | 2020-04-25 08:10 | NUR ---
PATIENTS BREAKFAST WAS ORDERED, PATIENT WAS IN BED, PATIENT NEEDED THE THERMOSTAT TURNED UP A LITTLE, NOTHING ELSE TO REPORT
--- NOTE | 2020-04-25 08:23 | NUR ---
MORNING ASSESSMENT AND MEDICATION DUE. PT RESTING IN BED. PT REPORTS HE ORDERED A STRAWBERRY ENSURE FOR BREAKFAST. PT REPORTS 1/10 PAIN IN LEFT KNEE AND DENIES NEED FOR PAIN MEDICATION. FRESH ICE PACK PROVIDED. PT CONTINUES TO REPORT WEAKNESS IN LEGS, DECLINES TIME UP TO CHAIR UNTIL PHYSICAL THERAPY ARRIVES. PT STATES "BESSIE WILL GET ME UP." LEFT KNEE EXMAINED, SWELLING NOTED. NO VISIABLE MARKES ON KNEE. TERRELL WRAP REAPPLED PER PT PREFERENCES. BANDAID TO RIGTH PINKY TOE REMOVED. PT REPORTS HE CUT HIS TOE WHILE CLIPPING HIS NAILS. SMALL LACERATION TO RIGHT PINKY TOE NOTED. PT REPORTS RESPIRATORY THERAPY DECREASED HIS OXYGEN TO 6L O2 BY OXYMASK. O2 SATURATION NOTED TO BE AT 82%. O2 INCREASED BACK TO 8L O2 BY OXYMASK AND SATURATIONS IMPROVE TO 91%. PT DEMONSTRATES USE OF I.S. REACHING 2200. UMBILICAL SWELLING NOTED, PT REPORTS THIS IS A HERNIA. MEDICAITON GIVEN (SEE MAR). PHYSICAL THERAPY TO BEDSIDE TO WORK WITH PT. PT UP TO STAND AND USE URINAL AND THEN UP TO CHAIR WITH ONE PERSON ASSIST AND FRONT WHEEL WALKER. PT DESATURATES TO 79% WITH ACTIVITY. OXYGEN INCREASED TO 10L FOR ACTIVITY. PT CONTINEUS WORKING WITH BESSIE FROM PHYSICAL THERAPY. NO ADDITIONAL REQUESTS OR COMPLAINTS. CALL LIGHT WITHIN REACH. BED RAILS UP. LINENS CHANGED.
--- NOTE | 2020-04-25 10:05 | NUR ---
PT CALL LIGHT ON. PT REQUESTS ASSISTANCE UP TO STAND TO USE URINAL. SMALL AMOUNT OF INCONTINANCE NOTED. PT VOIDS 100ML CLEAR YELLOW URINE WITHOUT ISSUE. MITZY CARE DONE. GOWN CHANGED. PT O2 SATURATION DECLINES TO 79% WHEN PT IS UP TO STAND. OXYGEN TITRATED UP TO 10 LITERS DURING ACTIVITY. PT BACK TO BED. O2 SATURATIONS INCREASE WITH REST UP TO 95% ON 10L. O2 DECREASED TO 8L O2 BY NC. O2 SATURATIONS MAINTAINING ABOVE 90%. NO ADDITIONAL REQUESTS OR COMPLAINTS. CALL LIGHT WITHIN REACH. PT AGREES TO USE SCD'S, SCD'S IN PLACE. BED RAILS UP.
--- NOTE | 2020-04-25 12:04 | NUR ---
THIS RN TO ROOM TO CHECK ON PT. PT RESTING IN BED WITH HEAD OF BED ELEVATED TO 35 DEGREES. O2 SATURATION NOTED TO BE 91% ON 8L O2 BY OXYMASK. PT REPORTS "A LITTLE INDIGESTION." MAALOX OFFERED, PT DECLINES. PT DENIES PAIN AND NAUSEA. LUNCH ORDER PLACED. NO ADDITIONAL REQUESTS OR COMPLAINTS AT THIS TIME. CALL LIGHT WITHIN REACH.
--- NOTE | 2020-04-25 12:23 | NUR ---
PT CALL LIGHT ON. PT REQUESTS ASSISTANCE UP TO RESTROOM. O2 AT 86% ON 6LITERS WEANED BY RT. O2 INCREASED TO 10L FOR AMBULATION. PT UP TO STAND AT BEDSIDE, VOIDS 125ML CONCENTRATED YELLOW URINE. WHILE PT IS STANDING IV BEINGS DRIPPING BLOOD. IV LEAKING, DC'D PER PROTOCOL. GAUZE AND COBAN APPLIED. NEW IV STARTED IN LEFT FORARM PER PROTOCOL, BRISK BLOOD RETURN NOTED. IV SALINE LOCKED, ALCOHOL CAP APPLIED. PT BACK TO BED. O2 WEANED BACK TO 6L O2 BY NC. PT MAINAINING O2 SATURATIONS BETWEEN 90-95% ON 6L O2 BY NC. NO ADDITIONAL REQUESTS OR COMPLAINTS. CALL LIGHT WITHIN REACH. BED RAILS UP.
--- NOTE | 2020-04-25 14:17 | NUR ---
AFTERNOON ASSESSMENT DUE. PT RESTING IN BED WITH HEAD OF BED ELEVATED TO 30 DEGREES. PT REPORTS 1/10 PAIN IN RIGHT KNEE, DENIES ADDITIONAL PAIN LOCATIONS. PT DENIES NAUSEA. 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 PT REPORTS ONGOING WEAKNESS "BECAUSE I'VE GOTTEN LAZY AT HOME AND DON'T GO FOR WALKS." PT REPORTS HE WOULD LIKE TO BE ABLE TO WALK MORE ONCE HE IS HOME AGAIN. LUNG SOUNDS CLEAR BUT HALLOW. PT MAINTAINING O2 SATURATIONS ABOVE 90-94% ON 6L O2 BY OXYMASK. PT DEMONSTRATES USE OF I.S. REACHING 2500ML. HEART TONES CONTINUE TO BE VERY IRREGULAR. LEFT KNEES SWELLING SHOWS IMPROVMENT. TERRELL WRAP AND ICE PACK REMAINS IN PLACE. PT DECLINES USE OF SCD'S. ABDOMEN SOFT. PT DENIES TENDERNESS TO ABDOMEN. PT ATE 100% OF SANDWICH FOR LUNCH. 1 PERSON ASSIST WITH FRONT WHEEL WALKER UP TO STAND TO USE URINAL. O2 INCREASED TO 10L DURING ACTIVITY TO MAINTAIN OXYGEN SATURATIONS 87% AND ABOVE. PT VOIDS ML CONCENTRATED YELLOW URINE, NO ORDER NOTED. PT BACK TO BED. O2 TITRATED BACK TO 6L. MUSCLE TREMMOR IN HANDS AND ARMS CONTINUES. PT DENIES ADDITIONAL REQUESTS OR COMPLAINTS. CALL LIGHT WITHIN REACH. BED RAILSUP.
--- NOTE | 2020-04-25 15:30 | NUR ---
THIS RN TO ROOM TO CHECK ON PT. PT RESTING IN BED. PT DENIES NAUSEA AND REPORTS PAIN AT 1/10 IN KNEE. PT DENIES NEED FOR PAIN MEDICAITON A THIS TIME. STAND BY ASSIST WITH FRONT WHEEL WALKER UP TO STAND, PT VOIDS 125ML CONCENTRATED YELLOW URINE INTO URINAL. PT BACK TO BED. O2 SATURATIONS 94% ON 6L O2 BY NC. NO ADDITIONAL REQUESTS OR COMPLAINTS. CALL LIGHT WITHIN REACH. BED RAILS UP.
--- NOTE | 2020-04-25 16:43 | NUR ---
PATIENT TOOK A SHOWER, PATIENT DOESNT HANDLE ACTIVITY WELL. THIS PARCEL CONTRACTOR WAS INSTRUCTED BY NURSE TO TITRATE PATIENT UP ON OXYGEN WITH ACTIVITY, PATIENT WAS AT 6 LITERS, AND WITH ACTIVITY OXYGEN DROPPED TO 84, THIS PARCEL CONTRACTOR TITRATED OXYGEN UP TO 10 LITERS AND PATIENT'S OXYGEN LEVEL WENT UP TO 90 AND FLUCUATED BETWEEN 90-87 THROUGHOUT THE SHOWER. PATIENT IS BACK IN BED AND RESTING OXYGEN RECOVERED AND BACK AT 6 LITERS AND SATING AT 94 AT REST.
--- NOTE | 2020-04-25 17:58 | NUR ---
EVENING MEDICATIONS DUE. PT REPORTS HE WAS JUST UP TO STAND WITH FRONT WHEEL WALKER, INDEPENDANTLY, TO VOID. PT REMINDED OF FALL PRECAUTIONS AND CALLING NURSING STAFF. PT VERBALIZES UNDERSTANDING. PT NO LONGER HAS OXYMASK IN PLACE BUT IS USING CUT NASAL CANULA TUBING IN MOUTH WITH 6L OXYGEN FLOW. PULSE OX ORIGINALLY SHOWS 88% BUT CLIMBS TO 94% AFTER 5 MINUTES OF PT RESTING. PT STATES HE USES THIS METHOD OF OXYGEN DELIVERY AT HOME "BECAUSE THE TUBING ON MY EARS WORE MY SKIN DOWN." PT STATES HE HAS DISCUSSED THIS NEW MEHTOD WITH KB FROM [employer]. PT REPORTS 2/10 UPPER ABDOMEN PAIN AND REQUESTS TYLENOL. PT STATES PAIN IS "LIKE INDIGESTION." MAALOX SUGGESTED TO PT. PT DECLINES MAALOX AND REQUESTS TYLENOL. SEE MAR FOR MEDICATION GIVEN. NO ADDITIONAL REQUESTS OR COMPLAINTS. CALL LIGHT WITHIN REACH. BED RAILS UP. PT STATES HE HAS PLACED DINNER ORDER AND IS WAITING FOR DINNER TO ARRIVE.
--- NOTE | 2020-04-25 18:44 | NUR ---
PT HERE FOR HYPOXIA AND L KNEE EFFUSION. PT UP WITH 1 PERSON ASSIST AND FRONT WHEEL WALKER TO CHAIR, SHOWER, AND WITH PHYSICAL THERAPY THIS SHIFT. PT TOELRATING 2GM SODIUM DIET WITH MINIMAL APPITITE. APPITITE IMPROVING THIS SHIFT. PT EATING FOOD FOR LUNCH AND DINNER. PT REPORTS 1-2/10 PAIN IN LEFT KNEE AND EPIGASTRIC AREAS THIS SHIFT, PRN PAIN MEDICATION GIVEN. PT WEANED THIS SHIFT TO 6L O2 BY NASAL CANULA TUBING THAT PT PLACES IN HIS MOUTH. EDUCAITON DONE WITH PT REGARDING THIS METHOD, PT DECLINES NASAL CANULA (SEE RT AND RN NOTES). SHORTNESS OF BREATH CONTINUES. LUNG SOUNDS IMPROVING THROUGHOUT SHIFT. NEW IV PLACED TO LEFT FORARM, SALINE LOCKED. TERRELL WRAP AND ICE PACK REMAINS ON LEFT KNEE, SWELLING IMPROVING. PT VOIDING QUANTITY SUFFICIENT, USING BEDSIDE URINAL. PT USES CALL LIGHT APPROPRIATLY.
--- NOTE | 2020-04-25 19:00 | NUR ---
Report received from Dayanna MITCHELL. Pt currently using nasal cannula tubing in mouth, attempted education regarding potentially better ways of oxygenation provision, will continue to reinforce this as pt did not respond well at this time. Pt reports no pain in knee, no needs. Call light in reach.
--- NOTE | 2020-04-25 21:14 | NUR ---
Scheduled medications administered. Pt is using NC in mouth, spo2 80-90%, pt aware of this and would like to continue with this O2 method. Pt stands at bedside to use urinal. VSS, A+O. States he is working with PT tonight with CPAP. Pt states no pain, ice pack to L knee. No further requests.
--- NOTE | 2020-04-25 23:07 | NUR ---
Pt used CPAP for 1 hr. Called to request assistance standing at bedside to void. No further requests.
--- NOTE | 2020-04-25 23:24 | NUR ---
PT CALLED. SBA TO USE THE URINAL WITH WALKER. PT WITH NO COMPLAINTS OR OTHER NEEDS. VISITED WITH PT ABOUT FRIENDS IN COMMON. PT ALERT AND ORIENTATED.
--- NOTE | 2020-04-26 00:37 | NUR ---
PATIENT CALLED CONTINUING EDUCATION DEAN SYSTEM TO USE BSC. SBA TO BSC. WIPES AND GARBAGE SET NEXT TO PATIENT FOR USE. PATIENT WAS INSTRUCTED TO CALL WHEN FINISHED. WHEN FINISHED ON BSC BACK TO BED. PATIENT HAD NO REQUESTS WHEN ASKED. CALL LIGHT IN REACH.
--- NOTE | 2020-04-26 01:54 | NUR ---
CALL LIGHT ANSWERED. PT UP TO SIDE OF BED WITH FWW AND MINIMAL SBA TO VOID 125 YELLOW URINE. GAIT STEADY. BACK TO BED, PAULO WELL. INCREASED RESPIRATIONS NOTED. PT WITH O2 6L IN MOUTH. WARM BLANKET PROVIDED. CALL LIGHT IN HAND.
--- NOTE | 2020-04-26 03:02 | NUR ---
Checked on patient, in bed with eyes closed, O2 cannula in mouth. Breathing unlabored. Will cont to monitor
--- NOTE | 2020-04-26 06:24 | NUR ---
Scheduled medications administered. VS and I/O completed. pt requests his yogurt from [facility]. VSS. States that he prefers the nasal cannula in his mouth, SPO2 92%. Fresh water and new ice pack to L knee provided. No further needs at this time, call light in reach.
--- NOTE | 2020-04-26 07:54 | NUR ---
PT AWAKE AND INTERACTIVE AT SHIFT EXCHANGE. RESTING IN BED HOLDING 02 LIKE A STRAW PER HIS PREFERNCE. DENIES NEEDS AT THIS TIME.
--- NOTE | 2020-04-26 08:40 | NUR ---
pt. used call light so he could use the urinal while standing.
--- NOTE | 2020-04-26 09:50 | NUR ---
PT USES CALL LIGHT APPROPRIATELY FOR UP OUT OF BED. STANDS AT BEDSIDE TO USE THE URINAL RETURNS TO RESTING SUPINE.
--- NOTE | 2020-04-26 10:30 | NUR ---
SPOKE WITH CHAPIS OUT OF [facility]. THEY PROVIDE HIS HOME OXYGEN SUPPLIES. DISCUSSED WITH THEM THAT HE MAY NEED CONCENTRATOR THAT GOES OVER 5L. SHE STATES THAT THEY CAN DO THIS. WILL NEED NEW OXYGEN ORDER WITH HIS NEW RX, O2 QUALIFIER AND DOCUMENTATION OF WHAT HE NEEDS AND WHY HE NEEDS IT. SHE STATES THEY CANNOT MAKE IT TO [place] TODAY THOUGH DUE TO ROADS AND TO CALL THE MORNING OF DISCHARGE TO CHECK ON THAT. DISCUSSED WITH DR DEL REAL.
--- NOTE | 2020-04-26 11:02 | NUR ---
v/s and I&Os done and recorded. no other needs at this time. call light within reach
--- NOTE | 2020-04-26 12:50 | NUR ---
pt. used call light he had to stand to use the urinal
--- NOTE | 2020-04-26 13:53 | NUR ---
PT UP TO BSC, UNABLE TO MOVE HIS BOWELS RETURNS TO RESTING IN BED. SATS HAVE REMAINED IN LOW 90'S THIS SHIFT ON 6 L02 VIA TUBING TO HIS MOUTH IS HIS PREFERENCE. PT DENIES NEEDS OF.
--- NOTE | 2020-04-26 14:18 | NUR ---
PT ALERT, ORIENTED AND SITTING ON COMMODE WHEN I ENTERED HIS RM. HE FELT COMFORTABLE WITH ME THERE. HAD GOOD VISIT, PT FEELS HE IS IMPROVING. HE ADMITTED HE HAS NOT BEEN EXERCISING LIKE HE SHOULD OR USING HIS NEBULIZER REGULARLY. PT HOPE TO DC SUNDAY, REQUESTED PRAYER, WILL FOLLOW NEEDED
--- NOTE | 2020-04-26 14:46 | NUR ---
PATIENT IN BED WATCHING TV. VITALS AND I&O'S CHARTED. CALL LIGHT IN REACH. NO FURTHER NEEDS AT THIS TIME.
--- NOTE | 2020-04-26 15:03 | NUR ---
pt working with p/t
--- NOTE | 2020-04-26 15:40 | NUR ---
SATS HAVE REMAINED MID AND UPPER 90'S ON 6 LPM 02. TURNED 02 TO 5LPM WILL SPOT CHECK AND MONITOR PT TOLERANCE
--- NOTE | 2020-04-26 16:47 | NUR ---
PT 97% ON 5 LITERS AT THIS TIME. SITTING UP IN BED WATCHING TV.
--- NOTE | 2020-04-26 17:57 | NUR ---
PT SITTING UP IN BED EATS 100% OF EVENING MEAL. SATS 94% ON 5 L 02 DENIES NEEDS OF ANYTHING. HAS USED THE CALL LIGHT APPROPRIATELY THIS SHIFT.
--- NOTE | 2020-04-26 19:15 | NUR ---
BEDSIDE REPORT RECEIVED FROM OFFGOING RN. PT RESTING IN BED. DENIES NEEDS AT THIS TIME. CALL LIGHT IN REACH.
--- NOTE | 2020-04-26 20:54 | NUR ---
PT CALLED, HAD USED HIS URINAL. VISITED WITH PT, STATES HE THINKS HE WILL BE 'GOING HOME" TOMORROW. CHAPIS WILL BE "BRINGING AT CONCENTRATOR WITH MORE VOLUME". CURRENT ONE HAS MAX OF 5L, HE HAS BEEN USING 6L OR MORE DAILY. O2 INFUSING NC, BUT IN MOUTH PER CHOICE.
--- NOTE | 2020-04-26 22:03 | NUR ---
PT ASSESSMENT COMPLETE. PT RESTING IN BED WATCHING TV. STATES PAIN IS WELL CONTROLLED, RATES 1/10 TO L KNEE WHEN HE MOVES A CERTAIN WAY. STATES THAT SOB IS WELL CONTROLLED. O2 IN PLACE AT 5LPM VIA NC IN THE MOUTH. LUNG SOUNDS CLEAR. PT ENDORSES OCCASIONAL PRODUCTIVE COUGH, NOT NOTED DURING THIS ASSESSMENT. PT DECLINES TO WEAR CPAP. CALLS IT THE "MONSTER". PT DENIES NAUSEA. DECLINES LAXATIVE, STATES HE DOESN'T LIKE BM IN THE EVENING. IV FLUSHED, WNL. PT DENIES FURTHER NEEDS AT THIS TIEM. CALL LIGHT IN REACH.
--- NOTE | 2020-04-26 22:45 | NUR ---
PT UTILIZES CALL LIGHT, REQUESTS TO USE THE URINAL. PT STANDING WITH URINAL IN HAND CENTRIFUGAL SEPARATOR ENTERS THE ROOM. PT BACK TO BED WITH MINIMAL ASSIST. DENIES FURTHER NEEDS. CALL LIGHT IN REACH.
--- NOTE | 2020-04-27 02:48 | NUR ---
PT RESTING IN BED ON L SIDE. EYES CLOSED. RESPIRATIONS EVEN AND UNLABORED. PT DOES NOT WAKE WHEN QUALITY ASSURANCE MANAGER OPENS THE DOOR. CALL LIGHT IN REACH.
--- NOTE | 2020-04-27 03:41 | NUR ---
PT RESTING IN BED LYING ON HIS BACK. URINAL AT BEDSIDE, EMPTIED. PT DOES NOT WAKE WHILE BENCH LAY OUT TECHNICIAN IN ROOM. RESPIRATIONS EVEN AND UNLABORED. O2 IN PLACE APPROPRIATELY. CALL LIGHT IN REACH.
--- NOTE | 2020-04-27 06:22 | NUR ---
PT ASSESSMENT COMPLETE. PT RESTING IN BED EYES CLOSED. WAKES EASILY WHEN NIGHT ORDER SELECTOR ENTERS THE ROOM. PT DENIES PAIN, NAUSEA, OR SOB. LUNG SOUNDS CLEAR, DIM IN THE BASES. PT REPORTS OCCASIONAL PRODUCTIVE COUGH CONTINUES. O2 IN PLACE @ 5 LPM. TERRELL WRAP PRESENT TO L KNEE. TRACE EDEMA TO L KNEE. PT STANDS TO VOID WITH SBA AT BEDSIDE. TOLERATES WELL. STATES THAT HE FEELS HE COULD DO SO INDEPENDENTLY AT THIS POINT. ICE WATER REFILLED. PT DENIES FURTHER NEEDS. CALL LIGHT IN REACH.
--- NOTE | 2020-04-27 07:27 | NUR ---
PT RESTING IN BED ALERT AND INTERACTIVE AT SHIFT EXCHANGE. AGREES HE IS COMFORTABLE DENIES NEEDS.
--- NOTE | 2020-04-27 10:00 | NUR ---
Notified by staff, pt would like to speak with me. To pt's room and he would like to know if I could return when his arrvies. I agreed.
--- NOTE | 2020-04-27 10:05 | NUR ---
PATIENT IS LAYING IN BED. PATIENT ATE ALL OF HIS BREAKFAST. ICE WATER GIVEN. CALL LIGHT IS IN REACH. NO FURTHER NEEDS AT THIS TIME.
--- NOTE | 2020-04-27 10:28 | NUR ---
PT HAS PREFERRED TO REST IN BED DESPITE ENCOURAGEMENT TO THE CHAIR. TOLERATES 100% OF MORNING MEAL. UP TO BSC UNABLE TO MOVE HIS BOWELS. CONTINUES ON MIRALAX AND SENNA. DENIES DISCOMFORT OR BLOATING. PT CONTINUES TO USE 02 THROUGH TUBING IN HIS MOUTH NOT NC SATS MID 90'S AT REST DIP WITH ACTIVITY.
--- NOTE | 2020-04-27 13:00 | NUR ---
Notified pt's is in the room. In to visit. would like information about help in the home and wanting to know if medicare pays for this. Updated there is no payment source for help in the home. This is out of pocket unless you qualify for skilled nursing medicaid. states they make to much money. Discussed helping hands and I will get her a brochure. She has questions about second covid shot. She took her spouse to the [facility] dept[facility] covid clinic and told them she was his CG and he was eligible for a covid Shot. He was vaccinated but not rescheduled. She would like pt to be vaccinated here, informed we do not have vaccine for patients. [facility] or [facility]. There was notice in the paper, extra vaccine was turned over to [facility] and they are vaccinating people. She would also like a Noninvasive Home Ventilator as [facility] told them he would qualify. We discussed Scott had also discussed this with me. They stated it was basically a Bipap on steroids. We discussed [facility] has not been using the Bipap provided here, I also was able to discuss with RT this morning and they did not feel this was needed. I discussed with Dr. Marvin and she would like them to go through their PCP, Dr. Webb to order. Both state understanding. Pt has his NC off our entire converstation and has the hose in his mouth. He states he had bleeding blisters under his nose and on his ears, he will not wear a nc, but prefers to keep it in his mouth. He is able to keep his sat over 90% while at rest with using the o2 like this. Will follow up with pt tomorrow.
--- NOTE | 2020-04-27 13:20 | NUR ---
PT HAS BEEN UP IN THE CHAIR MOST OF THE SHIFT JUST NOW RETURNS TO RESTING IN BED. ARRIVES TO VISIT, SHE AND PT MEET WITH DC GRAVITY PROSPECTOR.
--- NOTE | 2020-04-27 14:09 | NUR ---
PATIENT IS SITTING UP IN BED. I&OS ARE DOCUMENTED. VITALS ARE DONE AND DOCUMENTED. CALL LIGHT IS IN REACH. NO FURTHER NEEDS AT THIS TIME.
--- NOTE | 2020-04-27 14:29 | NUR ---
REPORT RECIEVED FROM PAULA ALFONSO. PT BACK IN BED AFTER STANDING AT CHAIRSIDE TO USE URINAL.
--- NOTE | 2020-04-27 15:50 | NUR ---
PT SCRATCHED RIGHT INNER ELBOW ON WALKER. NOT BLEEDING BUT IN A SORE SPOT WHEN RESTING ARM, PLACED REGULAR BANDAID. ORDERED DINNER. DENIES FURTHER CONCERNS.
--- NOTE | 2020-04-27 17:22 | NUR ---
Chart faxed to [facility] after notification from Dr. Marvin, pt will dc tomorrow. Face sheet, order, H&P, progress notes, PT eval and notes. Spoke with Jacklyn at [facility], they may be able to admit on .
--- NOTE | 2020-04-27 18:23 | NUR ---
PATIENT IS LAYING IN BED WATCHING TV. FRESH ICE WATER GIVEN. VITALS AND I&OS ARE DOCUMENTED. CALL LIGHT IS IN REACH. NO FURTHER ASSISTANCE NEEDED AT THIS TIME.
--- NOTE | 2020-04-27 20:00 | NUR ---
CALL LIGHT ANSWERED, SBA TO VOID AT BEDSIDE. pt BACK IN BED. 5L OXYGEN BY OXYGEN TUBING IN PLACE IN MOUTH. CALL LIGHT IN REACH. NO ADDITIONAL REQUESTS.
--- NOTE | 2020-04-27 20:07 | NUR ---
REPORT RECEIVED FROM DAYSNEFT RN, PT LAYING IN BED AWAKE AND ALERT WITH 5L O2 RUNNING TO HIM. PT REPORTS NO NEEDS AT THIS TIME WHEN ASKED, WILL CONTINUE PLAN OF CARE. CALL LIGHT IN REACH, BED IN LOWEST POSITION.
--- NOTE | 2020-04-27 20:31 | NUR ---
PATIENT REQUESTED AN ICE PACK. ICE PACK PROVIDED AND PLACED ON LEFT KNEE OVER TERRELL WRAP AND GOWN. PATIENT DENIES ANY FUTHER NEEDS AT THIS TIME.
--- NOTE | 2020-04-27 22:00 | NUR ---
THIS RN IN TO ASSESS PT AND ADMINISTER ORDERED MEDICATIONS. PT AWAKE AND ALERT LAYING IN BED WITH O2 RUNNING AT 5L VIA TUBING IN MOUTH. PT REPORTS NO SOB AND NO PAIN WHEN ASKED. SCHEDULED MEDICATIONS ADMINISTERED. PT ASSESSED AT THIS TIME. PT REPORTS NO PAIN ON L KNEE, TERRELL WRAP IN PLACE, ICE PACK TAKEN OFF PER PT.S REQUEST.IV FLUSHED AND IS PATENT. PT UP TO USE URINAL AND REQUIRED NO ASSISTANCE. PT REPORT NO FURTHER NEEDS WHEN ASKED. CALL LIGHT IN REACH, BED IN LOWEST POSITION, WILL CONTINUE PLAN OF CARE.
--- NOTE | 2020-04-27 22:13 | NUR ---
CALL LIGHT ANSWERED. URINAL EMPTIED. NO ADDITIONAL REQUESTS. LIGHTS OFF IN ROOM. pt REFUSES BIPAP MACHINE, 5L OXYGEN BY NC IN PLACE.
--- NOTE | 2020-04-28 00:55 | NUR ---
CHECKED ON pt. RESTING IN BED ON RIGHT SIDE, BREATHING IS EQUAL AND UNLABORED. LIGHTS OFF IN ROOM.
--- NOTE | 2020-04-28 03:00 | NUR ---
THIS RN IN TO CHECK ON PT. PT SLEEPING IN BED. PT AWOKE TO ME ENTERING. IT WAS NOTED THAT PT DID NOT HAVE HIS 5L O2 TUBING IN HIS MOUTH. PT SPO2 CHECKED AND WAS NOTED TO BE 57%. THIS RN STAYED WITH PT UNTIL SPO2 RETURNED TO NORMAL LIMITS WITH HIS 5L O2 TUBING. PT REPORTED NO SYMPTOMS OF LIGHTHEADEDNESS, DIZZYNESS, SOB AND STATED HE FELT FINE. PT REPORTS NO FURTHER NEEDS AND STATES HE WILL BE GOING BACK TO SLEEP. CALL LIGHT IN REACH, BED IN LOWEST POSITION, WILL CONTINUE PLAN OF CARE.
--- NOTE | 2020-04-28 05:34 | NUR ---
THIS RN IN TO ASSESS PT. PT SLEEPING IN BED WITH 5L O2 FLOWING. PT AWOKE EASILY. PT VITALS TAKEN, SPO2 AT 98% ON 5L O2. PT REPORTS NO SOB OR PAIN. ASSESSMENT COMPLETE, TERRELL WRAP STILL IN PLACE. ON L KNEE AND IS UNCHANGED. PT REPORTS NO FURTHER NEEDS AT THIS TIME WHEN ASKED. CALL LIGHT IN REACH, BED IN LOWEST POSITION, WILL CONTINUE PLAN OF CARE.
--- NOTE | 2020-04-28 07:17 | NUR ---
this rn received report from vianey flanagan. pt appears to be resting with respitations noted
--- NOTE | 2020-04-28 08:45 | NUR ---
this rn in pts room to give pt his morning meds. pt states that he needs to use the restroom this am. this rn stand by assisted pt to stand at bedside to use the urinal. when pt sat back down this rn to do pts vitals for morning meds. pt oxygen on 5L at 84% once pt sat down and started to recover to 95% on 5l. pt states that he has no pain in his knee at this time and no concerns this am
--- NOTE | 2020-04-28 09:00 | NUR ---
[facility] pt[facility] until Sunday. New order from Dr. Marvin faxed, Ok to admit the week of . Spoke with Shazia and updated. He denies concern and states will assist him. He wants a discharge time. Updated he needs to be seen by and then dc charge completed. He will notify to arrive between -.
[2020-04-28] MEDS ORDERED: DILTIAZEM 24HR120 MG PO (09:56)
[2020-04-28] MEDS ORDERED: GABAPENTIN300 MG PO (09:57)
[2020-04-28] MEDS ORDERED: PREDNISONE20 MG PO (10:07)
--- NOTE | 2020-04-28 10:20 | NUR ---
PATIENT IS LAYING IN BED. PATIENT IS USING HIS NC THROUGH HIS MOUTH. FRESH ICE WATER GIVEN. AM CARE PROVIDED. CALL LIGHT IS IN REACH. NO FURTHER NEEDS AT THIS TIME.
--- NOTE | 2020-04-28 10:45 | NUR ---
Updated, Dr. Marvin would like his to be present for medication review with the pharmacy as they are medication changes. He will call his .
[2020-04-28] MEDS ORDERED: DIGOXIN125 MCG PO (11:25)
--- NOTE | 2020-04-28 13:10 | NUR ---
Miguel TURNER IN WORKING WITH PT. WILL CHECK BACK AGAIN
== END 2020-04-28 13:20 | disposition home or self-care (01) | DRG 193 ==
LOC: ED 04:52 → CCU 04:54 → MS 04-23 16:45
PROVIDERS: ADMIT Internal Medicine; ATTEND Internal Medicine
DX: J15.4 Pneumonia due to other streptococci (principal); J96.21 Acute and chronic respiratory failure with hypoxia; I48.21 Permanent atrial fibrillation; M25.062 Hemarthrosis, left knee; Z20.822 Contact with and (suspected) exposure to COVID-19; J84.89 Other specified interstitial pulmonary diseases; J43.9 Emphysema, unspecified; E78.5 Hyperlipidemia, unspecified; N40.0 Benign prostatic hyperplasia without lower urinary tract symptoms; M81.0 Age-related osteoporosis without current pathological fracture; E55.9 Vitamin D deficiency, unspecified; G62.9 Polyneuropathy, unspecified; K59.00 Constipation, unspecified; Z66 Do not resuscitate; Z88.8 Allergy status to other drugs, medicaments and biological substances; Z79.01 Long term (current) use of anticoagulants; Z79.83 Long term (current) use of bisphosphonates; Z79.51 Long term (current) use of inhaled steroids; Z79.899 Other long term (current) drug therapy
CPT/HCPCS: 36415; 36600; 71045; 71260; 73560; 80053; 80162; 82803; 83880; 85025; 93005; 93010; 94640; 94660; 94760; 94799; 96374; 96375; 97110; 97112; 97116; 97163; 97530; 99285-25; C9803; J0696; J1160; J1650; J2405; J2930; J3010; J7121; J7512; Q9967; U0003

== ENCOUNTER 2021-04-12 21:53 | Inpatient (IN) | payer MEDICARE, OTHER ==
[~2021-04-12] VITALS: Ht 180.3 cm; Wt 65.5 kg
[~2021-04-12 21:53] MED LIST changes: +GABAPENTIN300 MG PO; +HYDROCODON-ACE1 EA10 PO; +[UNRECOGNIZED DRUG - OTHER] PO
[2021-04-12] MEDS ORDERED: K-TAB ER20 MEQ PO (22:09)
[2021-04-12] MEDS ORDERED: TORSEMIDE20 MG PO (22:09)
[2021-04-12] MEDS ORDERED: METOPROLOL TART50 MG PO (22:10)
--- NOTE | 2021-04-13 02:20 | NUR ---
PT ADMITTED TO ROOM 114 FROM ED @ 0211. DEPENDENT ON STAFF TO SLIDE HIM ACROSS TO BED, RT IN ROOM PT ON CPAP WELL. GILLETTE PATENT, NOT CHRONIC. PT ABLE TO FOLLOW COMMANDS, LIFT LEGS, ANSWER QUESTIONS. TELE PLACED, CPOX.
--- NOTE | 2021-04-13 03:44 | NUR ---
ADMISSION ASSESSMENT COMPLETE. PT ALERT AND ORIENTED. DENIES PAIN OR NAUSEA. DENIES CHEST PAIN. CPAP IN PLACE. SpO2 88-91%. LUNGS DIM. HR IRREGULAR. TELE #3 WITH CPOX. 3+ BLE EDEMA NOTED. BLE WEEPING. RLE WITH SCATTERED OPEN BLISTERS. BLE ELEVATED ON PILLOWS WITH HEEL PROTECTORS IN PLACE. GILLETTE PATENT WITH CLEAR YELLOW URINE. COCCYX/BUTTOCKS AREA RED BUT BLANCHABLE. PT FLOATED ON PILLOWS. IV ABX INFUSING PER ORDER. WARM BLANKET PROVIDED. PT DENIES FURTHER NEEDS. CALL LIGHT IN HAND. BED ALARM FOR SAFETY.
--- NOTE | 2021-04-13 05:59 | NUR ---
IN ROOM FOR VS AND I&O. PT REMOVES CPAP MASK AND STATES "I'M NOT WEARING THAT DAMN THING ANY MORE." EDUCATION PROVIDED. PT REQUESTING BREAK FROM CPAP. 15L/OM PLACED. SpO2 MID TO HIGH 80'S. PT DENIES SOB. RESPIRATIONS UNLABORED. RT IN ROOM TO ASSESS. PT DENIES PAIN OR NAUSEA. REPORTS HE IS COMFORTABLE WATCHING TV. ENSURE PROVIDED. CALL LIGHT IN REACH. BED ALARM FOR SAFETY.
--- NOTE | 2021-04-13 07:37 | NUR ---
Patient awake in bed resting, no acute distress. Patient reports he is cold, warm blanket provided. Patient's oxygen reading per cpox is 80%. Per shift report, pt has been high 70-80's throughout the night due to low perfusion. Patient is on 15L per oxymask. Patient denies chest pain and or shortness of breath. RT to bedside for breathing treatment at this time.
[2021-04-13] MEDS ORDERED: POTASSIUM CHLO10 ME2 PO (07:57)
--- NOTE | 2021-04-13 09:29 | NUR ---
MED REC COMPLETED BY PHARMACY
--- NOTE | 2021-04-13 10:20 | NUR ---
Spoke with pt and he is sob, called , Mei. She states they live in a 1 story home with 2 steps. Pt uses 02, walker, wc, shower chair, nebu lizer and a walk in shower. She denies need for other DME. States con- cern as 02 conc. max is 10L and he has been using up to 15. Discussed he may not be able to leave until he returns to baseline of 7l She is also concerned he may have difficulty walking. We then discussed HH PT/OT and she would like this when pt discharges. She denies any other needs. Pat also states her daughter and sister/brother in law, live next door and assist her when needed. Pt uses a transport chair whenever r he goes out, but is able to walk in the home. She plans on pt dis- charging to home when released. She would like to use HH from . O2 is from [facility].
--- NOTE | 2021-04-13 11:22 | NUR ---
Patient in bed resting, eyes closed, respirations even and non labored.
--- NOTE | 2021-04-13 11:50 | NUR ---
Dr. Marvin made aware of bradycardia.
--- NOTE | 2021-04-13 13:44 | NUR ---
PATIENT RESTING IN BED, WOKE TO VOICE. VITALS AND I&OS CHARTED. GILLETTE EMPTIED. REGIONAL PLANNER LATISHA IN TO VISIT PATIENT. OXY MASK IN PLACE. CALL LIGHT IN REACH
--- NOTE | 2021-04-13 14:10 | NUR ---
PT ON O2 MASK, FINN CMAPBELL AND SN IN CARING FOR PT. PT ALERT AND AWARE OF MY PRESENCE. SMILED, ACKNOWLEDGED MY PRESENCE AND REQUESTED PRAYER. WILL FOLLOW
--- NOTE | 2021-04-13 16:26 | NUR ---
Patient repositioned to left side with pillows, no distress. Shaunna and cath care done. Patient denies sob and or chest pain. Patient remains on 15L per oxymask. Patient denies needs. Personal supplies and call light within reach.
--- NOTE | 2021-04-13 19:40 | NUR ---
notified by lab of digoxin result of 2.2. md notified by phone. pt is on tele. no orders received from .
--- NOTE | 2021-04-13 22:30 | NUR ---
ASSESSMENT, VS AND I&O COMPLETED. GILLETTE CHANGED DUE TO LEAKING, RESOLVED. ALLEVYN PLACED ON RIGHT POSTERIOR CALF OPEN BLISTER AND RIGHT DORSAL FOOT OPEN BLISTER. 3+ BLE ANKLE EDEMA WITH REDNESS. COCCYX RED BUT BLANCHABLE. IV WNL, CDI, FLUSHED WELL. NUMB AND TINGLING IN ALL EXTREMITIES, CHRONIC. LUNGS DIM IN ALL LOBES. ABD SOFT, NONTENDER, BOWEL TONES ACTIVE. SCHEDULED MEDS PROVIDED. PT REPORTS 4/10 GENERALIZED PAIN, PRN PAIN MED PROVIDED. NO OTHER NEEDS. CALL LIGHT IN REACH.
--- NOTE | 2021-04-14 | NUR ---
PT RESTING IN BED. TELE HR 73, AFIB. OXYMASK 15L, PT REFUSES TO USE CPAP.
--- NOTE | 2021-04-14 02:31 | NUR ---
ASSESSMENT COMPLETED. PT REPOSITIONS SELF IN BED. HR AFIB @ 68. SPO2 90% ON 15L OXYMASK. LUNGS DIM. HEART TONES IRREGULAR. 3+ BLE EDEMA. IV WNL. NO OTHER NEEDS AT THIS TIME. CALL LIGHT IN REACH.
--- NOTE | 2021-04-14 04:54 | NUR ---
NEW TELE BATTERY PROVIDED. HR AFIB @ 63. VS AND I&O COMPLETED. JUICE PROVIDED. NO OTHER NEEDS. CALL LIGHT IN REACH.
--- NOTE | 2021-04-14 06:40 | NUR ---
PT RESTING IN BED. HR AFIB @ 60. OXYMASK @ 15L. CALL LIGHT IN REACH.
--- NOTE | 2021-04-14 08:15 | NUR ---
REPORT RECEIVED FROM NIGHT RN AND PT. CARE RESUMED. PT. IS ALERT AND ORIENTED TO ALL. HE IS ON 15L OXYMASK AND RR IS 22. PT. DENIES PAIN OR SOB. +3 EDEMA IN RLE AND +2 IN LLE. FEET ELEVATED WITH PILLOWS AND ARE WEEPING WITH BLISTERS. IV SITE WNL, FLUSHES AND RETURNS BLOOD. DISCUSSED POC, MEDS AND SAFETY. LEFT RESTING WITH CALL LIGHT IN REACH.
--- NOTE | 2021-04-14 09:45 | NUR ---
Spoke with pt and he states he is breathing easier today. Pt remains on 15+L 02 with oximask.
--- NOTE | 2021-04-14 10:52 | NUR ---
ROUNDING ON PT. AT BEDSIDE. HE DENIES PAIN OR FURTHER NEEDS AT THIS TIME. BROUGHT COFFEE.
--- NOTE | 2021-04-14 12:16 | NUR ---
PT. IN AFIB AND HR BETWEEN 110-130S. MD UPDATED.
--- NOTE | 2021-04-14 13:41 | NUR ---
RT MÉNDEZ IN CARING FOR PT. WILL CHECK BACK
--- NOTE | 2021-04-14 15:44 | NUR ---
IV SITE HAS OLD BLOOD UNDER THE DRESSING. IV FLUSHES WELL AND HAS BLOOD RETURN. DRESSING REMOVED, CLEANED WITH ALCOHOL AND REPLACED. PT. 02 TITRATED TO 13 OXYMASK FROM 15L. 02 SAT ON NOSE DROPPED TO 81%. TITRATED BACK TO 15L. DIFFICULT TO ASSESS ACCURACY OF 02 SAT. MD UPDATED.
--- NOTE | 2021-04-14 18:01 | NUR ---
PT. PLACED ON HIGH FLOW NC AT 15L WHILE EATING WITH BUBBLER.
--- NOTE | 2021-04-14 18:52 | EKG ---
[facility] [address] [facility] [address] [place] [address] Signed Atrial fibrillation with slow ventricular response Right axis deviation Cannot rule out Anterior infarct , age undetermined ST \T\ T wave abnormality, consider inferior ischemia Abnormal ECG When compared with ECG of 04-JUL-2020 02:13, Vent. rate has decreased BY 33 BPM T wave inversion now evident in Lateral leads QT has shortened Confirmed by YOANNA KINCAID MD ([id number]) on 04/14/2021 6:51:50 PM Electronically Signed By: YOANNA KINCAID MD 04/[id number] PATIENT NAME: KADY SARMIENTO Electrocardiogram DATE OF : 38 PHYSICIAN: YOANNA KINCAID MD REPORT #: [id number] REPORT IS CONFIDENTIAL AND NOT TO BE RELEASED WITHOUT AUTHORIZATION
--- NOTE | 2021-04-14 19:15 | NUR ---
SHIFT REPORT RECEIVED FROM MANISH MITCHELL. PT RESTING IN BED. TELE HR AFIB @ 77. OXYMASK @ 15L. NO NEEDS AT THIS TIME. CALL LIGHT IN REACH.
--- NOTE | 2021-04-14 22:07 | NUR ---
ASSESSMENT COMPLETED. GCS 15, A&O X4. PT ON 15L OXYMASK, SPO2 100%. TELE HR AFIB @ 90. LUNGS DIM IN ALL LOBES. ABD SOFT, NONTENDER, BOWEL TONES ACTIVE. NUMBNESS AND TINGLING X 4 EXTREMITIES. PULSES INTACT. IV APPEARS TO BE LEAKING, DRESSING CHANGED, IV FLUSHED WELL WITHOUT LEAK. BLE EDEMA 2+ WITH REDENSS, OPEN BLISTERS COVERED BY ALLEVYN. LEGS ELEVATED. CLEAR SODA PROVIDED. GILLETTE WNL, LEONCIO URINE. NO OTHER NEEDS AT THIS TIME. CALL LIGHT IN REACH.
--- NOTE | 2021-04-14 23:49 | NUR ---
PT RESTING IN BED, EYES CLOSED. RR EVEN, UNLABORED. OXYMASK @ 12L. CALL LIGHT IN REACH.
--- NOTE | 2021-04-15 01:03 | NUR ---
PT RESTING IN BED. RR EVEN, UNLABORED. TELE HR AFIB @ 83. CALL LIGHT IN REACH.
--- NOTE | 2021-04-15 03:38 | NUR ---
ASSESSMENT COMPLETED. LUNGS DIM IN ALL LOBES. OXYMASK @12 L. TELE HR AFIB @ 67. BLE EDEMA 2+ WITH REDNESS, LEAKING AND OPEN BLISTERS. BLISTERS COVERED BY ALLEVYN. SOB WITH ACTIVITY. GILLETTE WNL, LEONCIO URINE. JUICE PROVIDED. NO OTHER NEEDS. CALL LIGHT IN REACH.
--- NOTE | 2021-04-15 05:12 | NUR ---
Patient's BP was 97/55. Patient's oxygen was 86. Patient is in bed with call light in reach.
--- NOTE | 2021-04-15 06:35 | NUR ---
PT O2 REPORTED TO BE 86% ON 12L OXYMASK. SPO2 RECHECKED TO FIND ACCURATE READING. OXYMASK MOVED UP TO 15L, O2 SLOWLY RAISES TO 90%. NO OTHER NEEDS. CALL LIGHT IN REACH.
--- NOTE | 2021-04-15 09:00 | NUR ---
REPORT RECEIVED FROM NIGHT RN AND PT. CARE RESUMED. PT. IS ALERT AND ORIENTED TO ALL. HE DENIES PAIN EXCEPT WHEN BLE TOUCHED DUE TO NEUROPATHY. 2+ EDEMA PRESENT BLE. ON 15L OXYMASK AND 02 SAT REMAINS 84%. PT. ENCOURAGED TO COUGH AND POSITIONED UPRIGHT AND SAT. NOT IMPROVED. PT. REFUSES CPAP. DENIES SOB AND RR IS 22. IV SITE FLUSHES WELL. P.T. IN THE ROOM TO WORK WITH PT.
--- NOTE | 2021-04-15 10:40 | NUR ---
Spoke with Shazia. He remains on 15L on oximask. He does states he feels better. Per [address] Webb, pt may discharge today and will need to concentrators. Called and spoke with Pat and she requests I speak with Arabella from [facility] as they trust her. Spoke with Thomas from PT and discussed if this will be enough 02 and he does not feel it will be. We spoke with Dr. Webb and Fernanda feels they are unable to picking table worker an accurate saturation. Orders for 02 to be decreased to 10l and redraw ABG in 30 min. This was completed and Sats were in the 80s. Per Dr. Webb pt will not dc today.
--- NOTE | 2021-04-15 10:43 | NUR ---
WHEN I ENTERED THE ROOM THE PT WAS LYING IN THE BED RESTING. THE NURSE AND I GAVE HIM 2 MEDICATIONS DUE AT 0900, DO AN ASSESSMENT, VITALS, AND I/O. HE WAS RESTING IN THE BED AND WILL CONTINUE TO MONITOR.
--- NOTE | 2021-04-15 11:12 | NUR ---
DISCUSSED POC WITH Nicolette. R.T. WILL TITRATE O2 TO 10L AND RETURN IN AN HOUR FOR AN ABG. CHARGE UPDATED.
--- NOTE | 2021-04-15 11:43 | NUR ---
PT ALERT, WATCHING TV. O2 MASK IN USE. PT SAID HE FEELS ABOUT THE SAME HE DID YESTERDAY. GOOD VISIT, ABLE TO JOKE, DIFFICULT TO TALK MUCH FOR PT. HE REQUESTED PRAYER, RT MÉNDEZ IN. WILL FOLLOW NEEDED
--- NOTE | 2021-04-15 12:14 | NUR ---
MD CONTACTED AND UPDATED ABOUT ABG RESULTS. PT. TITRATED BACK TO 15L O2. WILL CONTINUE TO MONITOR.
--- NOTE | 2021-04-15 14:00 | NUR ---
Received call from [facility] and they had spoken with pts . Updated pt will not dc today. They will deliver a second concentrator in case pt goes home tomorrow. They feel pt would benefit from Bipap and updated, pt refuses cpap or bipap. Also will not wear a full mask and is using an oximask.
--- NOTE | 2021-04-15 14:03 | NUR ---
PATIENT IS IN BED WITH OXYGEN MASK ON WATCHING TV. HIS , PALOMO, IS VISITING. SHE STATES SHE IS PRETTY FAMILIAR WITH A LOW SODIUM DIET. PATIENT'S APPETITE IS NOT GREAT, SO SHE MAKES A LOT OF SOUPS AT HOME WHICH PATIENT LIKES. SHE STATES SHE THOUGHT THEY WERE BEING CAREFUL BUT HE STILL ENDED UP IN THE HOSPITAL. I SHOWED HER SOME HANDOUTS I HAVE AND SHE OPTED TO TAKE THEM. THEY INCLUDE HOW MUCH SODIUM IS RECOMMENDED ON A LOW-SODIUM DIET, LOW-SDOIUM SNACK LIST, LOW-SODIUM GROCERY LIST, DEFINITIONS OF WHAT IS ON A FOOD LABEL, READING A FOOD LABEL (WHAT DOES THE %DV INDICATE, AND HIGH SODIUM FOODS TO AVOID. SHE SAID SHE WILL READ THE INFO OVER. MY NAME AND OFFICE # PROVIDED IN CASE OTHER QUESTIONS ARISE.
--- NOTE | 2021-04-15 14:26 | NUR ---
MD UPDATED ABOUT 02 SAT. OF 80% AND RR OF 34. PLACED ON 15L NRB MASK AND SAT IS 85%. WILL CONTINUE TO MONITOR.
--- NOTE | 2021-04-15 14:56 | NUR ---
PT. O2 SAT. SPOT CHECKED. 89% ON 15L NRB MASK. PT. BROUGHT FRESH WATER AND JUICE AND ENCOURAGED TO DRINK MORE. AND CASEMANAGEMENT IN THE ROOM.
--- NOTE | 2021-04-15 15:00 | NUR ---
Spoke with , she is here visiting. Pt is now wearing a NRB mask.
--- NOTE | 2021-04-15 18:00 | NUR ---
IV REMOVED WITH CATH INTACT, IT WAS PAINFUL AND LEAKING. NEW IV STARTED IN RFA, 20G. 02 SAT. ON HIGH FLOW CANULA 15L WHILE EATING WAS 72%. PLACED ON CPAP- 12/80% AND O2 SAT INCREASED TO 89% AFTER A FEW MINUTES. ASSISTED WITH REPOSITIONING WITH PILLOWS. CHUX CHANGED UNDER FEET. PT. LEFT RESTING WITH CALL LIGHT IN REACH.
--- NOTE | 2021-04-15 19:31 | NUR ---
BEDSIDE REPORT FROM MANISH MITCHELL, PT SITTING UP IN BED, HE HAS OXY MASK ON, HE REPORTS NEEDING A BREAK FROM CPAP. HE HAS NO REQUESTS AT THIS TIME.
--- NOTE | 2021-04-15 20:14 | NUR ---
PT'S NEB TRT COMPLETE. PLACED PT BACK ON 15L NONREBREATHER SINCE RT CARLOTTA WAS CALLED AWAY. PT'S O2 IS IMPROVING BACK ON NONREBREATHER UP TO 90%. PT DENIES FURTHER NEEDS, CALL LIGHT IS CLOSE.
--- NOTE | 2021-04-15 21:32 | NUR ---
PT DECLINES WANTING CPAP AT THIS TIME. HE ALSO DECLINES TO ALLOW ME TO REPOSITION AT THIS TIME, HE SAID HE IS COMFORTABLE, PT EDUCATION GIVEN, HE SAID "IM COMFORTABLE NOW". PT CURRENTLY HAS PILLOWS UNDER BOTH HIPS TO FLOAT HIS COCCYX, HE ASKED ASSISTED WITH CLEARING OFF UNWANTED ITEMS FROM HIS SIDE TABLE. HE WANTED THE I.S. MOVED OFF, EDUCATION PROVIDED ON NEED TO USE THE I.S., HE SAID HE IS GOING HOME TOMORROW AND HE ALREADY HAS THREE OF THOSE AT HOME. DISCUSSED WITH PT THAT HE HAS JUST BEEN STARTED ON ABX. NO OTHER CONCERNS OR NEEDS AT THIS TIME. V/S AND I/O DONE. FRESH ICE WATER PROVIDED.
--- NOTE | 2021-04-16 00:23 | NUR ---
PT REPOSITIONED AND HE LIFTED HIS LEGS TO HAVE PILLOW PLACED UNDER, OXYGEN SPOT CHECK, 73% OXYGEN SATURATION ON 15L NON-REBREATHER. PT REFUSED TO BE PLACED ON CPAP AT BEDSIDE, TURNED OXYGEN FLOW METER TO TOP FURTHER INFLATING THE NON-REBREATHER, PT DOES NOT LIKE THIS IT IS LOUDER WITH INCREASED OXYGEN FLOW. DISCUSSED WITH PT THAT THIS IS NEEDED TO HELP HIM RECOVER FROM THE ACTIVITY AND THEN THIS RN WILL TURN BACK DOWN TOLERATED, PT SLOWLY RECOVERED OVER 10 MIN TO 90%, FLOW METER TURNED DOWN TO 15L FOR PT COMFORT AND MONITORED, PT OXYGEN SATURATION MAINTAINED 89-90% FOR NEXT 10MIN. WILL CONT TO MONITOR CLOSELY.
--- NOTE | 2021-04-16 04:45 | NUR ---
PT HAS REFUSED TO USE CPAP OVER THIS SHIFT, HE HAS WORN THE NON-REBREATHER AT 15L OVER SHIFT, HE DESATURATES TO 70'S OXYGEN SATURATION WITH ANY ACTIVITY IN BED INCLUDING REPOSITIONING. HE RECOVERS SLOW WITH FLOW METER TURNED UP TO MAX. HE REMAINS ON TELEMETRY FOR CARDIAC MONITORING, HE CONTINUES TO BE IN AFIB. HE HAS HAD QUANTITY SUFFICIENT URINE OUT IN GILLETTE CATHETER. CONTIUE TO REPOSITION WHEN PT ALLOWS HE HAS BLANCHABLE RED AREA TO COCCYX. HE VERBALIZED THINKING HE IS GOING TO DISCHARGE TODAY, DISCUSSED WITH PT THAT HE WAS JUST STARTED ON ABX AND STEROIDS. NO NEW CONCERNS THIS SHIFT.
--- NOTE | 2021-04-16 05:17 | NUR ---
PT CALLED NURSES STATION TO REPORT IV PUMP ALARMING. HE ALSO REPORTED THAT HE FELLS LIKE HE MAYBE ABLE TO HAVE A BM SOON, HE WANTS TO WAIT UNTIL LAB COMES IN THEY ARE ON THE UNIT NOW.
--- NOTE | 2021-04-16 06:21 | NUR ---
PT AGREES TO USE BED LEGER TO HAVE BM, RATHER THAN UP TO BEDSIDE COMMODE THIS AM. HE SAID HE IS NOT READY, HE WILL CALL WHEN HE IS.
--- NOTE | 2021-04-16 07:10 | NUR ---
IN TO ASSIST PT ON TO THE BED LEGER, PT WILL CALL ONCE READY
--- NOTE | 2021-04-16 07:46 | NUR ---
XU RN IN ASSISTING PATIENT AT THIS TIME. SHIFT REPORT GIVEN TO THIS RN BY PAULA DWYER. PATIENT RESTING IN BED ON 15L/NONREBREATHER MASK.
--- NOTE | 2021-04-16 09:15 | NUR ---
THIS RN WENT IN TO PEFORM AM ASSESSMENT AND VS ON PATIENT. PATIENT ON 15L/NC AND O2 SAT IS AT 69%. INCREASED NRB O2 FLOW TO MAX AND CALLED RT. PATIENT NOW ON CPAP AND SATS ARE AT 91%. INFORMED THAT PATIENT HAS COUGHED UP SOME BLOODY SPUTUM THIS AM OVER ABOUT THE LAST HOUR AND ALENA ANGELES, ALSO INFORMED PATIENT'S B/P HAS BEEN SOFT, BUT HIGH ENOUGH MANUALLY TO GIVE HIS B/P MED. VERBALIZED UNDERSTANDING AND NO NEW ORDERS WERE GIVEN AT THIS TIME. PATIENT PULLED UP IN BED AND HIPS FLOATED ON PILLOWS WITH ASSISTANCE FORM PAULA MADERA. PATIENT DENIES ANY OTHER CARE NEEDS AT THIS TIME. CALL LIGHT IS IN REACH.
--- NOTE | 2021-04-16 09:58 | NUR ---
PATIENT'S PAT IS HERE AND HAS BEEN UPDATED. APPLE JUICE ON ICE GIVEN TO FOR PATIENT SIPS. GIVEN A CUP OF COFFEE. INFORMED CHARGE NURSE SANTY. AT BEDSIDE AND CALL LIGHT IS IN REACH.
--- NOTE | 2021-04-16 11:28 | NUR ---
THIS RN IN TO CHECK ON PATIENT. SPOUSE REMAINS AT BEDSIDE STILL AWAITING TO TALK TO . WAS INFORMED BY THIS NURSE THAT PATIENT'S IS WAITING HOPING TO TALK WITH HIM. CPAP IS AT 100% O2 AND SATS ARE CURRENTLY 97%. PATIENT HAD NO OTHER CARE NEEDS AT THIS TIME. CALL LIGHT AARON SMITH.
--- NOTE | 2021-04-16 11:52 | NUR ---
THIS RN JUST TOOK IN PATIENT'S LUNCH AND PUT PATIENT BACK ON 15L+/NRB MASK SO HE CAN TRY TO GET IN A FEW BITES OF FOOD. PATIENT'S IS GOING TO TRY AND FEED HIM. CALL LIGHT IS IN REACH FOR THEM TO CALL.
--- NOTE | 2021-04-16 12:18 | NUR ---
PATIENT'S O2 SATS REMAIN 82% ON 15L+/NRB MASK SO LEAVING THE CPAP IN STANDBY FOR NOW SO PATIENT AND HIS CAN TALK. PATIENT ATE 80% OF HIS LUNCH. PATIENT AND SPOUSE HAVE NO OTHER CARE NEEDS AT THIS TIME. CALL LIGHT IS IN REACH.
--- NOTE | 2021-04-16 14:08 | NUR ---
PATIENT PULLED UP IN BED AND LINENS STRAIGHTENED BY THIS RN AND FINN GALVAN. ALLEVYN PLACED ON COCCYX BY THIS RN OVER REDDENED AREA WHICH IS STILL BLANCHABLE. PATIENT REMAINS ON 15L+/NRB MASK AND SATS AR 93% AT THIS TIME. 1400 MEDS GIVEN, VS STABLE WITH CURRENT O2, AND I+O ENTERED. BED BACK IN LOW POSITION AND CALL LIGHT IS IN REACH. PATIENT HAS NO OTHER CARE NEEDS AT THIS TIME.
--- NOTE | 2021-04-16 18:54 | NUR ---
PATIENT O2 SATS HAVE DROPPED TO 79% ON THE 15+L/NRB MASK SO CPAP AT 100% FIO2 PLACED BACK ON PATIENT FOR THE TIME BEING AND SATS BACK TO 89% AT THIS MOMENT. PATIENT DENIES FEELING ANY WORSE, BUT THIS IS THE SAME THING THAT HAPPENED EARLIER IN THE DAY AND PATIENT OK BEIMNG BACK ON THE CPAP FOR NOW. CALL LIGHT IN REACH AND PATIENT HAS NO OTHER CARE NEEDS AT THIS TIME.
--- NOTE | 2021-04-16 19:36 | NUR ---
BEDSIDE REPORT FROM KIM Graves RN, PT ALERT AND ORIENTED, HE IS ON CPAP AT THIS TIME SPOT CHECK OXIMETRY IS 94% SATURATIONS AT THIS TIME. PT AGREES TO CONTINUE TO WEAR CPAP WITH INTERMITTEN BREAKS OVER NIGHT. HE IS PLEASED THAT KIM Graves RN WILL BE BACK TOMORROW TO BE HIS NURSE AGAIN ON HIFT.
--- NOTE | 2021-04-16 19:50 | NUR ---
PT CALLED TO USE BEDPAN, SWITCHED HIM OVER TO NONREBREATHER AND PLACED HIM ON BEDPAN. HE WILL CALL WHEN HE IS DONE. CALL LIGHT IS CLOSE. HR JUMPED UP TO 120'S 130'S WHILE MOVING TO BEDPAN.
--- NOTE | 2021-04-16 21:06 | NUR ---
PT RESTING IN BED AFTER VISITING WITH RUDDY FROM .T., PT AND RUDDY DECIDED THAT PT WILL REMAIN ON NON REBREATHER FOR NOW PT IS MORE COMFORTABLE ON THAT. PT DID NOT HAVE BM ON BED LEGER. HE ASKED FOR BOWEL MEDCIAINE, HE HAS NOT HAD BM IN 3 DAYS, HE USES SUPPOSITORY AT HOME, THIS IS ORDERED, HE SAID HE WANTS TO WAIT UNTIL MORNING TO HAVE THAT ADMINISTERED. WILL RETIME MEDICATION. FRESH WATER PROVIDED CALL LIGHT IN REACH, PT HAS NO OTHER REQUESTS AT THIS TIME.
--- NOTE | 2021-04-16 23:01 | NUR ---
PT RESTING QUIETLY ON HIS LEFT SIDE, EYES CLOSED RR 24 BPM, PT ALERT TO NAME FOR ADDITIONAL DOSE OF LOPRESSOR FOR ELEVATED HEART RATE. PT HAD NO OTHER REQUESTS. AT THIS TIME.
--- NOTE | 2021-04-17 03:55 | NUR ---
ROUNDING ON PT, IV PUMP BEEPING, PT OXYGEN SPOT CHECK HIS SATURATION 79%, PT SAID HE JUST TURNED OVER. O2 FLOW MEETER TURNED UP TO FULL ON FOR RECOVERY, HE RECOVERED TO 91% IN 10MIN. TITRATED BACK TO 15L, PT THEN CLOSED EYES AND BEGAN TO SNORE. ASSESSMENT COMPLETE.
--- NOTE | 2021-04-17 04:04 | NUR ---
CPAP...PT CONTINUES TO REFUSE TO USE CPAP OVER THIS SHIFT
--- NOTE | 2021-04-17 04:36 | NUR ---
CALL LIGHT ON. pt REQUESTED THAT HIS OXYGEN BE TURNED DOWN SO THAT HE COULD SLEEP. TITRATED TO 15L PER REQUEST. O2 SAT 85%. DISCUSSED IMPORTANCE OF O2 SAT WITH pt. pt VERBALIZED UNDERSTANDING. DENIES SOB AT THIS TIME AND REQUESTS THAT O2 REMAINS AT 15L. PROVIDED WATER. CALL LIGHT WITHIN REACH.
--- NOTE | 2021-04-17 05:15 | NUR ---
PT HAS DESATURATES WITH ANY ACTIVITY INCLUDING CONVERSATING SOEN TO 70'S, SLOW TO RECOVER. HE HAS REFUSED CPAP OVER SHIFT, EDUCATIONS PROVIDED BY THIS RN AND RUDDY Mcgraw, PT ALSO WAS NOTED TO BE 85% ON NON-REBREATHER AND CALLED TO REQUEST IT TURNED DOWN TO ALLOW HIM TO SLEEP, VIELAK JEAN ANSWERED CALL SHE GAVE EDUCATION PT SAID HE STILL WANTED IT TURNED DOWN SO HE COULD SLEEP.
--- NOTE | 2021-04-17 06:58 | NUR ---
GILLETTE CATH EMPTIED FOR 450ML TEA COLORED URINE THIS AM. PT ALERT AND ORIENTED THIS AM. NO DISTRESS NOTED.
--- NOTE | 2021-04-17 07:30 | NUR ---
PATIENT RESTING QUIETLY IN BED AND REMAINS ON HIS 15+L/NRB MASK. PATIENT DENIES ANY CARE NEEDS AT THIS TIME, BUT DID DISCUSS GETTING A SUPPOSITORY ORDERED FOR CONSTIPATION.REPORT RECEIVED FROM PAULA EM. CALL LIGHT IN REACH AND NO OTHER CARE NEEDS NOTED AT THIS TIME.
--- NOTE | 2021-04-17 08:20 | NUR ---
PATIENT'S SATS DROP INTO THE 70'S JSUST FROM TALKING OR MINIMAL MOVEMENT. NRB MASK REMAINS ON AT 15L/MIN AND IS CRANKED ALL THE WAY PAST 15L/MIN AND IT CAN TAKE 10-15 MINUTES TO COMPENSATE BACK IN TO 98-92%. PATIENT STARTING HIS BRREAKFAST AND O2 MAXED OUT WHILE PATIENT IS EATING. CALL LIGHT IN REACH.
--- NOTE | 2021-04-17 10:05 | NUR ---
PATIENT ATE ABOUT 85% OF HIS MEAL. SATS AT 91% AND PATIENT IS RESTING QUIETLY ON THE 15L/NRB MASK. PATIENT DENIES ANY CARE NEEDS AT THIS TIME. CALL LIGHT IS IN REACH.
--- NOTE | 2021-04-17 11:33 | NUR ---
PATIENT'S AM ASSESSMENT COMPLETE. NEW ALLEVYNS PLACED OVER OLD SKIN WOUNDS ON RIGHT CALF AND TOP OF RIGHT FOOT. VS STABLE EXCEPT O2 SATS DROPPED TO 77% DURING ACTIVITIY AND O2 INCREASED FROM 15L TO 15L+/NRB MASK. PATIENT AT BEDSIDE. PATIENT PULLED UP AND REPOSITIONED IN BED. CALL LIGHT IS IN REACH.
--- NOTE | 2021-04-17 12:02 | NUR ---
ASSISTED PAULA ALVAREZ TO ROLL PT AND CHANGED BEDDING. PT TOLERATED WELL AND WAS ABLE TO MOVE HIMSELF FAIRLY WELL.
--- NOTE | 2021-04-17 14:15 | NUR ---
Pt requests to take NRB off. SPO2 IN 60-70s with questionable reading at this time, placed on CPAP and RT and supercharger repair supervisor called. Pt recovers with Bipap to 90%. Pt confused during this occurence and has very minimal understanding of needs, all procedures explained and primary RN notified regarding situation
--- NOTE | 2021-04-17 15:01 | NUR ---
PATIENT ON CPAP 100% FIO2 WITH 92% O2 SAT. TELE MONITOR HAS BEEN DC'D. AFTERNOON MEDS GIVEN AND PATIENT PLACED IN LEFT SIDE LAYING POSITION AND GIVEN MT SUPPOSITORY. PATIENT IS GOING TO REST ON HIS LEFT SIDE FOR AWHILE AND WILL CALL WHEN HE FEELS HE NEEDS TO. CALL LIGHT IN REACH.
--- NOTE | 2021-04-17 18:38 | NUR ---
THIS RN WENT IN TO CHECK ON PATIENT AND HE FINALLY HAD A MEDIUM PASTY BROWN BM. THIS RN WASHED PATEINT UP AND CHANGED THE CHUX. PRIOR TO DOING THIS O2 SAT=70% ON 15L/NRB MASK AND 15L/NC HIGH FLOW WITH GOOD SAT WAVEFORM. ASKED PATIENT IF HE WANTED TO GO ON CPAP AND PATIENT SAID,"NO I'M OK", EVEN THOUGH I TOLD HIM WHAT HIS SAT WAS. NEW CHUX UNDER PATIENT AND PATIENR T REPOSITIONED TO HIS RIGHT SIDE. SATS REMAIN 70-71% AND PATIENT STILL DOES NOT WANT TO PUT THE CPAP ON WITH RESPIRATIONS AT 30/MIN. CALL LIGHT IS IN REACH AND PATIENT HAS SAID HE WILL CALL IF HE NEEDS ME.
--- NOTE | 2021-04-17 18:53 | NUR ---
PATIENT IN BED RESTING WITH EYES CLOSED. VITALS AND I&O'S CHARTED. CALL LIGHT IN REACH. NO FURTHER NEEDS AT THIS TIME.
--- NOTE | 2021-04-17 19:38 | NUR ---
BEDSIDE REPORT FROM KIM Graves RN, PT RESTING IN BED ON RIGHT SIDE, PT EYES CLOSED RR 26 BPM, ON NON-REBREATHER AND HIGH FLOW N.C. BOTH SET AT 15L.
--- NOTE | 2021-04-17 19:45 | NUR ---
CALL LIGHT ANSWERED. PATIENT WANTED HIS GILLETTE BAG ON HIS RIGHT SIDE. DONE. BATHROOM DOOR CLOSED. SIDE TABLE CLOSED TO BED, DONE. NO OTHER NEEDS AT THIS TIME.
--- NOTE | 2021-04-17 21:58 | NUR ---
PT RESTING IN BED, ALERT TO RN IN ROOM, PT HAS 15L NON-REBREATHER ON WELL 15L HIGH FLOW N.C., WHEN ASKED HOW HE FELT IN REGARDS TO OXYGEN HE SAID "OK", V/S COMPLETE PT 87-90% OXYGEN SATURATION AT THIS TIME. FRESH WATER PROVIDED, ASSISTED WITH STRAIGHTENING BLANKETS, HS MED PASSED, PT HAS NO OTHER REQUESTS AT THIS TIME.
--- NOTE | 2021-04-17 23:47 | NUR ---
PT CALLED TO ASK TO HAVE THE FLOW METER ON NON-REBREATHER TURNED DOWN DUE TO NOISE NOT ALLOWING HIME TO SLEEP, FLOW METER TITRATED DOWN SLIGHTLY, REMAINS ABOVE 15L KARLA, PT OXYGEN SATURATION CHECKED, 86%, DISCUSSED WITH PT AND GAVE EDUCATION IN REGARDS TO THERAPUTIC OXYGEN LEVELS. HE SAID "JUST LEAVE IT THERE" PT ALERT AND ORIENTED.
--- NOTE | 2021-04-18 00:18 | NUR ---
ANSWERED CALL LIGHT. THIS MARKETING ACCOUNT MANAGER AND PAULA KLEIN HELPED PATIENT REPOSITIONED/ BOOSTED UP IN BED. NO OTHER NEEDS AT THIS TIME. BEDSIDE TABLE AND CALL LIGHT WITHIN REACH.
--- NOTE | 2021-04-18 00:45 | NUR ---
PT RESTING IN BED ALERT TO RN ROUNDING, HE VERBALIZED HE DOES NOT NEED ANYTHING AT THIS TIME.
--- NOTE | 2021-04-18 02:41 | NUR ---
PT RESTING IN BED, EYES CLOSED RR 24 BPM, ON 15L HIGH FLOW N.C. AND 15L NON-REBREATHER MASK.
--- NOTE | 2021-04-18 04:07 | NUR ---
PT RESTING QUIETLY IN BED ON LEFT SIDE, EYES CLOSED RR 22BPM, NO DISTRESS NOTED AT THIS TIME. PT SLEEPING.
--- NOTE | 2021-04-18 04:59 | NUR ---
PT HAS SLEPT INTERMITTEN OVER SHIFT, HE HAS CHOSEN NOT TO WEAR BIPAP/CPAP, HE REMAINS ON 15+L HIGH FLOW N.C. AND 15+L NON REBREATHER OVER N.S., HE HAS REPOSITIONED REGULARLY. HE HAS NOT REPORTED ANY PAIN OR NAUSEA. NO BM OUT, URINE OUT IN [place] IS TEA COLORED WITH SEDIMENT, BORDERLINE QUANTITY SUFFICIENT. NO NEW CONCERNS. PT PLANS IS TO DISCHARGE TODAY TO HOME WITH HOSPICE.
--- NOTE | 2021-04-18 07:50 | NUR ---
Received a call from pts Mei, she states they would like to take pt home on hospice. Her son is a nurse and is here; he will provide care for dad. Informed I will call Hospice when they are open. She did not have a preference of [facility] or [facility]. Called both [facility] is out 2 1/2 weeks. [facility] may be able to admit this week. Simi will call me back. Chart faxed. She and hospice will review.
--- NOTE | 2021-04-18 07:57 | NUR ---
XU,RN ASSISTED THIS RN IN REPOSITIONING PATIENT FLOATING HIPS OFF PILLOWS. [id number] SATS 89% ON 15L/NRB AND 15L/NC HIGH FLOW. SATS DROPPED TO 79% WITH MOVEMENT. SATS BACK IN THE LOW 80'S AND PATIENT IS RECOMPINSATING. INFORMED PATIENT WHAT HIS O2 SATS ARE AND OFFERED CPAP AND PATIENT DECLINED. PATIENT IS ABLE TO TELL ME HIS NAME AND BIRTHDAY AND THAT HE IS AT [facility]. ALLEVYN ON COCCYX REPLACED THE OTHER WAS COMING OFF. CALL LIGHT IN REACH. NO OTHER NEEDS AT THIS TIME.
--- NOTE | 2021-04-18 10:20 | NUR ---
PATIENT IN BED RESTING AT THIS TIME. VITALS AND I&O'S CHARTED. RN IN ROOM TO PUT PATIENT ON CPAP. CALL LIGHT IN REACH. NO FURTHER NEEDS AT THIS TIME.
--- NOTE | 2021-04-18 10:31 | NUR ---
PATIENT IS ASKING TO GO BACK ON CPAP AND MILTON FROM [facility] IS HERE HOOKING PATIENT BACK UP, SATS HAD DROPPED TO 78% WITH SOME MINOR REPOSITIONING IN BED. PASTOR GOOD JUST LEFT THE ROOM AFTER PRAYING WITH THE PATIENT. PATIENT'S HAS BEEN UPDATED ON PLAN AND IS GOING HOME AND WILL CHECK IN LATER.
--- NOTE | 2021-04-18 10:46 | NUR ---
PATIENT NOW ON THE CPAP. THIS RN ASKED THE PATIENT IF HE IS HAVING ANY PAIN OR FEELING ANXIOUS, BECAUSE I COULD CALL THE DOCTOR AND GET MEDICATION FOR HIM. PATIENT DENIED PAIN AND ANXIETY AND SAID,"I'M DOING OK FOR NOW." PATIENT'S CALL LIGHT IS IN REACH AND HE SAYS HE WILL CALL IF HE NEEDS ANYTHING.
--- NOTE | 2021-04-18 12:19 | NUR ---
PATIENT REQUESTING TO COME OFF CPAP AND IS BACK ON 15L/NC HIGH FLOW AND 15L/NRB. PATIENT'S LUNCH IS SET UP AND HE IS EATING. PATIENT HAD NO MORE NEEDS AT THIS TIME. CALL LIGHT IS IN REACH.
--- NOTE | 2021-04-18 14:04 | NUR ---
HAD JUST A MOMENT WITH PT-GAVE ENCOURAGEMENT AND HAD PRAYER WITH PT. RT MILTON IN TO SET PT UP ON CPAP. WILL FOLLOW
--- NOTE | 2021-04-18 14:55 | NUR ---
PATIENT'S AFTERNNON ASSESSMENT COMPLETE AND VS AND I+O CHARTED. PATIENT REMAINS ON 15L/NC HIGH FLOW AND 15L/NRB MASK. O2 SATS=83%. THIS RN INFORMED PATIENT WHAT HIS OXYGEN LEVELS ARE AND HE STILL DOES NOT WANT TO GO ON CPAP. RESPIRATIONS ARE 36/MIN AND SHALLOW WITH RETRACTIONS. PATIENT DENIES PAIN AND ANXIETY. "I'M OK FOR NOW." CALL LIGHT IN REACH AND ICE WATER REFILLED. NO OTHER CARE NEEDS AT THIS TIME.
--- NOTE | 2021-04-18 17:54 | NUR ---
BEFORE I LEFT THE PATIENT'S ROOM IN THE PREVIOUS NOTE I TOLD THE PATIENT I WAS GOING TO CALL HIS . PATIENT SAID,"NO, DONT DO THAT." PATIENT KNOWS WHERE HE IS AND IS AWARE OF WHAT IS GOING ON AROUND HIM. I SAID,"GREGORIOManoj I REALLY NEED TO CALL KADY AND HAVE HER COME IN THERE MAY NOT BE MUCH TIME. IF I DON'T CALL HER SHE IS NOT GOING TO FORGIVE ME." PATIENT SAID,"THAT'S OK. I FORGIVE YOU." I TOLD THE PATIENT I WOULD LET HIM REST A LITTLE AND I WOULD BE BACK IN A FEW MINUTES AND TO CALL ME FOR ANYTHING. PATIENT SAID,"OK".
--- NOTE | 2021-04-18 17:54 | NUR ---
THIS RN INTO SEE PATIENT AND RESPIRATIONS ARE 36MIN WITH SERNAL RETRACTIONS AND PATIENTSAYS HE "UNCOMFORTABLE,NOT HURTING". 5MG SL MORPHINE GIVEN WITH EVEN MEDS O2 SAT PRIOR TO MORPHINE WAS 58% ON 15L/NC HIGH FLOW AND 15L/NRB MASK. I DISCUSSED THIS WITH THE PATIENT AND HE DID NOT WANT TO GO ON THE CPAP, BUT WANTED TO TRY THE MORPHINE. RESPIRATIONS DOWN TO 28/MIN. CALL LIGHT IN REACH.
--- NOTE | 2021-04-18 18:21 | NUR ---
FINN DURAN ALERTED THIS RN THAT PT HAD DECIDED TO TAKE OFF HIS CPAP AND NON REBREATHER AND WAS SATING IN THE 50'S . WENT TO PT'S ROOM AND SAT DOWN AND HELD HIS HAND AND TALKED ABOUT IF HE REALLY WANTED TO DO THIS, EXPLAINED HIS 02 IS VERY LOW AND ASKED IF HE WAS TIRED. HE SAID "OF ALL THIS YES". ASKED IF HE WANTED ME TO CALL HIS OR ANYONE ELSE. HE SAID "NOT UNTIL ITS OVER" CALLED DR DEL REAL STATED HE WOULD COME DOWN.
--- NOTE | 2021-04-18 18:32 | NUR ---
PATIENT IN BED RESTING AT THIS TIME. PATIENT STATES HE IS COMFORTABLE. I&O'S CHARTED. CALL LIGHT IN REACH. NO FURTHER NEEDS AT THIS TIME.
--- NOTE | 2021-04-18 18:40 | NUR ---
JUST IN WITH THIS NURSE TO SEE PATIENT. DISCUSSED PATIENT'S WISHES AND PATIENT LET KNOW HE WAS READY TO GO. ASKED IF WE COULD CALL ANY ONE TO COME IN TO SAY GOODBYE? PATIENT SAID THE GOODBYES,"HAVE ALREADY BEEN SAID." I ASKED THE PATIENT IF HE WANTED ME TO WRITE DOWN ANY MESSAGE FOR HIS [place]. PATIENT SAID,"WE'VE ALREADY TALKED, SHE KNOWS, WHAT NEED SAID BARAHONA BEEN SAID." I HELD THE PATIENT'S HAND A FEW MINUTES AND LEFT THE ROOM TO GET ANOTHER DOSE OF MORPHINE WAS CHANGING THE FREQUENCY TIMES. CALL LIGHT IS IN PATIENT'S REACH.
--- NOTE | 2021-04-18 19:02 | NUR ---
THIS PATIENT WENT BACK IN TO SEE PATIENT. I ASKED PATIENT IF HE WAS NEEDING ANY MORE MEDICATION TO EASE HIS BREATHING AND HE SAID YES. 5MG MORPHINE SL REPEATED. PATIENT RESPIRATIONS ARE 38/MIN WITH RETRACTIONS. I ASKE PATIENT IF HE WANTED ME TO STAY IN THE ROOM WITH HIM AND HE SAID,"NOT YET." O2 SATS PRIOR TO THIS MORPHINE 55% WITH GOOD SPO2 WAVE FORM CALL LIGHT IS IN REACH.
--- NOTE | 2021-04-18 19:38 | NUR ---
BEDSIDE REPORT FROM KIM Coon RN, PER REPORT PT HAS REQUESTED TO BE MOVED TO COMFORT MEASURES TODAY, HE HAS HAD LONG CONVERSATION WITH HIS TODAY, AND HAS VERBALIZED THIS TO AND NURSING STAFF, HE ALSO IS VERY FIRM ABOUT NOT WANTING ANY FAMILY NOTIFIED OF IS STATUS UNTIL HE PASSES. PT RESTING IN BED ALERT.
--- NOTE | 2021-04-18 20:02 | NUR ---
MORPHINE 4MG IV ADMINISTERED FOR AIR HUNGER RESP SHORT AND RAPID 30BPM, AFTER ADMINISTRATION PT RESP SLOWED, LESS DISTRESS NOTED. 16 BPM.
--- NOTE | 2021-04-18 20:08 | NUR ---
PHONE CALL TO PASTORAL CARE AND pt'S pt HYPOXIC, RR 10. RN AT BEDSIDE HOLDING pt HAND. FAMILY ON WAY.
--- NOTE | 2021-04-18 20:11 | NUR ---
PT FACILA EXPRESSION GRIMACE/BROW FURROW. ATIVAN ADMINISTERED 1MG IV.
--- NOTE | 2021-04-18 20:13 | NUR ---
PT CALLED [facility] AT 1950 TO REQUEST STAFF. FINN HARRISON TO PT ROOM, SHE THEN CALLED BACK [facility] TO REQUEST NURSE TO ROOM, THIS RN INTO ROOM, PT VERBALIZED HE WANTS THE N.C. OXYGEN REMOVED, HE SAID "IM DONE I WANT THIS STUFF OFF" DISCUSSED WITH PT THAT THIS RN COULD GIVE MORPHINE TO HELP WITH SOB PT SAID "YES PLEASE" OXYGEN REMOVED.
--- NOTE | 2021-04-18 20:19 | NUR ---
FAMILY IN ROOM AT THIS TIME.
--- NOTE | 2021-04-18 20:25 | NUR ---
RESP ARREST AND CARDIAC ARREST AT THIS TIME. PAT AT BEDSIDE WITH SON. DISCUSSED THE THE TIME FRAME OF EVENT AND PT WISHES WITH FAMILY.
--- NOTE | 2021-04-18 20:27 | NUR ---
HOSPITALIST NOTIFIED OF pt AT 2024. pt'S FAMILY AT BEDSIDE.
--- NOTE | 2021-04-18 20:36 | NUR ---
PAT AND SON STOPPED AT [facility] TO SAY GOODBYE, THEY WANT TO GO HOME TO BE WITH THE REMAINDER OF THEIR FAMILY AT THIS TIME.
--- NOTE | 2021-04-18 21:14 | NUR ---
I WAS CONTACTED BY PAULA HAYDEN THAT PT WAS PASSING AND MY PRESENCE WAS REQUESTED. WHEN I ARRIVED, FAMILY HAD LEFT, PAULA CHOWDHURY INFORMED ME THAT PIONEER SIMEON WAS CHOSEN BY FAMILY. I NOTIFIED , THEY ARRIVED AND MET THEM AT [facility]. ASSISTED WITH LD TEACHER TO TRANSFER PT TO STRETCHER, EXCHANGED PAPER WORK AND ESCORTED BODY BACK TO VEHICLE. GOD BLESS PT AND HIS FAMILY
== END 2021-04-18 20:25 | DRG 177 ==
LOC: ED 21:53 → MS 04-13 00:41
PROVIDERS: ADMIT Internal Medicine; ATTEND Internal Medicine
PROC: 5A09557 Assistance with Respiratory Ventilation, Greater than 96 Consecutive Hours, Continuous Positive Airway Pressure (ICD-10-PCS; principal; 2021-04-13)
DX: J15.6 Pneumonia due to other Gram-negative bacteria (principal); J96.21 Acute and chronic respiratory failure with hypoxia; I50.23 Acute on chronic systolic (congestive) heart failure; I48.21 Permanent atrial fibrillation; Z20.822 Contact with and (suspected) exposure to COVID-19; Z66 Do not resuscitate; Z51.5 Encounter for palliative care; E78.5 Hyperlipidemia, unspecified; I11.0 Hypertensive heart disease with heart failure; J43.9 Emphysema, unspecified; N40.0 Benign prostatic hyperplasia without lower urinary tract symptoms; G62.9 Polyneuropathy, unspecified; Z87.891 Personal history of nicotine dependence; Z88.8 Allergy status to other drugs, medicaments and biological substances; Z79.899 Other long term (current) drug therapy; Z79.01 Long term (current) use of anticoagulants
CPT/HCPCS: 36415; 36600; 51702; 71045; 80048; 80053; 80162; 82803; 83735; 83880; 84484; 85025; 93005; 93010; 93306; 94640; 94660; 94760; 96368; 97110; 97162; 99285-25; A9270; C9803; J0456; J0696; J1940; J1956; J2060; J2270; J2543; J2930; J7060; U0003